=== PATIENT | male | born 1960 | race Caucasian/White ===

== ENCOUNTER → 2016-04-16 | Outpatient (CLI) | payer MEDICARE ==
[~2016-04-16] MED LIST: ALBU8.5H2 IH; ASPI-586 PO; AZIT500T2 PO; CEFD300C3 PO; CLAR500T2 PO; GABA300C PO; HYDR-3714 PO; LISI10TA2 PO; METO-270 PO; METO-272 PO; Metoprolol Succinate PO; PNT40TEC PO; PRD20T PO; PRED10TA22 PO
--- OUTSIDE RECORDS SUMMARY | 2016-04-16 10:15 | XMS REPORT | Continuity of Care Document ---
Author Author [facility] Organization [facility] Address Unknown Phone Unavailable Support Name Relationship Address Phone EMILY HOLGUIN MD Caregiver [address] [place] [address] CATHI LOVE Next Of Kin [address] [place] [address] Insurance Providers Payer Name Policy Number Subscriber Name Relationship [facility] [id number] Lizy Miranda 18 Self / Same As Patient Advance Directives Directive Response Recorded Date/Time Advance Directives No 01/22/14 12:39pm Health Care Power of Records Technician No 01/22/14 12:39pm Organ Donor No 01/22/14 12:39pm Resuscitation Status Full Code 01/22/14 12:39pm Problems No known problems or medical conditions. Medications Medication Dose Route Sig Days/Qty Instructions Order Date Discontinued Date Status [Metoprolol Succinate] 25 Mg PO DAILY 30 Qty 01/23/14 Active Pantoprazole Sod 40 Mg PO DAILY 30 Qty 01/23/14 Active Social History Social History Problem Response Recorded Date/Time Alcohol Use Past History 01/22/2014 12:52pm Recreational Drug Use No 01/22/2014 12:52pm Recent Foreign Travel No 01/22/2014 12:52pm Recent Infectious Disease Exposure No 01/22/2014 12:52pm Sexually Transmitted Disease No 01/22/2014 12:52pm HIV/AIDS No 01/22/2014 12:52pm Smoking Status Current Everyday Smoker 01/22/2014 12:40pm Query Response Start Date Stop Date Smoking Status Current Everyday Smoker Hospital Discharge Instructions Patient Instructions Physician Instructions Follow Up/Plan appointment with Dr Holguin in 2-4 weeks CARDIAC CATH DISCHARGE INSTRUCTIONS *Hold Metformin for 48 hours post heart cath. ACTIVITY * Go Home directly and rest. * Limit activity of the leg (or wrist if it was used) for 7 days including aerobics, swimming, jogging, bicycling, etc. * Restrict stair-climbing for 7 days if possible, if not, climb up with your non-cath leg, then bring together on the same step. * Avoid lifting, pushing, pulling or excessive movement of the affected extremity for 7 days. * Customary sexual activity may be resumed after 2 days-use caution not to use a position that strains or causes pain to the affected extremity. * No driving for 24 hours. * NO SMOKING. * Avoid straining for bowel movements for 7 days. * Gentle walking on level ground is allowed. * Returning to work will depend on the type of procedure and the results. Your doctor will discuss this with you. CALL YOUR DOCTOR FOR ANY OF THE FOLLOWING: *If bleeding from the puncture site occurs- Apply gentle pressure to site with clean cloth and call your doctor or EMS. * If a knot or lump forms under the skin, increases in size, or causes pain. * If bruising appears to be worsening or moving further down your leg instead of disappearing. * Temperature above 101 F. CARE OF YOUR GROIN INCISION; * Bruising or purple discoloration of the skin near the puncture site is common. * You may shower only, no bathtub bathing for 5 days. Be careful to avoid slipping as your leg may feel stiff. * If a closure device was used on your femoral artery, please see the attached guide regarding care of the device and your leg. * REMOVE the dressing from your groin the next day after your procedure in the shower. CARE OF YOUR WRIST INCISION; * Bruising or purple discoloration of the skin near the puncture site is common. * You may shower. * DO NOT submerge wrist. * Remove dressing in 24 hours. Plan of Care Discharge Date 01/23/14 4:10pm Disposition 01 HOME, SELF-CARE Instructions/Education Provided 2 Gram Sodium Diet (DC) Forms Provided PDI Cardiac Cath Prescriptions See Medications Section Referrals (Unspecified) Care Plan and Goals please schedule appointment with Dr. Virgen for evaluation for EGD Functional Status Query Response Date Recorded Patient Orientation Person Place Time Situation January 23, 2014 5:39pm Comprehension Ability Understands Concepts January 23, 2014 4:00am Allergies, Adverse Reactions, Alerts Allergen Type Severity Reaction Status Last Updated Penicillins ([id number]) Allergy Intermediate Active 01/22/14 Immunizations Name Given Type pneumococcal polysaccharide PPV23 01/23/14 Administered influenza, split (incl. purified surface antigen) 01/23/14 Administered Vital Signs Acute Vital Signs Vital Response Date/Time Temperature (Fahrenheit) 97.7 degrees F (97.6 - 99.5) Temperature (Calculated Celsius) 36.06107 degrees C (36.4 - 37.5) Temperature Source Temporal Pulse Rate (adult) 68 bpm (60 - 90) Respiratory Rate 10 bpm (12 - 24) O2 Sat by Pulse Oximetry 96 % (88 - 100) Blood Pressure 126/79 mm Hg Pain Pain Intensity 0 Height (Feet) 6 feet Height (Inches) 2.00 inches Height (Calculated Centimeters) 187.348628 cm Weight (Pounds) 189 pounds Weight (Ounces) 6.4 oz Weight (Calculated Grams) 66916.396 gm Weight (Calculated Kilograms) 85.166601 kilograms Calculated BMI 24.78 Results No known relevant diagnostic tests, laboratory data and/or discharge summary. Procedures Procedure Status Date Provider(s) Color Doppler echocardiography completed 01/22/14 EMILY HOLGUIN MD Tracing only of electrocardiogram completed 01/22/14 EMILY HOLGUIN MD Tracing only of electrocardiogram completed 01/22/14 EMILY HOLGUIN MD Encounters Encounter Location Date/Time Discharged Inpatient Via [facility] 01/22/14 12:18pm
[2016-04-16 10:41] LABS: CHOLESTEROL 164 MG/DL (< 200); DIRECT LDL 102 MG/DL (1-129); TRIGLYCERIDES 160 MG/DL (<150); VLDL CHOLESTEROL 32 MG/DL (5-40)
== END ==
LOC: LAB 10:11
PROVIDERS: ATTEND Family Medicine
DX: I25.10 Atherosclerotic heart disease of native coronary artery without angina pectoris (principal); J44.9 Chronic obstructive pulmonary disease, unspecified; R06.00 Dyspnea, unspecified; I10 Essential (primary) hypertension; I34.0 Nonrheumatic mitral (valve) insufficiency; R00.2 Palpitations; Z72.0 Tobacco use
CPT/HCPCS: 36415; 80061

== ENCOUNTER 2016-08-23 21:43 | Emergency (ER) | payer MEDICARE ==
[~2016-08-23] VITALS: Ht 188 cm; Wt 102.1 kg
--- NOTE | 2016-08-23 22:13 | ED Upper Extremity ---
General Chief Complaint: Upper Extremity Stated Complaint: RT SHOULDER PAIN Nursing Triage Note: RIGHT SHOULDER PAIN SINCE AM, NO KNOWN INJURY. Nursing Sepsis Screen: No Definite Risk Source: patient Exam Limitations: no limitations History of Present Illness Time seen by provider: 22:13 Allergies and Home Medications Allergies Coded Allergies: Penicillins (Unverified Allergy, Intermediate, 01/22/14) causes dysrhythmias Home Medications Aspirin 81 Mg Tablet.dr, 81 MG PO DAILY, (Reported) Lisinopril 10 Mg Tablet, 10 MG PO DAILY, (Reported) Metoprolol Succinate 50 Mg Tab.er.24h, 50 MG PO HS, (Reported) Past Zysxxag-Sltrfe-Mcdvwk Hx Patient Social History Alcohol Use: Denies Use Recreational Drug Use: No Type Used: Cigarettes Recent Foreign Travel: No Contact w/Someone Who Travel: No Recent Infectious Disease Expo: No Recent Hopitalizations: No Immunizations Up To Date Tetanus Booster (TDap): Unknown Seasonal Allergies Seasonal Allergies: No Surgeries HX Surgeries: Yes (R knee cartilage rpr, bl inguinal hernia rpr, Cardiac cath x2, lumbar fusio) Surgeries: Abdominal, Cardiac, Orthopedic Respiratory Hx Respiratory Disorders: Yes (HEMOPTYSIS WITH BRONCHITIS) Respiratory Disorders: Pneumonia, Chronic Bronchitis, COPD Cardiovascular Hx Cardiac Disorders: Yes (MILD BILATERAL CAROTID DISEASE) Cardiac Disorders: Coronary Artery Disease, Heart Attack, High Cholesterol, Hypertension Neurological Hx Neurological Disorders: No Reproductive System Hx Reproductive Disorders: No Sexually Transmitted Disease: No HIV/AIDS: No Genitourinary Hx Genitourinary Disorders: No Gastrointestinal Hx Gastrointestinal Disorders: Yes Gastrointestinal Disorders: Gastroesophageal Reflux, Gastrointestinal Bleed, Polyps, Ulcer Musculoskeletal Hx Musculoskeletal Disorders: Yes (RIGHT KNEE TORN CARTILAGE; BACK SURGERY 1988 ) Musculoskeletal Disorders: Arthritis, Chronic Back Pain Endocrine Hx Endocrine Disorders: No HEENT HX ENT Disorders: Yes (WEARS GLASSES; POOR DENTITION) HEENT Disorders: Tinnitis, Eye Injury Loss of Vision: Denies Hearing Impairment: Hard of Hearing Cancer Hx Cancer: No Psychosocial Hx Psychiatric Problems: Yes (MENTAL BLOCK ([place], [place] PSYCHIATRIC INSTUTITE FOR 3 YEARS) ) Behavioral Health Disorders: Violent Behavior Integumentary HX Skin/Integumentary Disorder: No (dry skin ) Blood Transfusions Hx Blood Disorders: No Adverse Reaction to a Blood Tr: No Family Medical History Family Medial History: Cardiomegaly 19 MOTHER Dysphasia G8 BROTHER G8 SISTER FH: cancer Hypertension G8 BROTHER G8 SISTER G8 SISTER Kidney disease 19 MOTHER Myocardial infarction Physical Exam Vital Signs Vital Sign - Last 12Hours 08/23/16 21:56 Temp 98.8 Pulse 97 Resp 16 B/P (MAP) 113/87 Pulse Ox 93 O2 Delivery Room Air Capillary Refill : Less Than 3 Seconds Progress/Results/Core Measures Results/Orders My Orders Orders - NIHARIKA BOLAÑOS Shoulder, Right, 3 Views (08/23/16 22:00) Prednisone Tablet (Deltasone Tablet) (08/23/16 23:00) Rx-Cyclobenzaprine Tablet (Rx-Flexeril T (08/23/16 22:52) Hydrocodone/Apap 10/325 Tablet (Lortab 1 (08/23/16 23:00) Vital Signs/I&O Vital Sign - Last 12Hours 08/23/16 21:56 Temp 98.8 Pulse 97 Resp 16 B/P (MAP) 113/87 Pulse Ox 93 O2 Delivery Room Air Blood Pressure Mean: 96 Departure Impression Impression: Primary Impression: Acromioclavicular joint pain Disposition: 01 HOME, SELF-CARE Condition: Improved Departure-Patient Inst. Decision time for Depature: 22:55 Referrals: AMANUEL ANDERSON MD (PCP) Primary Care Physician LONG MAC (Family) Primary Care Physician Patient Instructions: Active Range of Motion Exercises, Neck and Shoulders Add. Discharge Instructions: All discharge instructions reviewed with patient and/or family. Voiced understanding. Medications as instructed. Ibuprofen 800 mg by mouth every 8 hours as needed for pain. Ice pack or heating pad as needed for pain. Consider seeing a chiropractor. Avoid pushing, pulling, and lifting for 7-10 days. Return to the emergency department for worsened symptoms or any other concerns. Follow-up with your family practitioner for recheck in 7-10 days if no improvement in symptoms. Scripts Hydrocodone/Acetaminophen (Hydrocodon -Acetaminophen 5-325) 1 Each Tablet 1 EACH PO Q4H Y for PAIN, #14 TAB 0 Refills Prov: NIHARIKA BOLAÑOS 08/23/16 Cyclobenzaprine HCl (Cyclobenzaprine HCl) 10 Mg Tablet 10 MG PO Q8H Y for SPASMS, #14 TAB 0 Refills Prov: NIHARIKA BOLAÑOS 08/23/16 Prednisone (Prednisone) 20 Mg Tab 40 MG PO DAILY, #8 TAB 0 Refills Prov: NIHARIKA BOLAÑOS 08/23/16 NIHARIKA BOLAÑOS Aug 23, 2016 22:13
[2016-08-23] MEDS ORDERED: RX-CYCLOBENZAPRINE 10 MG (FLEXERIL) TAB PPK#3 PO STA (22:52)
[2016-08-23] MEDS ORDERED: HYDR-3812 PO (22:56)
[2016-08-23] MEDS ORDERED: PRD20T PO (22:56)
[2016-08-23] MEDS ORDERED: CYCL10TA9 PO (22:56)
[2016-08-23] MEDS ORDERED: predniSONE 20 MG TAB PO ONE (23:00)
[2016-08-23] MEDS ORDERED: HYDROcodone/APAP 10 MG/325 MG (LORTAB) TAB PO ONE (23:00)
[2016-08-23 23:02] VITALS: BP 124/84
--- NOTE | 2016-08-24 08:11 | Diagnostic Imaging Report ---
EXAMINATION: 3 views of the right shoulder. INDICATION: Right-sided pain. Findings: There is acromioclavicular arthritis with prominent inferior osteophytes. The glenohumeral joint demonstrate slight superior subluxation which may relate to rotator cuff thinning. There is no fracture or dislocation. No radiopaque foreign body. IMPRESSION: Degenerative changes. No acute process. Dictated by: Dictated on workstation # [id number]
== END 2016-08-23 23:01 | disposition home or self-care (01) ==
LOC: EDUNIT# 21:43 → ER 21:45
DX: M25.511 Pain in right shoulder (principal); I25.10 Atherosclerotic heart disease of native coronary artery without angina pectoris; I25.2 Old myocardial infarction; I10 Essential (primary) hypertension; M19.90 Unspecified osteoarthritis, unspecified site
CPT/HCPCS: 73030; 99283

== ENCOUNTER 2016-12-29 18:14 | Emergency (ER) | payer MEDICARE ==
[~2016-12-29] VITALS: Ht 188 cm; Wt 95.3 kg
[~2016-12-29 18:14] MED LIST changes: +CYCL10TA9 PO; +HYDR-3812 PO
[2016-12-29] MEDS ORDERED: ASPIRIN 81 MG CHEW (CHILDREN'S ASA) PO ONE (18:30)
[2016-12-29 18:33] LABS: BASOPHILS # (AUTO) 0.1 10^3/uL (0.0-0.1); BASOPHILS % (AUTO) 1 % (0-10); EOSINOPHILS # (AUTO) 0.3 10^3/uL (0.0-0.3); EOSINOPHILS % (AUTO) 3 % (0-10); LYMPHOCYTES # (AUTO) 3.6 X 10^3 (1.0-4.0); LYMPHOCYTES % (AUTO) 33 % (12-44); MEAN CORPUSCULAR HEMOGLOBIN 31 PG (25-34); MEAN CORPUSCULAR HGB CONC 33 G/DL (32-36); MEAN CORPUSCULAR VOLUME 93 FL (80-99); MEAN PLATELET VOLUME 12.5 FL (7.4-10.4); MONOCYTES % (AUTO) 9 % (0-12); NEUTROPHILS # (AUTO) 6.2 X 10^3 (1.8-7.8); NEUTROPHILS % (AUTO) 55 % (42-75); PLATELET COUNT 228 10^3/uL (130-400); RED BLOOD COUNT 4.98 10^6/uL (4.35-5.85); RED CELL DISTRIBUTION WIDTH 12.6 % (10.0-14.5); WHITE BLOOD COUNT 11.1 10^3/uL (4.3-11.0)
[2016-12-29 18:45] LABS: ALANINE AMINOTRANSFERASE 12 U/L (0-55); ALBUMIN 4.4 GM/DL (3.2-4.5); ANION GAP 10 MMOL/L (5-14); ASPARTATE AMINO TRANSFERASE 16 U/L (5-34); BILIRUBIN,TOTAL 0.2 MG/DL (0.1-1.0); BLOOD UREA NITROGEN 7 MG/DL (7-18); BUN/CREATININE RATIO 8; CALCIUM 9.6 MG/DL (8.5-10.1); CARBON DIOXIDE 28 MMOL/L (21-32); CHLORIDE 100 MMOL/L (98-107); CREATININE SERUM 0.83 MG/DL (0.60-1.30); GFR ESTIMATED > 60; GLUCOSE 103 MG/DL (70-105); MAGNESIUM 2.3 MG/DL (1.8-2.4); POTASSIUM 3.7 MMOL/L (3.6-5.0); SODIUM 138 MMOL/L (135-145); TOTAL PROTEIN 8.1 GM/DL (6.4-8.2)
[2016-12-29 18:52] LABS: MYOGLOBIN SERUM 29.4 NG/ML (10.0-92.0)
[2016-12-29 18:56] LABS: INR 0.9 (0.8-1.4); PROTHROMBIN TIME PATIENT 12.4 SEC (12.2-14.7)
--- NOTE | 2016-12-29 19:09 | Diagnostic Imaging Report ---
INDICATION: Chest pain, coughing up thick phlegm starting today. COMPARISON STUDY: Chest dated 03/04/2016. FINDINGS: Emphysematous changes are present mainly in the upper lungs. It is a little greater on the right than the left. Some fibrotic changes are again seen in the right lung base. Heart size and vascularity are normal. There are no pleural effusions. IMPRESSION: Emphysematous changes and fibrosis in the right lung base are again identified. Dictated by: Dictated on workstation # [id number]
--- NOTE | 2016-12-29 20:02 | ED Chest Pain ---
General Chief Complaint: Respiratory Problems Stated Complaint: SOA Nursing Triage Note: ARRIVED VIA AMBULANCE TO ROOM 08. COMPLAINS OF INCREASED SOA STARTING TODAY ALONG WITH SOME CHEST TIGHTNESS. STATES HE HAS HAD PNEUMONIA BEFORE AND THIS IS WHAT IT FELT LIKE. Nursing Sepsis Screen: No Definite Risk Source: patient Exam Limitations: no limitations Allergies and Home Medications Allergies Coded Allergies: Penicillins (Unverified Allergy, Intermediate, 01/22/14) causes dysrhythmias Home Medications Aspirin 81 Mg Tablet.dr, 81 MG PO DAILY, (Reported) Lisinopril 10 Mg Tablet, 10 MG PO DAILY, (Reported) Metoprolol Succinate 50 Mg Tab.er.24h, 50 MG PO HS, (Reported) Past Ztkajwd-Vuqjrc-Bzuqwg Hx Patient Social History Alcohol Use: Past History Recreational Drug Use: No (OLD HX OF POT) Smoking Status: Current Everyday Smoker Type Used: Cigarettes Recent Foreign Travel: No Contact w/Someone Who Travel: No Recent Infectious Disease Expo: No Recent Hopitalizations: No Immunizations Up To Date Tetanus Booster (TDap): Unknown Seasonal Allergies Seasonal Allergies: No Surgeries History of Surgeries: Yes (R knee cartilage rpr, bl inguinal hernia rpr, Cardiac cath x2, lumbar fusio) Surgeries: Abdominal, Cardiac, Orthopedic Respiratory History of Respiratory Disorde: Yes (HEMOPTYSIS WITH BRONCHITIS) Respiratory Disorders: Pneumonia, Chronic Bronchitis, COPD Currently Using CPAP: No Currently Using BIPAP: No Cardiovascular History of Cardiac Disorders: Yes (MILD BILATERAL CAROTID DISEASE) Cardiac Disorders: Coronary Artery Disease, Heart Attack, High Cholesterol, Hypertension Neurological History of Neurological Disord: No Reproductive System Hx Reproductive Disorders: No Sexually Transmitted Disease: No HIV/AIDS: No Genitourinary History of Genitourinary Disor: No Gastrointestinal History of Gastrointestinal Di: Yes Gastrointestinal Disorders: Gastroesophageal Reflux, Gastrointestinal Bleed, Polyps, Ulcer Musculoskeletal History of Musculoskeletal Dis: Yes (RIGHT KNEE TORN CARTILAGE; BACK SURGERY 1988) Musculoskeletal Disorders: Arthritis, Chronic Back Pain Endocrine History of Endocrine Disorders: No HEENT History of HEENT Disorders: Yes HEENT Disorders: Tinnitis, Eye Injury Loss of Vision: Denies Hearing Impairment: Hard of Hearing Cancer History of Cancer: No Psychosocial History of Psychiatric Problem: Yes (MENTAL BLOCK ([place], [place] PSYCHIATRIC INSTUTITE FOR 3 YEARS) ) Behavioral Health Disorders: Violent Behavior Integumentary History of Skin or Integumenta: No Blood Transfusions History of Blood Disorders: No Adverse Reaction to a Blood Tr: No Family Medical History Significant Family History: No Pertinent Family Hx Family Medial History: Cardiomegaly 19 MOTHER Dysphasia G8 BROTHER G8 SISTER FH: cancer Hypertension G8 BROTHER G8 SISTER G8 SISTER Kidney disease 19 MOTHER Myocardial infarction Physical Exam Vital Signs Vital Sign - Last 12Hours 12/29/16 18:14 Temp 97.9 Pulse 101 Resp 18 B/P (MAP) 120/85 Pulse Ox 92 Capillary Refill : Less Than 3 Seconds Progress/Results/Core Measures Results/Orders Lab Results Laboratory Tests Test 12/29/16 18:18 12/29/16 18:40 Range/Units White Blood Count 11.1 H 4.3-11.0 10^3/uL Red Blood Count 4.98 4.35-5.85 10^6/uL Hemoglobin 15.2 13.3-17.7 G/DL Hematocrit 46 40-54 % Mean Corpuscular Volume 93 80-99 FL Mean Corpuscular Hemoglobin 31 25-34 PG Mean Corpuscular Hemoglobin Concent 33 32-36 G/DL Red Cell Distribution Width 12.6 10.0-14.5 % Platelet Count 228 130-400 10^3/uL Mean Platelet Volume 12.5 H 7.4-10.4 FL Neutrophils (%) (Auto) 55 42-75 % Lymphocytes (%) (Auto) 33 12-44 % Monocytes (%) (Auto) 9 0-12 % Eosinophils (%) (Auto) 3 0-10 % Basophils (%) (Auto) 1 0-10 % Neutrophils # (Auto) 6.2 1.8-7.8 X 10^3 Lymphocytes # (Auto) 3.6 1.0-4.0 X 10^3 Monocytes # (Auto) 1.0 0.0-1.0 X 10^3 Eosinophils # (Auto) 0.3 0.0-0.3 10^3/uL Basophils # (Auto) 0.1 0.0-0.1 10^3/uL Sodium Level 138 135-145 MMOL/L Potassium Level 3.7 3.6-5.0 MMOL/L Chloride Level 100 98-107 MMOL/L Carbon Dioxide Level 28 21-32 MMOL/L Anion Gap 10 5-14 MMOL/L Blood Urea Nitrogen 7 7-18 MG/DL Creatinine 0.83 0.60-1.30 MG/DL Estimat Glomerular Filtration Rate > 60 BUN/Creatinine Ratio 8 Glucose Level 103 70-105 MG/DL Calcium Level 9.6 8.5-10.1 MG/DL Magnesium Level 2.3 1.8-2.4 MG/DL Total Bilirubin 0.2 0.1-1.0 MG/DL Aspartate Amino Transf (AST/SGOT) 16 5-34 U/L Alanine Aminotransferase (ALT/SGPT) 12 0-55 U/L Alkaline Phosphatase 72 40-136 U/L Myoglobin 29.4 10.0-92.0 NG/ML Troponin I < 0.30 <0.30 NG/ML C-Reactive Protein High Sensitivity 0.29 0.00-0.50 MG/DL Total Protein 8.1 6.4-8.2 GM/DL Albumin 4.4 3.2-4.5 GM/DL Prothrombin Time 12.4 12.2-14.7 SEC INR Comment 0.9 0.8-1.4 Activated Partial Thromboplast Time 29 24-35 SEC My Orders Orders - DAVEY MCCANN MD Cbc With Automated Diff (12/29/16 18:) Magnesium (12/29/16 18:23) Ekg Tracing (12/29/16 18:) Cardiac Profile 1 (12/29/16) Comprehensive Metabolic Panel (12/29/16 18:) Myoglobin Serum (12/29/16:) Protime With Inr (12/29/16:) Partial Thromboplastin Time (12/29/16:) O2 (12/29/16:) Monitor-Rhythm Ecg Trace Only (12/29/16) Lipid Panel (12/30/16 06:00) Aspirin Chewable Tablet (Baby Aspirin Ch (12/29/16 18:30) Saline Lock/Iv-Start (12/29/16:) Chest Pa/Lat (2 View) (12/29/16 18:) Hs C Reactive Protein (12/29/16:) Medications Given in ED Current Medications Medications Dose Ordered Sig/Mikayla Route Start Time Stop Time Status Last Admin Dose Admin Aspirin 243 mg ONCE ONCE PO 12/29/16 18:30 10/11/17 18:31 DC 12/29/16 18:38 243 MG Vital Signs/I&O Vital Sign - Last 12Hours 12/29/16 18:14 Temp 97.9 Pulse 101 Resp 18 B/P (MAP) 120/85 Pulse Ox 92 Blood Pressure Mean: 97 Progress Note : Time: 20:08 Progress Note Patient's workup was unremarkable. Chest x-ray showed persistent fibrosis or scarring in the right lower lung which correlates with his stated area of pain. Patient had no significant shortness of breath and denied any pain after the DuoNeb treatment. Patient was advised to discontinue smoking and resume his inhaled medications. He was advised follow-up with his primary care provider soon as possible. A pro-air inhaler was dispensed at the time of discharge. ECG Initial ECG Impression Date: Dec 29, 2016 Initial ECG Impression Time: 18:31 Initial ECG Rate: 91 Initial ECG Rhythm: Normal Sinus Comment Normal sinus rhythm with no ST elevation or depression. No abnormal intervals. Left axis deviation by automated read. Diagnostic Imaging Diagonstic Imaging: Xray Plain Films/CT/US/NM/MRI: chest Comments Chest x-ray viewed by me and report reviewed. See report below: NAME: LIZY MIRANDA [facility] REC#: [id number] PT STATUS: REG ER : 1960 PHYSICIAN: DAVEY MCCANN MD ADMIT DATE: 12/29/16/ER Signed Date of Exam: 12/29/16 CHEST PA/LAT (2 VIEW) INDICATION: Chest pain, coughing up thick phlegm starting today. COMPARISON STUDY: Chest dated 03/04/2016. FINDINGS: Emphysematous changes are present mainly in the upper lungs. It is a little greater on the right than the left. Some fibrotic changes are again seen in the right lung base. Heart size and vascularity are normal. There are no pleural effusions. IMPRESSION: Emphysematous changes and fibrosis in the right lung base are again identified. Dictated by: Dictated on workstation # [id number] Dict: 12/29/161855 Trans: 12/29/161909 Interpreted by: JYOTI RENNER MD Electronically signed by: JYOTI RENNER MD 12/29/161909 Departure Impression Impression: Primary Impression: COPD exacerbation Additional Impression: Chest tightness Disposition: 01 HOME, SELF-CARE Condition: Improved Departure-Patient Inst. Decision time for Depature: 20:07 Referrals: AMANUEL ANDERSON MD (PCP) Primary Care Physician LONG MAC (Family) Primary Care Physician Patient Instructions: Chronic Obstructive Pulmonary Disease (COPD), Including Emphysema Add. Discharge Instructions: Reduce your smoking and work toward quitting. Seek assistance from your primary care provider if necessary. Please follow-up with your primary care provider as soon as possible to reestablish your medication regimen. Return to the emergency room if symptoms worsen. Use your pro-air (albuterol) inhaler up to 4 puffs in a four-hour period of time as needed for shortness of air, wheezing or uncontrolled cough. All discharge instructions reviewed with patient and/or family. Voiced understanding. DAVEY MCCANN MD Dec 29, 2016 20:02
[2016-12-29] MEDS ORDERED: RX-ALBUTEROL INHALER (PROAIR) 8 GM IH STA (20:06)
[2016-12-29 20:15] VITALS: BP 109/73
== END 2016-12-29 20:15 | disposition home or self-care (01) ==
LOC: EDUNIT# 18:14 → ER 18:16
DX: J44.1 Chronic obstructive pulmonary disease with (acute) exacerbation (principal); R07.89 Other chest pain; I25.10 Atherosclerotic heart disease of native coronary artery without angina pectoris; I10 Essential (primary) hypertension; I25.2 Old myocardial infarction; E78.00 Pure hypercholesterolemia, unspecified; K21.9 Gastro-esophageal reflux disease without esophagitis; F17.210 Nicotine dependence, cigarettes, uncomplicated; Z87.19 Personal history of other diseases of the digestive system; Z98.1 Arthrodesis status; Z87.01 Personal history of pneumonia (recurrent); Z82.49 Family history of ischemic heart disease and other diseases of the circulatory system; Z79.82 Long term (current) use of aspirin
CPT/HCPCS: 36415; 71020; 80053; 83735; 83874; 84484; 85025; 85610; 85730; 86141; 93005; 93041

== ENCOUNTER 2017-01-01 12:41 | Observation (INO) | payer MEDICARE ==
[~2017-01-01] VITALS: Ht 167.6 cm; Wt 95.3 kg
[2017-01-01] MEDS ORDERED: RT-ALBUINH IH (12:54)
[2017-01-01] MEDS ORDERED: NITROGLYCERIN 0.4 MG SL TABS BTL 25'S SL ONE (12:55)
[2017-01-01] MEDS ORDERED: ASPIRIN 81 MG CHEW (CHILDREN'S ASA) ONE (12:55)
[2017-01-01] MEDS ORDERED: NS IV 1000 ML 1,000 ML IV ONE (13:02)
[2017-01-01] MEDS: NITROGLYCERIN 0.4 MG SL TABS BTL 25'S SL PRN ×2 (13:06→13:14)
--- NOTE | 2017-01-01 13:11 | ED Chest Pain ---
General Chief Complaint: Chest Pain Stated Complaint: CP Nursing Triage Note: PT C O OF CHEST PAIN STARTED APPROX 1 HOUR AGO Nursing Sepsis Screen: No Definite Risk Source: patient, family (daughter) Exam Limitations: no limitations History of Present Illness Time seen by provider: 12:52 Initial Comments Patient presents to ER by private conveyance with a chief complaint that he is having chest pain in the substernal region that feels like someone is stabbing him with a knife that began at 11 AM this morning. The pain radiates directly to his back and is different from the right shoulder pain he felt before his heart attacks. He was accompanied with some shortness of breath and increased coughing for the past couple days. He was here in the ER 2 days ago and prescribed an inhaler for COPD exacerbation. He smokes one half packs a day has blood pressure problems but does not take a statin nor have a history of hyperthyroidism. He has strong family history for coronary disease as well as has had a history of 2 heart attacks many years ago. He is known to Dr. Holguin and has had a heart catheter approximately one year ago. According to the June 2015 cardiac catheter:multiple moderate disease in the right coronary artery nonobstructive disease, prominent ascending aorta and aortic arch with no dissection or aneurysm. Allergies and Home Medications Allergies Coded Allergies: Penicillins (Unverified Allergy, Intermediate, 01/22/14) causes dysrhythmias Home Medications Albuterol Sulfate 1 Puff Puff, 2 PUFF IH Q4H, (Reported) 1 PUFF = 90 MCG Aspirin 81 Mg Tablet.dr, 81 MG PO DAILY, (Reported) Lisinopril 10 Mg Tablet, 10 MG PO DAILY, (Reported) Metoprolol Succinate 50 Mg Tab.er.24h, 50 MG PO HS, (Reported) Review of Systems Constitutional: No chills, No diaphoresis EENTM: No Eye Pain, No Ear Pain Respiratory: See HPI, Cough, Shortness of Air, SOA With Exertion Cardiovascular: See HPI, Chest Pain, Denies Edema, Denies Irregular Heart Rate , Denies Lightheadedness, Denies Palpitations, Denies Syncope Gastrointestinal: Denies Abdomen Distended, Denies Abdominal Pain, Denies Blood Streaked Stools, Denies Constipated, Denies Diarrhea, Denies Nausea, Denies Vomiting Genitourinary: Denies Burning, Denies Discharge Musculoskeletal: No back pain, No joint pain Skin: No pruritus, No rash Psychiatric/Neurological: Denies Headache, Denies Numbness, Denies Paresthesia Past Gjojuoc-Hmdyub-Hasgbb Hx Patient Social History Alcohol Use: Denies Use Recreational Drug Use: No Smoking Status: Current Everyday Smoker Type Used: Cigarettes Recent Foreign Travel: No Contact w/Someone Who Travel: No Recent Infectious Disease Expo: No Recent Hopitalizations: No Physical Abuse: No Sexual Abuse: No Immunizations Up To Date Tetanus Booster (TDap): Unknown Seasonal Allergies Seasonal Allergies: No Surgeries History of Surgeries: Yes (R knee cartilage rpr, bl inguinal hernia rpr, Cardiac cath x2, lumbar fusio) Surgeries: Abdominal, Cardiac, Orthopedic Respiratory History of Respiratory Disorde: Yes (HEMOPTYSIS WITH BRONCHITIS) Respiratory Disorders: Pneumonia, Chronic Bronchitis, COPD Currently Using CPAP: No Currently Using BIPAP: No Cardiovascular History of Cardiac Disorders: Yes (MILD BILATERAL CAROTID DISEASE) Cardiac Disorders: Coronary Artery Disease, Heart Attack, High Cholesterol, Hypertension Neurological History of Neurological Disord: No Reproductive System Hx Reproductive Disorders: No Sexually Transmitted Disease: No HIV/AIDS: No Genitourinary History of Genitourinary Disor: No Gastrointestinal History of Gastrointestinal Di: Yes Gastrointestinal Disorders: Gastroesophageal Reflux, Gastrointestinal Bleed, Polyps, Ulcer Musculoskeletal History of Musculoskeletal Dis: Yes (RIGHT KNEE TORN CARTILAGE; BACK SURGERY 1988) Musculoskeletal Disorders: Arthritis, Chronic Back Pain Endocrine History of Endocrine Disorders: No HEENT History of HEENT Disorders: Yes HEENT Disorders: Tinnitis, Eye Injury Loss of Vision: Denies Hearing Impairment: Hard of Hearing Cancer History of Cancer: No Psychosocial History of Psychiatric Problem: Yes (MENTAL BLOCK ([place], [place] [facility] FOR 3 YEARS) ) Behavioral Health Disorders: Violent Behavior Suicide Risk Score: 0 Integumentary History of Skin or Integumenta: No Blood Transfusions History of Blood Disorders: No Adverse Reaction to a Blood Tr: No Family Medical History Significant Family History: No Pertinent Family Hx Family Medial History: Cardiomegaly 19 MOTHER Dysphasia G8 BROTHER G8 SISTER FH: cancer Hypertension G8 BROTHER G8 SISTER G8 SISTER Kidney disease 19 MOTHER Myocardial infarction Physical Exam Vital Signs Vital Sign - Last 12Hours 01/01/17 12:41 Temp 97.7 Pulse 82 Resp 18 B/P (MAP) 131/95 Pulse Ox 92 O2 Delivery Room Air Capillary Refill : Less Than 3 Seconds General Appearance: WD/WN, Mild Distress HEENT: PERRL/EOMI, Pharynx Normal Neck: Full Range of Motion, Normal Inspection, Non Tender, Supple Respiratory: Chest Non Tender, No Accessory Muscle Use, No Respiratory Distress , No Crackles, Decreased Breath Sounds, Wheezing (you explored wheezes especially left lower base) Cardiovascular: Regular Rate, Rhythm, No Edema, Normal Peripheral Pulses Gastrointestinal: Normal Bowel Sounds, Non Tender, Soft Extremity: Normal Capillary Refill, No Pedal Edema Neurologic/Psychiatric: Alert, Oriented x3, Normal Mood/Affect Skin: Normal Color, Warm/Dry Progress/Results/Core Measures Results/Orders Lab Results Laboratory Tests Test 01/01/17 12:40 01/01/17 13:09 Range/Units White Blood Count 8.6 4.3-11.0 10^3/uL Red Blood Count 4.77 4.35-5.85 10^6/uL Hemoglobin 14.6 13.3-17.7 G/DL Hematocrit 44 40-54 % Mean Corpuscular Volume 91 80-99 FL Mean Corpuscular Hemoglobin 31 25-34 PG Mean Corpuscular Hemoglobin Concent 34 32-36 G/DL Red Cell Distribution Width 12.6 10.0-14.5 % Platelet Count 219 130-400 10^3/uL Mean Platelet Volume 11.8 H 7.4-10.4 FL Neutrophils (%) (Auto) 61 42-75 % Lymphocytes (%) (Auto) 29 12-44 % Monocytes (%) (Auto) 8 0-12 % Eosinophils (%) (Auto) 2 0-10 % Basophils (%) (Auto) 1 0-10 % Neutrophils # (Auto) 5.2 1.8-7.8 X 10^3 Lymphocytes # (Auto) 2.5 1.0-4.0 X 10^3 Monocytes # (Auto) 0.7 0.0-1.0 X 10^3 Eosinophils # (Auto) 0.2 0.0-0.3 10^3/uL Basophils # (Auto) 0.1 0.0-0.1 10^3/uL Prothrombin Time 12.7 12.2-14.7 SEC INR Comment 0.9 0.8-1.4 Activated Partial Thromboplast Time 33 24-35 SEC Sodium Level 138 135-145 MMOL/L Potassium Level 4.1 3.6-5.0 MMOL/L Chloride Level 102 98-107 MMOL/L Carbon Dioxide Level 26 21-32 MMOL/L Anion Gap 10 5-14 MMOL/L Blood Urea Nitrogen 9 7-18 MG/DL Creatinine 0.83 0.60-1.30 MG/DL Estimat Glomerular Filtration Rate > 60 BUN/Creatinine Ratio 11 Glucose Level 98 70-105 MG/DL Calcium Level 9.7 8.5-10.1 MG/DL Magnesium Level 2.1 1.8-2.4 MG/DL Total Bilirubin 0.5 0.1-1.0 MG/DL Aspartate Amino Transf (AST/SGOT) 12 5-34 U/L Alanine Aminotransferase (ALT/SGPT) 10 0-55 U/L Alkaline Phosphatase 60 40-136 U/L Myoglobin 33.8 10.0-92.0 NG/ML Troponin I < 0.30 <0.30 NG/ML C-Reactive Protein High Sensitivity 0.29 0.00-0.50 MG/DL Total Protein 7.3 6.4-8.2 GM/DL Albumin 4.1 3.2-4.5 GM/DL Urine Color YELLOW Urine Clarity SLIGHTLY CLOUDY Urine pH 7 5-9 Urine Specific [place] 1.010 L 1.016-1.022 Urine Protein NEGATIVE NEGATIVE Urine Glucose (UA) NEGATIVE NEGATIVE Urine Ketones NEGATIVE NEGATIVE Urine Nitrite NEGATIVE NEGATIVE Urine Bilirubin NEGATIVE NEGATIVE Urine Urobilinogen NORMAL NORMAL MG/DL Urine Leukocyte Esterase NEGATIVE NEGATIVE Urine RBC (Auto) NEGATIVE NEGATIVE Urine RBC NONE /HPF Urine WBC NONE /HPF Urine Squamous Epithelial Cells 0-2 /HPF Urine Crystals NONE /LPF Urine Bacteria TRACE /HPF Urine Casts NONE /LPF Urine Mucus NEGATIVE /LPF Urine Culture Indicated NO My Orders Orders - BRIDGETT WELLINGTON Nitroglycerin 0.4 Mg Btl 25's (Nitrostat (01/01/17 12:55) Aspirin Chewable Tablet (Baby Aspirin Ch (01/01/17 12:55) Cbc With Automated Diff (01/01/17 13:02) Magnesium (01/01/17 13:02) Ekg Tracing (01/01/17 13:02) Cardiac Profile 1 (01/01/17 13:02) Comprehensive Metabolic Panel (01/01/17 13:02) Myoglobin Serum (01/01/17 13:02) Protime With Inr (01/01/17 13:02) Partial Thromboplastin Time (01/01/17 13:02) O2 (01/01/17 13:02) Monitor-Rhythm Ecg Trace Only (01/01/17 13:02) Lipid Panel (01/02/17 06:00) Aspirin Chewable Tablet (Baby Aspirin Ch (01/01/17 13:15) Nitroglycerin 0.4 Mg Btl 25's (Nitrostat (01/01/17 13:15) Saline Lock/Iv-Start (01/01/17 13:02) Hs C Reactive Protein (01/01/17 13:02) Ua Culture If Indicated (01/01/17 13:02) Saline Lock/Iv-Start (01/01/17 13:02) Ns Iv 1000 Ml (Sodium Chloride 0.9%) (01/01/17 13:02) Chest Pa/Lat (2 View) (01/01/17 13:02) Albuterol/Ipra Inhalation Soln (Duoneb I (01/01/17 13:15) Svn Sm Volume Nebulizer Rt-Rfs (01/01/17 13:02) Methylprednisolone Sod Succ (Solu-Medrol (01/01/17 13:45) Medications Given in ED Current Medications Medications Dose Ordered Sig/Mikayla Route Start Time Stop Time Status Last Admin Dose Admin Albuterol/ Ipratropium 3 ml ONCE ONCE INH 01/01/17 13:15 01/01/17 13:16 DC 01/01/17 13:19 3 ML Aspirin 324 mg ONCE ONCE PO 01/01/17 13:15 01/01/17 13:16 DC 01/01/17 13:08 243 MG Methylprednisolone Sodium Succinate 62.5 mg ONCE ONCE IVP 01/01/17 13:45 01/01/17 13:46 DC 01/01/17 13:53 62.5 MG Nitroglycerin 0.4 mg UD PRN SL 01/01/17 13:15 01/01/17 13:14 0.4 MG Sodium Chloride 1,000 ml @ 0 mls/hr Q0M ONCE IV 01/01/17 13:02 01/01/17 13:06 DC 01/01/17 13:13 1,000 MLS/HR Vital Signs/I&O Vital Sign - Last 12Hours 01/01/17 01/01/17 01/01/17 12:41 12:41 13:21 Temp 97.7 Pulse 82 Resp 18 B/P (MAP) 131/95 Pulse Ox 92 91 O2 Delivery Room Air Room Air Intake and Output 01/02/17 00:00 Intake Total 1000 ml Balance 1000 ml Blood Pressure Mean: 107 ECG Initial ECG Impression Date: Jan 01, 2017 Initial ECG Impression Time: 12:41 Initial ECG Rate: 85 Initial ECG Rhythm: Normal Sinus Initial ECG Intervals: Normal Initial ECG Impression: Normal Initial ECG Comparisson: No Previous ECG Available Comment No T-wave elevation or depression. Diagnostic Imaging Diagonstic Imaging: Xray Plain Films/CT/US/NM/MRI: chest Comments NAME: LIZY MIRANDA MED REC#: [id number] PHYSICIAN: BRIDGETT WELLINGTON MD CC: PIO MEDINA MD; BRIDGETT WELLINGTON Page 1 of 1 RADIOLOGY REPORT [facility] [place], [place] CC: PIO MEDINA MD; BRIDGETT WELLINGTON Page 1 of 1 RADIOLOGY REPORT NAME: LIZY MIRANDA MED REC#: [id number] PT STATUS: REG ER : 1960 PHYSICIAN: BRIDGETT WELLINGTON MD ADMIT DATE: 01/01/17/ER Signed Date of Exam: 01/01/17 CHEST PA/LAT (2 VIEW) INDICATION: Chest pain. Comparison made to prior study from December 29, 2016. FINDINGS: Advanced features of COPD are demonstrated with pulmonary hyperinflation and prominent interstitial markings. There is no focal infiltrate or evidence of an effusion. There is no evidence of failure. There is no acute osseous abnormality. IMPRESSION: Advanced features of COPD without radiographic evidence of an acute superimposed cardiopulmonary process. Dictated by: Dictated on workstation # [id number] Dict: 01/01/171400 Trans: 01/01/171416 Interpreted by: PIO MEDINA MD Electronically signed by: PIO MEDINA MD 01/01/171416 Reviewed: Reviewed by Ca Departure Communication (Admissions) Time/Spoke to Admitting Phy: 14:39 Communication Vela: Discussed the case, imaging, labs and she recommends consultation cardiology and doing steroids and albuterol treatments as well as trending troponin and EKG. Time/Spoke to Consulting Phy: 14:43 Communication/Consulting Dr. Kimbrough: Bolus dose of 300 mg Plavix, aspirin and observed overnight. Impression Impression: Primary Impression: Chest pain Qualified Codes: R07.9 - Chest pain, unspecified Additional Impression: COPD with exacerbation Disposition: ADMITTED INPATIENT Condition: Stable Admissions Decision to Admit Reason: Admit from ER (General) Decision to Admit/Date: Jan 01, 2017 Time/Decision to Admit Time: 14:39 Departure-Patient Inst. Referrals: AMANUEL ANDERSON MD (PCP) Primary Care Physician LONG MAC (Family) Primary Care Physician Copy Copies To 1: AMANUEL ANDERSON MD Copies To 2: EMILY HOLGUIN MD, TITUS J Jan 01, 2017 13:11
[2017-01-01 13:13] LABS: BASOPHILS # (AUTO) 0.1 10^3/uL (0.0-0.1); BASOPHILS % (AUTO) 1 % (0-10); EOSINOPHILS # (AUTO) 0.2 10^3/uL (0.0-0.3); EOSINOPHILS % (AUTO) 2 % (0-10); LYMPHOCYTES # (AUTO) 2.5 X 10^3 (1.0-4.0); LYMPHOCYTES % (AUTO) 29 % (12-44); MEAN CORPUSCULAR HEMOGLOBIN 31 PG (25-34); MEAN CORPUSCULAR HGB CONC 34 G/DL (32-36); MEAN CORPUSCULAR VOLUME 91 FL (80-99); MEAN PLATELET VOLUME 11.8 FL (7.4-10.4); MONOCYTES # (AUTO) 0.7 X 10^3 (0.0-1.0); MONOCYTES % (AUTO) 8 % (0-12); NEUTROPHILS # (AUTO) 5.2 X 10^3 (1.8-7.8); NEUTROPHILS % (AUTO) 61 % (42-75); PLATELET COUNT 219 10^3/uL (130-400); RED BLOOD COUNT 4.77 10^6/uL (4.35-5.85); RED CELL DISTRIBUTION WIDTH 12.6 % (10.0-14.5); WHITE BLOOD COUNT 8.6 10^3/uL (4.3-11.0)
[2017-01-01] MEDS ORDERED: ASPIRIN 81 MG CHEW (CHILDREN'S ASA) PO ONE (13:15)
[2017-01-01] MEDS ORDERED: RT-ALBUTEROL/IPRATROPIUM 3 ML (DUONEB) VIAL INH ONE (13:15)
[2017-01-01 13:17] LABS: INR 0.9 (0.8-1.4); PROTHROMBIN TIME PATIENT 12.7 SEC (12.2-14.7)
[2017-01-01 13:21] LABS: BILIRUBIN,URINE NEGATIVE (NEGATIVE); KETONES,URINE NEGATIVE (NEGATIVE); LEUKOCYTE ESTERASE ,URINE NEGATIVE (NEGATIVE); NITRITE,URINE NEGATIVE (NEGATIVE); PH,URINE 7 (5-9); PROTEIN,URINE NEGATIVE (NEGATIVE); UROBILINOGEN,URINE NORMAL (NORMAL)
[2017-01-01 13:26] LABS: ALANINE AMINOTRANSFERASE 10 U/L (0-55); ALBUMIN 4.1 GM/DL (3.2-4.5); ANION GAP 10 MMOL/L (5-14); ASPARTATE AMINO TRANSFERASE 12 U/L (5-34); BILIRUBIN,TOTAL 0.5 MG/DL (0.1-1.0); BLOOD UREA NITROGEN 9 MG/DL (7-18); BUN/CREATININE RATIO 11; CALCIUM 9.7 MG/DL (8.5-10.1); CARBON DIOXIDE 26 MMOL/L (21-32); CHLORIDE 102 MMOL/L (98-107); CREATININE SERUM 0.83 MG/DL (0.60-1.30); GFR ESTIMATED > 60; GLUCOSE 98 MG/DL (70-105); MAGNESIUM 2.1 MG/DL (1.8-2.4); POTASSIUM 4.1 MMOL/L (3.6-5.0); SODIUM 138 MMOL/L (135-145); TOTAL PROTEIN 7.3 GM/DL (6.4-8.2)
[2017-01-01 13:32] LABS: SQUAMOUS EPITHELIAL CELL,UR 0-2 /HPF
[2017-01-01 13:33] LABS: MYOGLOBIN SERUM 33.8 NG/ML (10.0-92.0)
[2017-01-01] MEDS ORDERED: methylPREDNISolone 125 MG (Solu-MEDROL) VIAL IVP ONE (13:45)
--- NOTE | 2017-01-01 14:05 | Diagnostic Imaging Report ---
INDICATION: Chest pain. Comparison made to prior study from December 29, 2016. FINDINGS: Advanced features of COPD are demonstrated with pulmonary hyperinflation and prominent interstitial markings. There is no focal infiltrate or evidence of an effusion. There is no evidence of failure. There is no acute osseous abnormality. IMPRESSION: Advanced features of COPD without radiographic evidence of an acute superimposed cardiopulmonary process. Dictated by: Dictated on workstation # [id number]
[2017-01-01] MEDS ORDERED: CLOPIDOGREL 300 MG (PLAVIX) TABLET PO ONE (15:00)
[2017-01-01 15:40] VITALS: BP 129/83
[2017-01-01] MEDS ORDERED: ONDANSETRON 4 MG/2 ML (SDV) Z0FRAN IV PRN (16:15)
[2017-01-01] MEDS ORDERED: RT-ALBUTEROL SULF 2.5 MG/3 ML PRE-MIX VIAL IH PRN (16:15)
[2017-01-01] MEDS ORDERED: NITROGLYCERIN 0.4 MG SL TABS BTL 25'S SL PRN (16:15)
[2017-01-01] MEDS ORDERED: morphine INJ 4 MG/ML 1 ML (VIAL/SYRINGE) IV PRN (16:15)
[2017-01-01] MEDS ORDERED: INFLUENZA TRIvalent 2017-2018 0.5 ML/45 MCG SYR IM ONE (17:30)
[2017-01-01] MEDS: lisINopril 5 MG (PRINIVIL) TABLET PO SCH (17:38)
[2017-01-01] MEDS: meTOproloL SUCCINATE 50 MG (TOPROL XL) TAB PO SCH (17:39)
[2017-01-01 19:03] VITALS: BP 128/86
[2017-01-01] MEDS ORDERED: ATORVASTATIN 40 MG (LIPITOR) TABLET PO SCH (21:00)
[2017-01-01] MEDS: RT-ALBUTEROL/IPRATROPIUM 3 ML (DUONEB) VIAL IH SCH (21:04)
[2017-01-01] MEDS: methylPREDNISolone 125 MG (Solu-MEDROL) VIAL IV SCH (21:39)
[2017-01-01] MEDS ORDERED: NICOTINE 21 MG (NICODERM) PATCH ONE (22:21)
[2017-01-01] MEDS: NICOTINE 21 MG (NICODERM) PATCH TD SCH (22:34)
[2017-01-02] VITALS: BP 102/61
[2017-01-02] MEDS: RT-ALBUTEROL/IPRATROPIUM 3 ML (DUONEB) VIAL IH SCH ×2 (03:00→09:08)
[2017-01-02 04:00] VITALS: BP 145/81
[2017-01-02] MEDS: methylPREDNISolone 125 MG (Solu-MEDROL) VIAL IV SCH (05:14)
[2017-01-02 06:46] LABS: BASOPHILS % (AUTO) 0 % (0-10); EOSINOPHILS % (AUTO) 0 % (0-10); LYMPHOCYTES # (AUTO) 1.3 X 10^3 (1.0-4.0); LYMPHOCYTES % (AUTO) 7 % (12-44); MEAN CORPUSCULAR HEMOGLOBIN 30 PG (25-34); MEAN CORPUSCULAR HGB CONC 33 G/DL (32-36); MEAN CORPUSCULAR VOLUME 92 FL (80-99); MEAN PLATELET VOLUME 12.1 FL (7.4-10.4); MONOCYTES # (AUTO) 0.4 X 10^3 (0.0-1.0); MONOCYTES % (AUTO) 2 % (0-12); NEUTROPHILS # (AUTO) 16.1 X 10^3 (1.8-7.8); NEUTROPHILS % (AUTO) 91 % (42-75); PLATELET COUNT 233 10^3/uL (130-400); RED BLOOD COUNT 4.86 10^6/uL (4.35-5.85); RED CELL DISTRIBUTION WIDTH 12.7 % (10.0-14.5); WHITE BLOOD COUNT 17.7 10^3/uL (4.3-11.0)
[2017-01-02 07:14] LABS: CHOLESTEROL 174 MG/DL (< 200); DIRECT LDL 115 MG/DL (1-129); TRIGLYCERIDES 65 MG/DL (<150); VLDL CHOLESTEROL 13 MG/DL (5-40)
[2017-01-02 07:21] LABS: BAND NEUTROPHILS 3 %; LYMPHOCYTES % (MANUAL) 2 %; NEUTROPHILS % (MANUAL) 89 %
[2017-01-02 07:26] LABS: ALANINE AMINOTRANSFERASE 10 U/L (0-55); ALBUMIN 4.2 GM/DL (3.2-4.5); ANION GAP 12 MMOL/L (5-14); ASPARTATE AMINO TRANSFERASE 10 U/L (5-34); BILIRUBIN,TOTAL 0.4 MG/DL (0.1-1.0); BLOOD UREA NITROGEN 11 MG/DL (7-18); BUN/CREATININE RATIO 13; CALCIUM 9.9 MG/DL (8.5-10.1); CARBON DIOXIDE 23 MMOL/L (21-32); CHLORIDE 104 MMOL/L (98-107); CREATININE SERUM 0.82 MG/DL (0.60-1.30); GFR ESTIMATED > 60; GLUCOSE 137 MG/DL (70-105); POTASSIUM 4.7 MMOL/L (3.6-5.0); SODIUM 139 MMOL/L (135-145); TOTAL PROTEIN 6.7 GM/DL (6.4-8.2)
--- NOTE | 2017-01-02 08:23 | Consultation-Cardiology ---
HPI-Cardiology Cardiology Consultation: Date of Consultation 01/02/17 Date of Admission Attending Physician Marilele Vela DO Admitting Physician Yuko Varma MD Consulting Physician Minna CRESPO MD HPI: Time Seen by Provider: 08:30 Chief Complaint: chest pain this is a 56-year-old gentleman who has history of COPD. He presented with chest pain as well. Chest pain was substernal with some abdominal involvement. Quality was burning. No significant radiation. No exacerbating or relieving factors. Intensity was 7/10. Cardiac catheterization 1 year ago which showed mild to moderate RCA disease. Review of Systems-Cardiology Review of Systems Constitutional: No As described under HPI, No no symptoms reported, No chills, No fever, No lightheadedness, No malaise, No tiredness, No weight loss, No weight gain, No other Eyes: No As described under HPI, No no symptoms reported, No blindness, No blurred vision, No contact lenses, No drainage, No decreased acuity, No foreign body sensation, No glasses, No inflammation, No pain, No photophobia, No previous injury, No shadows, No tunnel vision, No other, No vision change Ears/Nose/Throat: No As described under HPI, No no symptoms reported, No chronic hearing loss, No epistaxis, No ear discharge, No ear pain, No loose teeth, No mouth pain, No mouth swelling, No nasal drainage, No nose pain, No recent hearing loss, No throat pain, No throat swelling, No ulcerations, No other Cardiovascular: chest pain Gastrointestinal: No no symptoms reported, No As described under HPI, No abdomen distended, No abdominal pain, No blood streaked bowels, No constipation , No diarrhea, No difficulty swallowing, No nausea, No poor appetite, No poor fluid intake, No rectal bleeding, No vomiting, No other, No nausea/vomiting/ diarrhea, No stool coloration changes Genitourinary: No no symptoms reported, No As described under HPI, No burning, No dysuria, No discharge, No frequency, No flank pain, No hematuria, No incontinence, No pain, No urgency, No other, No urine frequency changes, No urine coloration changes Musculoskeletal: No no symptoms reported, No As describe under HPI, No back pain, No gout, No joint pain, No joint swelling, No muscle pain, No muscle stiffness, No neck pain, No other Skin: No no symptoms reported, No As described under HPI, No change in color, No change in hair/nails, No dryness, No lesions, No lumps, No rash, No other, No skin related problems, No ulcerations, No rash on exposed areas, No ulcerations on exposed areas Psychiatric/Neurological: No no symptoms reported, No As described under HPI, No anxiety, No depression, No emotional problems, No headache, No numbness, No pre-existing deficit, No seizure, No tingling, No tremors, No weakness, No other , No focal weakness, No syncope [id number] Hx Patient Social History Alcohol Use: Denies Use Recreational Drug Use: No Smoking Status: Current Everyday Smoker Type Used: Cigarettes Recent Foreign Travel: No Recent Infectious Disease Expo: No Hospitalization with Isolation: Denies Physical Abuse Screen: No Sexual Abuse: No Immunizations Up To Date Tetanus Booster (TDap): Unknown Past Medical History PMH As described under Assessment. Family Medical History Family History: Cardiomegaly 19 MOTHER Dysphasia G8 BROTHER G8 SISTER FH: cancer Hypertension G8 BROTHER G8 SISTER G8 SISTER Kidney disease 19 MOTHER Myocardial infarction Allergies and Home Medications Allergies Coded Allergies: Penicillins (Unverified Allergy, Intermediate, 01/22/14) causes dysrhythmias Home Medications Albuterol Sulfate 1 Puff Puff, 2 PUFF IH Q4H, (Reported) 1 PUFF = 90 MCG Aspirin 81 Mg Tablet.dr, 81 MG PO DAILY, (Reported) Lisinopril 10 Mg Tablet, 10 MG PO DAILY, (Reported) Metoprolol Succinate 50 Mg Tab.er.24h, 50 MG PO HS, (Reported) Physical Exam-Cardiology Physical Exam Vital Signs/I&O Vital Sign - Last 12Hours 01/02/17 01/02/17 01/02/17 01/02/17 00:00 01:00 04:00 07:17 Temp 97.7 98.6 Pulse 100 112 85 74 Resp 18 18 B/P (MAP) 102/61 145/81 Pulse Ox 92 91 O2 Delivery Room Air Room Air 01/02/17 01/02/17 01/02/17 08:00 08:55 09:09 Temp 98.0 Pulse 92 Resp 20 B/P (MAP) 135/83 Pulse Ox 92 90 O2 Delivery Room Air Room Air Room Air Capillary Refill : Less Than 3 Seconds Constitutional: No appears stated age, No AAO x 3, No apparent distress, No PERRL, No well-developed, No well-nourished, No other HEENT: No PERRL, No normal ENT inspection, No TMs normal, No pharynx normal, No scleral icterus (R), No scleral icterus (L), No pale conjunctivae (R), No pale conjunctivae (L), No photophobia, No TM abnormal (R), No TM abnormal (L), No pharyngeal erythema, No tonsillar exudate, No other, No discharge, No EOMI, No hearing is well preserved, No hard of hearing, No oral hygience is good, No ulceration, No xanthelasmas are seen Neck: No non-tender, No full range of motion, No supple, No normal inspection, No carotid bruit, No limited range of motion, No lymphadenopathy (R), No lymphadenopathy (L), No tender lateral, No tender midline, No thyromegaly, No other, No carotid pulses are 2 + bilaterally, No with good upstrokes Respiratory: No accessory muscle use, No respiratory distress, No chest tender , No chest expansion is symmetric, No chest is bilaterally symmetric, No lungs clear to percussion, No lungs clear to auscultation, No crackles, No rhonchi, No rales, No stridor, No wheezing, No pleural rub, No other Cardiovascular: regular rate-rhythm, S1 and S2 Gastrointestinal: No tender, No soft, No round, No distended, No pulsatile mass , No organomegaly, No guarding, No rebound, No tenderness, No hernia, No mass, No audible bowel sounds, No abnormal bowel sounds, No abdominal bruits, No spleenomegaly, No other Rectal: deferred Extremities: No normal range of motion, No non-tender, No normal inspection, No pedal edema, No calf tenderness, No normal capillary refill, No pelvis stable , No calf tenderness, No inflammation, No pedal edema, No slow capillary refill , No swelling, No other, No abrasion, No clubbing, No cyanosis, No ecchymosis, No laceration, No no lower extremity edema bilateral, No significant edema, No tenderness, No wound Skin: No normal color, No warm/dry, No cyanosis, No cool, No diaphoresis, No damp, No ecchymosis, No jaundice, No mottled, No pallor, No rash, No tattoos/ piercings, No ulcerations, No rash on exposed areas, No ulcerations on exposed areas, No other Lymphatic: No no adenopathy, No axilla node tender (R), No axilla node tender ( L), No inguinal node tender (R), No inguinal node tender (L), No other Data Review Labs Laboratory Tests 01/01/17 12:40: White Blood Count 8.6, Red Blood Count 4.77, Hemoglobin 14.6, Hematocrit 44, Mean Corpuscular Volume 91, Mean Corpuscular Hemoglobin 31, Mean Corpuscular Hemoglobin Concent 34, Red Cell Distribution Width 12.6, Platelet Count 219, Mean Platelet Volume 11.8H, Neutrophils (%) (Auto) 61, Lymphocytes (%) (Auto) 29 , Monocytes (%) (Auto) 8, Eosinophils (%) (Auto) 2, Basophils (%) (Auto) 1, Neutrophils # (Auto) 5.2, Lymphocytes # (Auto) 2.5, Monocytes # (Auto) 0.7, Eosinophils # (Auto) 0.2, Basophils # (Auto) 0.1, Prothrombin Time 12.7, INR Comment 0.9, Activated Partial Thromboplast Time 33, Sodium Level 138, Potassium Level 4.1, Chloride Level 102, Carbon Dioxide Level 26, Anion Gap 10, Blood Urea Nitrogen 9, Creatinine 0.83, Estimat Glomerular Filtration Rate > 60 , BUN/Creatinine Ratio 11, Glucose Level 98, Calcium Level 9.7, Magnesium Level 2.1, Total Bilirubin 0.5, Aspartate Amino Transf (AST/SGOT) 12, Alanine Aminotransferase (ALT/SGPT) 10, Alkaline Phosphatase 60, Myoglobin 33.8, Troponin I < 0.30, C-Reactive Protein High Sensitivity 0.29, Total Protein 7.3, Albumin 4.1 01/01/17 13:09: Urine Color YELLOW, Urine Clarity SLIGHTLY CLOUDY, Urine pH 7, Urine Specific [place] 1.010L, Urine Protein NEGATIVE, Urine Glucose (UA) NEGATIVE, Urine Ketones NEGATIVE, Urine Nitrite NEGATIVE, Urine Bilirubin NEGATIVE, Urine Urobilinogen NORMAL, Urine Leukocyte Esterase NEGATIVE, Urine RBC (Auto) NEGATIVE, Urine RBC NONE, Urine WBC NONE, Urine Squamous Epithelial Cells 0-2, Urine Crystals NONE, Urine Bacteria TRACE, Urine Casts NONE, Urine Mucus NEGATIVE, Urine Culture Indicated NO 01/01/17 18:57: Troponin I < 0.30 01/02/17 01:10: Troponin I < 0.30 01/02/17 06:09: White Blood Count 17.7H, Red Blood Count 4.86, Hemoglobin 14.7, Hematocrit 45, Mean Corpuscular Volume 92, Mean Corpuscular Hemoglobin 30, Mean Corpuscular Hemoglobin Concent 33, Red Cell Distribution Width 12.7, Platelet Count 233, Mean Platelet Volume 12.1H, Neutrophils (%) (Auto) 91H, Lymphocytes (%) (Auto) 7L, Monocytes (%) (Auto) 2, Eosinophils (%) (Auto) 0, Basophils (%) (Auto) 0, Neutrophils # (Auto) 16.1H, Lymphocytes # (Auto) 1.3, Monocytes # (Auto) 0.4, Eosinophils # (Auto) 0.0, Basophils # (Auto) 0.0, Neutrophils % (Manual) 89, Lymphocytes % (Manual) 2, Monocytes % (Manual) 6, Band Neutrophils 3, Hypersegmented Neutrophils SLIGHT, Sodium Level 139, Potassium Level 4.7, Chloride Level 104, Carbon Dioxide Level 23, Anion Gap 12, Blood Urea Nitrogen 11, Creatinine 0.82, Estimat Glomerular Filtration Rate > 60, BUN/Creatinine Ratio 13, Glucose Level 137H, Calcium Level 9.9, Total Bilirubin 0.4, Aspartate Amino Transf (AST/SGOT) 10, Alanine Aminotransferase (ALT/SGPT) 10, Alkaline Phosphatase 57, Total Protein 6.7, Albumin 4.2, Triglycerides Level 65, Cholesterol Level 174, LDL Cholesterol Direct 115, VLDL Cholesterol 13, HDL Cholesterol 48 ECG Impression ECG Initial ECG Rhythm: Normal Sinus A/P-Cardiology Assessment/Admission Diagnosis chest pain, mild to moderate CAD, COPD. Plan COPD treatment: Defer to primary service. Chest pain: Acute coronary syndrome ruled out with serial troponin. Negative EKG. continue aspirin, beta neri, statin. on discharge patient can follow with primary digital traffic coordinator. I also recommended that he seeks medical attention if he has recurrent chest pain. Thank you for your consultation. Please call me if you have any questions. M. Randy Khalid, MD, FACP, FACC, FSCAI, FHRS, CCDS Interventional Cardiology Cardiac Electrophysiology Vascular Medicine and Endovascular Interventions Clinical Quality Measures AMI/AHF: ASA po Prior to arrival: Yes (81MG) DVT/VTE Risk/Contraindication: Risk Factor Score Per Nursin RFS Level Per Nursing on Admit: 4+=Very High Minna CRESPO MD Jan 02, 2017 8:23 am
[2017-01-02 08:55] VITALS: BP 135/83
[2017-01-02] MEDS ORDERED: ASPIRIN E.C. 325 MG (ECOTRIN) TABLET PO SCH (09:00)
[2017-01-02] MEDS ORDERED: CLOPIDOGREL 75 MG (PLAVIX) TABLET PO SCH (09:00)
[2017-01-02] MEDS: NICOTINE 21 MG (NICODERM) PATCH TD SCH (09:09)
[2017-01-02] MEDS: meTOproloL SUCCINATE 50 MG (TOPROL XL) TAB PO SCH (09:09)
[2017-01-02] MEDS: lisINopril 5 MG (PRINIVIL) TABLET PO SCH (09:10)
[2017-01-02 12:00] VITALS: BP 116/70
[2017-01-02] MEDS ORDERED: CLOP75TA28 PO (12:33)
[2017-01-02] MEDS ORDERED: PRED10TA22 PO (12:33)
[2017-01-02] MEDS ORDERED: ATOR40TA PO (12:33)
[2017-01-02] MEDS ORDERED: RT-ALBUTEROL HFA (VENTOLIN) PER PUFF IH SCH (12:45)
--- NOTE | 2017-01-02 12:53 | Short Stay Summary-Hospitalist ---
HPI History of Present Illness: HPI/Chief Complaint CC: SOB with chest pain HPI: This 56 yoWM pt of Yary Funes at [facility] with prior hx of MS years ago. Seen in the ER 2 days prior, 12/29/16, diagnosed with exacerbation of COPD, and paced on inhaler and smoking cessation counseled. No fever, vitals stable, WBC up from 8.6 to 17 due to steroid, CMP normal, lipid profile normal, UA negative, troponin negative, CXR COPD. 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 Kimbrough will not do the procedure because it appears that the issue is not heart related. Patient Interview: Pt's daughter was visiting upon interview; she states she is a [employer] Pt states his PCP is Yary Funes in [place] Pt confirms he had a heart attack a while ago, but did not have stents placed Pt states his Inhaler at home helps some. Pt states he ate something that gave him bad heart burn that would not go away, so he came in Pt states his sister recently Physical exam stable. Pt confirms smoking and daughter states she snuck him out to smoke Pt would like to DC today, and states he would like to see granddaughter Pt confirms pharmacy as [facility]. Pt confirms Dr. Holguin as respiratory clinician Scribed by Niru Campos under the direct supervision of Dr. Zurita. Source: patient, RN/MD Exam Limitations: no limitations Date Seen 01/02/17 Time Seen by Provider: 11:40 Attending Physician Trav Zurita DO PCP Yuko Varma MD Referring Physician Date of Admission Jan 01, 2017 at 14:50 Home Medications & Allergies Home Medications Reviewed patient Home Medication Reconciliation Form Allergies Allergies Coded Allergies Penicillins (Unverified Allergy, Intermediate, 01/22/14) causes dysrhythmias Past Xuttoro-Xwzmdr-Oxhgai Hx Patient Social History Marrital Status: single Employed/Student: retired Alcohol Use: Denies Use Recreational Drug Use: No Smoking Status: Current Everyday Smoker Type Used: Cigarettes Physical Abuse Screen: No Sexual Abuse: No Recent Foreign Travel: No Contact w/other who traveled: No Recent Hopitalizations: No Recent Infectious Disease Expo: No Immunizations Up To Date Tetanus Booster (TDap): Unknown Seasonal Allergies Seasonal Allergies: No Surgeries Yes (R knee cartilage rpr, bl inguinal hernia rpr, Cardiac cath x2, lumbar fusio ) Abdominal, Cardiac, Orthopedic Respiratory Yes (HEMOPTYSIS WITH BRONCHITIS) COPD, Emphysema, Pneumonia Currently Using CPAP: No Currently Using BIPAP: No Cardiovascular Yes (MILD BILATERAL CAROTID DISEASE) Coronary Artery Disease, Heart Attack, High Cholesterol, Hypertension Neurological No Reproductive System Hx Reproductive Disorders: No Sexually Transmitted Disease: No HIV/AIDS: No Genitourinary No Gastrointestinal Yes Gastroesophageal Reflux, Gastrointestinal Bleed, Polyps, Ulcer Musculoskeletal Yes (RIGHT KNEE TORN CARTILAGE; BACK SURGERY 1988) Arthritis, Chronic Back Pain Endocrine History of Endocrine Disorders: No HEENT History of HEENT Disorders: Yes HEENT Disorders: Tinnitis, Eye Injury Loss of Vision: Denies Hearing Impairment: Hard of Hearing Cancer No Psychosocial History of Psychiatric Problem: Yes (MENTAL BLOCK ([place] PSYCHIATRIC INSTUTITE FOR 3 YEARS) ) Behavioral Health Disorders: Violent Behavior Integumentary History of Skin or Integumenta: No Blood Transfusions History of Blood Disorders: No Adverse Reaction to a Blood Tr: No Family Medical History Significant Family History: No Pertinent Family Hx Family Hx: Cardiomegaly 19 MOTHER Dysphasia G8 BROTHER G8 SISTER FH: cancer Hypertension G8 BROTHER G8 SISTER G8 SISTER Kidney disease 19 MOTHER Myocardial infarction Review of Systems Constitutional: see HPI EENTM: no symptoms reported Respiratory: dyspnea on exertion Cardiovascular: chest pain Gastrointestinal: no symptoms reported Genitourinary: no symptoms reported Musculoskeletal: no symptoms reported Skin: no symptoms reported Psychiatric/Neurological: No Symptoms Reported All Other Systems Reviewed Negative Unless Noted: Yes Physical Exam Physical Exam Vital Signs Vital Sign - Last 12Hours 01/01/17 12:41 Temp 97.7 Pulse 82 Resp 18 B/P (MAP) 131/95 Pulse Ox 92 O2 Delivery Room Air Capillary Refill : Less Than 3 Seconds General Appearance: No Apparent Distress, WD/WN, Chronically ill, Thin Eyes: Bilateral Eye Normal Inspection, Bilateral Eye PERRL HEENT: PERRL/EOMI, Normal ENT Inspection, Pharynx Normal Neck: Full Range of Motion, Normal Inspection, Non Tender, Supple, Carotid Bruit Respiratory: Chest Non Tender, Lungs Clear, No Accessory Muscle Use, No Respiratory Distress, Decreased Breath Sounds Cardiovascular: Regular Rate, Rhythm, No Edema, No Gallop, No JVD, No Murmur, Normal Peripheral Pulses Gastrointestinal: Normal Bowel Sounds, No Organomegaly, No Pulsatile Mass, Non Tender, Soft Back: Normal Inspection, No CVA Tenderness, No Vertebral Tenderness Extremity: Normal Capillary Refill, Normal Inspection, Normal Range of Motion, Non Tender, No Calf Tenderness, No Pedal Edema Neurologic/Psychiatric: Alert, Oriented x3, No Motor/Sensory Deficits, Normal Mood/Affect Skin: Normal Color, Warm/Dry Lymphatic: No Adenopathy Results Results/Procedures Lab Laboratory Tests 01/01/17 12:40 01/02/17 06:09 Short Stay Diagnosis Discharge Diagnosis-Short Stay Admission Diagnosis Chest pain due to wheezing from AECOPD CAD previous MS in the past HTN Smoker Final Discharge Diagnosis Chest pain due to wheezing from AECOPD CAD previous MS in the past HTN Smoker Conclusion Plan Plan: Prednisone to [facility] Follow up with Dr. Chelsie SORIANO today Stop smoking Clinical Quality Measures AMI/AHF: ASA po Prior to arrival: Yes (81MG) DVT/VTE Risk/Contraindication: Risk Factor Score Per Nursin RFS Level Per Nursing on Admit: 4+=Very High TRAV ZURITA DO Jan 02, 2017 12:53
[2017-01-02 13:15] VITALS: BP 116/70
[2017-01-02] MEDS ORDERED: meTOproloL SUCCINATE 50 MG (TOPROL XL) TAB PO SCH (21:00)
[2017-01-03] MEDS ORDERED: lisINopril 10 MG (PRINIVIL) TAB PO SCH (09:00)
[2017-01-03] MEDS ORDERED: ASPIRIN E.C. 81 MG (ECOTRIN) TAB PO SCH (09:00)
== END 2017-01-02 12:33 | disposition home or self-care (01) ==
LOC: EDUNIT# 12:41 → ER 12:43 → UNDOADMOB 14:50 → 4TH 14:50 → UNDODISOB 01-02 13:15
PROVIDERS: ADMIT Internal Medicine; ATTEND Internal Medicine
DX: R07.89 Other chest pain (principal); J44.1 Chronic obstructive pulmonary disease with (acute) exacerbation; I25.10 Atherosclerotic heart disease of native coronary artery without angina pectoris; I10 Essential (primary) hypertension; E78.00 Pure hypercholesterolemia, unspecified; I25.2 Old myocardial infarction; F17.210 Nicotine dependence, cigarettes, uncomplicated; Z79.82 Long term (current) use of aspirin; Z79.899 Other long term (current) drug therapy
CPT/HCPCS: 36415; 71020; 80053; 80061; 81000; 83735; 83874; 84484; 85007; 85025; 85027; 85610; 85730; 86141; 93005; 93041; 94640; 94760; G0378

== ENCOUNTER → 2017-02-09 | Outpatient (CLI) | payer MEDICARE ==
[~2017-02-09] VITALS: Ht 188 cm; Wt 91.6 kg
[~2017-02-09] MED LIST changes: +ATOR40TA PO; +CATHETER FLUSH 10 ML SYR IV PRN; +CLOP75TA28 PO; -METO-270 PO; -METO-272 PO; +METO-370 PO; +METO-387 PO; +REGADENOSON 0.4 MG/5 ML SYR (LEXISCAN) IV ONE; +RT-ALBUINH IH
[2017-02-09 10:30] VITALS: BP 140/104
--- NOTE | 2017-02-09 22:08 | STRESS TEST ---
DATE OF SERVICE: 02/09/2017 EXERCISE MYOVIEW STRESS TEST REPORT REFERRING PHYSICIAN: . Baseline heart rate is 81. Baseline blood pressure 149/98. Baseline EKG is sinus rhythm with no ischemic changes. In summary, the patient was injected with 10.08 mCi of technetium-99 Myoview and the resting images were obtained. Then, the patient started exercising with baseline heart rate, blood pressure and EKG mentioned above. The patient was able to exercise for a total of 4 minutes 30 seconds on standard Kevin protocol, achieving maximum heart rate of 123, which is 75% of maximum expected heart rate. The patient was converted to Lexiscan, received 0.4 mg of Lexiscan and then 30.8 mCi of technetium-99 Myoview. Throughout the test, there were no EKG changes. The resting and stressed images were reviewed and compared in the short axis, horizontal long axis, and vertical long axis views. Review of the images showed diaphragmatic attenuation with decreased uptake involving the mid to apical inferior wall and inferoseptum which is fixed. No significant ischemia was noted. SSS is 6. SDS is 0. TID value 1.0. On the gated images, the left ventricle appeared to be normal size with normal contractility. Calculated ejection fraction 66%. CONCLUSION: 1. Fair exercise tolerance, a total of 4 minutes 30 seconds on standard Kevin protocol, submaximal stress test, converted to Lexiscan Myoview stress test. 2. The patient tolerated Lexiscan well. 3. Diaphragmatic attenuation with fixed defect at the mid to apical inferior wall and inferoseptum with no significant ischemia. 4. Normal left ventricular size with normal contractility. Calculated ejection fraction 66%. Job ID: [id number] DocumentID: [id number] Dictated Date: 02/09/2017 14:29:17 Feather Cutting Machine Feeder Date: 02/09/2017 18:01:44 Dictated By: EMILY ALICEA MD
== END ==
LOC: CARD 08:05
PROVIDERS: ATTEND Physician Assistant
DX: R00.2 Palpitations (principal); I10 Essential (primary) hypertension; I25.10 Atherosclerotic heart disease of native coronary artery without angina pectoris; R07.89 Other chest pain
CPT/HCPCS: 78452; 93017

== ENCOUNTER 2017-02-21 17:34 | Inpatient (IN) | payer MEDICARE ==
[~2017-02-21] VITALS: Ht 188 cm; Wt 91.6 kg
[~2017-02-21 17:34] MED LIST changes: -CATHETER FLUSH 10 ML SYR IV PRN; -REGADENOSON 0.4 MG/5 ML SYR (LEXISCAN) IV ONE
[2017-02-21] MEDS ORDERED: LACTATED RINGERS 1,000 ML IV ONE (17:56)
[2017-02-21] MEDS ORDERED: RT-ALBUTEROL SULF 2.5 MG/3 ML PRE-MIX VIAL INH STA (17:56)
[2017-02-21] MEDS ORDERED: ASPIRIN 81 MG CHEW (CHILDREN'S ASA) PO ONE (18:00)
[2017-02-21] MEDS ORDERED: NITROGLYCERIN 0.4 MG SL TABS BTL 25'S SL PRN (18:00)
[2017-02-21] MEDS ORDERED: RT-ALBUTEROL/IPRATROPIUM 3 ML (DUONEB) VIAL INH ONE (18:00)
--- NOTE | 2017-02-21 18:01 | ED Chest Pain ---
General Chief Complaint: Chest Pain Stated Complaint: R SIDE CHEST PAIN Source: patient, family Exam Limitations: no limitations History of Present Illness Time seen by provider: 17:45 Initial Comments Patient presents to ER by private conveyance with a chief complaint of chest pain lasting last 2 hours. He has a history of COPD he has shortness of breath increasing for the last day or so as well as increased coughing productive of phlegm. His pain is on the right side of his chest sharp like this knife stabbing him in the chest. He has had a heart catheter about a year ago. A few weeks ago he was given a nuclear perfusion scan but he has not got the results yet. He does not use O2 at home and he does have inhalers but he says he is been out of them for a little bit. He smokes anywhere from half to one pack per day. Does not have a history of thyroid or diabetes. He does have a history of blood pressure problems for which she is consistently on metoprolol and lisinopril. He sees Dr. Holguin, cardiology. Allergies and Home Medications Allergies Coded Allergies: Penicillins (Unverified Allergy, Intermediate, 01/22/14) causes dysrhythmias Home Medications Albuterol Sulfate 1 Puff Puff, 2 PUFF IH Q4H, (Reported) 1 PUFF = 90 MCG Aspirin 81 Mg Tablet.dr, 81 MG PO DAILY, (Reported) Atorvastatin Calcium 40 Mg Tablet, 40 MG PO HS, #30 Prescribed by: TRAV ZURITA on 01/02/17 1233 Clopidogrel Bisulfate 75 Mg Tablet, 75 MG PO DAILY, #30 Prescribed by: TRAV ZURITA on 01/02/17 1233 Lisinopril 10 Mg Tablet, 10 MG PO DAILY, (Reported) Metoprolol Succinate 50 Mg Tab.er.24h, 50 MG PO HS, (Reported) Prednisone 10 Mg Tab.ds.pk, 10 MG PO DAILY, #21 Take 6 tabs(60mg)daily,decrease by 1 tab(10MG)daily. Prescribed by: TRAV ZURITA on 01/02/17 1233 Review of Systems Constitutional: No chills, No diaphoresis EENTM: No Blurred Vision, No Double Vision, No Eye Pain Respiratory: Cough, Denies Orthopnea, Shortness of Air, SOA With Exertion, Wheezing Cardiovascular: See HPI, Chest Pain (reproducible to direct palpation as well as deep inspiration.), Denies Lightheadedness, Denies Palpitations, Denies Syncope Gastrointestinal: Denies Abdomen Distended, Denies Abdominal Pain, Denies Diarrhea, Denies Nausea Genitourinary: Denies Burning, Denies Discharge Musculoskeletal: No back pain, No joint pain Skin: No pruritus, No rash Psychiatric/Neurological: Denies Headache, Denies Numbness Past Lhujmci-Djiwqe-Zzwagn Hx Patient Social History Type Used: Cigarettes Recent Hopitalizations: No Immunizations Up To Date Tetanus Booster (TDap): Unknown Seasonal Allergies Seasonal Allergies: No Surgeries History of Surgeries: Yes (R knee cartilage rpr, bl inguinal hernia rpr, Cardiac cath x2, lumbar fusio) Surgeries: Abdominal, Cardiac, Orthopedic Respiratory History of Respiratory Disorde: Yes (HEMOPTYSIS WITH BRONCHITIS) Respiratory Disorders: Pneumonia, Chronic Bronchitis, COPD Currently Using CPAP: No Currently Using BIPAP: No Cardiovascular History of Cardiac Disorders: Yes (MILD BILATERAL CAROTID DISEASE) Cardiac Disorders: Coronary Artery Disease, Heart Attack, High Cholesterol, Hypertension Neurological History of Neurological Disord: No Reproductive System Hx Reproductive Disorders: No Sexually Transmitted Disease: No HIV/AIDS: No Genitourinary History of Genitourinary Disor: No Gastrointestinal History of Gastrointestinal Di: Yes Gastrointestinal Disorders: Gastroesophageal Reflux, Gastrointestinal Bleed, Polyps, Ulcer Musculoskeletal History of Musculoskeletal Dis: Yes (RIGHT KNEE TORN CARTILAGE; BACK SURGERY 1988) Musculoskeletal Disorders: Arthritis, Chronic Back Pain Endocrine History of Endocrine Disorders: No HEENT History of HEENT Disorders: Yes HEENT Disorders: Tinnitis, Eye Injury Loss of Vision: Denies Hearing Impairment: Hard of Hearing Cancer History of Cancer: No Psychosocial History of Psychiatric Problem: Yes (MENTAL BLOCK ([place] PSYCHIATRIC INSTUTITE FOR 3 YEARS) ) Behavioral Health Disorders: Violent Behavior Integumentary History of Skin or Integumenta: No Blood Transfusions History of Blood Disorders: No Adverse Reaction to a Blood Tr: No Family Medical History Significant Family History: No Pertinent Family Hx Family Medial History: Cardiomegaly 19 MOTHER Dysphasia G8 BROTHER G8 SISTER FH: cancer Hypertension G8 BROTHER G8 SISTER G8 SISTER Kidney disease 19 MOTHER Myocardial infarction Physical Exam Vital Signs Vital Sign - Last 12Hours 02/21/17 18:26 Pulse Ox 93 O2 Delivery Room Air Capillary Refill : General Appearance: WD/WN, Anxious, Mild Distress HEENT: PERRL/EOMI, Pharynx Normal Neck: Full Range of Motion, Non Tender, Supple Respiratory: No Chest Non Tender, No Accessory Muscle Use, No Respiratory Distress, Wheezing Cardiovascular: Regular Rate, Rhythm, No Edema, No Murmur, Normal Peripheral Pulses Gastrointestinal: Normal Bowel Sounds, Non Tender, Soft Neurologic/Psychiatric: Alert, Oriented x3 Skin: Normal Color, Warm/Dry Focused Exam Evaluation Lactate Level Time of Focused Exam: 19:40 Respiratory: Lungs Clear, No Accessory Muscle Use, No Respiratory Distress, Decreased Breath Sounds, Rhonci (faint) Cardiovascular: Regular Rate, Rhythm, No Edema, Normal Peripheral Pulses Capillary Refill: Less Than 3 Seconds Peripheral Pulses: 2+ Radial Pulses (R), 2+ Radial Pulses (L) Skin: normal color, warm/dry Lactic Acid Level 2.57 patient is Vargas received 20 mL/kg bolus and received fluids overnight. He has received initial antibiotics, blood cultures urine and sputum cultures. Progress/Results/Core Measures Results/Orders Lab Results Laboratory Tests Test 02/21/17 17:43 Range/Units White Blood Count 9.9 4.3-11.0 10^3/uL Red Blood Count 4.49 4.35-5.85 10^6/uL Hemoglobin 13.8 13.3-17.7 G/DL Hematocrit 41 40-54 % Mean Corpuscular Volume 91 80-99 FL Mean Corpuscular Hemoglobin 31 25-34 PG Mean Corpuscular Hemoglobin Concent 34 32-36 G/DL Red Cell Distribution Width 12.9 10.0-14.5 % Platelet Count 211 130-400 10^3/uL Mean Platelet Volume 11.9 H 7.4-10.4 FL Neutrophils (%) (Auto) 54 42-75 % Lymphocytes (%) (Auto) 33 12-44 % Monocytes (%) (Auto) 10 0-12 % Eosinophils (%) (Auto) 2 0-10 % Basophils (%) (Auto) 1 0-10 % Neutrophils # (Auto) 5.3 1.8-7.8 X 10^3 Lymphocytes # (Auto) 3.3 1.0-4.0 X 10^3 Monocytes # (Auto) 1.0 0.0-1.0 X 10^3 Eosinophils # (Auto) 0.2 0.0-0.3 10^3/uL Basophils # (Auto) 0.1 0.0-0.1 10^3/uL Prothrombin Time 12.7 12.2-14.7 SEC INR Comment 0.9 0.8-1.4 Activated Partial Thromboplast Time 33 24-35 SEC Sodium Level 137 135-145 MMOL/L Potassium Level 3.8 3.6-5.0 MMOL/L Chloride Level 100 98-107 MMOL/L Carbon Dioxide Level 28 21-32 MMOL/L Anion Gap 9 5-14 MMOL/L Blood Urea Nitrogen 8 7-18 MG/DL Creatinine 0.83 0.60-1.30 MG/DL Estimat Glomerular Filtration Rate > 60 BUN/Creatinine Ratio 10 Glucose Level 109 H 70-105 MG/DL Calcium Level 9.5 8.5-10.1 MG/DL Magnesium Level 1.9 1.8-2.4 MG/DL Total Bilirubin 0.5 0.1-1.0 MG/DL Aspartate Amino Transf (AST/SGOT) 14 5-34 U/L Alanine Aminotransferase (ALT/SGPT) 12 0-55 U/L Alkaline Phosphatase 60 40-136 U/L Myoglobin 39.9 10.0-92.0 NG/ML Troponin I < 0.30 <0.30 NG/ML C-Reactive Protein High Sensitivity 0.47 0.00-0.50 MG/DL B-Type Natriuretic Peptide 75.6 <100.0 PG/ML Total Protein 7.4 6.4-8.2 GM/DL Albumin 4.2 3.2-4.5 GM/DL My Orders Orders - BRIDGETT WELLINGTON Albuterol Pre-Mix Nebs (Rt) (Proventil (02/21/17 17:56) Albuterol/Ipra Inhalation Soln (Duoneb I (02/21/17 18:00) Saline Lock/Iv-Start (02/21/17 17:56) Lactated Ringers (Lr 1000 Ml Iv Solution (02/21/17 17:56) Cbc With Automated Diff (02/21/17 17:56) Magnesium (02/21/17 17:56) Ekg Tracing (02/21/17 17:56) Cardiac Profile 1 (02/21/17 17:56) Comprehensive Metabolic Panel (02/21/17 17:56) Myoglobin Serum (02/21/17 17:56) Protime With Inr (02/21/17 17:56) Partial Thromboplastin Time (02/21/17 17:56) O2 (02/21/17 17:56) Monitor-Rhythm Ecg Trace Only (02/21/17 17:56) Lipid Panel (02/22/17 06:00) Aspirin Chewable Tablet (Baby Aspirin Ch (02/21/17 18:00) Nitroglycerin 0.4 Mg Btl 25's (Nitrostat (02/21/17 18:00) Saline Lock/Iv-Start (02/21/17 17:56) BNP (02/21/17 17:56) Chest Pa/Lat (2 View) (02/21/17 17:56) Svn Sm Volume Nebulizer Rt-Rfs (02/21/17 17:56) Hs C Reactive Protein (02/21/17 18:30) Methylprednisolone Sod Succ (Solu-Medrol (02/21/17 18:45) Medications Given in ED Current Medications Medications Dose Ordered Sig/Mikayla Route Start Time Stop Time Status Last Admin Dose Admin Albuterol/ Ipratropium 3 ml ONCE ONCE INH 02/21/17 18:00 02/21/17 18:01 DC 02/21/17 18:22 3 ML Aspirin 324 mg ONCE ONCE PO 02/21/17 18:00 02/21/17 18:01 DC 02/21/17 18:22 324 MG Lactated Ringer's 1,000 ml @ 0 mls/hr Q0M ONCE IV 02/21/17 17:56 02/21/17 17:59 DC 02/21/17 18:22 1,000 MLS/HR Methylprednisolone Sodium Succinate 125 mg ONCE ONCE IVP 02/21/17 18:45 02/21/17 18:46 DC 02/21/17 18:45 125 MG Nitroglycerin 0.4 mg UD PRN SL 02/21/17 18:00 02/21/17 18:22 0.4 MG Vital Signs/I&O Vital Sign - Last 12Hours 02/21/17 18:26 Pulse Ox 93 O2 Delivery Room Air Progress Note : Time: 18:18 Progress Note Pain is pleuritic in nature. We'll give him some nitroglycerin see if that helps his blood pressure and chest pain. If not will try a GI cocktail. We'll also give her albuterol and DuoNeb. Patient satting okay on 2 L/m. GI would be my second differential; third differential would be cardiac. ECG Initial ECG Impression Date: Feb 21, 2017 Initial ECG Impression Time: 17:37 Initial ECG Rate: 79 Initial ECG Rhythm: Normal Sinus Initial ECG Intervals: Normal Initial ECG Impression: Normal Initial ECG Comparisson: No Previous ECG Available Comment No T-wave elevation or depression. Diagnostic Imaging Diagonstic Imaging: Xray Plain Films/CT/US/NM/MRI: chest Comments Right lower lobe infiltrate seen in two-view. [facility] [place], [place] NAME: LIZY MIRANDA [facility] REC#: [id number] PT STATUS: REG ER : 1960 PHYSICIAN: BRIDGETT WELLINGTON MD ADMIT DATE: 02/21/17/ER Draft Date of Exam:02/21/17 CHEST PA/LAT (2 VIEW) INDICATION: Right-sided chest pain. Comparison with 01/01/2017. FINDINGS: Obstructive interstitial lung disease with flattening of the diaphragms is again demonstrated. Apical bullous changes are noted more severe on the right. No acute infiltrates have developed since previous exam. The heart is not enlarged. No evidence of pulmonary edema. No pleural effusion. IMPRESSION: Rather severe obstructive interstitial lung disease with no significant changes demonstrated when compared with previous exam. Dictated on workstation # [id number] Dict: 02/21/171856 Trans: 02/21/17 1859 [id number] Interpreted by: DOYLE ULLOA MD Electronically signed by: Reviewed: Reviewed by Me Departure Communication (Admissions) Time/Spoke to Admitting Phy: 19:[address] Soria: Spoke with him about the case imaging lab findings. Discuss infiltrate. He is okay with antibiotics and steroids. He would like to repeat 2 view chest x-ray in the morning. Impression Impression: Primary Impression: Pneumonia Qualified Codes: J18.1 - Lobar pneumonia, unspecified organism Additional Impressions: Sepsis Qualified Codes: A41.9 - Sepsis, unspecified organism COPD exacerbation Acute respiratory distress Chest pain Qualified Codes: R07.1 - Chest pain on breathing Disposition: ADMITTED INPATIENT Condition: Improved Admissions Decision to Admit Reason: Admit from ER (General) Decision to Admit/Date: Feb 21, 2017 Time/Decision to Admit Time: 19:11 Departure-Patient Inst. Referrals: [facility] (PCP/Family) Primary Care Physician Copy Copies To 1: YANI MADRID MD, TITUS J Feb 21, 2017 18:01
[2017-02-21 18:03] LABS: BASOPHILS # (AUTO) 0.1 10^3/uL (0.0-0.1); BASOPHILS % (AUTO) 1 % (0-10); EOSINOPHILS # (AUTO) 0.2 10^3/uL (0.0-0.3); EOSINOPHILS % (AUTO) 2 % (0-10); LYMPHOCYTES # (AUTO) 3.3 X 10^3 (1.0-4.0); LYMPHOCYTES % (AUTO) 33 % (12-44); MEAN CORPUSCULAR HEMOGLOBIN 31 PG (25-34); MEAN CORPUSCULAR HGB CONC 34 G/DL (32-36); MEAN CORPUSCULAR VOLUME 91 FL (80-99); MEAN PLATELET VOLUME 11.9 FL (7.4-10.4); MONOCYTES % (AUTO) 10 % (0-12); NEUTROPHILS # (AUTO) 5.3 X 10^3 (1.8-7.8); NEUTROPHILS % (AUTO) 54 % (42-75); PLATELET COUNT 211 10^3/uL (130-400); RED BLOOD COUNT 4.49 10^6/uL (4.35-5.85); RED CELL DISTRIBUTION WIDTH 12.9 % (10.0-14.5); WHITE BLOOD COUNT 9.9 10^3/uL (4.3-11.0)
[2017-02-21 18:07] LABS: INR 0.9 (0.8-1.4); PROTHROMBIN TIME PATIENT 12.7 SEC (12.2-14.7)
[2017-02-21 18:14] LABS: ALANINE AMINOTRANSFERASE 12 U/L (0-55); ALBUMIN 4.2 GM/DL (3.2-4.5); ANION GAP 9 MMOL/L (5-14); ASPARTATE AMINO TRANSFERASE 14 U/L (5-34); BILIRUBIN,TOTAL 0.5 MG/DL (0.1-1.0); BLOOD UREA NITROGEN 8 MG/DL (7-18); BUN/CREATININE RATIO 10; CALCIUM 9.5 MG/DL (8.5-10.1); CARBON DIOXIDE 28 MMOL/L (21-32); CHLORIDE 100 MMOL/L (98-107); CREATININE SERUM 0.83 MG/DL (0.60-1.30); GFR ESTIMATED > 60; GLUCOSE 109 MG/DL (70-105); MAGNESIUM 1.9 MG/DL (1.8-2.4); POTASSIUM 3.8 MMOL/L (3.6-5.0); SODIUM 137 MMOL/L (135-145); TOTAL PROTEIN 7.4 GM/DL (6.4-8.2)
[2017-02-21 18:20] LABS: MYOGLOBIN SERUM 39.9 NG/ML (10.0-92.0)
[2017-02-21] MEDS ORDERED: methylPREDNISolone 125 MG (Solu-MEDROL) VIAL IVP ONE (18:45)
[2017-02-21] MEDS ORDERED: cefTRIAXone INJECTION 1,000 MG in NS (IVPB) 50 ML IV ONE (19:00)
--- NOTE | 2017-02-21 19:00 | Diagnostic Imaging Report ---
INDICATION: Right-sided chest pain. Comparison with 01/01/2017. FINDINGS: Obstructive interstitial lung disease with flattening of the diaphragms is again demonstrated. Apical bullous changes are noted more severe on the right. No acute infiltrates have developed since previous exam. The heart is not enlarged. No evidence of pulmonary edema. No pleural effusion. IMPRESSION: Rather severe obstructive interstitial lung disease with no significant changes demonstrated when compared with previous exam. Dictated by: Dictated on workstation # [id number]
[2017-02-21] MEDS ORDERED: NS IV 1000 ML 1,000 ML IV ONE (19:04)
[2017-02-21 19:55] VITALS: BP 132/74
[2017-02-21] MEDS ORDERED: ACETAMINOPHEN 500 MG TAB (TYLENOL) PO PRN (20:15)
[2017-02-21] MEDS ORDERED: ONDANSETRON 4 MG/2 ML (SDV) Z0FRAN IV PRN (20:15)
[2017-02-21] MEDS ORDERED: AZITHROMYCIN 500 MG/NS 250 ML IVPB IV NR ×2 (20:15)
[2017-02-21] MEDS ORDERED: diphenhydrAMINE 25 MG TAB (BENADRYL) PO PRN (20:15)
[2017-02-21] MEDS ORDERED: CATHETER FLUSH 10 ML SYR IV PRN (20:30)
[2017-02-21] MEDS ORDERED: NICOTINE PATCH REMOVAL TP PRN (20:30)
[2017-02-21] MEDS ORDERED: NICOTINE 14 MG (NICODERM) PATCH TD PRN (20:30)
[2017-02-21] MEDS ORDERED: ENOXAPARIN 40 MG/0.4 ML (LOVENOX) SYR SC SCH (20:30)
[2017-02-21 21:00] VITALS: BP 128/79
[2017-02-21] MEDS: NS IV 1000 ML 1,000 ML IV SCH (21:18)
[2017-02-21 21:20] VITALS: BP 128/79
[2017-02-21 22:00] VITALS: BP 120/68
[2017-02-21] MEDS ORDERED: RT-ALBUTEROL/IPRATROPIUM 3 ML (DUONEB) VIAL INH PRN (22:30)
[2017-02-21 22:53] VITALS: BP 102/69
[2017-02-22] VITALS: BP 111/55
[2017-02-22] MEDS: RT-ALBUTEROL/IPRATROPIUM 3 ML (DUONEB) VIAL INH SCH ×3 (03:17→11:34)
[2017-02-22 04:25] VITALS: BP 122/73
[2017-02-22] MEDS: NS IV 1000 ML 1,000 ML IV SCH ×2 (04:57→12:35)
[2017-02-22 06:46] LABS: BASOPHILS % (AUTO) 0 % (0-10); EOSINOPHILS % (AUTO) 0 % (0-10); LYMPHOCYTES # (AUTO) 0.9 X 10^3 (1.0-4.0); LYMPHOCYTES % (AUTO) 13 % (12-44); MEAN CORPUSCULAR HEMOGLOBIN 31 PG (25-34); MEAN CORPUSCULAR HGB CONC 34 G/DL (32-36); MEAN CORPUSCULAR VOLUME 91 FL (80-99); MONOCYTES # (AUTO) 0.1 X 10^3 (0.0-1.0); MONOCYTES % (AUTO) 2 % (0-12); NEUTROPHILS # (AUTO) 6.2 X 10^3 (1.8-7.8); NEUTROPHILS % (AUTO) 86 % (42-75); PLATELET COUNT 219 10^3/uL (130-400); RED CELL DISTRIBUTION WIDTH 12.9 % (10.0-14.5); WHITE BLOOD COUNT 7.3 10^3/uL (4.3-11.0)
[2017-02-22 07:06] LABS: ANION GAP 13 MMOL/L (5-14); BLOOD UREA NITROGEN 6 MG/DL (7-18); BUN/CREATININE RATIO 8; CALCIUM 9.5 MG/DL (8.5-10.1); CARBON DIOXIDE 23 MMOL/L (21-32); CHLORIDE 105 MMOL/L (98-107); CHOLESTEROL 131 MG/DL (< 200); CREATININE SERUM 0.75 MG/DL (0.60-1.30); DIRECT LDL 67 MG/DL (1-129); GFR ESTIMATED > 60; GLUCOSE 142 MG/DL (70-105); POTASSIUM 4.1 MMOL/L (3.6-5.0); SODIUM 141 MMOL/L (135-145); TRIGLYCERIDES 62 MG/DL (<150); VLDL CHOLESTEROL 12 MG/DL (5-40)
[2017-02-22 07:11] LABS: TROPONIN I < 0.30 NG/ML (<0.30)
[2017-02-22] MEDS ORDERED: INFLUENZA TRIvalent 2017-2018 0.5 ML/45 MCG SYR IM ONE (07:15)
[2017-02-22] MEDS ORDERED: ATOR40TA70 PO (07:26)
[2017-02-22] MEDS ORDERED: CLOP75TA69 PO (07:26)
[2017-02-22] MEDS ORDERED: PANT40TA3 PO (07:26)
--- NOTE | 2017-02-22 07:56 | Diagnostic Imaging Report ---
INDICATION: Acute respiratory failure. COMPARISON: 02/21/2017. FINDINGS: Decreased pulmonary vascular markings in the lung apices are compatible with known emphysema. Heterogeneous consolidations in the right lower lobe are unchanged. No pleural effusion or pneumothorax. Stable cardiomediastinal silhouette. IMPRESSION: No change in right lower lobe heterogeneous consolidations which may relate to pneumonia superimposed on emphysema. Dictated by: Dictated on workstation # [id number]
[2017-02-22] MEDS ORDERED: ACET-2267 PO (07:57)
[2017-02-22 08:00] VITALS: BP 122/70
[2017-02-22] MEDS ORDERED: cefTRIAXone 1 GM/NS 50 ML IVPB IV SCH ×2 (09:00)
[2017-02-22] MEDS ORDERED: AZITHROMYCIN 250 MG TAB (ZITHROMAX) PO SCH (09:00)
[2017-02-22] MEDS ORDERED: LEVO750T9 PO (11:54)
[2017-02-22 13:56] VITALS: BP 122/70
--- NOTE | 2017-02-22 14:20 | Short Stay Summary-Hospitalist ---
HPI History of Present Illness: HPI/Chief Complaint Pt is a 56yoM with a PMH COPD, HTN, and CAD with HI who presented to the ER with CC of right sided chest pain but did not feel like his previous chest pain with his HI. It started at 4pm yesterday. It started at rest. Denies any BRAVO. He has a history of PNA about 2 other times this year. He is an active smoker who smokes 1.5ppd (down from 4ppd). This morning he feels much better after receiving breathing treatments and antibiotics. Source: patient Date Seen 02/22/17 Time Seen by Provider: 11:15 Attending Physician Santiago Ley MD PCP No,Local Physician Referring Physician Date of Admission Feb 21, 2017 at 19:00 Home Medications & Allergies Home Medications Reviewed patient Home Medication Reconciliation Form Allergies Allergies Coded Allergies Penicillins (Unverified Allergy, Intermediate, 01/22/14) causes dysrhythmias Past Haygfvx-Zoywss-Yltlww Hx Patient Social History Alcohol Use: Denies Use Recreational Drug Use: No Smoking Status: Current Everyday Smoker Type Used: Cigarettes Physical Abuse Screen: No Sexual Abuse: No Recent Foreign Travel: No Contact w/other who traveled: No Recent Hopitalizations: No Recent Infectious Disease Expo: No Immunizations Up To Date Tetanus Booster (TDap): Unknown Seasonal Allergies Seasonal Allergies: No Surgeries Yes (R knee cartilage rpr, bl inguinal hernia rpr, Cardiac cath x2, lumbar fusio ) Abdominal, Appendectomy, Cardiac, Orthopedic Respiratory Yes (HEMOPTYSIS WITH BRONCHITIS) COPD, Emphysema, Pneumonia Currently Using CPAP: No Currently Using BIPAP: No Cardiovascular Yes (MILD BILATERAL CAROTID DISEASE) Coronary Artery Disease, Heart Attack, High Cholesterol, Hypertension Neurological No Reproductive System Hx Reproductive Disorders: No Sexually Transmitted Disease: No HIV/AIDS: No Genitourinary No Gastrointestinal Yes Gastroesophageal Reflux, Gastrointestinal Bleed, Polyps, Ulcer Musculoskeletal Yes (RIGHT KNEE TORN CARTILAGE; BACK SURGERY 1988) Arthritis, Chronic Back Pain Endocrine History of Endocrine Disorders: No HEENT History of HEENT Disorders: Yes HEENT Disorders: Tinnitis, Eye Injury Loss of Vision: Denies Hearing Impairment: Hard of Hearing Cancer No Psychosocial History of Psychiatric Problem: Yes (MENTAL BLOCK ([place] PSYCHIATRIC INSTUTITE FOR 3 YEARS) ) Behavioral Health Disorders: Violent Behavior Integumentary History of Skin or Integumenta: No Blood Transfusions History of Blood Disorders: No Adverse Reaction to a Blood Tr: No Family Medical History Significant Family History: No Pertinent Family Hx Family Hx: Cardiomegaly 19 MOTHER Dysphasia G8 BROTHER G8 SISTER FH: cancer Hypertension G8 BROTHER G8 SISTER G8 SISTER Kidney disease 19 MOTHER Myocardial infarction Review of Systems Constitutional: No chills, No fever EENTM: No blurred vision, No double vision, No nose congestion, No throat pain Respiratory: cough, No dyspnea on exertion, No short of breath Cardiovascular: chest pain, No edema, No palpitations Gastrointestinal: No abdominal pain, No constipation, No diarrhea, No nausea, No vomiting Genitourinary: No dysuria, No frequency Musculoskeletal: No joint pain, No muscle pain Skin: No lesions, No rash Psychiatric/Neurological: Denies Headache, Denies Numbness, Denies Tingling Physical Exam Physical Exam Vital Signs Vital Sign - Last 12Hours 02/21/17 17:37 Temp 98.2 Pulse 85 Resp 16 B/P (MAP) 153/101 (118) Pulse Ox 97 O2 Delivery Nasal Cannula O2 Flow Rate 2.0 Capillary Refill : Less Than 3 Seconds General Appearance: No Apparent Distress, WD/WN HEENT: PERRL/EOMI, Moist Mucous Membranes Neck: Non Tender, Supple Respiratory: Lungs Clear, No Respiratory Distress Cardiovascular: Regular Rate, Rhythm, No Murmur Gastrointestinal: Normal Bowel Sounds, Non Tender, Soft Extremity: Normal Capillary Refill, No Calf Tenderness Neurologic/Psychiatric: Alert, Oriented x3, Normal Mood/Affect Skin: Normal Color, Warm/Dry Results Results/Procedures Lab Laboratory Tests 02/21/17 17:43 02/22/17 06:36 Short Stay Diagnosis Discharge Diagnosis-Short Stay Admission Diagnosis CAP Final Discharge Diagnosis CAP Conclusion Plan See problems Diagnosis/Problems Diagnosis/Problems (1) CAP (community acquired pneumonia) Status: Acute Assessment & Plan: Has had this previously twice this year Will transition to Levaquin at home Recommended smoking cessation as well Refused Flu Vaccine Qualifiers: Qualified Codes: J18.1 - Lobar pneumonia, unspecified organism (2) Tobacco abuse Assessment & Plan: Recommended cessation Working on cutting back (3) CAD (coronary artery disease) Status: Chronic Assessment & Plan: Negative Troponins Chest pain more pleuritic likely due to pneumonia Continue ASA (4) Essential (primary) hypertension Assessment & Plan: Continue home medications as well controlled here Clinical Quality Measures AMI/AHF: ASA po Prior to arrival: No DVT/VTE Risk/Contraindication: Risk Factor Score Per Nursin RFS Level Per Nursing on Admit: 4+=Very High DAVID BERG MD Feb 22, 2017 14:20
--- NOTE | 2017-02-28 07:52 | Physician Query Clarification ---
PQ-Intro New Diagnosis Admission/Discharge Admission Date: Feb 21, 2017 at 19:00 Discharge Date: Feb 22, 2017 at 14:04 The medical record reflects the following clinical scenario: History/Risk Factors: Pneumonia Emphysema Clinical Findings: 02/21 Lactic Acid level 2.57 rising to 3.32 Treatment: 20ml/kg bolus and received fluids overnight. Question: What condition best reflects the above clinical scenario? Please document below. 1. Lactic acidosis. 2. Elevated lactic acid- lab finding only. 3. Other, with explanation of the clinical findings. 4. Clinically undetermined, no explanation for the clinical findings. PHYSICIAN RESPONSE What condition reflects above: 2 In responding to this query, please exercise your independent professional judgment. The purpose of this communication is to more accurately reflect the complexity of your patients condition. The fact that a question is asked does not imply that any particular answer is desired or expected. Thank you for your timely response to this clarification. Requestors name: Samantha Kee [facility] Phone # ext [phone] or [phone] THIS PHYSICIAN QUERY FORM IS A PERMANENT PART OF THE MEDICAL RECORD SAMANTHA KEE Feb 28, 2017 07:52 DAVID BERG MD Feb 28, 2017 09:19
== END 2017-02-22 14:04 | disposition home or self-care (01) | DRG 195 ==
LOC: EDUNIT# 17:34 → ER 17:35 → 4TH 19:00
PROVIDERS: ADMIT Internal Medicine; ATTEND Internal Medicine
DX: J18.9 Pneumonia, unspecified organism (principal); J43.9 Emphysema, unspecified; I25.10 Atherosclerotic heart disease of native coronary artery without angina pectoris; I25.2 Old myocardial infarction; I10 Essential (primary) hypertension; F17.210 Nicotine dependence, cigarettes, uncomplicated; E78.00 Pure hypercholesterolemia, unspecified; K21.9 Gastro-esophageal reflux disease without esophagitis; M19.91 Primary osteoarthritis, unspecified site; M54.9 Dorsalgia, unspecified; H93.19 Tinnitus, unspecified ear; Z87.01 Personal history of pneumonia (recurrent); Z87.11 Personal history of peptic ulcer disease; Z86.010 Personal history of colon polyps; Z98.1 Arthrodesis status; Z86.59 Personal history of other mental and behavioral disorders; Z86.79 Personal history of other diseases of the circulatory system
CPT/HCPCS: 36415; 71020; 80048; 80053; 80061; 83605; 83735; 83874; 83880; 84484; 85025; 85610; 85730; 86141; 87040; 87070; 87077; 87205; 93005; 93041; 94640; 94760; 96361; 96374; 96375

== ENCOUNTER → 2017-02-23 | Outpatient (CLI) | payer MEDICARE ==
[~2017-02-23] MED LIST changes: +ACET-2267 PO; +ATOR40TA70 PO; +CLOP75TA69 PO; +LEVO750T9 PO; +PANT40TA3 PO
== END ==
LOC: CARD 13:35
PROVIDERS: ATTEND Physician Assistant
DX: I25.10 Atherosclerotic heart disease of native coronary artery without angina pectoris (principal); I10 Essential (primary) hypertension; R00.2 Palpitations; R07.89 Other chest pain
CPT/HCPCS: 93306

== ENCOUNTER 2017-06-10 13:34 | Emergency (ER) | payer MEDICARE ==
[~2017-06-10] VITALS: Ht 188 cm; Wt 99.8 kg
[~2017-06-10 13:34] MED LIST changes: +ACHD5005 PO; -HYDR-3812 PO
[2017-06-10] MEDS ORDERED: ALBU18HF2 (16:35)
[2017-06-10 16:58] LABS: BASOPHILS % (AUTO) 0 % (0-10); EOSINOPHILS # (AUTO) 0.2 10^3/uL (0.0-0.3); EOSINOPHILS % (AUTO) 2 % (0-10); HEMATOCRIT 40 % (40-54); HEMOGLOBIN 13.6 G/DL (13.3-17.7); LYMPHOCYTES # (AUTO) 2.6 X 10^3 (1.0-4.0); LYMPHOCYTES % (AUTO) 25 % (12-44); MEAN CORPUSCULAR HEMOGLOBIN 32 PG (25-34); MEAN CORPUSCULAR HGB CONC 34 G/DL (32-36); MEAN CORPUSCULAR VOLUME 92 FL (80-99); MEAN PLATELET VOLUME 11.4 FL (7.4-10.4); MONOCYTES # (AUTO) 0.9 X 10^3 (0.0-1.0); MONOCYTES % (AUTO) 8 % (0-12); NEUTROPHILS # (AUTO) 6.9 X 10^3 (1.8-7.8); NEUTROPHILS % (AUTO) 65 % (42-75); PLATELET COUNT 227 10^3/uL (130-400); RED BLOOD COUNT 4.31 10^6/uL (4.35-5.85); RED CELL DISTRIBUTION WIDTH 13.4 % (10.0-14.5); WHITE BLOOD COUNT 10.6 10^3/uL (4.3-11.0)
[2017-06-10 17:07] LABS: PROTHROMBIN TIME PATIENT 12.8 SEC (12.2-14.7)
[2017-06-10 17:17] LABS: ALANINE AMINOTRANSFERASE 21 U/L (0-55); ALBUMIN 4.1 GM/DL (3.2-4.5); ALKALINE PHOSPHATASE 58 U/L (40-136); BILIRUBIN,TOTAL 0.5 MG/DL (0.1-1.0); BUN/CREATININE RATIO 17; CARBON DIOXIDE 23 MMOL/L (21-32); CHLORIDE 108 MMOL/L (98-107); CREATININE SERUM 0.82 MG/DL (0.60-1.30); GFR ESTIMATED > 60; GLUCOSE 94 MG/DL (70-105); MAGNESIUM 2.2 MG/DL (1.8-2.4); POTASSIUM 3.9 MMOL/L (3.6-5.0); SODIUM 138 MMOL/L (135-145); TOTAL PROTEIN 6.9 GM/DL (6.4-8.2)
--- NOTE | 2017-06-10 17:21 | Diagnostic Imaging Report ---
INDICATION: Dizziness and weakness. TECHNIQUE: Multiple contiguous axial images were obtained through the brain without the use of intravenous contrast. COMPARISON: Comparison made with prior examination from 02/23/2014. FINDINGS: The ventricles and sulci are within normal limits. There is no hydrocephalus or cerebral edema. There is no midline shift or mass effect. There is no intracranial mass, hemorrhage, or extra-axial fluid collection. The visualized paranasal sinuses and mastoid air cells are clear. There are no regional areas of decreased attenuation appreciated to suggest an acute CVA. IMPRESSION: No acute intracranial abnormality. Dictated by: Dictated on workstation # [id number]
--- NOTE | 2017-06-10 17:27 | Diagnostic Imaging Report ---
INDICATION: Dizziness and weakness. COMPARISON: Comparison made with prior examination from 02/19/2017. FINDINGS: The heart size is normal. There is bibasilar atelectasis and/or pneumonitis, right greater than left. There is air trapping compatible with COPD. There is no pleural effusion or pneumothorax. Mediastinum is unremarkable. IMPRESSION: COPD with bibasilar atelectasis and/or pneumonitis, right greater than left. Dictated by: Dictated on workstation # [id number]
[2017-06-10 17:37] LABS: TSH (THYROID ANALYZER) 1.52 UIU/ML (0.35-4.94)
[2017-06-10] MEDS ORDERED: IOHEXOL 350 MG/ML 150 ML (OMNIPAQUE 350) VIAL IV ONE (18:00)
[2017-06-10] MEDS ORDERED: NS 250 ML (IVPB) BAG IV ONE (18:00)
[2017-06-10 18:48] LABS: BILIRUBIN,URINE NEGATIVE (NEGATIVE); CLARITY,URINE CLEAR; COLOR,URINE YELLOW; GLUCOSE, URINE (UA) NEGATIVE (NEGATIVE); KETONES,URINE NEGATIVE (NEGATIVE); LEUKOCYTE ESTERASE ,URINE NEGATIVE (NEGATIVE); NITRITE,URINE NEGATIVE (NEGATIVE); PH,URINE 5 (5-9); PROTEIN,URINE NEGATIVE (NEGATIVE); UROBILINOGEN,URINE NORMAL (NORMAL)
--- NOTE | 2017-06-10 18:49 | Diagnostic Imaging Report ---
PROCEDURE: CT angiography of the chest with contrast. TECHNIQUE: Multiple contiguous axial images were obtained through the chest after uneventful bolus administration of intravenous contrast. Reconstructed CTA MIP acquisitions were also performed. INDICATION: Dizziness, lightheadedness. FINDINGS: The pulmonary arteries demonstrate no filling defect to reflect pulmonary embolism. Heart size is normal. The thoracic aorta is tortuous in its descending course. No andrea aneurysmal dilatation or evidence for dissection. No pathologically enlarged mediastinal and/or hilar lymph nodes. Prominent fat at the gastroesophageal junction. EG junction appears unremarkable. Lung turcios with severe emphysematous changes with rather marked severity bullous changes at the lung apices. No infiltrate. There is a slightly nodular, somewhat swirled appearance about the lingula left lung base. This area of parenchymal density measures 3.9 x 1.1 cm. Areas of atelectasis and/or scarring about the lower lobes. Visualized portion of the upper abdomen is unremarkable. IMPRESSION: 1. No CT evidence for pulmonary embolism. 2. Marked severity bullous emphysematous disease. 3. Parenchymal density in the lingula left lung base. This could be a somewhat swirled area of rounded atelectasis and/or scarring or perhaps infiltrate. Neoplasm would be difficult to exclude at this time. Followup imaging in approximately 3-4 months recommended for reassessment. Dictated by: Dictated on workstation # [id number]
[2017-06-10 18:54] LABS: SQUAMOUS EPITHELIAL CELL,UR RARE /HPF
[2017-06-10 19:04] LABS: AMPHETAMINE SCREEN, URINE NEGATIVE (NEGATIVE); BARBITURATE SCREEN URINE NEGATIVE (NEGATIVE); BENZODIAZEPINES SCREEN URINE NEGATIVE (NEGATIVE); CANNABINOID SCREEN, URINE NEGATIVE (NEGATIVE); COCAINE SCREEN URINE NEGATIVE (NEGATIVE); METHADONE STAT NEGATIVE (NEGATIVE); METHAMPHETAMINE SCREEN URINE S NEGATIVE (NEGATIVE); OPIATE SCREEN URINE NEGATIVE (NEGATIVE); OXYCODONE STAT NEGATIVE (NEGATIVE); PROPOXYPHENE STAT NEGATIVE (NEGATIVE); TRICYCLIC ANTIDEPRESSANTS SCRE NEGATIVE (NEGATIVE)
[2017-06-10] MEDS ORDERED: SCOPOLAMINE 1.5 MG (TRANSDERM-SCOP) PATCH TD ONE (19:15)
[2017-06-10] MEDS ORDERED: MECLIZINE 25 MG (ANTIVERT) TAB PO ONE (19:15)
--- NOTE | 2017-06-10 19:15 | ED General ---
General Chief Complaint: Dizziness/Syncope Stated Complaint: DIZZY,LIGHT-HEADED Nursing Triage Note: Pt reports feeling dizzy since waking at 0500 this am. Pt reports he feels off balance when walking. Nursing Sepsis Screen: No Definite Risk Allergies and Home Medications Allergies Coded Allergies: Penicillins (Unverified Allergy, Intermediate, 01/22/14) causes dysrhythmias Home Medications Acetaminophen 500 Mg Tablet, 500-1,000 MG PO Q6H PRN for PAIN-MILD, (Reported) Aspirin 81 Mg Tablet.dr, 81 MG PO DAILY, (Reported) Lisinopril 10 Mg Tablet, 10 MG PO DAILY, (Reported) Metoprolol Succinate 50 Mg Tab.er.24h, 50 MG PO HS, (Reported) Pantoprazole Sodium 40 Mg Tablet.dr, 40 MG PO DAILY, (Reported) Past Mggxkzo-Gfbyvv-Baxxvo Hx Patient Social History Alcohol Use: Denies Use Recreational Drug Use: No Smoking Status: Current Everyday Smoker Type Used: Cigarettes Recent Foreign Travel: No Contact w/Someone Who Travel: No Recent Infectious Disease Expo: No Recent Hopitalizations: No Physical Abuse: No Sexual Abuse: No Immunizations Up To Date Tetanus Booster (TDap): Unknown Seasonal Allergies Seasonal Allergies: No Surgeries History of Surgeries: Yes (R knee cartilage rpr, bl inguinal hernia rpr, Cardiac cath x2, lumbar fusio) Surgeries: Abdominal, Appendectomy, Cardiac, Orthopedic Respiratory History of Respiratory Disorde: Yes (HEMOPTYSIS WITH BRONCHITIS) Respiratory Disorders: Pneumonia, Chronic Bronchitis, COPD Currently Using CPAP: No Currently Using BIPAP: No Cardiovascular History of Cardiac Disorders: Yes (MILD BILATERAL CAROTID DISEASE) Cardiac Disorders: Coronary Artery Disease, Heart Attack, High Cholesterol, Hypertension Neurological History of Neurological Disord: No Reproductive System Hx Reproductive Disorders: No Sexually Transmitted Disease: No HIV/AIDS: No Genitourinary History of Genitourinary Disor: No Gastrointestinal History of Gastrointestinal Di: Yes Gastrointestinal Disorders: Gastroesophageal Reflux, Gastrointestinal Bleed, Polyps, Ulcer Musculoskeletal History of Musculoskeletal Dis: Yes (RIGHT KNEE TORN CARTILAGE; BACK SURGERY 1988) Musculoskeletal Disorders: Arthritis, Chronic Back Pain Endocrine History of Endocrine Disorders: No HEENT History of HEENT Disorders: Yes HEENT Disorders: Tinnitis, Eye Injury Loss of Vision: Denies Hearing Impairment: Hard of Hearing Cancer History of Cancer: No Psychosocial History of Psychiatric Problem: Yes (MENTAL BLOCK ([place], [place] PSYCHIATRIC INSTUTITE FOR 3 YEARS) ) Behavioral Health Disorders: Violent Behavior Suicide Risk Score: 0 Integumentary History of Skin or Integumenta: No Blood Transfusions History of Blood Disorders: No Adverse Reaction to a Blood Tr: No Family Medical History Significant Family History: No Pertinent Family Hx Family Medial History: Cardiomegaly 19 MOTHER Dysphasia G8 BROTHER G8 SISTER FH: cancer Hypertension G8 BROTHER G8 SISTER G8 SISTER Kidney disease 19 MOTHER Myocardial infarction Physical Exam Vital Signs Vital Signs - First Documented 06/10/17 14:54 Temp 97.9 Pulse 77 Resp 18 B/P (MAP) 142/90 (107) Pulse Ox 95 O2 Delivery Room Air Capillary Refill : Less Than 3 Seconds Progress/Results/Core Measures Suspected Sepsis Recent Fever Within 48 Hours: No Infection Criteria Present: None New/Unexplained Altered Menta: No Sepsis Screen: No Definite Risk Sepsis Diagnosis: SIRS Temperature:97.9 Pulse: 77 Respiratory Rate: 18 Laboratory Tests 06/10/17 16:50: White Blood Count 10.6 Blood Pressure 142 /90 Mean: 107 Laboratory Tests 06/10/17 16:50: Creatinine 0.82, INR Comment 1.0, Platelet Count 227, Total Bilirubin 0.5 Results/Orders Lab Results Laboratory Tests Test 06/10/17 16:50 06/10/17 18:41 Range/Units White Blood Count 10.6 4.3-11.0 10^3/uL Red Blood Count 4.31 L 4.35-5.85 10^6/uL Hemoglobin 13.6 13.3-17.7 G/DL Hematocrit 40 40-54 % Mean Corpuscular Volume 92 80-99 FL Mean Corpuscular Hemoglobin 32 25-34 PG Mean Corpuscular Hemoglobin Concent 34 32-36 G/DL Red Cell Distribution Width 13.4 10.0-14.5 % Platelet Count 227 130-400 10^3/uL Mean Platelet Volume 11.4 H 7.4-10.4 FL Neutrophils (%) (Auto) 65 42-75 % Lymphocytes (%) (Auto) 25 12-44 % Monocytes (%) (Auto) 8 0-12 % Eosinophils (%) (Auto) 2 0-10 % Basophils (%) (Auto) 0 0-10 % Neutrophils # (Auto) 6.9 1.8-7.8 X 10^3 Lymphocytes # (Auto) 2.6 1.0-4.0 X 10^3 Monocytes # (Auto) 0.9 0.0-1.0 X 10^3 Eosinophils # (Auto) 0.2 0.0-0.3 10^3/uL Basophils # (Auto) 0.0 0.0-0.1 10^3/uL Prothrombin Time 12.8 12.2-14.7 SEC INR Comment 1.0 0.8-1.4 Activated Partial Thromboplast Time 30 24-35 SEC Sodium Level 138 135-145 MMOL/L Potassium Level 3.9 3.6-5.0 MMOL/L Chloride Level 108 H 98-107 MMOL/L Carbon Dioxide Level 23 21-32 MMOL/L Anion Gap 7 5-14 MMOL/L Blood Urea Nitrogen 14 7-18 MG/DL Creatinine 0.82 0.60-1.30 MG/DL Estimat Glomerular Filtration Rate > 60 BUN/Creatinine Ratio 17 Glucose Level 94 70-105 MG/DL Calcium Level 9.0 8.5-10.1 MG/DL Magnesium Level 2.2 1.8-2.4 MG/DL Total Bilirubin 0.5 0.1-1.0 MG/DL Aspartate Amino Transf (AST/SGOT) 26 5-34 U/L Alanine Aminotransferase (ALT/SGPT) 21 0-55 U/L Alkaline Phosphatase 58 40-136 U/L Troponin I < 0.30 <0.30 NG/ML Total Protein 6.9 6.4-8.2 GM/DL Albumin 4.1 3.2-4.5 GM/DL TSH [place] Testing 1.52 0.35-4.94 UIU/ML Serum Alcohol 10 <10 MG/DL Urine Color YELLOW Urine Clarity CLEAR Urine pH 5 5-9 Urine Specific Smith 1.010 L 1.016-1.022 Urine Protein NEGATIVE NEGATIVE Urine Glucose (UA) NEGATIVE NEGATIVE Urine Ketones NEGATIVE NEGATIVE Urine Nitrite NEGATIVE NEGATIVE Urine Bilirubin NEGATIVE NEGATIVE Urine Urobilinogen NORMAL NORMAL MG/DL Urine Leukocyte Esterase NEGATIVE NEGATIVE Urine RBC (Auto) NEGATIVE NEGATIVE Urine RBC NONE /HPF Urine WBC NONE /HPF Urine Squamous Epithelial Cells RARE /HPF Urine Crystals NONE /LPF Urine Bacteria NONE /HPF Urine Casts NONE /LPF Urine Mucus NEGATIVE /LPF Urine Culture Indicated NO Urine Opiates Screen NEGATIVE NEGATIVE Urine Oxycodone Screen NEGATIVE NEGATIVE Urine Methadone Screen NEGATIVE NEGATIVE Urine Propoxyphene Screen NEGATIVE NEGATIVE Urine Barbiturates Screen NEGATIVE NEGATIVE Ur Tricyclic Antidepressants Screen NEGATIVE NEGATIVE Urine Phencyclidine Screen NEGATIVE NEGATIVE Urine Amphetamines Screen NEGATIVE NEGATIVE Urine Methamphetamines Screen NEGATIVE NEGATIVE Urine Benzodiazepines Screen NEGATIVE NEGATIVE Urine Cocaine Screen NEGATIVE NEGATIVE Urine Cannabinoids Screen NEGATIVE NEGATIVE My Orders Orders - ANTONIO JONES DO Saline Lock/Iv-Start (06/10/17 16:36) Ekg Tracing (06/10/17 16:36) Monitor-Rhythm Ecg Trace Only (06/10/17 16:36) Alcohol (06/10/17 16:36) Cbc With Automated Diff (06/10/17 16:36) Comprehensive Metabolic Panel (06/10/17 16:36) Drug Screen Stat (Urine) (06/10/17 16:36) Magnesium (06/10/17 16:36) Protime With Inr (06/10/17 16:36) Partial Thromboplastin Time (06/10/17 16:36) Thyroid Analyzer (06/10/17 16:36) Troponin I (06/10/17 16:36) Ua Culture If Indicated (06/10/17 16:36) Ct Head Wo-R/O Stroke (06/10/17 16:36) Chest 1 View, Ap/Pa Only (06/10/17 16:36) Ct Angio Chest W (06/10/17 17:36) Iohexol Injection (Omnipaque 350 Mg/Ml 1 (06/10/17 18:00) Ns (Ivpb) (Sodium Chloride 0.9%) (06/10/17 18:00) Pharmacy Communication (Pharmacy Communi (06/10/17 17:51) Scopolamine Patch (Transderm-Scop Patch) (06/10/17 19:15) Meclizine Tablet (Antivert Tablet) (06/10/17 19:15) Medications Given in ED Current Medications Medications Dose Ordered Sig/Mikayla Route Start Time Stop Time Status Last Admin Dose Admin Iohexol 125 ml ONCE ONCE IV 06/10/17 18:00 06/10/17 18:01 DC 06/10/17 18:03 125 ML Sodium Chloride 250 ml ONCE ONCE IV 06/10/17 18:00 06/10/17 18:01 DC 06/10/17 18:03 80 ML Vital Signs/I&O Vital Sign - Last 12Hours 06/10/17 14:54 Temp 97.9 Pulse 77 Resp 18 B/P (MAP) 142/90 (107) Pulse Ox 95 O2 Delivery Room Air Capillary Refill : Less Than 3 Seconds Blood Pressure Mean: [address] CHEST ANGIOGRAM--NO P.E., COPD CHANGES, ATELECTASIS/INFILTRATE/SCARRING IN RIGHT BASE--CANNOT R/O NEOPLASM--PER RADIOLOGIST REPORT @ 1910 Reviewed: Reviewed by Me Departure Impression Impression: Primary Impression: Dizziness Additional Impression: Abnormal finding on CT scan Disposition: HOME, SELF-CARE Condition: Improved Departure-Patient Inst. Referrals: NO,LOCAL PHYSICIAN (PCP) Primary Care Physician [facility] (Family) Primary Care Physician Patient Instructions: Vertigo (a Type of Dizziness) (DC) Add. Discharge Instructions: HOME, REST SLOW POSITION CHANGES LOTS OF FLUIDS NO DRIVING IF YOU ARE DIZZY FOLLOW UP WITH YOUR DR NEXT WEEK FOR FURTHER CARE RETURN TO ER IF SYMPTOMS WORSEN All discharge instructions reviewed with patient and/or family. Voiced understanding. Scripts Scopolamine (Transderm-Scop) 1 Each Patch.td72 1 EACH TD Q72 HOURS for Dizziness, #3 PATCH Prov: ANTNOIO JONES DO 06/10/17 Meclizine HCl (Meclizine HCl) 25 Mg Tablet 25-50 MG PO Q6H for Dizziness, #30 TAB Prov: ANTONIO JONES DO 06/10/17 ANTONIO JONES DO Jun 10, 2017 19:15
[2017-06-10] MEDS ORDERED: MECLIZINE 25 MG (ANTIVERT) TAB ONE (19:19)
[2017-06-10] MEDS ORDERED: SCOP1PAT11 TD (19:21)
[2017-06-10] MEDS ORDERED: MECL-106 PO (19:21)
[2017-06-10 19:28] VITALS: BP 137/91
== END 2017-06-10 19:28 | disposition home or self-care (01) ==
LOC: EDUNIT# 13:34 → ER 13:36
DX: R42 Dizziness and giddiness (principal); R93.5 Abnormal findings on diagnostic imaging of other abdominal regions, including retroperitoneum; J44.9 Chronic obstructive pulmonary disease, unspecified; I25.10 Atherosclerotic heart disease of native coronary artery without angina pectoris; I25.2 Old myocardial infarction; I10 Essential (primary) hypertension; E78.00 Pure hypercholesterolemia, unspecified; K21.9 Gastro-esophageal reflux disease without esophagitis; F17.210 Nicotine dependence, cigarettes, uncomplicated; Z90.49 Acquired absence of other specified parts of digestive tract; Z82.49 Family history of ischemic heart disease and other diseases of the circulatory system; Z86.010 Personal history of colon polyps; Z87.01 Personal history of pneumonia (recurrent); Z87.19 Personal history of other diseases of the digestive system; Z98.1 Arthrodesis status; Z88.0 Allergy status to penicillin; Z79.82 Long term (current) use of aspirin
CPT/HCPCS: 36415; 70450; 71045; 71275; 80053; 80306; 80320; 81000; 83735; 84443; 84484; 85025; 85610; 85730; 93005; 93041

== ENCOUNTER 2017-07-21 20:58 | Emergency (ER) | payer MEDICARE ==
[~2017-07-21] VITALS: Ht 188 cm; Wt 102.1 kg
[~2017-07-21 20:58] MED LIST changes: +ALBU18HF2; +MECL-106 PO; +PRD10T PO; +SCOP1PAT11 TD
--- OUTSIDE RECORDS SUMMARY | 2017-07-21 21:07 | XMS REPORT | Continuity of Care Document ---
Author Author [facility] Organization [facility] Address Unknown Phone Unavailable Allergies Active Description Code Type Severity Reaction Onset Reported/Identified Relationship to Patient Clinical Status Yes Penicillins [id number] Drug Allergy Moderate N/A 01/22/2014 Medications There is no data. Problems Date Dx Coded Attending Type Code Diagnosis Diagnosed By 01/23/2014 EMILY ALICEA MD Ot 272.4 HYPERLIPIDEMIA NEC/NOS 01/23/2014 EMILY ALICEA MD Ot 305.1 TOBACCO USE DISORDER 01/23/2014 EMILY ALICEA MD Ot 397.0 TRICUSPID VALVE DISEASE 01/23/2014 EMILY ALICEA MD Ot 401.9 HYPERTENSION NOS 01/23/2014 EMILY ALICEA MD Ot 411.1 INTERMED CORONARY SYND 01/23/2014 EMILY ALICEA MD Ot 412 OLD MYOCARDIAL INFARCT 01/23/2014 EMILY ALICEA MD Ot 414.01 CORONARY ATHEROSCLEROSIS OF [place] CORON 01/23/2014 EMILY ALICEA MD Ot 424.0 MITRAL VALVE DISORDER 01/23/2014 EMILY ALICEA MD Ot 496 CHR AIRWAY OBSTRUCT NEC 01/23/2014 EMILY ALICEA MD Ot 786.59 CHEST PAIN NEC 01/23/2014 EMILY ALICEA MD Ot 790.29 OTHER ABNORMAL GLUCOSE 01/23/2014 EMILY ALICEA MD Ot V12.79 PERSONAL HISTORY OTH SPEC DIGESTIVE SYST 01/23/2014 EMILY ALICEA MD Ot V15.81 HX OF PAST NONCOMPLIANCE 01/23/2014 EMILY ALICEA MD Ot V17.49 FAMILY HISTORY OF OTHER CARDIOVASCULAR D 02/23/2014 NICOLASA PÉREZ MD Ot 272.0 PURE HYPERCHOLESTEROLEM 02/23/2014 NICOLASA PÉREZ MD Ot 305.1 TOBACCO USE DISORDER 02/23/2014 NICOLASA PÉREZ MD Ot 412 OLD MYOCARDIAL INFARCT 02/23/2014 NICOLASA PÉREZ MD Ot 782.0 SKIN SENSATION DISTURB 02/23/2014 BALDO PÉREZ MDNT A Ot V58.69 OTH MED,LT,CURRENT USE 03/07/2014 SATHYA RUDD MD Ot 305.1 TOBACCO USE DISORDER 03/07/2014 SATHYA RUDD MD Ot 414.01 CORONARY ATHEROSCLEROSIS OF [place] CORON 03/07/2014 SATHYA RUDD MD Ot 496 CHR AIRWAY OBSTRUCT NEC 03/07/2014 SATHYA RUDD MD Ot 553.3 DIAPHRAGMATIC HERNIA 03/07/2014 SATHYA RUDD MD Ot 786.30 HEMOPTYSIS, UNSPECIFIED 02/28/2015 RY ROSS, ITZEL Buitrago Ot 530.81 02/28/2015 BIRGIT MENDEZ APRN Ot F17.210 NICOTINE DEPENDENCE, CIGARETTES, UNCOMPL 02/28/2015 BIRGIT MENDEZ APPARATUS ENGINEERING TECHNOLOGIST Ot J40 BRONCHITIS, NOT SPECIFIED ACUTE OR CH 02/28/2015 BIRGIT MENDEZ APRN Ot R00.2 PALPITATIONS 02/28/2015 RY ROSS, ITZEL Buitrago Ot 530.81 04/11/2015 ITZEL RAZA MD Ot 530.81 05/16/2015 EMILY ALICEA MD Ot I10 05/16/2015 EMILY ALICEA MD Ot I34.0 05/16/2015 EMILY ALICEA MD Ot R06.00 05/16/2015 EMILY ALICEA MD Ot R07.9 06/09/2015 EMILY ALICEA MD Ot I10 06/09/2015 EMILY ALICEA MD Ot I34.0 06/09/2015 EMILY ALICEA MD Ot R06.00 06/09/2015 EMILY ALICEA MD Ot R07.9 07/07/2015 EMILY ALICEA MD Ot E78.5 HYPERLIPIDEMIA, UNSPECIFIED 07/07/2015 EMILY ALICEA MD Ot F17.210 NICOTINE DEPENDENCE, CIGARETTES, UNCOMPL 07/07/2015 EMILY ALICEA MD Ot I10 ESSENTIAL (PRIMARY) HYPERTENSION 07/07/2015 EMILY ALICEA MD Ot I25.10 ATHSCL HEART DISEASE OF [place] CORONARY 07/07/2015 EMILY ALICEA MD Ot J06.9 ACUTE UPPER RESPIRATORY INFECTION, UNSPE 07/07/2015 EMILY ALICEA MD Ot R07.9 CHEST PAIN, UNSPECIFIED 07/07/2015 EMILY ALICEA MD Ot R94.39 ABNORMAL RESULT OF OTHER CARDIOVASCULAR 07/07/2015 EMILY ALICEA MD Ot Z79.899 OTHER EMULSION COATER (CURRENT) DRUG THERAPY 07/07/2015 EMILY ALICEA MD, Ot Z82.49 FAMILY HX OF ISCHEM HEART DIS AND OTH DI 07/07/2015 EMILY ALICEA MD, Ot Z91.19 PATIENT'S NONCOMPLIANCE W OT MEDICAL TR 07/17/2015 EMILY ALICEA MD, Ot I10 ESSENTIAL (PRIMARY) HYPERTENSION 07/17/2015 EMILY ALICEA MD Ot I34.0 NONRHEUMATIC MITRAL (VALVE) INSUFFICIENC 07/17/2015 EMILY ALICEA MD Ot R06.00 DYSPNEA, UNSPECIFIED 07/17/2015 EMILY ALICEA MD Ot R07.9 CHEST PAIN, UNSPECIFIED 07/17/2015 EMILY ALICEA MD Ot I10 ESSENTIAL (PRIMARY) HYPERTENSION 07/17/2015 EMILY ALICEA MD Ot I34.0 NONRHEUMATIC MITRAL (VALVE) INSUFFICIENC 07/17/2015 EMILY ALICEA MD Ot R06.00 DYSPNEA, UNSPECIFIED 07/17/2015 EMILY ALICEA MD Ot R07.9 CHEST PAIN, UNSPECIFIED 07/17/2015 EMILY ALICEA MD Ot I10 ESSENTIAL (PRIMARY) HYPERTENSION 07/17/2015 EMILY ALICEA MD Ot I34.0 NONRHEUMATIC MITRAL (VALVE) INSUFFICIENC 07/17/2015 EMILY ALICEA MD Ot R06.00 DYSPNEA, UNSPECIFIED 07/17/2015 EMILY ALICEA MD Ot R07.9 CHEST PAIN, UNSPECIFIED 07/21/2015 EMILY ALICEA MD Ot E78.5 HYPERLIPIDEMIA, UNSPECIFIED 07/21/2015 EMILY ALICEA MD Ot F17.210 NICOTINE DEPENDENCE, CIGARETTES, UNCOMPL 07/21/2015 EMILY ALICEA MD Ot I10 ESSENTIAL (PRIMARY) HYPERTENSION 07/21/2015 EMILY ALICEA MD Ot I25.10 ATHSCL HEART DISEASE OF [place] CORONARY 07/21/2015 EMILY ALICEA MD Ot J06.9 ACUTE UPPER RESPIRATORY INFECTION, UNSPE 07/21/2015 EMILY ALICEA MD Ot R07.9 CHEST PAIN, UNSPECIFIED 07/21/2015 EMILY ALICEA MD Ot R94.39 ABNORMAL RESULT OF OTHER CARDIOVASCULAR 07/21/2015 EMILY ALICEA MD Ot Z79.899 OTHER EMULSION COATER (CURRENT) DRUG THERAPY 07/21/2015 EMILY ALICEA MD Ot Z82.49 FAMILY HX OF ISCHEM HEART DIS AND OTH DI 07/21/2015 EMILY ALICEA MD Ot Z91.19 PATIENT'S NONCOMPLIANCE W [facility] MEDICAL TR 08/20/2015 EMILY ALICEA MD Ot I10 ESSENTIAL (PRIMARY) HYPERTENSION 08/20/2015 EMILY ALICEA MD Ot I34.0 NONRHEUMATIC MITRAL (VALVE) INSUFFICIENC 08/20/2015 EMILY ALICEA MD Ot R06.00 DYSPNEA, UNSPECIFIED 08/20/2015 EMILY ALICEA MD Ot R07.9 CHEST PAIN, UNSPECIFIED 09/09/2015 EMILY ALICEA MD Ot I10 ESSENTIAL (PRIMARY) HYPERTENSION 09/09/2015 EMILY ALICEA MD Ot I34.0 NONRHEUMATIC MITRAL (VALVE) INSUFFICIENC 09/09/2015 EMILY ALICEA MD Ot R06.00 DYSPNEA, UNSPECIFIED 09/09/2015 EMILY ALICEA MD Ot R07.9 CHEST PAIN, UNSPECIFIED 03/04/2016 YANI MADRID MD Ot F17.210 NICOTINE DEPENDENCE, CIGARETTES, UNCOMPL 03/04/2016 YANI MADRID MD Ot F41.9 ANXIETY DISORDER, UNSPECIFIED 03/04/2016 YANI MADRID MD Ot I10 ESSENTIAL (PRIMARY) HYPERTENSION 03/04/2016 YANI MADRID MD Ot I65.23 OCCLUSION AND STENOSIS OF BILATERAL [place] 03/04/2016 YANI MADRID MD Ot J44.1 CHRONIC OBSTRUCTIVE PULMONARY DISEASE W 03/04/2016 YANI MADRID MD Ot R07.89 OTHER CHEST PAIN 03/04/2016 YANI MADRID MD Ot Z82.49 FAMILY HX OF ISCHEM HEART DIS AND OTH DI 03/04/2016 YANI MADRID MD Ot Z91.19 PATIENT'S NONCOMPLIANCE W [facility] MEDICAL TR 05/11/2016 SHANTELMARSHALL CEDEÑO MD Ot I10 ESSENTIAL (PRIMARY) HYPERTENSION 05/11/2016 MARSHALL FUNES MD Ot I25.10 ATHSCL HEART DISEASE OF [place] CORONARY 05/11/2016 MARSHALL FUNES MD Ot I34.0 NONRHEUMATIC MITRAL (VALVE) INSUFFICIENC 05/11/2016 MARSHALL FUNES MD Ot J44.9 CHRONIC OBSTRUCTIVE PULMONARY DISEASE, U 05/11/2016 MARSHALL FUNES MD Ot R00.2 PALPITATIONS 05/11/2016 MARSHALL FUNES MD Ot R06.00 DYSPNEA, UNSPECIFIED 05/11/2016 MARSHALL FUNES MD Ot Z72.0 TOBACCO USE 08/23/2016 RY ROSS, ITZEL Buitrago Ot 530.81 ESOPHAGEAL REFLUX 08/23/2016 EMILY ALICEA MD Ot I10 ESSENTIAL (PRIMARY) HYPERTENSION 08/23/2016 EMILY ALICEA MD Ot I34.0 NONRHEUMATIC MITRAL (VALVE) INSUFFICIENC 08/23/2016 EMILY ALICEA MD Ot R06.00 DYSPNEA, UNSPECIFIED 08/23/2016 EMILY ALICEA MD Ot R07.9 CHEST PAIN, UNSPECIFIED 08/23/2016 MARSHALL FUNES MD Ot I10 ESSENTIAL (PRIMARY) HYPERTENSION 08/23/2016 MARSHALL FUNES MD Ot I25.10 ATHSCL HEART DISEASE OF [place] CORONARY 08/23/2016 MARSHALL FUNES MD Ot I34.0 NONRHEUMATIC MITRAL (VALVE) INSUFFICIENC 08/23/2016 MARSHALL FUNES MD Ot J44.9 CHRONIC OBSTRUCTIVE PULMONARY DISEASE, U 08/23/2016 MARSHALL FUNES MD Ot R00.2 PALPITATIONS 08/23/2016 MARSHALL FUNES MD Ot R06.00 DYSPNEA, UNSPECIFIED 08/23/2016 MARSHALL FUNES MD Ot Z72.0 TOBACCO USE 08/23/2016 NIHARIKA FRANCE Ot I10 ESSENTIAL (PRIMARY) HYPERTENSION 08/23/2016 NIHARIKA FRANCE Ot I25.10 ATHSCL HEART DISEASE OF [place] CORONARY 08/23/2016 NIHARIKA FRANCE Ot I25.2 OLD MYOCARDIAL INFARCTION 08/23/2016 NIHARIKA FRANCE Ot M19.90 UNSPECIFIED OSTEOARTHRITIS, UNSPECIFIED 08/23/2016 NIHARIKA FRANCE Ot M25.511 PAIN IN RIGHT SHOULDER 08/27/2016 NIHARIKA FRANCE Ot I10 ESSENTIAL (PRIMARY) HYPERTENSION 08/27/2016 NIHARIKA FRANCE Ot I25.10 ATHSCL HEART DISEASE OF [place] CORONARY 08/27/2016 NIHARIKA FRANCE Ot I25.2 OLD MYOCARDIAL INFARCTION 08/27/2016 NIHARIKA FRANCE Ot M19.90 UNSPECIFIED OSTEOARTHRITIS, UNSPECIFIED 08/27/2016 NIHARIKA FRANCE Ot M25.511 PAIN IN RIGHT SHOULDER 12/29/2016 DAVEY MCCANN MD Ot E78.00 PURE HYPERCHOLESTEROLEMIA, UNSPECIFIED 12/29/2016 DAVEY MCCANN MD Ot F17.210 NICOTINE DEPENDENCE, CIGARETTES, UNCOMPL 12/29/2016 DAVEY MCCANN MD Ot I10 ESSENTIAL (PRIMARY) HYPERTENSION 12/29/2016 DAVEY MCCANN MD Ot I25.10 ATHSCL HEART DISEASE OF [place] CORONARY 12/29/2016 DAVEY MCCANN MD Ot I25.2 OLD MYOCARDIAL INFARCTION 12/29/2016 DAVEY MCCANN MD, Ot J44.1 CHRONIC OBSTRUCTIVE PULMONARY DISEASE W 12/29/2016 DAVEY MCCANN MD Ot K21.9 GASTRO-ESOPHAGEAL REFLUX DISEASE WITHOUT 12/29/2016 DAVEY MCCANN MD Ot R06.02 SHORTNESS OF BREATH 12/29/2016 DAVEY MCCANN MD Ot R07.89 OTHER CHEST PAIN 12/29/2016 DAVEY MCCANN MD Ot Z79.82 EMULSION COATER (CURRENT) USE OF ASPIRIN 12/29/2016 DAVEY MCCANN MD Ot Z82.49 FAMILY HX OF ISCHEM HEART DIS AND OTH DI 12/29/2016 DAVEY MCCANN MD, Ot Z87.01 PERSONAL HISTORY OF PNEUMONIA (RECURRENT 12/29/2016 DAVEY MCCANN MD, Ot Z87.19 PERSONAL HISTORY OF OTHER DISEASES OF TH 12/29/2016 DAVEY MCCANN MD Ot Z98.1 ARTHRODESIS STATUS 01/01/2017 RY ROSS, ITZEL Buitrago Ot 530.81 ESOPHAGEAL REFLUX 01/01/2017 DEANNE ROSS, EMILY Huitron Ot I10 ESSENTIAL (PRIMARY) HYPERTENSION 01/01/2017 DEANNE ROSS, EMILY Huitron Ot I34.0 NONRHEUMATIC MITRAL (VALVE) INSUFFICIENC 01/01/2017 DEANNE ROSS, EMILY Huitron Ot R06.00 DYSPNEA, UNSPECIFIED 01/01/2017 DEANNE ROSS, EMILY Huitron Ot R07.9 CHEST PAIN, UNSPECIFIED 01/01/2017 SHANTEL ROSS, MARSHALL Medina Ot I10 ESSENTIAL (PRIMARY) HYPERTENSION 01/01/2017 SHANTEL ROSS, MARSHALL Medina Ot I25.10 ATHSCL HEART DISEASE OF [place] CORONARY 01/01/2017 SHANTEL ROSS, MARSHALL Medina Ot I34.0 NONRHEUMATIC MITRAL (VALVE) INSUFFICIENC 01/01/2017 SHANTEL ROSS, MARSHALL Medina Ot J44.9 CHRONIC OBSTRUCTIVE PULMONARY DISEASE, U 01/01/2017 SHANTEL ROSS, MARSHALL Medina Ot R00.2 PALPITATIONS 01/01/2017 SHANTEL ROSS, MARSHALL Medina Ot R06.00 DYSPNEA, UNSPECIFIED 01/01/2017 SHANTEL ROSS, MARSHALL Medina Ot Z72.0 TOBACCO USE 01/02/2017 PARMINDER CHOUDHURY TRAV Ot E78.00 PURE HYPERCHOLESTEROLEMIA, UNSPECIFIED 01/02/2017 PARMINDER DO TRAV Ot F17.210 NICOTINE DEPENDENCE, CIGARETTES, UNCOMPL 01/02/2017 PARMINDER CHOUDHURY TRAV Ot I10 ESSENTIAL (PRIMARY) HYPERTENSION 01/02/2017 PARMINDER CHOUDHURY TRAV Ot I25.10 ATHSCL HEART DISEASE OF [place] CORONARY 01/02/2017 PARMINDER CHOUDHURY TRAV Ot I25.2 OLD MYOCARDIAL INFARCTION 01/02/2017 TRAV ZURITA DO Ot J44.1 CHRONIC OBSTRUCTIVE PULMONARY DISEASE W 01/02/2017 TRUDY ZURITA DOI Ot R07.89 OTHER CHEST PAIN 01/02/2017 TRAV ZURITA DO Ot Z79.82 MCC (CURRENT) USE OF ASPIRIN 01/02/2017 TRAV ZURITA DO Ot Z79.899 OTHER EMULSION COATER (CURRENT) DRUG THERAPY 01/02/2017 TRUDY ZURITA DOI Ot E78.00 PURE HYPERCHOLESTEROLEMIA, UNSPECIFIED 01/02/2017 PARMINDER DO TRAV Ot F17.210 NICOTINE DEPENDENCE, CIGARETTES, UNCOMPL 01/02/2017 PARMINDER CHOUDHURY TRAV Ot I10 ESSENTIAL (PRIMARY) HYPERTENSION 01/02/2017 TRUDY ZURITA DOI Ot I25.10 ATHSCL HEART DISEASE OF [place] CORONARY 01/02/2017 TRAV ZURITA DO Ot I25.2 OLD MYOCARDIAL INFARCTION 01/02/2017 TRAV ZURITA DO Ot J44.1 CHRONIC OBSTRUCTIVE PULMONARY DISEASE W 01/02/2017 TRAV ZURITA DO Ot R07.89 OTHER CHEST PAIN 01/02/2017 TRAV ZURITA DO Ot Z79.82 EMULSION COATER (CURRENT) USE OF ASPIRIN 01/02/2017 TRAV ZURITA DO Ot Z79.899 OTHER MCC (CURRENT) DRUG THERAPY 02/09/2017 JABARI LYONS Ot I10 ESSENTIAL (PRIMARY) HYPERTENSION 02/09/2017 JABARI LYONS Ot I25.10 ATHSCL HEART DISEASE OF [place] CORONARY 02/09/2017 JABARI LYONS Ot R00.2 PALPITATIONS 02/09/2017 JABARI LYONS Ot R07.89 OTHER CHEST PAIN 02/22/2017 YANI MADRID MD Ot E78.00 PURE HYPERCHOLESTEROLEMIA, UNSPECIFIED 02/22/2017 YANI MADRID MD Ot F17.210 NICOTINE DEPENDENCE, CIGARETTES, UNCOMPL 02/22/2017 YANI MADRID MD Ot H93.19 TINNITUS, UNSPECIFIED EAR 02/22/2017 YANI MADRID MD Ot I10 ESSENTIAL (PRIMARY) HYPERTENSION 02/22/2017 YANI MADRID MD Ot I25.10 ATHSCL HEART DISEASE OF [place] CORONARY 02/22/2017 YANI MADRID MD Ot I25.2 OLD MYOCARDIAL INFARCTION 02/22/2017 YANI MADRID MD Ot J18.9 PNEUMONIA, UNSPECIFIED ORGANISM 02/22/2017 YANI MADRID MD Ot J43.9 EMPHYSEMA, UNSPECIFIED 02/22/2017 YANI MADRID MD Ot K21.9 GASTRO-ESOPHAGEAL REFLUX DISEASE WITHOUT 02/22/2017 YANI MADRID MD Ot M19.91 PRIMARY OSTEOARTHRITIS, UNSPECIFIED SITE 02/22/2017 YANI MADRID MD Ot M54.9 DORSALGIA, UNSPECIFIED 02/22/2017 YANI MADRID MD Ot Z86.010 PERSONAL HISTORY OF COLONIC POLYPS 02/22/2017 YANI MADRID MD Ot Z86.59 PERSONAL HISTORY OF OTHER MENTAL AND BEH 02/22/2017 JULIUS ROSS, YANI Gates Ot Z86.79 PERSONAL HISTORY OF OTHER DISEASES OF TH 02/22/2017 YANI MADRID MD Ot Z87.01 PERSONAL HISTORY OF PNEUMONIA (RECURRENT 02/22/2017 AYNI MADRID MD Ot Z87.11 PERSONAL HISTORY OF PEPTIC ULCER DISEASE 02/22/2017 YANI MADRID MD Ot Z98.1 ARTHRODESIS STATUS 02/24/2017 CALI PULLIAM JABARI K Ot I10 ESSENTIAL (PRIMARY) HYPERTENSION 02/24/2017 CALI PULLIAM JABARI K Ot I25.10 ATHSCL HEART DISEASE OF [place] CORONARY 02/24/2017 CALI PULLIAM JABARI K Ot R00.2 PALPITATIONS 02/24/2017 CALI PULLIAM JABARI K Ot R07.89 OTHER CHEST PAIN 03/03/2017 CALI PULLIAM JABARI K Ot I10 ESSENTIAL (PRIMARY) HYPERTENSION 03/03/2017 CALI PULLIAM JABARI K Ot I25.10 ATHSCL HEART DISEASE OF [place] CORONARY 03/03/2017 CALI PULLIAM JABARI K Ot R00.2 PALPITATIONS 03/03/2017 CALI PULLIAM JABARI K Ot R07.89 OTHER CHEST PAIN 03/16/2017 CALI PULLIAM JABARI K Ot I10 ESSENTIAL (PRIMARY) HYPERTENSION 03/16/2017 CALI PULLIAM JABARI K Ot I25.10 ATHSCL HEART DISEASE OF [place] CORONARY 03/16/2017 CALI PULLIAM JABARI K Ot R00.2 PALPITATIONS 03/16/2017 CALI PULLIAM JABARI K Ot R07.89 OTHER CHEST PAIN 06/10/2017 RY ROSS, ITZEL Buitrago Ot 530.81 ESOPHAGEAL REFLUX 06/10/2017 DEANNE ROSS, EMILY Huitron Ot I10 ESSENTIAL (PRIMARY) HYPERTENSION 06/10/2017 DEANNE ROSS, EMILY Huitron Ot I34.0 NONRHEUMATIC MITRAL (VALVE) INSUFFICIENC 06/10/2017 DEANNE ROSS, EMILY Huitron Ot R06.00 DYSPNEA, UNSPECIFIED 06/10/2017 DEANNE ROSS, EMILY Huitron Ot R07.9 CHEST PAIN, UNSPECIFIED 06/10/2017 SHANTEL ROSS, MARSHALL Medina Ot I10 ESSENTIAL (PRIMARY) HYPERTENSION 06/10/2017 SHANTEL ROSS, MARSHALL Medina Ot I25.10 ATHSCL HEART DISEASE OF [place] CORONARY 06/10/2017 SHANTEL ROSS, MARSHALL Medina Ot I34.0 NONRHEUMATIC MITRAL (VALVE) INSUFFICIENC 06/10/2017 SHANTEL ROSS, MARSHALL Medina Ot J44.9 CHRONIC OBSTRUCTIVE PULMONARY DISEASE, U 06/10/2017 SHANTEL ROSS, MARSHALL Medina Ot R00.2 PALPITATIONS 06/10/2017 SHANTEL ROSS, MARSHALL Medina Ot R06.00 DYSPNEA, UNSPECIFIED 06/10/2017 SHANTEL ROSS, MARSHALL Medina Ot Z72.0 TOBACCO USE 06/10/2017 JABARI LYONS Ot I10 ESSENTIAL (PRIMARY) HYPERTENSION 06/10/2017 JABARI LYONS Ot I25.10 ATHSCL HEART DISEASE OF [place] CORONARY 06/10/2017 JABARI LYONS Ot R00.2 PALPITATIONS 06/10/2017 JABARI LYONS K Ot R07.89 OTHER CHEST PAIN 06/10/2017 JABARI LYONS K Ot I10 ESSENTIAL (PRIMARY) HYPERTENSION 06/10/2017 JABARI LYONS K Ot I25.10 ATHSCL HEART DISEASE OF [place] CORONARY 06/10/2017 JABARI LYONS Ot R00.2 PALPITATIONS 06/10/2017 JABARI LYONS Ot R07.89 OTHER CHEST PAIN 06/10/2017 KAREN DO, ANTONIO K Ot E78.00 PURE HYPERCHOLESTEROLEMIA, UNSPECIFIED 06/10/2017 KAREN DO, ANTONIO K Ot F17.210 NICOTINE DEPENDENCE, CIGARETTES, UNCOMPL 06/10/2017 KAREN DO, ANTONIO K Ot I10 ESSENTIAL (PRIMARY) HYPERTENSION 06/10/2017 KAREN DO, ANTONIO K Ot I25.10 ATHSCL HEART DISEASE OF [place] CORONARY 06/10/2017 KAREN DO, ANTONIO K Ot I25.2 OLD MYOCARDIAL INFARCTION 06/10/2017 KAREN DO, ANTONIO K Ot J44.9 CHRONIC OBSTRUCTIVE PULMONARY DISEASE, U 06/10/2017 KAREN DO, ANTONIO K Ot K21.9 GASTRO-ESOPHAGEAL REFLUX DISEASE WITHOUT 06/10/2017 KAREN DO, ANTONIO K Ot R42 DIZZINESS AND GIDDINESS 06/10/2017 ANTONIO JONES DO Ot R93.5 ABN FINDINGS ON DX IMAGING OF ABD REGION 06/10/2017 ANTONIO JONES DO Ot Z79.82 EMULSION COATER (CURRENT) USE OF ASPIRIN 06/10/2017 ANTONIO JONES DO Ot Z82.49 FAMILY HX OF ISCHEM HEART DIS AND OTH DI 06/10/2017 ANTONIO JONES DO Ot Z86.010 PERSONAL HISTORY OF COLONIC POLYPS 06/10/2017 ANTONIO JONES DO Ot Z87.01 PERSONAL HISTORY OF PNEUMONIA (RECURRENT 06/10/2017 ANTONIO JONES DO Ot Z87.19 PERSONAL HISTORY OF OTHER DISEASES OF TH 06/10/2017 ANTONIO JONES DO Ot Z88.0 ALLERGY STATUS TO PENICILLIN 06/10/2017 ANTONIO JONES DO Ot Z90.49 ACQUIRED ABSENCE OF OTHER SPECIFIED PART 06/10/2017 ANTONIO JONES DO Ot Z98.1 ARTHRODESIS STATUS 06/13/2017 ANTONIO JONES DO Ot E78.00 PURE HYPERCHOLESTEROLEMIA, UNSPECIFIED 06/13/2017 ANTONIO JONES DO Ot F17.210 NICOTINE DEPENDENCE, CIGARETTES, UNCOMPL 06/13/2017 ANTONIO JONES DO Ot I10 ESSENTIAL (PRIMARY) HYPERTENSION 06/13/2017 ANTONIO JONES DO Ot I25.10 ATHSCL HEART DISEASE OF [place] CORONARY 06/13/2017 ANTONIO JONES DO Ot I25.2 OLD MYOCARDIAL INFARCTION 06/13/2017 ANTONIO JONES DO Ot J44.9 CHRONIC OBSTRUCTIVE PULMONARY DISEASE, U 06/13/2017 ANTONIO JONES DO Ot K21.9 GASTRO-ESOPHAGEAL REFLUX DISEASE WITHOUT 06/13/2017 ANTONIO JONES DO Ot R42 DIZZINESS AND GIDDINESS 06/13/2017 ANTONIO JONES DO Ot R93.5 ABN FINDINGS ON DX IMAGING OF ABD REGION 06/13/2017 ANTONIO JONES DO Ot Z79.82 MCC (CURRENT) USE OF ASPIRIN 06/13/2017 ANTONIO JONES DO Ot Z82.49 FAMILY HX OF ISCHEM HEART DIS AND OTH DI 06/13/2017 ANTONIO JONES DO Ot Z86.010 PERSONAL HISTORY OF COLONIC POLYPS 06/13/2017 KAREN DOCARLOSA Yajaira Ot Z87.01 PERSONAL HISTORY OF PNEUMONIA (RECURRENT 06/13/2017 KAREN CHOUDHURY ANTONIO Gates Ot Z87.19 PERSONAL HISTORY OF OTHER DISEASES OF TH 06/13/2017 KAREN CHOUDHURY ANTONIO Yajaira Ot Z88.0 ALLERGY STATUS TO PENICILLIN 06/13/2017 KAREN CHOUDHURY ANTONIO Yajaira Ot Z90.49 ACQUIRED ABSENCE OF OTHER SPECIFIED PART 06/13/2017 KAREN CHOUDHURY ANTONIO Yajaira Ot Z98.1 ARTHRODESIS STATUS 06/20/2017 ISAURO PEGUERO MD Ot E78.00 PURE HYPERCHOLESTEROLEMIA, UNSPECIFIED 06/20/2017 ISAURO PEGUERO MD, Ot F17.210 NICOTINE DEPENDENCE, CIGARETTES, UNCOMPL 06/20/2017 ISAURO PEGUERO MD, Ot I10 ESSENTIAL (PRIMARY) HYPERTENSION 06/20/2017 ISAURO PEGUERO MD, Ot I25.10 ATHSCL HEART DISEASE OF [place] CORONARY 06/20/2017 ISAURO PEGUERO MD, Ot I25.2 OLD MYOCARDIAL INFARCTION 06/20/2017 ISAURO PEGUERO MD Ot I65.23 OCCLUSION AND STENOSIS OF BILATERAL [place] 06/20/2017 ISAURO PEGUERO MD, Ot J44.1 CHRONIC OBSTRUCTIVE PULMONARY DISEASE W 06/20/2017 ISAURO PEGUERO MD, Ot K21.9 GASTRO-ESOPHAGEAL REFLUX DISEASE WITHOUT 06/20/2017 ISAURO PEGUERO MD Ot R06.02 SHORTNESS OF BREATH 06/20/2017 ISAURO PEGUERO MD Ot R07.9 CHEST PAIN, UNSPECIFIED 06/20/2017 ISAURO PEGUERO MD, Ot Z82.49 FAMILY HX OF ISCHEM HEART DIS AND OTH DI 06/20/2017 ISAURO PEGUERO MD, Ot Z91.14 PATIENT'S OTHER NONCOMPLIANCE WITH MEDIC Procedures Code Description Performed By Performed On 37.22 LEFT HEART CARDIAC CATH 01/23/2014 88.42 CONTRAST AORTOGRAM 01/23/2014 88.53 LT HEART ANGIOCARDIOGRAM 01/23/2014 88.56 CORONAR ARTERIOGR-2 CATH 01/23/2014 45.13 OTHER ENDOSCOPY OF SM INTEST 03/03/2014 33.23 OTHER BRONCHOSCOPY 03/04/2014 Results Test Result Range Complete blood count (CBC) with automated white blood cell (WBC) differential - 03/02/16 22:42 Blood leukocytes automated count (number/volume) 9.9 10*3/uL 4.3-11.0 Blood erythrocytes automated count (number/volume) 4.22 10*6/uL 4.35-5.85 Venous blood hemoglobin measurement (mass/volume) 13.2 g/dL 13.3-17.7 Blood hematocrit (volume fraction) 40 % 40-54 Automated erythrocyte mean corpuscular volume 94 [foz_us] 80-99 Automated erythrocyte mean corpuscular hemoglobin (mass per erythrocyte) 31 pg 25-34 Automated erythrocyte mean corpuscular hemoglobin concentration measurement ( mass/volume) 33 g/dL 32-36 Automated erythrocyte distribution width ratio 13.2 % 10.0-14.5 Automated blood platelet count (count/volume) 185 10*3/uL 130-400 Automated blood platelet mean volume measurement 12.1 [foz_us] 7.4-10.4 Automated blood neutrophils/100 leukocytes 54 % 42-75 Automated blood lymphocytes/100 leukocytes 33 % 12-44 Blood monocytes/100 leukocytes 8 % 0-12 Automated blood eosinophils/100 leukocytes 4 % 0-10 Automated blood basophils/100 leukocytes 0 % 0-10 Blood neutrophils automated count (number/volume) 5.3 10*3 1.8-7.8 Blood lymphocytes automated count (number/volume) 3.3 10*3 1.0-4.0 Blood monocytes automated count (number/volume) 0.8 10*3 0.0-1.0 Automated eosinophil count 0.4 10*3/uL 0.0-0.3 Automated blood basophil count (count/volume) 0.0 10*3/uL 0.0-0.1 PT panel in platelet poor plasma by coagulation assay - 03/02/16 22:42 Prothrombin time (PT) in platelet poor plasma by coagulation assay 13.4 s 12.2-14.7 INR in platelet poor plasma or blood by coagulation assay 1.1 0.8-1.4 Activated partial thromboplastin time (aPTT) in platelet poor plasma bycoagulation assay - 03/02/16 22:42 Activated partial thromboplastin time (aPTT) in platelet poor plasma bycoagulation assay 31 s 24-35 Comprehensive metabolic panel - 03/02/16 22:42 Serum or plasma sodium measurement (moles/volume) 141 mmol/L 135-145 Serum or plasma potassium measurement (moles/volume) 3.3 mmol/L 3.6-5.0 Serum or plasma chloride measurement (moles/volume) 105 mmol/L 98-107 Carbon dioxide 25 mmol/L 21-32 Serum or plasma anion gap determination (moles/volume) 11 mmol/L 5-14 Serum or plasma urea nitrogen measurement (mass/volume) 21 mg/dL 7-18 Serum or plasma creatinine measurement (mass/volume) 0.84 mg/dL 0.60-1.30 Serum or plasma urea nitrogen/creatinine mass ratio 25 NRG Serum or plasma creatinine measurement with calculation of estimated glomerular filtration rate > NRG Serum or plasma glucose measurement (mass/volume) 107 mg/dL 70-105 Serum or plasma calcium measurement (mass/volume) 9.0 mg/dL 8.5-10.1 Serum or plasma total bilirubin measurement (mass/volume) 0.2 mg/dL 0.1-1.0 Serum or plasma alkaline phosphatase measurement (enzymatic activity/volume) 61 U/L 40-136 Serum or plasma aspartate aminotransferase measurement (enzymatic activity/ volume) 14 U/L 5-34 Serum or plasma alanine aminotransferase measurement (enzymatic activity/volume ) 12 U/L 0-55 Serum or plasma protein measurement (mass/volume) 6.7 g/dL 6.4-8.2 Serum or plasma albumin measurement (mass/volume) 4.1 g/dL 3.2-4.5 Magnesium - 03/02/16 22:42 Magnesium 2.0 mg/dL 1.8-2.4 Serum or plasma creatine kinase measurement (enzymatic activity/volume) - 03/02 22:42 Serum or plasma creatine kinase measurement (enzymatic activity/volume) 81 U/L 30-200 Serum or plasma creatine kinase MB measurement (enzymatic activity/volume) - 22:42 Serum or plasma creatine kinase MB measurement (enzymatic activity/volume) 1.1 ng/mL <6.6 Serum or plasma troponin i.cardiac measurement (mass/volume) - 03/02/16 22:42 Serum or plasma troponin i.cardiac measurement (mass/volume) < ng/ mL <0.30 Serum or plasma lithium measurement (moles/volume) - 03/02/16 22:42 BNP level 78.3 pg/mL <100.0 Serum or plasma amylase measurement (enzymatic activity/volume) - 03/02/16 22: 42 Serum or plasma amylase measurement (enzymatic activity/volume) 132 U/L 25-125 Lipase - 03/02/16 22:42 Lipase 28 U/L 8-78 Complete blood count (CBC) with automated white blood cell (WBC) differential - 03/03/16 04:18 Blood leukocytes automated count (number/volume) 7.9 10*3/uL 4.3-11.0 Blood erythrocytes automated count (number/volume) 4.17 10*6/uL 4.35-5.85 Venous blood hemoglobin measurement (mass/volume) 12.8 g/dL 13.3-17.7 Blood hematocrit (volume fraction) 39 % 40-54 Automated erythrocyte mean corpuscular volume 94 [foz_us] 80-99 Automated erythrocyte mean corpuscular hemoglobin (mass per erythrocyte) 31 pg 25-34 Automated erythrocyte mean corpuscular hemoglobin concentration measurement ( mass/volume) 33 g/dL 32-36 Automated erythrocyte distribution width ratio 13.1 % 10.0-14.5 Automated blood platelet count (count/volume) 167 10*3/uL 130-400 Automated blood platelet mean volume measurement 12.5 [foz_us] 7.4-10.4 Automated blood neutrophils/100 leukocytes 53 % 42-75 Automated blood lymphocytes/100 leukocytes 34 % 12-44 Blood monocytes/100 leukocytes 8 % 0-12 Automated blood eosinophils/100 leukocytes 5 % 0-10 Automated blood basophils/100 leukocytes 1 % 0-10 Blood neutrophils automated count (number/volume) 4.2 10*3 1.8-7.8 Blood lymphocytes automated count (number/volume) 2.7 10*3 1.0-4.0 Blood monocytes automated count (number/volume) 0.6 10*3 0.0-1.0 Automated eosinophil count 0.4 10*3/uL 0.0-0.3 Automated blood basophil count (count/volume) 0.0 10*3/uL 0.0-0.1 Serum or plasma troponin i.cardiac measurement (mass/volume) - 03/03/16 04:18 Serum or plasma troponin i.cardiac measurement (mass/volume) < ng/ mL <0.30 Myoglobin, serum - 03/03/16 04:18 Myoglobin, serum 33.4 ng/mL 10.0-92.0 Comprehensive metabolic panel - 03/03/16 04:18 Serum or plasma sodium measurement (moles/volume) 142 mmol/L 135-145 Serum or plasma potassium measurement (moles/volume) 3.8 mmol/L 3.6-5.0 Serum or plasma chloride measurement (moles/volume) 107 mmol/L 98-107 Carbon dioxide 23 mmol/L 21-32 Serum or plasma anion gap determination (moles/volume) 12 mmol/L 5-14 Serum or plasma urea nitrogen measurement (mass/volume) 19 mg/dL 7-18 Serum or plasma creatinine measurement (mass/volume) 0.75 mg/dL 0.60-1.30 Serum or plasma urea nitrogen/creatinine mass ratio 25 NRG Serum or plasma creatinine measurement with calculation of estimated glomerular filtration rate > NRG Serum or plasma glucose measurement (mass/volume) 99 mg/dL 70-105 Serum or plasma calcium measurement (mass/volume) 8.7 mg/dL 8.5-10.1 Serum or plasma total bilirubin measurement (mass/volume) 0.3 mg/dL 0.1-1.0 Serum or plasma alkaline phosphatase measurement (enzymatic activity/volume) 50 U/L 40-136 Serum or plasma aspartate aminotransferase measurement (enzymatic activity/ volume) 14 U/L 5-34 Serum or plasma alanine aminotransferase measurement (enzymatic activity/volume ) 11 U/L 0-55 Serum or plasma protein measurement (mass/volume) 6.3 g/dL 6.4-8.2 Serum or plasma albumin measurement (mass/volume) 3.9 g/dL 3.2-4.5 Lipid 1996 panel - 03/04/16 03:34 Serum or plasma triglyceride measurement (mass/volume) 52 mg/dL <150 Serum or plasma cholesterol measurement (mass/volume) 152 mg/dL < 200 Serum or plasma cholesterol in HDL measurement (mass/volume) 54 mg/ dL 40-60 Cholesterol in LDL [mass/volume] in serum or plasma by direct assay 91 mg/dL 1-129 Serum or plasma cholesterol in VLDL measurement (mass/volume) 10 mg/ dL 5-40 Complete blood count (CBC) with automated white blood cell (WBC) differential - 03/04/16 03:34 Blood leukocytes automated count (number/volume) 15.4 10*3/uL 4.3-11.0 Blood erythrocytes automated count (number/volume) 4.11 10*6/uL 4.35-5.85 Venous blood hemoglobin measurement (mass/volume) 12.7 g/dL 13.3-17.7 Blood hematocrit (volume fraction) 39 % 40-54 Automated erythrocyte mean corpuscular volume 94 [foz_us] 80-99 Automated erythrocyte mean corpuscular hemoglobin (mass per erythrocyte) 31 pg 25-34 Automated erythrocyte mean corpuscular hemoglobin concentration measurement ( mass/volume) 33 g/dL 32-36 Automated erythrocyte distribution width ratio 13.2 % 10.0-14.5 Automated blood platelet count (count/volume) 176 10*3/uL 130-400 Automated blood platelet mean volume measurement 13.0 [foz_us] 7.4-10.4 Automated blood neutrophils/100 leukocytes 91 % 42-75 Automated blood lymphocytes/100 leukocytes 7 % 12-44 Blood monocytes/100 leukocytes 2 % 0-12 Automated blood eosinophils/100 leukocytes 0 % 0-10 Automated blood basophils/100 leukocytes 0 % 0-10 Blood neutrophils automated count (number/volume) 14.1 10*3 1.8-7.8 Blood lymphocytes automated count (number/volume) 1.0 10*3 1.0-4.0 Blood monocytes automated count (number/volume) 0.3 10*3 0.0-1.0 Automated eosinophil count 0.0 10*3/uL 0.0-0.3 Automated blood basophil count (count/volume) 0.0 10*3/uL 0.0-0.1 Blood manual differential performed detection - 03/04/16 03:34 Blood monocytes/100 leukocytes 4 % NR Manual blood segmented neutrophils/100 leukocytes 90 % NRG Blood band neutrophils/100 leukocytes 0 % NRG Manual blood lymphocytes/100 leukocytes 5 % NRG Manual eosinophils/100 leukocytes in nose 0 % NRG Manual blood basophils/100 leukocytes 0 % NRG Blood lymphocytes variant/100 leukocytes 1 % NRG Blood erythrocyte morphology finding identification NORMAL [facility] Whole blood basic metabolic panel - 03/04/16 03:34 Serum or plasma sodium measurement (moles/volume) 140 mmol/L 135-145 Serum or plasma potassium measurement (moles/volume) 3.6 mmol/L 3.6-5.0 Serum or plasma chloride measurement (moles/volume) 108 mmol/L 98-107 Carbon dioxide 22 mmol/L 21-32 Serum or plasma anion gap determination (moles/volume) 10 mmol/L 5-14 Serum or plasma urea nitrogen measurement (mass/volume) 13 mg/dL 7-18 Serum or plasma creatinine measurement (mass/volume) 0.77 mg/dL 0.60-1.30 Serum or plasma urea nitrogen/creatinine mass ratio 17 NRG Serum or plasma creatinine measurement with calculation of estimated glomerular filtration rate > NRG Serum or plasma glucose measurement (mass/volume) 145 mg/dL 70-105 Serum or plasma calcium measurement (mass/volume) 9.5 mg/dL 8.5-10.1 Serum or plasma phosphate measurement (mass/volume) - 03/04/16 03:34 Serum or plasma phosphate measurement (mass/volume) 3.0 mg/dL 2.3-4.7 Magnesium - 03/04/16 03:34 Magnesium 2.0 mg/dL 1.8-2.4 Complete blood count (CBC) with automated white blood cell (WBC) differential - 12/29/16 18:18 Blood leukocytes automated count (number/volume) 11.1 10*3/uL 4.3-11.0 Blood erythrocytes automated count (number/volume) 4.98 10*6/uL 4.35-5.85 Venous blood hemoglobin measurement (mass/volume) 15.2 g/dL 13.3-17.7 Blood hematocrit (volume fraction) 46 % 40-54 Automated erythrocyte mean corpuscular volume 93 [foz_us] 80-99 Automated erythrocyte mean corpuscular hemoglobin (mass per erythrocyte) 31 pg 25-34 Automated erythrocyte mean corpuscular hemoglobin concentration measurement ( mass/volume) 33 g/dL 32-36 Automated erythrocyte distribution width ratio 12.6 % 10.0-14.5 Automated blood platelet count (count/volume) 228 10*3/uL 130-400 Automated blood platelet mean volume measurement 12.5 [foz_us] 7.4-10.4 Automated blood neutrophils/100 leukocytes 55 % 42-75 Automated blood lymphocytes/100 leukocytes 33 % 12-44 Blood monocytes/100 leukocytes 9 % 0-12 Automated blood eosinophils/100 leukocytes 3 % 0-10 Automated blood basophils/100 leukocytes 1 % 0-10 Blood neutrophils automated count (number/volume) 6.2 10*3 1.8-7.8 Blood lymphocytes automated count (number/volume) 3.6 10*3 1.0-4.0 Blood monocytes automated count (number/volume) 1.0 10*3 0.0-1.0 Automated eosinophil count 0.3 10*3/uL 0.0-0.3 Automated blood basophil count (count/volume) 0.1 10*3/uL 0.0-0.1 Serum or plasma C reactive protein measurement (mass/volume) - 12/29/16 18:18 Serum or plasma C reactive protein measurement (mass/volume) 0.29 mg /dL 0.00-0.50 Comprehensive metabolic panel - 12/29/16 18:18 Serum or plasma sodium measurement (moles/volume) 138 mmol/L 135-145 Serum or plasma potassium measurement (moles/volume) 3.7 mmol/L 3.6-5.0 Serum or plasma chloride measurement (moles/volume) 100 mmol/L 98-107 Carbon dioxide 28 mmol/L 21-32 Serum or plasma anion gap determination (moles/volume) 10 mmol/L 5-14 Serum or plasma urea nitrogen measurement (mass/volume) 7 mg/dL 7-18 Serum or plasma creatinine measurement (mass/volume) 0.83 mg/dL 0.60-1.30 Serum or plasma urea nitrogen/creatinine mass ratio 8 NRG Serum or plasma creatinine measurement with calculation of estimated glomerular filtration rate > NRG Serum or plasma glucose measurement (mass/volume) 103 mg/dL 70-105 Serum or plasma calcium measurement (mass/volume) 9.6 mg/dL 8.5-10.1 Serum or plasma total bilirubin measurement (mass/volume) 0.2 mg/dL 0.1-1.0 Serum or plasma alkaline phosphatase measurement (enzymatic activity/volume) 72 U/L 40-136 Serum or plasma aspartate aminotransferase measurement (enzymatic activity/ volume) 16 U/L 5-34 Serum or plasma alanine aminotransferase measurement (enzymatic activity/volume ) 12 U/L 0-55 Serum or plasma protein measurement (mass/volume) 8.1 g/dL 6.4-8.2 Serum or plasma albumin measurement (mass/volume) 4.4 g/dL 3.2-4.5 Magnesium - 12/29/16 18:18 Magnesium 2.3 mg/dL 1.8-2.4 Serum or plasma troponin i.cardiac measurement (mass/volume) - 12/29/16 18:18 Serum or plasma troponin i.cardiac measurement (mass/volume) < ng/ mL <0.30 Myoglobin, serum - 12/29/16 18:18 Myoglobin, serum 29.4 ng/mL 10.0-92.0 PT panel in platelet poor plasma by coagulation assay - 12/29/16 18:40 Prothrombin time (PT) in platelet poor plasma by coagulation assay 12.4 s 12.2-14.7 INR in platelet poor plasma or blood by coagulation assay 0.9 0.8-1.4 Activated partial thromboplastin time (aPTT) in platelet poor plasma bycoagulation assay - 12/29/16 18:40 Activated partial thromboplastin time (aPTT) in platelet poor plasma bycoagulation assay 29 s 24-35 Complete blood count (CBC) with automated white blood cell (WBC) differential - 01/01/17 12:40 Blood leukocytes automated count (number/volume) 8.6 10*3/uL 4.3-11.0 Blood erythrocytes automated count (number/volume) 4.77 10*6/uL 4.35-5.85 Venous blood hemoglobin measurement (mass/volume) 14.6 g/dL 13.3-17.7 Blood hematocrit (volume fraction) 44 % 40-54 Automated erythrocyte mean corpuscular volume 91 [foz_us] 80-99 Automated erythrocyte mean corpuscular hemoglobin (mass per erythrocyte) 31 pg 25-34 Automated erythrocyte mean corpuscular hemoglobin concentration measurement ( mass/volume) 34 g/dL 32-36 Automated erythrocyte distribution width ratio 12.6 % 10.0-14.5 Automated blood platelet count (count/volume) 219 10*3/uL 130-400 Automated blood platelet mean volume measurement 11.8 [foz_us] 7.4-10.4 Automated blood neutrophils/100 leukocytes 61 % 42-75 Automated blood lymphocytes/100 leukocytes 29 % 12-44 Blood monocytes/100 leukocytes 8 % 0-12 Automated blood eosinophils/100 leukocytes 2 % 0-10 Automated blood basophils/100 leukocytes 1 % 0-10 Blood neutrophils automated count (number/volume) 5.2 10*3 1.8-7.8 Blood lymphocytes automated count (number/volume) 2.5 10*3 1.0-4.0 Blood monocytes automated count (number/volume) 0.7 10*3 0.0-1.0 Automated eosinophil count 0.2 10*3/uL 0.0-0.3 Automated blood basophil count (count/volume) 0.1 10*3/uL 0.0-0.1 PT panel in platelet poor plasma by coagulation assay - 01/01/17 12:40 Prothrombin time (PT) in platelet poor plasma by coagulation assay 12.7 s 12.2-14.7 INR in platelet poor plasma or blood by coagulation assay 0.9 0.8-1.4 Activated partial thromboplastin time (aPTT) in platelet poor plasma bycoagulation assay - 01/01/17 12:40 Activated partial thromboplastin time (aPTT) in platelet poor plasma bycoagulation assay 33 s 24-35 Serum or plasma C reactive protein measurement (mass/volume) - 01/01/17 12:40 Serum or plasma C reactive protein measurement (mass/volume) 0.29 mg /dL 0.00-0.50 Comprehensive metabolic panel - 01/01/17 12:40 Serum or plasma sodium measurement (moles/volume) 138 mmol/L 135-145 Serum or plasma potassium measurement (moles/volume) 4.1 mmol/L 3.6-5.0 Serum or plasma chloride measurement (moles/volume) 102 mmol/L 98-107 Carbon dioxide 26 mmol/L 21-32 Serum or plasma anion gap determination (moles/volume) 10 mmol/L 5-14 Serum or plasma urea nitrogen measurement (mass/volume) 9 mg/dL 7-18 Serum or plasma creatinine measurement (mass/volume) 0.83 mg/dL 0.60-1.30 Serum or plasma urea nitrogen/creatinine mass ratio 11 NRG Serum or plasma creatinine measurement with calculation of estimated glomerular filtration rate > NRG Serum or plasma glucose measurement (mass/volume) 98 mg/dL 70-105 Serum or plasma calcium measurement (mass/volume) 9.7 mg/dL 8.5-10.1 Serum or plasma total bilirubin measurement (mass/volume) 0.5 mg/dL 0.1-1.0 Serum or plasma alkaline phosphatase measurement (enzymatic activity/volume) 60 U/L 40-136 Serum or plasma aspartate aminotransferase measurement (enzymatic activity/ volume) 12 U/L 5-34 Serum or plasma alanine aminotransferase measurement (enzymatic activity/volume ) 10 U/L 0-55 Serum or plasma protein measurement (mass/volume) 7.3 g/dL 6.4-8.2 Serum or plasma albumin measurement (mass/volume) 4.1 g/dL 3.2-4.5 Magnesium - 01/01/17 12:40 Magnesium 2.1 mg/dL 1.8-2.4 Serum or plasma troponin i.cardiac measurement (mass/volume) - 01/01/17 12:40 Serum or plasma troponin i.cardiac measurement (mass/volume) < ng/ mL <0.30 Myoglobin, serum - 01/01/17 12:40 Myoglobin, serum 33.8 ng/mL 10.0-92.0 Complete urinalysis with reflex to culture - 01/01/17 13:09 Urine color determination YELLOW NRG Urine clarity determination SLIGHTLY CLOUDY NRG Urine pH measurement by test strip 7 5-9 Specific gravity of urine by test strip 1.010 1.016- 1.022 Urine protein assay by test strip, semi-quantitative NEGATIVE NEGATIVE Urine glucose detection by automated test strip NEGATIVE NEGATIVE Erythrocytes detection in urine sediment by light microscopy NEGATIVE NEGATIVE Urine ketones detection by automated test strip NEGATIVE NEGATIVE Urine nitrite detection by test strip NEGATIVE NEGATIVE Urine total bilirubin detection by test strip NEGATIVE NEGATIVE Urine urobilinogen measurement by automated test strip (mass/volume) NORMAL NORMAL Urine leukocyte esterase detection by dipstick NEGATIVE NEGATIVE Automated urine sediment erythrocyte count by microscopy (number/high power field) NONE NRG Automated urine sediment leukocyte count by microscopy (number/high power field ) NONE NRG Bacteria detection in urine sediment by light microscopy TRACE NRG Squamous epithelial cells detection in urine sediment by light microscopy 0-2 NRG Crystals detection in urine sediment by light microscopy NONE NRG Casts detection in urine sediment by light microscopy NONE NRG Mucus detection in urine sediment by light microscopy NEGATIVE NRG Complete urinalysis with reflex to culture NO NRG Serum or plasma troponin i.cardiac measurement (mass/volume) - 01/01/17 18:57 Serum or plasma troponin i.cardiac measurement (mass/volume) < ng/ mL <0.30 Serum or plasma troponin i.cardiac measurement (mass/volume) - 01/02/17 01:10 Serum or plasma troponin i.cardiac measurement (mass/volume) < ng/ mL <0.30 Complete blood count (CBC) with automated white blood cell (WBC) differential - 01/02/17 06:09 Blood leukocytes automated count (number/volume) 17.7 10*3/uL 4.3-11.0 Blood erythrocytes automated count (number/volume) 4.86 10*6/uL 4.35-5.85 Venous blood hemoglobin measurement (mass/volume) 14.7 g/dL 13.3-17.7 Blood hematocrit (volume fraction) 45 % 40-54 Automated erythrocyte mean corpuscular volume 92 [foz_us] 80-99 Automated erythrocyte mean corpuscular hemoglobin (mass per erythrocyte) 30 pg 25-34 Automated erythrocyte mean corpuscular hemoglobin concentration measurement ( mass/volume) 33 g/dL 32-36 Automated erythrocyte distribution width ratio 12.7 % 10.0-14.5 Automated blood platelet count (count/volume) 233 10*3/uL 130-400 Automated blood platelet mean volume measurement 12.1 [foz_us] 7.4-10.4 Automated blood neutrophils/100 leukocytes 91 % 42-75 Automated blood lymphocytes/100 leukocytes 7 % 12-44 Blood monocytes/100 leukocytes 2 % 0-12 Automated blood eosinophils/100 leukocytes 0 % 0-10 Automated blood basophils/100 leukocytes 0 % 0-10 Blood neutrophils automated count (number/volume) 16.1 10*3 1.8-7.8 Blood lymphocytes automated count (number/volume) 1.3 10*3 1.0-4.0 Blood monocytes automated count (number/volume) 0.4 10*3 0.0-1.0 Automated eosinophil count 0.0 10*3/uL 0.0-0.3 Automated blood basophil count (count/volume) 0.0 10*3/uL 0.0-0.1 Lipid 1996 panel - 01/02/17 06:09 Serum or plasma triglyceride measurement (mass/volume) 65 mg/dL <150 Serum or plasma cholesterol measurement (mass/volume) 174 mg/dL < 200 Serum or plasma cholesterol in HDL measurement (mass/volume) 48 mg/ dL 40-60 Cholesterol in LDL [mass/volume] in serum or plasma by direct assay 115 mg/dL 1-129 Serum or plasma cholesterol in VLDL measurement (mass/volume) 13 mg/ dL 5-40 Blood manual differential performed detection - 01/02/17 06:09 Blood monocytes/100 leukocytes 6 % NRG Manual blood segmented neutrophils/100 leukocytes 89 % NRG Blood band neutrophils/100 leukocytes 3 % [facility] Manual blood lymphocytes/100 leukocytes 2 % [facility] Blood hypersegmented neutrophils detection by light microscopy SLIGHT [facility] Comprehensive metabolic panel - 01/02/17 06:09 Serum or plasma sodium measurement (moles/volume) 139 mmol/L 135-145 Serum or plasma potassium measurement (moles/volume) 4.7 mmol/L 3.6-5.0 Serum or plasma chloride measurement (moles/volume) 104 mmol/L 98-107 Carbon dioxide 23 mmol/L 21-32 Serum or plasma anion gap determination (moles/volume) 12 mmol/L 5-14 Serum or plasma urea nitrogen measurement (mass/volume) 11 mg/dL 7-18 Serum or plasma creatinine measurement (mass/volume) 0.82 mg/dL 0.60-1.30 Serum or plasma urea nitrogen/creatinine mass ratio 13 NR Serum or plasma creatinine measurement with calculation of estimated glomerular filtration rate > [facility] Serum or plasma glucose measurement (mass/volume) 137 mg/dL 70-105 Serum or plasma calcium measurement (mass/volume) 9.9 mg/dL 8.5-10.1 Serum or plasma total bilirubin measurement (mass/volume) 0.4 mg/dL 0.1-1.0 Serum or plasma alkaline phosphatase measurement (enzymatic activity/volume) 57 U/L 40-136 Serum or plasma aspartate aminotransferase measurement (enzymatic activity/ volume) 10 U/L 5-34 Serum or plasma alanine aminotransferase measurement (enzymatic activity/volume ) 10 U/L 0-55 Serum or plasma protein measurement (mass/volume) 6.7 g/dL 6.4-8.2 Serum or plasma albumin measurement (mass/volume) 4.2 g/dL 3.2-4.5 Complete blood count (CBC) with automated white blood cell (WBC) differential - 02/21/17 17:43 Blood leukocytes automated count (number/volume) 9.9 10*3/uL 4.3-11.0 Blood erythrocytes automated count (number/volume) 4.49 10*6/uL 4.35-5.85 Venous blood hemoglobin measurement (mass/volume) 13.8 g/dL 13.3-17.7 Blood hematocrit (volume fraction) 41 % 40-54 Automated erythrocyte mean corpuscular volume 91 [foz_us] 80-99 Automated erythrocyte mean corpuscular hemoglobin (mass per erythrocyte) 31 pg 25-34 Automated erythrocyte mean corpuscular hemoglobin concentration measurement ( mass/volume) 34 g/dL 32-36 Automated erythrocyte distribution width ratio 12.9 % 10.0-14.5 Automated blood platelet count (count/volume) 211 10*3/uL 130-400 Automated blood platelet mean volume measurement 11.9 [foz_us] 7.4-10.4 Automated blood neutrophils/100 leukocytes 54 % 42-75 Automated blood lymphocytes/100 leukocytes 33 % 12-44 Blood monocytes/100 leukocytes 10 % 0-12 Automated blood eosinophils/100 leukocytes 2 % 0-10 Automated blood basophils/100 leukocytes 1 % 0-10 Blood neutrophils automated count (number/volume) 5.3 10*3 1.8-7.8 Blood lymphocytes automated count (number/volume) 3.3 10*3 1.0-4.0 Blood monocytes automated count (number/volume) 1.0 10*3 0.0-1.0 Automated eosinophil count 0.2 10*3/uL 0.0-0.3 Automated blood basophil count (count/volume) 0.1 10*3/uL 0.0-0.1 PT panel in platelet poor plasma by coagulation assay - 02/21/17 17:43 Prothrombin time (PT) in platelet poor plasma by coagulation assay 12.7 s 12.2-14.7 INR in platelet poor plasma or blood by coagulation assay 0.9 0.8-1.4 Activated partial thromboplastin time (aPTT) in platelet poor plasma bycoagulation assay - 02/21/17 17:43 Activated partial thromboplastin time (aPTT) in platelet poor plasma bycoagulation assay 33 s 24-35 Comprehensive metabolic panel - 02/21/17 17:43 Serum or plasma sodium measurement (moles/volume) 137 mmol/L 135-145 Serum or plasma potassium measurement (moles/volume) 3.8 mmol/L 3.6-5.0 Serum or plasma chloride measurement (moles/volume) 100 mmol/L 98-107 Carbon dioxide 28 mmol/L 21-32 Serum or plasma anion gap determination (moles/volume) 9 mmol/L 5-14 Serum or plasma urea nitrogen measurement (mass/volume) 8 mg/dL 7-18 Serum or plasma creatinine measurement (mass/volume) 0.83 mg/dL 0.60-1.30 Serum or plasma urea nitrogen/creatinine mass ratio 10 NRG Serum or plasma creatinine measurement with calculation of estimated glomerular filtration rate > NRG Serum or plasma glucose measurement (mass/volume) 109 mg/dL 70-105 Serum or plasma calcium measurement (mass/volume) 9.5 mg/dL 8.5-10.1 Serum or plasma total bilirubin measurement (mass/volume) 0.5 mg/dL 0.1-1.0 Serum or plasma alkaline phosphatase measurement (enzymatic activity/volume) 60 U/L 40-136 Serum or plasma aspartate aminotransferase measurement (enzymatic activity/ volume) 14 U/L 5-34 Serum or plasma alanine aminotransferase measurement (enzymatic activity/volume ) 12 U/L 0-55 Serum or plasma protein measurement (mass/volume) 7.4 g/dL 6.4-8.2 Serum or plasma albumin measurement (mass/volume) 4.2 g/dL 3.2-4.5 Magnesium - 02/21/17 17:43 Magnesium 1.9 mg/dL 1.8-2.4 Serum or plasma troponin i.cardiac measurement (mass/volume) - 02/21/17 17:43 Serum or plasma troponin i.cardiac measurement (mass/volume) < ng/ mL <0.30 Myoglobin, serum - 02/21/17 17:43 Myoglobin, serum 39.9 ng/mL 10.0-92.0 Serum or plasma lithium measurement (moles/volume) - 02/21/17 17:43 BNP level 75.6 pg/mL <100.0 Serum or plasma C reactive protein measurement (mass/volume) - 02/21/17 17:43 Serum or plasma C reactive protein measurement (mass/volume) 0.47 mg /dL 0.00-0.50 Blood lactic acid measurement (moles/volume) - 02/21/17 19:11 Blood lactic acid measurement (moles/volume) 2.57 mmol/L 0.50-2.00 Bacterial blood culture - 02/21/17 19:11 QUANTITY OF GROWTH Isolated [facility] Bacterial blood culture [id number] [facility] Bacterial blood culture - 02/21/17 19:25 Bacterial blood culture NG NRG Serum or plasma lactate measurement (moles/volume) - 02/21/17 21:25 Serum or plasma lactate measurement (moles/volume) 3.32 mmol/L 0.50-2.00 Serum or plasma troponin i.cardiac measurement (mass/volume) - 02/22/17 00:40 Serum or plasma troponin i.cardiac measurement (mass/volume) < ng/ mL <0.30 Complete blood count (CBC) with automated white blood cell (WBC) differential - 02/22/17 06:36 Blood leukocytes automated count (number/volume) 7.3 10*3/uL 4.3-11.0 Blood erythrocytes automated count (number/volume) 4.50 10*6/uL 4.35-5.85 Venous blood hemoglobin measurement (mass/volume) 13.8 g/dL 13.3-17.7 Blood hematocrit (volume fraction) 41 % 40-54 Automated erythrocyte mean corpuscular volume 91 [foz_us] 80-99 Automated erythrocyte mean corpuscular hemoglobin (mass per erythrocyte) 31 pg 25-34 Automated erythrocyte mean corpuscular hemoglobin concentration measurement ( mass/volume) 34 g/dL 32-36 Automated erythrocyte distribution width ratio 12.9 % 10.0-14.5 Automated blood platelet count (count/volume) 219 10*3/uL 130-400 Automated blood platelet mean volume measurement 12.0 [foz_us] 7.4-10.4 Automated blood neutrophils/100 leukocytes 86 % 42-75 Automated blood lymphocytes/100 leukocytes 13 % 12-44 Blood monocytes/100 leukocytes 2 % 0-12 Automated blood eosinophils/100 leukocytes 0 % 0-10 Automated blood basophils/100 leukocytes 0 % 0-10 Blood neutrophils automated count (number/volume) 6.2 10*3 1.8-7.8 Blood lymphocytes automated count (number/volume) 0.9 10*3 1.0-4.0 Blood monocytes automated count (number/volume) 0.1 10*3 0.0-1.0 Automated eosinophil count 0.0 10*3/uL 0.0-0.3 Automated blood basophil count (count/volume) 0.0 10*3/uL 0.0-0.1 Whole blood basic metabolic panel - 02/22/17 06:36 Serum or plasma sodium measurement (moles/volume) 141 mmol/L 135-145 Serum or plasma potassium measurement (moles/volume) 4.1 mmol/L 3.6-5.0 Serum or plasma chloride measurement (moles/volume) 105 mmol/L 98-107 Carbon dioxide 23 mmol/L 21-32 Serum or plasma anion gap determination (moles/volume) 13 mmol/L 5-14 Serum or plasma urea nitrogen measurement (mass/volume) 6 mg/dL 7-18 Serum or plasma creatinine measurement (mass/volume) 0.75 mg/dL 0.60-1.30 Serum or plasma urea nitrogen/creatinine mass ratio 8 NRG Serum or plasma creatinine measurement with calculation of estimated glomerular filtration rate > NRG Serum or plasma glucose measurement (mass/volume) 142 mg/dL 70-105 Serum or plasma calcium measurement (mass/volume) 9.5 mg/dL 8.5-10.1 Serum or plasma troponin i.cardiac measurement (mass/volume) - 02/22/17 06:36 Serum or plasma troponin i.cardiac measurement (mass/volume) < ng/ mL <0.30 Lipid 1996 panel - 02/22/17 06:36 Serum or plasma triglyceride measurement (mass/volume) 62 mg/dL <150 Serum or plasma cholesterol measurement (mass/volume) 131 mg/dL < 200 Serum or plasma cholesterol in HDL measurement (mass/volume) 46 mg/ dL 40-60 Cholesterol in LDL [mass/volume] in serum or plasma by direct assay 67 mg/dL 1-129 Serum or plasma cholesterol in VLDL measurement (mass/volume) 12 mg/ dL 5-40 Sputum Gram stain - 02/22/17 06:40 GRAM STAIN SPUTUM AND MIXED BACTERIAL RU [facility] Bacterial sputum culture - 02/22/17 06:40 Bacterial sputum culture NORMAL [facility] Complete blood count (CBC) with automated white blood cell (WBC) differential - 06/10/17 16:50 Blood leukocytes automated count (number/volume) 10.6 10*3/uL 4.3-11.0 Blood erythrocytes automated count (number/volume) 4.31 10*6/uL 4.35-5.85 Venous blood hemoglobin measurement (mass/volume) 13.6 g/dL 13.3-17.7 Blood hematocrit (volume fraction) 40 % 40-54 Automated erythrocyte mean corpuscular volume 92 [foz_us] 80-99 Automated erythrocyte mean corpuscular hemoglobin (mass per erythrocyte) 32 pg 25-34 Automated erythrocyte mean corpuscular hemoglobin concentration measurement ( mass/volume) 34 g/dL 32-36 Automated erythrocyte distribution width ratio 13.4 % 10.0-14.5 Automated blood platelet count (count/volume) 227 10*3/uL 130-400 Automated blood platelet mean volume measurement 11.4 [foz_us] 7.4-10.4 Automated blood neutrophils/100 leukocytes 65 % 42-75 Automated blood lymphocytes/100 leukocytes 25 % 12-44 Blood monocytes/100 leukocytes 8 % 0-12 Automated blood eosinophils/100 leukocytes 2 % 0-10 Automated blood basophils/100 leukocytes 0 % 0-10 Blood neutrophils automated count (number/volume) 6.9 10*3 1.8-7.8 Blood lymphocytes automated count (number/volume) 2.6 10*3 1.0-4.0 Blood monocytes automated count (number/volume) 0.9 10*3 0.0-1.0 Automated eosinophil count 0.2 10*3/uL 0.0-0.3 Automated blood basophil count (count/volume) 0.0 10*3/uL 0.0-0.1 PT panel in platelet poor plasma by coagulation assay - 06/10/17 16:50 Prothrombin time (PT) in platelet poor plasma by coagulation assay 12.8 s 12.2-14.7 INR in platelet poor plasma or blood by coagulation assay 1.0 0.8-1.4 Activated partial thromboplastin time (aPTT) in platelet poor plasma bycoagulation assay - 06/10/17 16:50 Activated partial thromboplastin time (aPTT) in platelet poor plasma bycoagulation assay 30 s 24-35 Comprehensive metabolic panel - 06/10/17 16:50 Serum or plasma sodium measurement (moles/volume) 138 mmol/L 135-145 Serum or plasma potassium measurement (moles/volume) 3.9 mmol/L 3.6-5.0 Serum or plasma chloride measurement (moles/volume) 108 mmol/L 98-107 Carbon dioxide 23 mmol/L 21-32 Serum or plasma anion gap determination (moles/volume) 7 mmol/L 5-14 Serum or plasma urea nitrogen measurement (mass/volume) 14 mg/dL 7-18 Serum or plasma creatinine measurement (mass/volume) 0.82 mg/dL 0.60-1.30 Serum or plasma urea nitrogen/creatinine mass ratio 17 NRG Serum or plasma creatinine measurement with calculation of estimated glomerular filtration rate > NRG Serum or plasma glucose measurement (mass/volume) 94 mg/dL 70-105 Serum or plasma calcium measurement (mass/volume) 9.0 mg/dL 8.5-10.1 Serum or plasma total bilirubin measurement (mass/volume) 0.5 mg/dL 0.1-1.0 Serum or plasma alkaline phosphatase measurement (enzymatic activity/volume) 58 U/L 40-136 Serum or plasma aspartate aminotransferase measurement (enzymatic activity/ volume) 26 U/L 5-34 Serum or plasma alanine aminotransferase measurement (enzymatic activity/volume ) 21 U/L 0-55 Serum or plasma protein measurement (mass/volume) 6.9 g/dL 6.4-8.2 Serum or plasma albumin measurement (mass/volume) 4.1 g/dL 3.2-4.5 Magnesium - 06/10/17 16:50 Magnesium 2.2 mg/dL 1.8-2.4 Serum or plasma troponin i.cardiac measurement (mass/volume) - 06/10/17 16:50 Serum or plasma troponin i.cardiac measurement (mass/volume) < ng/ mL <0.30 Serum or plasma thyrotropin measurement by detection limit <=0.05 miu/l (units/ volume) - 06/10/17 16:50 Serum or plasma thyrotropin measurement by detection limit <=0.05 miu/l (units/ volume) 1.52 u[iU]/mL 0.35-4.94 Serum or plasma ethanol measurement (mass/volume) - 06/10/17 16:50 Serum or plasma ethanol measurement (mass/volume) 10 mg/dL <10 Complete urinalysis with reflex to culture - 06/10/17 18:41 Urine color determination YELLOW NRG Urine clarity determination CLEAR NRG Urine pH measurement by test strip 5 5-9 Specific gravity of urine by test strip 1.010 1.016- 1.022 Urine protein assay by test strip, semi-quantitative NEGATIVE NEGATIVE Urine glucose detection by automated test strip NEGATIVE NEGATIVE Erythrocytes detection in urine sediment by light microscopy NEGATIVE NEGATIVE Urine ketones detection by automated test strip NEGATIVE NEGATIVE Urine nitrite detection by test strip NEGATIVE NEGATIVE Urine total bilirubin detection by test strip NEGATIVE NEGATIVE Urine urobilinogen measurement by automated test strip (mass/volume) NORMAL NORMAL Urine leukocyte esterase detection by dipstick NEGATIVE NEGATIVE Automated urine sediment erythrocyte count by microscopy (number/high power field) NONE NRG Automated urine sediment leukocyte count by microscopy (number/high power field ) NONE NRG Bacteria detection in urine sediment by light microscopy NONE NRG Squamous epithelial cells detection in urine sediment by light microscopy RARE NRG Crystals detection in urine sediment by light microscopy NONE NRG Casts detection in urine sediment by light microscopy NONE NRG Mucus detection in urine sediment by light microscopy NEGATIVE NRG Complete urinalysis with reflex to culture NO NRG Urine drug screening test - 06/10/17 18:41 Urine phencyclidine detection by screening method NEGATIVE NEGATIVE Urine benzodiazepines detection by screening method NEGATIVE NEGATIVE Urine cocaine detection NEGATIVE NEGATIVE Urine amphetamines detection by screening method NEGATIVE NEGATIVE Urine methamphetamine detection by screening method NEGATIVE NEGATIVE Urine cannabinoids detection by screening method NEGATIVE NEGATIVE Urine opiates detection by screening method NEGATIVE NEGATIVE Urine barbiturates detection NEGATIVE NEGATIVE Screening urine tricyclic antidepressants detection NEGATIVE NEGATIVE Urine methadone detection by screening method NEGATIVE NEGATIVE Urine oxycodone detection NEGATIVE NEGATIVE Urine propoxyphene detection NEGATIVE NEGATIVE Complete blood count (CBC) with automated white blood cell (WBC) differential - 06/19/17 23:35 Blood leukocytes automated count (number/volume) 9.4 10*3/uL 4.3-11.0 Blood erythrocytes automated count (number/volume) 4.32 10*6/uL 4.35-5.85 Venous blood hemoglobin measurement (mass/volume) 13.5 g/dL 13.3-17.7 Blood hematocrit (volume fraction) 41 % 40-54 Automated erythrocyte mean corpuscular volume 94 [foz_us] 80-99 Automated erythrocyte mean corpuscular hemoglobin (mass per erythrocyte) 31 pg 25-34 Automated erythrocyte mean corpuscular hemoglobin concentration measurement ( mass/volume) 33 g/dL 32-36 Automated erythrocyte distribution width ratio 13.1 % 10.0-14.5 Automated blood platelet count (count/volume) 221 10*3/uL 130-400 Automated blood platelet mean volume measurement 11.0 [foz_us] 7.4-10.4 Automated blood neutrophils/100 leukocytes 60 % 42-75 Automated blood lymphocytes/100 leukocytes 26 % 12-44 Blood monocytes/100 leukocytes 10 % 0-12 Automated blood eosinophils/100 leukocytes 3 % 0-10 Automated blood basophils/100 leukocytes 1 % 0-10 Blood neutrophils automated count (number/volume) 5.7 10*3 1.8-7.8 Blood lymphocytes automated count (number/volume) 2.5 10*3 1.0-4.0 Blood monocytes automated count (number/volume) 0.9 10*3 0.0-1.0 Automated eosinophil count 0.3 10*3/uL 0.0-0.3 Automated blood basophil count (count/volume) 0.1 10*3/uL 0.0-0.1 PT panel in platelet poor plasma by coagulation assay - 06/19/17 23:35 Prothrombin time (PT) in platelet poor plasma by coagulation assay 12.6 s 12.2-14.7 INR in platelet poor plasma or blood by coagulation assay 0.9 0.8-1.4 Activated partial thromboplastin time (aPTT) in platelet poor plasma bycoagulation assay - 06/19/17 23:35 Activated partial thromboplastin time (aPTT) in platelet poor plasma bycoagulation assay 32 s 24-35 Comprehensive metabolic panel - 06/19/17 23:35 Serum or plasma sodium measurement (moles/volume) 138 mmol/L 135-145 Serum or plasma potassium measurement (moles/volume) 4.0 mmol/L 3.6-5.0 Serum or plasma chloride measurement (moles/volume) 105 mmol/L 98-107 Carbon dioxide 27 mmol/L 21-32 Serum or plasma anion gap determination (moles/volume) 6 mmol/L 5-14 Serum or plasma urea nitrogen measurement (mass/volume) 11 mg/dL 7-18 Serum or plasma creatinine measurement (mass/volume) 0.89 mg/dL 0.60-1.30 Serum or plasma urea nitrogen/creatinine mass ratio 12 NRG Serum or plasma creatinine measurement with calculation of estimated glomerular filtration rate > NRG Serum or plasma glucose measurement (mass/volume) 111 mg/dL 70-105 Serum or plasma calcium measurement (mass/volume) 8.8 mg/dL 8.5-10.1 Serum or plasma total bilirubin measurement (mass/volume) 0.2 mg/dL 0.1-1.0 Serum or plasma alkaline phosphatase measurement (enzymatic activity/volume) 59 U/L 40-136 Serum or plasma aspartate aminotransferase measurement (enzymatic activity/ volume) 15 U/L 5-34 Serum or plasma alanine aminotransferase measurement (enzymatic activity/volume ) 17 U/L 0-55 Serum or plasma protein measurement (mass/volume) 6.7 g/dL 6.4-8.2 Serum or plasma albumin measurement (mass/volume) 4.1 g/dL 3.2-4.5 Magnesium - 06/19/17 23:35 Magnesium 2.4 mg/dL 1.8-2.4 Serum or plasma lithium measurement (moles/volume) - 06/19/17 23:35 BNP level 121.7 pg/mL <100.0 Serum or plasma troponin i.cardiac measurement (mass/volume) - 06/19/17 23:35 Serum or plasma troponin i.cardiac measurement (mass/volume) < ng/ mL <0.30 Myoglobin, serum - 06/19/17 23:35 Myoglobin, serum 36.3 ng/mL 10.0-92.0 Complete blood count (CBC) with automated white blood cell (WBC) differential - 06/20/17 09:47 Blood leukocytes automated count (number/volume) 6.9 10*3/uL 4.3-11.0 Blood erythrocytes automated count (number/volume) 4.69 10*6/uL 4.35-5.85 Venous blood hemoglobin measurement (mass/volume) 14.8 g/dL 13.3-17.7 Blood hematocrit (volume fraction) 44 % 40-54 Automated erythrocyte mean corpuscular volume 94 [foz_us] 80-99 Automated erythrocyte mean corpuscular hemoglobin (mass per erythrocyte) 32 pg 25-34 Automated erythrocyte mean corpuscular hemoglobin concentration measurement ( mass/volume) 34 g/dL 32-36 Automated erythrocyte distribution width ratio 13.2 % 10.0-14.5 Automated blood platelet count (count/volume) 228 10*3/uL 130-400 Automated blood platelet mean volume measurement 11.2 [foz_us] 7.4-10.4 Automated blood neutrophils/100 leukocytes 89 % 42-75 Automated blood lymphocytes/100 leukocytes 10 % 12-44 Blood monocytes/100 leukocytes 1 % 0-12 Automated blood eosinophils/100 leukocytes 0 % 0-10 Automated blood basophils/100 leukocytes 0 % 0-10 Blood neutrophils automated count (number/volume) 6.1 10*3 1.8-7.8 Blood lymphocytes automated count (number/volume) 0.7 10*3 1.0-4.0 Blood monocytes automated count (number/volume) 0.1 10*3 0.0-1.0 Automated eosinophil count 0.0 10*3/uL 0.0-0.3 Automated blood basophil count (count/volume) 0.0 10*3/uL 0.0-0.1 Whole blood basic metabolic panel - 06/20/17 09:47 Serum or plasma sodium measurement (moles/volume) 139 mmol/L 135-145 Serum or plasma potassium measurement (moles/volume) 4.1 mmol/L 3.6-5.0 Serum or plasma chloride measurement (moles/volume) 104 mmol/L 98-107 Carbon dioxide 27 mmol/L 21-32 Serum or plasma anion gap determination (moles/volume) 8 mmol/L 5-14 Serum or plasma urea nitrogen measurement (mass/volume) 9 mg/dL 7-18 Serum or plasma creatinine measurement (mass/volume) 0.79 mg/dL 0.60-1.30 Serum or plasma urea nitrogen/creatinine mass ratio 11 NRG Serum or plasma creatinine measurement with calculation of estimated glomerular filtration rate > NRG Serum or plasma glucose measurement (mass/volume) 141 mg/dL 70-105 Serum or plasma calcium measurement (mass/volume) 9.5 mg/dL 8.5-10.1 Lipid 1996 panel - 06/20/17 09:47 Serum or plasma triglyceride measurement (mass/volume) 52 mg/dL <150 Serum or plasma cholesterol measurement (mass/volume) 158 mg/dL < 200 Serum or plasma cholesterol in HDL measurement (mass/volume) 55 mg/ dL 40-60 Cholesterol in LDL [mass/volume] in serum or plasma by direct assay 90 mg/dL 1-129 Serum or plasma cholesterol in VLDL measurement (mass/volume) 10 mg/ dL 5-40 Blood manual differential performed detection - 06/20/17 09:47 Blood monocytes/100 leukocytes 2 % NRG Manual blood segmented neutrophils/100 leukocytes 85 % NRG Blood band neutrophils/100 leukocytes 0 % NRG Manual blood lymphocytes/100 leukocytes 13 % NRG Manual eosinophils/100 leukocytes in nose 0 % NRG Manual blood basophils/100 leukocytes 0 % NRG Blood erythrocyte morphology finding identification NORMAL NRG Encounters ACCT No. Visit Date/Time Discharge Status Pt. Type Provider Facility Loc./Unit Complaint [id number] 06/19/2017 23:29:00 06/20/2017 19:31:00 DIS Inpatient MARIELENA ROSS, ISAURO Buitrago [facility] 4TH COPD EXACERBATION, CHEST PAIN [id number] 06/10/2017 13:36:00 06/10/2017 19:28:00 DIS Emergency ANTONIO JONES DO [facility] ER DIZZY,LIGHT-HEADED [id number] 02/23/2017 13:35:00 02/23/2017 23:59:59 CLS Outpatient JABARI LYONS [facility] CARD I25.10 CAD [id number] 02/21/2017 19:00:00 02/22/2017 14:04:00 DIS Inpatient YANI MADRID MD [facility] 4TH COPD EXACERBATION,ACUTE RESP DISTRESS,CHEST PAIN [id number] 02/09/2017 08:05:00 02/09/2017 23:59:59 CLS Outpatient JABARI LYONS [facility] CARD I25.10 CAD [id number] 01/01/2017 14:50:00 01/02/2017 13:15:00 DIS Inpatient TRAV ZURITA DO [facility] 4TH CHEST PAIN R/O ACS, COPD EXACERBATION [id number] 12/29/2016 18:16:00 12/29/2016 20:15:00 DIS Emergency RAMY ROSS, DAVEY Dent [facility] ER SOA [id number] 08/23/2016 21:45:00 08/23/2016 23:01:00 DIS Emergency NIHARIKA FRANCE [facility] ER RT SHOULDER PAIN [id number] 04/16/2016 10:11:00 04/16/2016 23:59:59 CLS Outpatient SHANTEL ROSS, MARSHALL Medina [facility] LAB CAD,COPD,DYSPNEAS,HTN [id number] 03/02/2016 22:39:00 03/04/2016 09:11:00 DIS Inpatient YANI MADRID MD [facility] ICU CHEST PAIN [id number] 07/06/2015 21:30:00 07/07/2015 12:06:00 DIS Outpatient EMILY ALICEA MD [facility] CATH CHEST PAIN [id number] 05/15/2015 14:49:00 05/15/2015 23:59:59 CLS Outpatient EMILY ALICEA MD [facility] LAB [id number] 02/28/2015 16:03:00 02/28/2015 18:04:00 DIS Emergency BIRGIT MENDEZ APRN [facility] ER HEART PALPITATIONS [id number] 03/05/2014 11:05:00 03/07/2014 08:37:00 DIS Inpatient BLAIRE ROSS, SATHYA Sweeney [facility] SURGICAL HEMOPTYSIS; GI BLEED [id number] 02/23/2014 21:41:00 02/23/2014 23:04:00 DIS Emergency BETO ROSS, NICOLASA Medina [facility] ER L ARM NUMBNESS [id number] 01/24/2014 07:59:00 01/24/2014 23:59:59 CLS Outpatient RY ROSS, ITZEL Buitrago [facility] PREOP GERD [id number] 01/22/2014 12:18:00 01/23/2014 16:10:00 DIS Inpatient EMILY ALICEA MD [facility] ICU CP
[2017-07-21] MEDS ORDERED: RT-ALBUTEROL SULF 2.5 MG/3 ML PRE-MIX VIAL INH STA (22:31)
[2017-07-21] MEDS: NITROGLYCERIN 0.4 MG SL TABS BTL 25'S SL PRN ×2 (22:36→22:43)
--- NOTE | 2017-07-21 22:37 | ED Chest Pain ---
General Chief Complaint: Chest Pain Stated Complaint: CHEST PAIN Source: patient, family Exam Limitations: no limitations History of Present Illness Date Seen by Provider: July 21, 2017 Time Seen by Provider: 22:22 Initial Comments Patient presents to the ER by private conveyance with significant other and a chief complaint for 2 days now he's had right-sided chest pain that does not radiate. He had no chills sweats fevers but he has been coughing and feeling short of breath. His been using his albuterol inhaler morning ran out sometime yesterday. He's been having productive green sputum. He does have a history of coronary disease and is on a daily aspirin which he did take today. He denies any swelling or gaining weight. He does still smoke between a half and one pack of cigarettes per day. Allergies and Home Medications Allergies Coded Allergies: Penicillins (Unverified Allergy, Intermediate, 01/22/14) causes dysrhythmias Home Medications Acetaminophen 500 Mg Tablet, 500-1,000 MG PO Q6H PRN for PAIN-MILD, (Reported) Albuterol Sulfate 1 Puff Puff, 2 PUFF IH Q4H PRN for SHORTNESS OF BREATH, ( Reported) 1 PUFF = 90 MCG Aspirin 81 Mg Tablet.dr, 81 MG PO DAILY, (Reported) Lisinopril 10 Mg Tablet, 10 MG PO DAILY, (Reported) Meclizine HCl 25 Mg Tablet, 25-50 MG PO Q6H Prescribed by: ANTONIO JONES on 06/10/171920 Metoprolol Succinate 50 Mg Tab.er.24h, 50 MG PO HS, (Reported) Pantoprazole Sodium 40 Mg Tablet.dr, 40 MG PO DAILY, (Reported) Prednisone 10 Mg Tab, 40 MG PO DAILY Prescribed by: DAVID BERG on 06/20/171950 Patient Home Medication List Home Medication List Reviewed: Yes Review of Systems Constitutional: No chills, No diaphoresis; malaise EENTM: No Blurred Vision, No Double Vision Respiratory: Cough (sometimes productive), Shortness of Air, Wheezing Cardiovascular: See HPI, Chest Pain; Denies Edema, Denies Palpitations, Denies Syncope Gastrointestinal: Denies Constipated, Denies Diarrhea, Denies Nausea Genitourinary: Denies Burning, Denies Discharge, Denies Drainage Musculoskeletal: No back pain, No joint pain Past [place]-Nfocko-Besscj Hx Patient Social History Recreational Drug Use: No Drug of Choice: distant marijuana use Smoking Status: Current Everyday Smoker Type Used: Cigarettes 2nd Hand Smoke Exposure: Yes Recent Foreign Travel: No Contact w/Someone Who Travel: No Recent Hopitalizations: Yes (pneumonia) Immunizations Up To Date Tetanus Booster (TDap): Unknown Seasonal Allergies Seasonal Allergies: No Past Medical History Surgeries: Yes (R knee cartilage rpr, bl inguinal hernia rpr, Cardiac cath x2, lumbar fusio) Abdominal, Appendectomy, Cardiac, Orthopedic Respiratory: Yes (HEMOPTYSIS WITH BRONCHITIS) Pneumonia, Chronic Bronchitis, COPD Currently Using CPAP: No Currently Using BIPAP: No Cardiac: Yes (MILD BILATERAL CAROTID DISEASE) Coronary Artery Disease, Heart Attack, High Cholesterol, Hypertension Neurological: No Reproductive Disorders: No Sexually Transmitted Disease: No HIV/AIDS: No Genitourinary: No Gastrointestinal: Yes Gastroesophageal Reflux, Gastrointestinal Bleed, Polyps, Ulcer Musculoskeletal: Yes (RIGHT KNEE TORN CARTILAGE; BACK SURGERY 1988) Arthritis, Chronic Back Pain Endocrine: No HEENT: Yes Tinnitis, Eye Injury Loss of Vision: Denies Hearing Impairment: Hard of Hearing Cancer: No Psychosocial: Yes (MENTAL BLOCK ([place] [place] [facility] 3 YEARS) ) Violent Behavior Integumentary: No Blood Disorders: No Adverse Reaction/Blood Tranf: No Family Medical History Cardiomegaly 19 MOTHER Dysphasia G8 BROTHER G8 SISTER FH: cancer Hypertension G8 BROTHER G8 SISTER G8 SISTER Kidney disease 19 MOTHER Myocardial infarction Hypertension, Renal Disease Physical Exam Vital Signs Vital Signs - First Documented 07/21/17 22:49 Pulse Ox 93 O2 Delivery Room Air Capillary Refill : General Appearance: No Apparent Distress, WD/WN HEENT: PERRL/EOMI, Normal ENT Inspection, Pharynx Normal Neck: Full Range of Motion, Normal Inspection, Non Tender, Supple Respiratory: Chest Non Tender, No Accessory Muscle Use, No Respiratory Distress , Decreased Breath Sounds, Wheezing Cardiovascular: Regular Rate, Rhythm, No Edema, Normal Peripheral Pulses Gastrointestinal: Normal Bowel Sounds, Non Tender, Soft Extremity: Normal Capillary Refill, Normal Inspection, Non Tender, No Pedal Edema Neurologic/Psychiatric: Alert, Oriented x3 Skin: Normal Color, Warm/Dry Progress/Results/Core Measures Results/Orders Lab Results Laboratory Tests Test 07/21/17 22:30 Range/Units White Blood Count 8.8 4.3-11.0 10^3/uL Red Blood Count 4.32 L 4.35-5.85 10^6/uL Hemoglobin 13.5 13.3-17.7 G/DL Hematocrit 40 40-54 % Mean Corpuscular Volume 92 80-99 FL Mean Corpuscular Hemoglobin 31 25-34 PG Mean Corpuscular Hemoglobin Concent 34 32-36 G/DL Red Cell Distribution Width 12.8 10.0-14.5 % Platelet Count 234 130-400 10^3/uL Mean Platelet Volume 11.7 H 7.4-10.4 FL Neutrophils (%) (Auto) 54 42-75 % Lymphocytes (%) (Auto) 30 12-44 % Monocytes (%) (Auto) 12 0-12 % Eosinophils (%) (Auto) 3 0-10 % Basophils (%) (Auto) 1 0-10 % Neutrophils # (Auto) 4.8 1.8-7.8 X 10^3 Lymphocytes # (Auto) 2.7 1.0-4.0 X 10^3 Monocytes # (Auto) 1.0 0.0-1.0 X 10^3 Eosinophils # (Auto) 0.3 0.0-0.3 10^3/uL Basophils # (Auto) 0.1 0.0-0.1 10^3/uL Prothrombin Time 12.6 12.2-14.7 SEC INR Comment 0.9 0.8-1.4 Activated Partial Thromboplast Time 32 24-35 SEC Sodium Level 140 135-145 MMOL/L Potassium Level 3.8 3.6-5.0 MMOL/L Chloride Level 103 98-107 MMOL/L Carbon Dioxide Level 26 21-32 MMOL/L Anion Gap 11 5-14 MMOL/L Blood Urea Nitrogen 8 7-18 MG/DL Creatinine 0.87 0.60-1.30 MG/DL Estimat Glomerular Filtration Rate > 60 BUN/Creatinine Ratio 9 Glucose Level 102 70-105 MG/DL Calcium Level 9.3 8.5-10.1 MG/DL Magnesium Level 2.1 1.8-2.4 MG/DL Total Bilirubin 0.3 0.1-1.0 MG/DL Aspartate Amino Transf (AST/SGOT) 14 5-34 U/L Alanine Aminotransferase (ALT/SGPT) 12 0-55 U/L Alkaline Phosphatase 61 40-136 U/L Myoglobin 29.5 10.0-92.0 NG/ML Troponin I < 0.30 <0.30 NG/ML Total Protein 6.7 6.4-8.2 GM/DL Albumin 4.2 3.2-4.5 GM/DL My Orders Orders - BRIDGETT WELLINGTON Cbc With Automated Diff (07/21/17 22:31) Magnesium (07/21/17 22:31) Chest 1 View, Ap/Pa Only (07/21/17:31) Ekg Tracing (07/21/17) Cardiac Profile 1 (07/21/17:) Comprehensive Metabolic Panel (07/21/17) Myoglobin Serum (07/21/17:) Protime With Inr (07/21/17:) Partial Thromboplastin Time (07/21/17:) O2 (07/21/17:) Monitor-Rhythm Ecg Trace Only (07/21/17:) Lipid Panel (07/22/17 06:00) Aspirin Chewable Tablet (Baby Aspirin Ch (07/21/17 22:45) Nitroglycerin 0.4 Mg Btl 25's (Nitrostat (07/21/17 22:45) Saline Lock/Iv-Start (07/21/17:31) Albuterol Pre-Mix Nebs (Rt) (Proventil (07/21/17 22:31) Albuterol/Ipra Inhalation Soln (Duoneb I (07/21/17 22:45) Svn Small Volume Nebulizer (07/21/17:31) Medications Given in ED Current Medications Medications Dose Ordered Sig/Mikayla Route Start Time Stop Time Status Last Admin Dose Admin Albuterol/ Ipratropium 3 ml ONCE ONCE INH 07/21/17 22:45 07/21/17 22:46 DC 07/21/17 22:48 3 ML Aspirin 324 mg ONCE ONCE PO 07/21/17 22:45 07/21/17 22:46 DC 07/21/17 22:35 324 MG Nitroglycerin 0.4 mg UD PRN SL 07/21/17 22:45 07/21/17 22:43 0.4 MG Vital Signs/I&O 07/21/17 07/21/17 07/21/17 22:49 23:10 23:10 Temp 97.5 Pulse 100 Resp 20 B/P (MAP) 143/95 (111) Pulse Ox 93 92 O2 Delivery Room Air Room Air Progress Progress Note #1: Time: 22:34 Progress Note Chest pain that is not reproducible by palpation with a history of coronary disease and COPD. He does seem like his COPD is been acting up more recently and he has ran out of his inhalers at home. We'll give him DuoNeb and albuterol treatment and reexamine him. We'll also obtain EKG is initially was unremarkable and some troponins and look for possibility is pneumonia or bronchitis or emphysema. Transthoracic Echocardiogram by Dr. Holguin February 2017: Left ventricle cavity is normal with normal wall thickness and estimated ejection fraction of 50-55%. Mild regurgitation and mitral valve. Estimated pulmonary artery pressure 25-30 mmHg. Negative stress test in January 2017. Progress Note #2: Time: 23:44 Progress Note Patient subjectively breathing much better and his chest pain is gone after the breathing treatment. 2 doses of nitroglycerin did nothing for his chest pain. He does seem to have some bibasilar infiltrates not seen 2 months ago. One month ago he was seen and started on steroids and treated for COPD exacerbation. Possible he has an infectious infiltrate hiding behind some of the atelectasis and scarring seen along the bases. He has no fever however and no white count. It would be reasonable to treat him for COPD with steroids and azithromycin and have him follow-up early next week with his primary care provider. It is unlikely that he is having a cardiogenic process with his right chest pain for more than 2 days that still has not produced a troponin. He is feeling much better and would like to try and go home and try outpatient therapy. We'll put him on a 9 day steroid taper and give him some refills of the albuterol and DuoNeb for his nebulizer at home. We'll also give him a refill prescription for the Ventolin. Initial ECG Impression Date: July 21, 2017 Initial ECG Impression Time: 22:25 Initial ECG Rate: 75 Initial ECG Rhythm: Normal Sinus Initial ECG Intervals: Normal Initial ECG Impression: Normal, Nonspecific Changes Initial ECG Comparisson: Unchanged Comment Low voltage P waves are present. Sinus rhythm without T-wave elevation or depression. Diagnostic Imaging Diagonstic Imaging: Xray Plain Films/CT/US/NM/MRI: chest (1v) Comments Appears unchanged from one month before. Compared to 2 months ago there is more prominent bibasilar atelectasis or infiltrates seen. COPD. Reviewed: Reviewed by Me Departure Impression Primary Impression: COPD with exacerbation Additional Impression: Current tobacco use Disposition: HOME, SELF-CARE Condition: Improved Departure-Patient Inst. Decision time for Depature: 23:57 Referrals: NO,LOCAL PHYSICIAN (PCP) Primary Care Physician LONG MAC (Family) Primary Care Physician Patient Instructions: Chronic Obstructive Pulmonary Disease (COPD), Including Emphysema Add. Discharge Instructions: electric power superintendent the DuoNeb from the pharmacy and use one vial in your nebulizer every 6 hours for the next 2 weeks. In between that time if you have coughing fits, shortness of breath or wheezing you can use one of the albuterol vials every 4 hours through your nebulizer or you can take 2 puffs off the Ventolin inhaler using the spacer provided. electric power superintendent the prednisone and for the first 5 days take 2 tablets daily and in the last 4 days take one tablet daily. electric power superintendent the azithromycin and take one tablet daily until complete. Tomorrow call your primary care provider and request a follow-up appointment in 1-2 weeks to make sure you're going the right direction. If you have worsening symptoms or you cannot get your breathing under control or worsening chest pain you should return to the ER. All discharge instructions reviewed with patient and/or family. Voiced understanding. Scripts Azithromycin (Azithromycin) 250 Mg Tablet 250 MG PO DAILY, #4 TAB 0 Refills Prov: BRIDGETT WELLINGTON 07/21/17 Inhaler, Assist Devices (E-Z Spacer) 1 Each Spacer EACH MC Q4H PRN for WHEEZING, #1 0 Refills Prov: BRIDGETT WELLINGTON 07/21/17 Albuterol Sulfate (VENTOLIN HFA) 1 Puff Puff 2 PUFF IH Q4H PRN for WHEEZING, #1 EACH 0 Refills 1 PUFF = 90 MCG Prov: BRIDGETT WELLINGTON 07/21/17 Ipratropium/Albuterol Sulfate (Iprat-Albut 0.5-3(2.5) mg/3 ml) 3 Ml Ampul.neb 3 ML IH Q6H for 14 Days, #60 EACH 0 Refills Prov: BRIDGETT WELLINGTON 07/21/17 Prednisone (Prednisone) 20 Mg Tab 40 MG PO DAILY for 9 Days, #14 TAB 0 Refills Take 2 tablets a day for the first 5 days. Take one tablet a day for the next 4 days. Prov: BRIDGETT WELLINGTON 07/21/17 BRIDGETT WELLINGTON July 21, 2017 22:37
[2017-07-21 22:42] LABS: BASOPHILS # (AUTO) 0.1 10^3/uL (0.0-0.1); BASOPHILS % (AUTO) 1 % (0-10); EOSINOPHILS # (AUTO) 0.3 10^3/uL (0.0-0.3); EOSINOPHILS % (AUTO) 3 % (0-10); HEMATOCRIT 40 % (40-54); HEMOGLOBIN 13.5 G/DL (13.3-17.7); LYMPHOCYTES # (AUTO) 2.7 X 10^3 (1.0-4.0); LYMPHOCYTES % (AUTO) 30 % (12-44); MEAN CORPUSCULAR HEMOGLOBIN 31 PG (25-34); MEAN CORPUSCULAR HGB CONC 34 G/DL (32-36); MEAN CORPUSCULAR VOLUME 92 FL (80-99); MEAN PLATELET VOLUME 11.7 FL (7.4-10.4); MONOCYTES % (AUTO) 12 % (0-12); NEUTROPHILS # (AUTO) 4.8 X 10^3 (1.8-7.8); NEUTROPHILS % (AUTO) 54 % (42-75); PLATELET COUNT 234 10^3/uL (130-400); RED BLOOD COUNT 4.32 10^6/uL (4.35-5.85); RED CELL DISTRIBUTION WIDTH 12.8 % (10.0-14.5); WHITE BLOOD COUNT 8.8 10^3/uL (4.3-11.0)
[2017-07-21] MEDS ORDERED: RT-ALBUTEROL/IPRATROPIUM 3 ML (DUONEB) VIAL INH ONE (22:45)
[2017-07-21] MEDS ORDERED: ASPIRIN 81 MG CHEW (CHILDREN'S ASA) PO ONE (22:45)
[2017-07-21 22:52] LABS: INR 0.9 (0.8-1.4); PROTHROMBIN TIME PATIENT 12.6 SEC (12.2-14.7)
[2017-07-21 23:03] LABS: ALANINE AMINOTRANSFERASE 12 U/L (0-55); ALBUMIN 4.2 GM/DL (3.2-4.5); ALKALINE PHOSPHATASE 61 U/L (40-136); BILIRUBIN,TOTAL 0.3 MG/DL (0.1-1.0); BUN/CREATININE RATIO 9; CALCIUM 9.3 MG/DL (8.5-10.1); CARBON DIOXIDE 26 MMOL/L (21-32); CHLORIDE 103 MMOL/L (98-107); CREATININE SERUM 0.87 MG/DL (0.60-1.30); GFR ESTIMATED > 60; GLUCOSE 102 MG/DL (70-105); MAGNESIUM 2.1 MG/DL (1.8-2.4); MYOGLOBIN SERUM 29.5 NG/ML (10.0-92.0); POTASSIUM 3.8 MMOL/L (3.6-5.0); SODIUM 140 MMOL/L (135-145); TOTAL PROTEIN 6.7 GM/DL (6.4-8.2)
[2017-07-21] MEDS ORDERED: AZIT250T12 PO (23:57)
[2017-07-21] MEDS ORDERED: IPRA3AMP IH (23:57)
[2017-07-21] MEDS ORDERED: RT-ALBUINH IH (23:57)
[2017-07-21] MEDS ORDERED: INHA1INH59 MC (23:57)
[2017-07-21] MEDS ORDERED: PRD20T PO (23:57)
[2017-07-21] MEDS ORDERED: RX-ALBUTEROL NEB 2.5 MG/3 ML PACK #5 IH STA (23:59)
[2017-07-22] MEDS ORDERED: AZITHROMYCIN 250 MG TAB (ZITHROMAX) PO ONE
[2017-07-22] MEDS ORDERED: predniSONE 20 MG TAB PO ONE
[2017-07-22 00:09] VITALS: BP 99/70
--- NOTE | 2017-07-22 07:12 | Diagnostic Imaging Report ---
INDICATION: Chest pain, dyspnea Upright portable AP view of the chest is obtained. Comparison is made to study of 06/20/2017. There is continued extensive air trapping in the upper lobes. Prominent interstitial markings are seen in the lung bases. There is no evidence of pneumothorax or new infiltrate. IMPRESSION: Prominent interstitial markings in the lung bases similar to previous examination with extensive background emphysema noted. Dictated by: Dictated on workstation # [id number]
== END 2017-07-22 00:09 | disposition home or self-care (01) ==
LOC: EDUNIT# 20:58 → ER 21:00
DX: J44.1 Chronic obstructive pulmonary disease with (acute) exacerbation (principal); I25.10 Atherosclerotic heart disease of native coronary artery without angina pectoris; I25.2 Old myocardial infarction; E78.00 Pure hypercholesterolemia, unspecified; I10 Essential (primary) hypertension; K21.9 Gastro-esophageal reflux disease without esophagitis; F17.210 Nicotine dependence, cigarettes, uncomplicated; F12.10 Cannabis abuse, uncomplicated; Z98.1 Arthrodesis status; Z82.49 Family history of ischemic heart disease and other diseases of the circulatory system; Z87.01 Personal history of pneumonia (recurrent); Z87.19 Personal history of other diseases of the digestive system; Z90.49 Acquired absence of other specified parts of digestive tract; Z79.51 Long term (current) use of inhaled steroids; Z79.52 Long term (current) use of systemic steroids; Z79.82 Long term (current) use of aspirin; Z88.0 Allergy status to penicillin; Z95.1 Presence of aortocoronary bypass graft
CPT/HCPCS: 36415; 71045; 80053; 83735; 83874; 84484; 85025; 85610; 85730; 93005; 93041; 94640

== ENCOUNTER 2017-09-22 22:18 | Observation (INO) | payer MEDICARE ==
[~2017-09-22] VITALS: Ht 188 cm; Wt 97.7 kg
[~2017-09-22 22:18] MED LIST changes: +AZIT250T12 PO; +INHA1INH59 MC; +IPRA3AMP31 IH
[2017-09-22] MEDS ORDERED: ASPIRIN 81 MG CHEW (CHILDREN'S ASA) PO ONE (22:30)
[2017-09-22] MEDS ORDERED: NITROGLYCERIN 0.4 MG SL TABS BTL 25'S SL PRN (22:30)
[2017-09-22 22:47] LABS: BASOPHILS # (AUTO) 0.1 10^3/uL (0.0-0.1); BASOPHILS % (AUTO) 1 % (0-10); EOSINOPHILS # (AUTO) 0.4 10^3/uL (0.0-0.3); EOSINOPHILS % (AUTO) 4 % (0-10); HEMATOCRIT 38 % (40-54); HEMOGLOBIN 12.7 G/DL (13.3-17.7); LYMPHOCYTES # (AUTO) 2.8 X 10^3 (1.0-4.0); LYMPHOCYTES % (AUTO) 29 % (12-44); MEAN CORPUSCULAR HEMOGLOBIN 31 PG (25-34); MEAN CORPUSCULAR HGB CONC 34 G/DL (32-36); MEAN CORPUSCULAR VOLUME 93 FL (80-99); MEAN PLATELET VOLUME 11.2 FL (7.4-10.4); MONOCYTES # (AUTO) 0.8 X 10^3 (0.0-1.0); MONOCYTES % (AUTO) 9 % (0-12); NEUTROPHILS # (AUTO) 5.6 X 10^3 (1.8-7.8); NEUTROPHILS % (AUTO) 58 % (42-75); PLATELET COUNT 199 10^3/uL (130-400); RED BLOOD COUNT 4.05 10^6/uL (4.35-5.85); RED CELL DISTRIBUTION WIDTH 13.2 % (10.0-14.5); WHITE BLOOD COUNT 9.7 10^3/uL (4.3-11.0)
[2017-09-22 22:59] LABS: INR 1.1 (0.8-1.4)
[2017-09-22] MEDS ORDERED: morphine INJ 10 MG/ML 1ML (SYR OR VIAL) IVP STA (23:07)
[2017-09-22 23:11] LABS: ALANINE AMINOTRANSFERASE 12 U/L (0-55); ALBUMIN 4.1 GM/DL (3.2-4.5); ALKALINE PHOSPHATASE 55 U/L (40-136); AMYLASE 98 U/L (25-125); BILIRUBIN,TOTAL 0.4 MG/DL (0.1-1.0); BUN/CREATININE RATIO 11; CALCIUM 9.5 MG/DL (8.5-10.1); CARBON DIOXIDE 27 MMOL/L (21-32); CHLORIDE 101 MMOL/L (98-107); CREATININE SERUM 0.85 MG/DL (0.60-1.30); GFR ESTIMATED > 60; GLUCOSE 100 MG/DL (70-105); LIPASE 26 U/L (8-78); MAGNESIUM 2.1 MG/DL (1.8-2.4); POTASSIUM 3.9 MMOL/L (3.6-5.0); SODIUM 137 MMOL/L (135-145); TOTAL PROTEIN 6.2 GM/DL (6.4-8.2)
[2017-09-22 23:37] LABS: MYOGLOBIN SERUM 31.4 NG/ML (10.0-92.0)
[2017-09-23] VITALS (10 sets, daily range): BP systolic 99–122; BP diastolic 61–80
[2017-09-23] MEDS ORDERED: methylPREDNISolone 125 MG (Solu-MEDROL) VIAL IVP ONE
--- NOTE | 2017-09-23 00:14 | ED Chest Pain ---
General Chief Complaint: Chest Pain Stated Complaint: CP, SOB Nursing Triage Note: pt c/o chest pain all day. symptoms became worse tonight so pt came to ed. pt denies radiating pain. pt c/o chest tightness. pt states his home does not have ac and he feels that may have made symptoms worse. Nursing Sepsis Screen: No Definite Risk Source: patient, old records Exam Limitations: no limitations History of Present Illness Date Seen by Provider: Sep 22, 2017 Time Seen by Provider: 22:25 Initial Comments PT ARRIVES VIA POV PT STATES "THE USUAL--CHEST PAINS" STATES HE HAS HAD CHEST PAIN ALL DAY--HAS BEEN ON THE SIDES OF HIS CHEST, THEN TONIGHT--A COUPLE OF HOURS AGO--IT STARTED TO HURT IN THE CENTER OF HIS CHEST AND IT FELT VERY TIGHT RATES PAIN 7/10 NOTHING WORSENS OR IMPROVES PAIN, BUT HAS NOT TAKEN ANYTHING FOR PAIN PT HAS COPD--STATES HE HAS BEEN OUT OF HIS INHALERS "FOR A COUPLE OF WEEKS" NOTICED SWELLING IN HIS LEGS TODAY NO CHANGE IN HIS CHRONIC COUGH PT STATES HE HAS BEEN SHORT OF BREATH ALL DAY WELL NO FEVER PT STATES HE DOES NOT HAVE AIR CONDITIONING IN HIS TRAILER AND HAS BEEN INSIDE AND OUTSIDE ALL DAY TRYING TO GET COOLER PT CONTINUES TO SMOKE UP TO 4 PPD, BUT CLAIMS "ONLY 1/2 PACK TODAY" PT HAS HAD MULTIPLE VISITS/ ADMITS--MOST FOR CHEST PAIN AND/OR COPD COMPLAINTS PCP: INESSA MAC AT [facility]--ROUTINE VISIT 2 WEEKS AGO, RX FOR IBUPROFEN FOR CHRONIC BACK PAIN MEDICAID COLLECTION SPECIALIST: DR. ALICEA Allergies and Home Medications Allergies Coded Allergies: Penicillins (Unverified Allergy, Intermediate, 01/22/14) causes dysrhythmias Home Medications Acetaminophen 500 Mg Tablet, 500-1,000 MG PO Q6H PRN for PAIN-MILD, (Reported) Albuterol Sulfate 1 Puff Puff, 2 PUFF IH Q4H PRN for SHORTNESS OF BREATH, ( Reported) 1 PUFF = 90 MCG Albuterol Sulfate 1 Puff Puff, 2 PUFF IH Q4H PRN for WHEEZING 1 PUFF = 90 MCG Prescribed by: BRIDGETT WELLINGTON on 07/21/172356 Aspirin 81 Mg Tablet.dr 81 MG PO DAILY, (Reported) Azithromycin 250 Mg Tablet, 250 MG PO DAILY Prescribed by: BRIDGETT WELLINGTON on 07/21/172356 Ipratropium/Albuterol Sulfate 3 Ml Ampul.neb, 3 ML IH Q6H Prescribed by: BRIDGETT WELLINGTON on 07/21/172356 Lisinopril 10 Mg Tablet, 10 MG PO DAILY, (Reported) Meclizine HCl 25 Mg Tablet, 25-50 MG PO Q6H Prescribed by: ANTONIO JONES on 06/10/171920 Metoprolol Succinate 50 Mg Tab.er.24h, 50 MG PO HS, (Reported) Pantoprazole Sodium 40 Mg Tablet.dr, 40 MG PO DAILY, (Reported) Prednisone 10 Mg Tab, 40 MG PO DAILY Prescribed by: DAVID BERG on 06/20/171950 Prednisone 20 Mg Tab, 40 MG PO DAILY Take 2 tablets a day for the first 5 days. Take one tablet a day for the next 4 days. Prescribed by: BRIDGETT WELLINGTON on 07/21/172356 Patient Home Medication List Home Medication List Reviewed: Yes Review of Systems Constitutional: diaphoresis (BUT HAS BEEN IN HEAT ALL DAY WITH NO AIRCONDITIONING) EENTM: No Symptoms Reported Respiratory: See HPI, Cough, Shortness of Air Cardiovascular: See HPI, Chest Pain, Edema; Denies Irregular Heart Rate, Denies Lightheadedness, Denies Palpitations, Denies Syncope Gastrointestinal: No Symptoms Reported; Denies Abdominal Pain, Denies Nausea, Denies Vomiting Genitourinary: No Symptoms Reported Musculoskeletal: no symptoms reported Skin: no symptoms reported Psychiatric/Neurological: No Symptoms Reported Endocrine: No Symptoms Reported Hematologic/Lymphatic: No Symptoms Reported Past Wqzvtsh-Ihvcem-Xyjfrs Hx Patient Social History Alcohol Use: Past History (5-6 FIFTHS OF HARD LIQUOR, PLUS 2-3 CASES OF BEER A DAY, CLAIMS NONE FOR 30 YEARS, PER PT ON 09/22/17) Recreational Drug Use: Yes (THC) Drug of Choice: THC Smoking Status: Current Everyday Smoker (UP TO 4 PPD) Type Used: Cigarettes (4 PPD) 2nd Hand Smoke Exposure: Yes Recent Foreign Travel: No Contact w/Someone Who Travel: No Recent Infectious Disease Expo: No Recent Hopitalizations: No Immunizations Up To Date Tetanus Booster (TDap): Unknown Seasonal Allergies Seasonal Allergies: No Past Medical History Surgeries: Yes (RIGHT KNEE SCOPE/CARTILAGE REPAIR; BILATERAL INGUINAL HERNIA REPAIR; CARDIAC CATHS--NO INTERVENTION. LAST ONE 07/06/15; LUMBAR FUSION) Abdominal, Appendectomy, Cardiac, Orthopedic Respiratory: Yes (HEMOPTYSIS WITH BRONCHITIS) Pneumonia, Chronic Bronchitis, COPD Currently Using CPAP: No Currently Using BIPAP: No Cardiac: Yes (MILD BILATERAL CAROTID DISEASE; LAST CARDIAC CATH 07/07/15; LAST STRESS TEST 02/09/17 EF 66%) Coronary Artery Disease, Heart Attack, High Cholesterol, Hypertension Neurological: No Reproductive Disorders: No Sexually Transmitted Disease: No HIV/AIDS: No Genitourinary: No Gastrointestinal: Yes Gastroesophageal Reflux, Gastrointestinal Bleed, Polyps, Ulcer Musculoskeletal: Yes (RIGHT KNEE TORN CARTILAGE; BACK SURGERY 1988) Degenerate Disk Disease, Arthritis, Chronic Back Pain Endocrine: No HEENT: Yes Tinnitis, Eye Injury Loss of Vision: Denies Hearing Impairment: Hard of Hearing Cancer: No Psychosocial: Yes (MENTAL BLOCK ([place] [place] [facility] 3 [facility] ) ) Violent Behavior Integumentary: No Blood Disorders: No Adverse Reaction/Blood Tranf: No Family Medical History Cardiomegaly 19 MOTHER Dysphasia G8 BROTHER G8 SISTER FH: cancer Hypertension G8 BROTHER G8 SISTER G8 SISTER Kidney disease 19 MOTHER Myocardial infarction Hypertension, Renal Disease Physical Exam Vital Signs Vital Signs - First Documented 09/22/17 22:38 Pulse Ox 92 Capillary Refill : Less Than 3 Seconds General Appearance: No Apparent Distress, WD/WN, Other (FILTHY, MALODOROUS, VERY UNKEMPT, REEKS OF CIGARETTES; LAYING OUTSTRETCHED, DOES NOT APPEAR TO BE IN ANY DISCOMFORT. ) HEENT: Other (THICK GLASSES WITH TAPE OVER MOST OF LEFT LENS AND GLASSES ARE FILTHY. POOR DENTITION--MOST TEETH MISSING AND REMAINING TEETH WITH EXTENSIVE DECAY) Neck: Full Range of Motion, Normal Inspection, Non Tender, Supple; No JVD Respiratory: Normal Breath Sounds, No Accessory Muscle Use, No Respiratory Distress Cardiovascular: Regular Rate, Rhythm, No JVD, No Murmur, Normal Peripheral Pulses Gastrointestinal: Non Tender, Soft Extremity: Normal Capillary Refill, Normal Range of Motion, Non Tender, No Calf Tenderness, Pedal Edema (1+ BILATERALLY) Neurologic/Psychiatric: Alert, Oriented x3, No Motor/Sensory Deficits, Normal Mood/Affect, office support clerk II-XII Norm as Tested Skin: Normal Color, Warm/Dry, Rash (BILATERAL AXILLA WITH APPEARANCE OF FOLLICULITIS. NO ABSCESS. ) Progress/Results/Core Measures Results/Orders Lab Results Laboratory Tests Test 09/22/17 22:38 Range/Units White Blood Count 9.7 4.3-11.0 10^3/uL Red Blood Count 4.05 L 4.35-5.85 10^6/uL Hemoglobin 12.7 L 13.3-17.7 G/DL Hematocrit 38 L 40-54 % Mean Corpuscular Volume 93 80-99 FL Mean Corpuscular Hemoglobin 31 25-34 PG Mean Corpuscular Hemoglobin Concent 34 32-36 G/DL Red Cell Distribution Width 13.2 10.0-14.5 % Platelet Count 199 130-400 10^3/uL Mean Platelet Volume 11.2 H 7.4-10.4 FL Neutrophils (%) (Auto) 58 42-75 % Lymphocytes (%) (Auto) 29 12-44 % Monocytes (%) (Auto) 9 0-12 % Eosinophils (%) (Auto) 4 0-10 % Basophils (%) (Auto) 1 0-10 % Neutrophils # (Auto) 5.6 1.8-7.8 X 10^3 Lymphocytes # (Auto) 2.8 1.0-4.0 X 10^3 Monocytes # (Auto) 0.8 0.0-1.0 X 10^3 Eosinophils # (Auto) 0.4 H 0.0-0.3 10^3/uL Basophils # (Auto) 0.1 0.0-0.1 10^3/uL Prothrombin Time 14.0 12.2-14.7 SEC INR Comment 1.1 0.8-1.4 Activated Partial Thromboplast Time 31 24-35 SEC Sodium Level 137 135-145 MMOL/L Potassium Level 3.9 3.6-5.0 MMOL/L Chloride Level 101 98-107 MMOL/L Carbon Dioxide Level 27 21-32 MMOL/L Anion Gap 9 5-14 MMOL/L Blood Urea Nitrogen 9 7-18 MG/DL Creatinine 0.85 0.60-1.30 MG/DL Estimat Glomerular Filtration Rate > 60 BUN/Creatinine Ratio 11 Glucose Level 100 70-105 MG/DL Calcium Level 9.5 8.5-10.1 MG/DL Magnesium Level 2.1 1.8-2.4 MG/DL Total Bilirubin 0.4 0.1-1.0 MG/DL Aspartate Amino Transf (AST/SGOT) 12 5-34 U/L Alanine Aminotransferase (ALT/SGPT) 12 0-55 U/L Alkaline Phosphatase 55 40-136 U/L Myoglobin 31.4 10.0-92.0 NG/ML Troponin I < 0.30 <0.30 NG/ML B-Type Natriuretic Peptide 32.8 <100.0 PG/ML Total Protein 6.2 L 6.4-8.2 GM/DL Albumin 4.1 3.2-4.5 GM/DL Amylase Level 98 25-125 U/L Lipase 26 8-78 U/L My Orders Orders - ANTONIO JONES DO Cbc With Automated Diff (09/22/17 22:29) Magnesium (09/22/17 22:29) Chest 1 View, Ap/Pa Only (09/22/17 22:29) Ekg Tracing (09/22/17 22:29) Cardiac Profile 1 (09/22/17 22:29) Comprehensive Metabolic Panel (09/22/17 22:29) Myoglobin Serum (09/22/17 22:29) Protime With Inr (09/22/17 22:29) Partial Thromboplastin Time (09/22/17 22:29) O2 (09/22/17 22:29) Monitor-Rhythm Ecg Trace Only (09/22/17:29) Lipid Panel (09/23/17 06:00) Aspirin Chewable Tablet (Baby Aspirin Ch (09/22/17 22:30) Nitroglycerin 0.4 Mg Btl 25's (Nitrostat (09/22/17 22:30) Saline Lock/Iv-Start (09/22/17 22:29) Lipase (09/22/17 22:29) Amylase (09/22/17 22:29) BNP (09/22/17 22:29) Morphine Injection (Morphine Injection (09/22/17 23:07) Methylprednisolone Sod Succ (Solu-Medrol (09/23/17 00:00) Medications Given in ED Current Medications Medications Dose Ordered Sig/Mikayla Route Start Time Stop Time Status Last Admin Dose Admin Aspirin 324 mg ONCE ONCE PO 09/22/17 22:30 09/22/17 22:31 DC 09/22/17 22:47 324 MG Methylprednisolone Sodium Succinate 125 mg ONCE ONCE IVP 09/23/17 00:00 09/23/17 00:02 DC 09/23/17 00:22 125 MG Nitroglycerin 0.4 mg UD PRN SL 09/22/17 22:30 09/22/17 22:47 0.4 MG Vital Signs/I&O 09/22/17 09/22/17 09/22/17 22:21 22:21 22:38 Temp 97.6 Pulse 95 Resp 16 B/P (MAP) 118/84 (95) Pulse Ox 92 O2 Delivery Room Air Room Air Room Air Blood Pressure Mean: 95 Progress Progress Note : Progress Note SOME RELIEF WITH PAIN WITH NTG X 1, BUT BP ONLY 101 SYSTOLIC, SO HELD FURTHER NTG, AND GAVE MORPHINE 4 MG AND PT HAD COMPLETE RESOLUTION OF PAIN NO DETERIORATION IN PT'S CONDITION DURING ER STAY Initial ECG Impression Date: Sep 22, 2017 Initial ECG Impression Time: 22:35 Initial ECG Rate: 85 Initial ECG Rhythm: Normal Sinus Initial ECG Comparisson: Unchanged Diagnostic Imaging Comments CXR--CHRONIC BIBASILAR CHANGES, PENDING RADIOLOGIST REVIEW Reviewed: Reviewed by Mn Departure Communication (Admissions) [id number]--SPOKE WITH DR. ZURITA, HOSPITALIST, ACCEPTS PT FOR ADMIT Impression Primary Impression: Chest pain Additional Impression: COPD (chronic obstructive pulmonary disease) Disposition: ADMITTED INPATIENT Condition: Improved Admissions Decision to Admit Reason: Admit from ER (General) Decision to Admit/Date: Sep 23, 2017 Time/Decision to Admit Time: 00:01 Departure-Patient Inst. Referrals: NO,LOCAL PHYSICIAN (PCP) Primary Care Physician LONG MAC (Family) Primary Care Physician ANTONIO JONES DO Sep 23, 2017 00:14
[2017-09-23] MEDS ORDERED: ACETAMINOPHEN 500 MG TAB (TYLENOL) PO PRN ×2 (01:00→11:15)
[2017-09-23] MEDS ORDERED: ONDANSETRON 4 MG/2 ML (SDV) Z0FRAN IV PRN (01:00)
[2017-09-23] MEDS ORDERED: RT-ALBUTEROL/IPRATROPIUM 3 ML (DUONEB) VIAL INH PRN (03:15)
[2017-09-23 04:28] LABS: BILIRUBIN,URINE NEGATIVE (NEGATIVE); CLARITY,URINE CLEAR; COLOR,URINE YELLOW; GLUCOSE, URINE (UA) NEGATIVE (NEGATIVE); KETONES,URINE NEGATIVE (NEGATIVE); LEUKOCYTE ESTERASE ,URINE NEGATIVE (NEGATIVE); NITRITE,URINE NEGATIVE (NEGATIVE); PH,URINE 6.5 (5-9); PROTEIN,URINE NEGATIVE (NEGATIVE); UROBILINOGEN,URINE NORMAL (NORMAL)
[2017-09-23] MEDS ORDERED: morphine INJ 4 MG/ML 1 ML (VIAL/SYRINGE) IV PRN (04:30)
[2017-09-23] MEDS ORDERED: NITROGLYCERIN 0.4 MG SL TABS BTL 25'S SL PRN (04:30)
[2017-09-23 04:38] LABS: BACTERIA,URINE NEGATIVE /HPF; SQUAMOUS EPITHELIAL CELL,UR RARE /HPF
[2017-09-23] MEDS ORDERED: methylPREDNISolone 125 MG (Solu-MEDROL) VIAL IV ONE (06:00)
[2017-09-23 06:28] LABS: BASOPHILS % (AUTO) 0 % (0-10); EOSINOPHILS # (AUTO) 0.1 10^3/uL (0.0-0.3); EOSINOPHILS % (AUTO) 1 % (0-10); HEMATOCRIT 41 % (40-54); HEMOGLOBIN 13.7 G/DL (13.3-17.7); LYMPHOCYTES # (AUTO) 1.2 X 10^3 (1.0-4.0); LYMPHOCYTES % (AUTO) 15 % (12-44); MEAN CORPUSCULAR HEMOGLOBIN 32 PG (25-34); MEAN CORPUSCULAR HGB CONC 33 G/DL (32-36); MEAN CORPUSCULAR VOLUME 95 FL (80-99); MEAN PLATELET VOLUME 12.5 FL (7.4-10.4); MONOCYTES # (AUTO) 0.1 X 10^3 (0.0-1.0); MONOCYTES % (AUTO) 1 % (0-12); NEUTROPHILS # (AUTO) 6.5 X 10^3 (1.8-7.8); NEUTROPHILS % (AUTO) 83 % (42-75); PLATELET COUNT 128 10^3/uL (130-400); RED BLOOD COUNT 4.33 10^6/uL (4.35-5.85); RED CELL DISTRIBUTION WIDTH 13.1 % (10.0-14.5); WHITE BLOOD COUNT 7.8 10^3/uL (4.3-11.0)
[2017-09-23 06:37] LABS: INR 1.1 (0.8-1.4); PROTHROMBIN TIME PATIENT 13.9 SEC (12.2-14.7)
[2017-09-23 06:49] LABS: ALANINE AMINOTRANSFERASE 14 U/L (0-55); ALBUMIN 3.9 GM/DL (3.2-4.5); ALKALINE PHOSPHATASE 51 U/L (40-136); BILIRUBIN,TOTAL 0.4 MG/DL (0.1-1.0); BUN/CREATININE RATIO 12; CALCIUM 9.5 MG/DL (8.5-10.1); CARBON DIOXIDE 23 MMOL/L (21-32); CHLORIDE 104 MMOL/L (98-107); CHOLESTEROL 148 MG/DL (< 200); CREATININE SERUM 0.82 MG/DL (0.60-1.30); GFR ESTIMATED > 60; GLUCOSE 131 MG/DL (70-105); HDL CHOLESTEROL 45 MG/DL (40-60); POTASSIUM 4.8 MMOL/L (3.6-5.0); SODIUM 137 MMOL/L (135-145); TOTAL PROTEIN 6.9 GM/DL (6.4-8.2); TRIGLYCERIDES 51 MG/DL (<150); VLDL CHOLESTEROL 10 MG/DL (5-40)
[2017-09-23 06:55] LABS: MYOGLOBIN SERUM 48.2 NG/ML (10.0-92.0)
--- NOTE | 2017-09-23 07:48 | Diagnostic Imaging Report ---
Indication: Chest pain. Comparison made with prior examination of 07/21/2017. Findings: Heart size is normal. Some bullous disease in the lung apices. There is patchy bibasal atelectasis and/or pneumonitis. No pleural effusion or pneumothorax. Impression: Bullous disease with some bibasilar atelectasis and/or pneumonitis. Dictated by: Dictated on workstation # [id number]
--- NOTE | 2017-09-23 08:00 | Diagnostic Imaging Report ---
Indication: COPD. Comparison made with prior examination of 09/22/2017. Findings: There is bullous emphysematous disease. There are some patchy bibasilar interstitial scarring. No pleural effusion or pneumothorax. Mediastinum is unremarkable. Heart size is stable. Impression: Bullous emphysematous disease with some interstitial scarring in both lung bases. Dictated by: Dictated on workstation # [id number]
[2017-09-23] MEDS ORDERED: NICOTINE 21 MG (NICODERM) PATCH TD SCH (09:00)
[2017-09-23] MEDS ORDERED: RT-ALBUTEROL/IPRATROPIUM 3 ML (DUONEB) VIAL INH SCH (09:00)
[2017-09-23] MEDS ORDERED: ASPIRIN E.C. 81 MG (ECOTRIN) TAB PO SCH (09:00)
--- NOTE | 2017-09-23 09:15 | Consultation-Cardiology ---
HPI-Cardiology Cardiology Consultation: Date of Consultation 09/23/17 Date of Admission Attending Physician Marielle Vela DO Admitting Physician Isabell,Local Physician Consulting Physician Minna KIMBROUGH MD HPI: Time Seen by Provider: 09:15 Chief Complaint: Chest pain This is a 57-year-old gentleman who presents with recurrent prolonged episode of chest pain. Substernal feels like tightness. 09/27. No exacerbating or relieving factors. Has history of COPD. Associated with shortness of breath. Has chronic cough due to COPD. Continues to smoke. Sees Dr. Holguin as an outpatient. Coronary angiography 2 years ago showed mild CAD. Stress test done in January 2017 did not show any evidence of ischemia. Review of Systems-Cardiology Review of Systems Constitutional: As described under HPI; No As described under HPI, No no symptoms reported, No chills, No fever, No lightheadedness Eyes: No As described under HPI, No no symptoms reported, No blindness, No blurred vision, No contact lenses, No drainage, No decreased acuity, No foreign body sensation, No pain, No vision change Ears/Nose/Throat: No As described under HPI, No no symptoms reported, No chronic hearing loss, No ear discharge, No ear pain, No nasal drainage, No ulcerations Respiratory: No no symptoms reported; As described under HPI; No As described under HPI, No cough, No orthopnea; shortness of breath; No SOB with excertion Cardiovascular: No no symptoms reported; As described under HPI; No As described under HPI; chest pain; No edema, No irregular heart rate, No lightheadedness, No palpitations Gastrointestinal: No no symptoms reported, No As described under HPI, No abdomen distended, No abdominal pain, No blood streaked bowels, No constipation , No diarrhea, No nausea, No vomiting, No stool coloration changes Genitourinary: No As described under HPI, No burning, No dysuria, No discharge , No frequency, No flank pain, No hematuria, No urgency Skin: No no symptoms reported, No As described under HPI, No change in color, No change in hair/nails, No dryness, No lesions, No lumps, No rash, No other, No skin related problems, No ulcerations, No rash on exposed areas, No ulcerations on exposed areas Psychiatric/Neurological: No anxiety, No depression, No seizure, No focal weakness, No syncope Hematologic: No bleeding abnormalities [id number] Hx Patient Social History Alcohol Use: Past History Recreational Drug Use: Yes (THC) Drug of Choice: THC Smoking Status: Current Everyday Smoker Type Used: Cigarettes 2nd Hand Smoke Exposure: Yes Recent Foreign Travel: No Recent Infectious Disease Expo: No Hospitalization with Isolation: Denies Physical Abuse Screen: No Sexual Abuse: No Immunizations Up To Date Tetanus Booster (TDap): Unknown Past Medical History PMH As described under Assessment. Family Medical History Family History: Cardiomegaly 19 MOTHER Dysphasia G8 BROTHER G8 SISTER FH: cancer Hypertension G8 BROTHER G8 SISTER G8 SISTER Kidney disease 19 MOTHER Myocardial infarction Allergies and Home Medications Allergies Coded Allergies: Penicillins (Verified Allergy, Intermediate, 09/23/17) causes dysrhythmias Home Medications Acetaminophen 500 Mg Tablet, 500-1,000 MG PO Q6H PRN for PAIN-MILD, (Reported) Albuterol Sulfate 1 Puff Puff, 2 PUFF IH Q4H PRN for SHORTNESS OF BREATH, ( Reported) 1 PUFF = 90 MCG Aspirin 81 Mg Tablet.dr, 81 MG PO DAILY, (Reported) Atorvastatin Calcium 10 Mg Tablet, 10 MG PO HS, (Reported) Ipratropium/Albuterol Sulfate 3 Ml Ampul.neb, 3 ML IH Q6H Prescribed by: BRIDGETT WELLINGTON on 07/21/17 0401 Lisinopril 10 Mg Tablet, 10 MG PO DAILY, (Reported) Metoprolol Succinate 50 Mg Tab.er.24h, 50 MG PO HS, (Reported) Pantoprazole Sodium 40 Mg Tablet.dr, 40 MG PO DAILY, (Reported) Patient Home Medication List Home Medication List Reviewed: Yes Physical Exam-Cardiology Physical Exam Vital Signs/I&O 09/23/17 09/23/17 09/23/17 09/23/17 00:18 00:40 00:40 01:05 Temp 97.8 97.6 97.5 Pulse 80 75 65 Resp 13 18 20 B/P (MAP) 102/75 (95) 106/68 (81) 119/79 (92) Pulse Ox 94 90 97 O2 Delivery Room Air Nasal Cannula Room Air Nasal Cannula O2 Flow Rate 2.00 2.00 09/23/17 09/23/17 09/23/17 09/23/17 01:25 01:40 01:42 02:40 Temp 97.2 97.5 98.0 Pulse 68 67 71 75 Resp 20 18 18 B/P (MAP) 117/80 (92) 114/77 (89) 99/61 (74) Pulse Ox 95 95 94 O2 Delivery Nasal Cannula Nasal Cannula Nasal Cannula O2 Flow Rate 2.00 2.00 2.00 09/23/17 09/23/17 09/23/17 09/23/17 03:02 03:35 03:40 04:40 Temp 97.6 97.2 Pulse 71 74 71 Resp 20 20 B/P (MAP) 107/64 (78) 113/61 (78) Pulse Ox 95 95 96 O2 Delivery Nasal Cannula Nasal Cannula Nasal Cannula O2 Flow Rate 2.00 2.00 2.00 FiO2 28 09/23/17 09/23/17 09/23/17 07:00 08:00 08:57 Temp 97.6 Pulse 69 63 Resp 16 B/P (MAP) 122/78 (93) Pulse Ox 94 92 O2 Delivery Nasal Cannula Nasal Cannula O2 Flow Rate 2.00 2.00 Capillary Refill : Less Than 3 Seconds Constitutional: appears stated age, AAO x 3; No apparent distress; well- developed, well-nourished HEENT: PERRL; No discharge; hearing is well preserved, oral hygience is good; No ulceration, No xanthelasmas are seen Neck: No carotid bruit; carotid pulses are 2 + bilaterally Respiratory: chest is bilaterally symmetric, lungs clear to auscultation Cardiovascular: regular rate-rhythm; No irregularly irregular, No extra beats, No parasternal heave is noted, No JVD, No edema, No bradycardia, No tachycardia , No point of maximal impulse, No cardiac thrills are palpable; S1 and S2; No gallop/S3, No gallop/S4, No diastolic murmur, No systolic murmur, No friction rub, No click, No other Gastrointestinal: No tender, No soft, No round, No distended, No pulsatile mass , No organomegaly, No guarding, No rebound, No tenderness, No hernia, No mass, No audible bowel sounds, No abnormal bowel sounds, No abdominal bruits, No spleenomegaly, No other Rectal: deferred Extremities: No normal range of motion, No non-tender, No normal inspection, No pedal edema, No calf tenderness, No normal capillary refill, No pelvis stable , No calf tenderness, No inflammation, No pedal edema, No slow capillary refill , No swelling, No other, No abrasion, No clubbing, No cyanosis, No ecchymosis, No laceration, No no lower extremity edema bilateral, No significant edema, No tenderness, No wound Neurologic/Psychiatric: no motor/sensory deficits, alert, normal mood/affect, oriented x 3, power is 5/5 both on sides Skin: No normal color, No warm/dry, No cyanosis, No cool, No diaphoresis, No damp, No ecchymosis, No jaundice, No mottled, No pallor, No rash, No tattoos/ piercings, No ulcerations, No rash on exposed areas, No ulcerations on exposed areas, No other Data Review Labs Laboratory Tests 09/22/17 22:38: White Blood Count 9.7, Red Blood Count 4.05L, Hemoglobin 12.7L, Hematocrit 38L, Mean Corpuscular Volume 93, Mean Corpuscular Hemoglobin 31, Mean Corpuscular Hemoglobin Concent 34, Red Cell Distribution Width 13.2, Platelet Count 199, Mean Platelet Volume 11.2H, Neutrophils (%) (Auto) 58, Lymphocytes (%) (Auto) 29 , Monocytes (%) (Auto) 9, Eosinophils (%) (Auto) 4, Basophils (%) (Auto) 1, Neutrophils # (Auto) 5.6, Lymphocytes # (Auto) 2.8, Monocytes # (Auto) 0.8, Eosinophils # (Auto) 0.4H, Basophils # (Auto) 0.1, Prothrombin Time 14.0, INR Comment 1.1, Activated Partial Thromboplast Time 31, Sodium Level 137, Potassium Level 3.9, Chloride Level 101, Carbon Dioxide Level 27, Anion Gap 9, Blood Urea Nitrogen 9, Creatinine 0.85, Estimat Glomerular Filtration Rate > 60 , BUN/Creatinine Ratio 11, Glucose Level 100, Calcium Level 9.5, Magnesium Level 2.1, Total Bilirubin 0.4, Aspartate Amino Transf (AST/SGOT) 12, Alanine Aminotransferase (ALT/SGPT) 12, Alkaline Phosphatase 55, Myoglobin 31.4, Troponin I < 0.30, B-Type Natriuretic Peptide 32.8, Total Protein 6.2L, Albumin 4.1, Amylase Level 98, Lipase 26 7/6/18 04:15: Urine Color YELLOW, Urine Clarity CLEAR, Urine pH 6.5, Urine Specific [place] 1.010L, Urine Protein NEGATIVE, Urine Glucose (UA) NEGATIVE, Urine Ketones NEGATIVE, Urine Nitrite NEGATIVE, Urine Bilirubin NEGATIVE, Urine Urobilinogen NORMAL, Urine Leukocyte Esterase NEGATIVE, Urine RBC (Auto) NEGATIVE, Urine RBC NONE, Urine WBC NONE, Urine Squamous Epithelial Cells RARE, Urine Crystals NONE , Urine Bacteria NEGATIVE, Urine Casts NONE, Urine Mucus NEGATIVE, Urine Culture Indicated NO 09/23/17 05:41: White Blood Count 7.8, Red Blood Count 4.33L, Hemoglobin 13.7, Hematocrit 41, Mean Corpuscular Volume 95, Mean Corpuscular Hemoglobin 32, Mean Corpuscular Hemoglobin Concent 33, Red Cell Distribution Width 13.1, Platelet Count 128L, Mean Platelet Volume 12.5H, Neutrophils (%) (Auto) 83H, Lymphocytes (%) (Auto) 15, Monocytes (%) (Auto) 1, Eosinophils (%) (Auto) 1, Basophils (%) (Auto) 0, Neutrophils # (Auto) 6.5, Lymphocytes # (Auto) 1.2, Monocytes # (Auto) 0.1, Eosinophils # (Auto) 0.1, Basophils # (Auto) 0.0, Prothrombin Time 13.9, INR Comment 1.1, Activated Partial Thromboplast Time 33, Sodium Level 137, Potassium Level 4.8, Chloride Level 104, Carbon Dioxide Level 23, Anion Gap 10, Blood Urea Nitrogen 10, Creatinine 0.82, Estimat Glomerular Filtration Rate > 60 , BUN/Creatinine Ratio 12, Glucose Level 131H, Calcium Level 9.5, Total Bilirubin 0.4, Aspartate Amino Transf (AST/SGOT) 19, Alanine Aminotransferase ( ALT/SGPT) 14, Alkaline Phosphatase 51, Myoglobin 48.2, Troponin I < 0.30, Total Protein 6.9, Albumin 3.9, Triglycerides Level 51, Cholesterol Level 148, LDL Cholesterol Direct 91, VLDL Cholesterol 10, HDL Cholesterol 45 ECG Impression ECG Initial ECG Rhythm: Normal Sinus Initial ECG Impression: Normal A/P-Cardiology Assessment/Admission Diagnosis Chest pain, COPD, Active smoking, Hypertension, Plan Acute coronary syndrome ruled out with serial negative troponin. EKG negative. Patient had coronary angiography in 2015 which showed mild CAD. Stress test done in January 2017 did not show any evidence of ischemia. Patient can be discharged and have a stress test as an outpatient next . Please set it up or request my office to help out. He follows with Dr. Holguin who is away on vacation. Continue current medications for hypertension. Smoking cessation was strongly recommended. COPD: Defer to primary team. Thank you for your consultation. Please call me if you have any questions. Kirsten Kimbrough MD, FACP, FACC, FSCAI, FHRS, CCDS Interventional Cardiology Cardiac Electrophysiology Vascular Medicine and Endovascular Interventions Clinical Quality Measures DVT/VTE Risk/Contraindication: Risk Factor Score Per Nursin RFS Level Per Nursing on Admit: 4+=Very High Minna KIMBROUGH MD Sep 23, 2017 9:15 am
[2017-09-23] MEDS ORDERED: ATOR10TA66 PO (09:52)
--- NOTE | 2017-09-23 10:44 | Short Stay Summary-Hospitalist ---
History of Present Illness HPI/Chief Complaint CC: Chest pain HPI: This is a 57-year-old white male of Yary Funes with past medical history of CAD and COPD who continues to smoke 4 packs a day who presented to the ER with chest pain. Myocardial ischemia has been ruled out with normal labs no EKG changes and cardiology consultation evaluated him to be ready for discharge and smoking cessation was counseled. He will have close follow-up with Yary Funes. Source: patient Date Seen 09/23/17 Time Seen by Provider: 09:40 Attending Physician Marielle Vela DO PCP No,Local Physician Referring Physician Date of Admission Sep 23, 2017 at 00:01 Home Medications & Allergies Home Medications Reviewed patient Home Medication Reconciliation performed by pharmacy medication reconciliations machines technician and/or nursing. Patients Allergies have been reviewed. Allergies Allergies Coded Allergies Penicillins (Verified Allergy, Intermediate, 09/23/17) causes dysrhythmias Past Jfagasz-Avhydr-Wtkrul Hx Past Med/Social Hx: Reviewed Nursing Past Med/Soc Hx, Reviewed and Corrections made Patient Social History Marrital Status: single Employed/Student: unemployed Alcohol Use: Past History Recreational Drug Use: Yes (THC) Drug of Choice: THC Smoking Status: Current Everyday Smoker Type Used: Cigarettes 2nd Hand Smoke Exposure: Yes Physical Abuse Screen: No Sexual Abuse: No Recent Foreign Travel: No Contact w/other who traveled: No Recent Hopitalizations: No Recent Infectious Disease Expo: No Immunizations Up To Date Tetanus Booster (TDap): Unknown Seasonal Allergies Seasonal Allergies: No Past Medical History Surgeries: Abdominal, Appendectomy, Cardiac, Orthopedic Respiratory: COPD, Emphysema, Pneumonia Currently Using CPAP: No Currently Using BIPAP: No Cardiac: Coronary Artery Disease, Heart Attack, High Cholesterol, Hypertension Reproductive: No Sexually Transmitted Disease: No HIV/AIDS: No Gastrointestinal: Gastroesophageal Reflux, Gastrointestinal Bleed, Polyps, Ulcer Musculoskeletal: Degenerate Disk Disease, Arthritis, Chronic Back Pain HEENT: Tinnitis, Eye Injury Loss of Vision: Denies Hearing Impairment: Hard of Hearing Psychosocial: Violent Behavior History of Blood Disorders: No Adverse Reaction to Blood Walker: No Family History Cardiomegaly 19 MOTHER Dysphasia G8 BROTHER G8 SISTER FH: cancer Hypertension G8 BROTHER G8 SISTER G8 SISTER Kidney disease 19 MOTHER Myocardial infarction Hypertension, Renal Disease Review of Systems Constitutional: see HPI EENTM: no symptoms reported Respiratory: dyspnea on exertion Cardiovascular: no symptoms reported Gastrointestinal: no symptoms reported Genitourinary: no symptoms reported Musculoskeletal: no symptoms reported Skin: no symptoms reported Psychiatric/Neurological: No Symptoms Reported All Other Systems Reviewed Negative Unless Noted: Yes Physical Exam Physical Exam Vital Signs Vital Signs - First Documented 09/22/17 09/23/17 22:38 03:02 Pulse Ox 92 FiO2 28 Capillary Refill : Less Than 3 Seconds Height, Weight, BMI Height: 6', 2.00" Weight: 215lbs 7.0oz, [id number] Method:Stated ,27.7BMI General Appearance: No Apparent Distress, WD/WN, Chronically ill, Obese Eyes: Bilateral Eye Normal Inspection, Bilateral Eye PERRL HEENT: PERRL/EOMI, TMs Normal, Normal ENT Inspection, Pharynx Normal Neck: Full Range of Motion, Normal Inspection, Non Tender, Supple, Carotid Bruit Respiratory: Chest Non Tender, Lungs Clear, No Accessory Muscle Use, No Respiratory Distress, Decreased Breath Sounds Cardiovascular: Regular Rate, Rhythm, No Edema, No Gallop, No JVD, No Murmur, Normal Peripheral Pulses Gastrointestinal: Normal Bowel Sounds, No Organomegaly, No Pulsatile Mass, Non Tender, Soft Back: Normal Inspection, No CVA Tenderness, No Vertebral Tenderness Extremity: Normal Capillary Refill, Normal Inspection, Normal Range of Motion, Non Tender, No Calf Tenderness, No Pedal Edema Neurologic/Psychiatric: Alert, Oriented x3, No Motor/Sensory Deficits, Normal Mood/Affect Skin: Normal Color, Warm/Dry Lymphatic: No Adenopathy Results Results/Procedures Labs Laboratory Tests 09/22/17 22:38 09/23/17 05:41 Patient resulted labs reviewed. Short Stay Diagnosis Discharge Diagnosis-Short Stay Admission Diagnosis Chest pain Severe COPD Continued smoker of 4 packs a day CAD Final Discharge Diagnosis Chest pain Severe COPD Continued smoker of 4 packs a day CAD Conclusion Plan Plan: Discharge home Close follow-up with primary care provider Smoking cessation Clinical Quality Measures DVT/VTE Risk/Contraindication: Risk Factor Score Per Nursin RFS Level Per Nursing on Admit: 4+=Very High MARIELLE VELA DO Sep 23, 2017 10:44
[2017-09-23] MEDS ORDERED: RT-ALBUTEROL SULF 2.5 MG/3 ML PRE-MIX VIAL IH PRN (10:45)
[2017-09-23] MEDS ORDERED: RT-ALBUTEROL/IPRATROPIUM 3 ML (DUONEB) VIAL IH SCH (15:00)
[2017-09-23] MEDS ORDERED: meTOproloL SUCCINATE 50 MG (TOPROL XL) TAB PO SCH (21:00)
[2017-09-23] MEDS ORDERED: ATORVASTATIN 10 MG (LIPITOR) TABLET PO SCH (21:00)
[2017-09-24] MEDS ORDERED: PANTOPRAZOLE 40 MG (PROTONIX) TAB PO SCH (07:00)
[2017-09-24] MEDS ORDERED: ASPIRIN 81 MG CHEW (CHILDREN'S ASA) PO SCH (09:00)
[2017-09-24] MEDS ORDERED: lisINopril 10 MG (PRINIVIL) TABLET PO SCH (09:00)
== END 2017-09-23 10:45 | disposition home or self-care (01) ==
LOC: EDUNIT# 22:18 → ER 22:20 → 4TH 22:21 → UNDOADMOB 09-23 00:01 → 4TH 09-23 00:01 → UNDODISOB 09-23 11:30
PROVIDERS: ADMIT Internal Medicine; ATTEND Internal Medicine
DX: R07.9 Chest pain, unspecified (principal); J43.9 Emphysema, unspecified; F17.210 Nicotine dependence, cigarettes, uncomplicated; I25.10 Atherosclerotic heart disease of native coronary artery without angina pectoris; I10 Essential (primary) hypertension; E78.5 Hyperlipidemia, unspecified; K21.9 Gastro-esophageal reflux disease without esophagitis; I25.2 Old myocardial infarction; Z79.82 Long term (current) use of aspirin; Z79.52 Long term (current) use of systemic steroids; Z79.899 Other long term (current) drug therapy
CPT/HCPCS: 36415; 71045; 80053; 80061; 81000; 82150; 83690; 83735; 83874; 83880; 84484; 85025; 85610; 85730; 93005; 93041; 93306; 94640; 94760; 96374; 96375; G0378

== ENCOUNTER 2018-01-22 14:22 | Observation (INO) | payer MEDICARE ==
[~2018-01-22] VITALS: Ht 188 cm; Wt 97.5 kg
[2018-01-22] VITALS (8 sets, daily range): BP systolic 122–189; BP diastolic 69–103
[~2018-01-22 14:22] MED LIST changes: +ATOR10TA66 PO
[2018-01-22 14:40] LABS: BASOPHILS # (AUTO) 0.1 10^3/uL (0.0-0.1); BASOPHILS % (AUTO) 1 % (0-10); EOSINOPHILS # (AUTO) 0.7 10^3/uL (0.0-0.3); EOSINOPHILS % (AUTO) 6 % (0-10); HEMATOCRIT 42 % (40-54); HEMOGLOBIN 13.6 G/DL (13.3-17.7); LYMPHOCYTES # (AUTO) 2.5 X 10^3 (1.0-4.0); LYMPHOCYTES % (AUTO) 23 % (12-44); MEAN CORPUSCULAR HEMOGLOBIN 31 PG (25-34); MEAN CORPUSCULAR HGB CONC 33 G/DL (32-36); MEAN CORPUSCULAR VOLUME 94 FL (80-99); MONOCYTES % (AUTO) 9 % (0-12); NEUTROPHILS # (AUTO) 6.9 X 10^3 (1.8-7.8); NEUTROPHILS % (AUTO) 62 % (42-75); PLATELET COUNT 176 10^3/uL (130-400); RED BLOOD COUNT 4.44 10^6/uL (4.35-5.85); WHITE BLOOD COUNT 11.2 10^3/uL (4.3-11.0)
[2018-01-22] MEDS: NITROGLYCERIN 0.4 MG SL TABS BTL 25'S SL PRN ×3 (14:42→14:56)
[2018-01-22] MEDS ORDERED: ASPIRIN 81 MG CHEW (CHILDREN'S ASA) PO ONE (14:45)
[2018-01-22 14:58] LABS: PROTHROMBIN TIME PATIENT 13.2 SEC (12.2-14.7)
[2018-01-22 15:00] LABS: ALANINE AMINOTRANSFERASE 11 U/L (0-55); ALBUMIN 4.6 GM/DL (3.2-4.5); ALKALINE PHOSPHATASE 56 U/L (40-136); BILIRUBIN,TOTAL 0.3 MG/DL (0.1-1.0); BUN/CREATININE RATIO 13; CALCIUM 9.8 MG/DL (8.5-10.1); CARBON DIOXIDE 26 MMOL/L (21-32); CHLORIDE 102 MMOL/L (98-107); CREATININE SERUM 0.87 MG/DL (0.60-1.30); GFR ESTIMATED > 60; GLUCOSE 96 MG/DL (70-105); SODIUM 140 MMOL/L (135-145); TOTAL PROTEIN 7.5 GM/DL (6.4-8.2)
--- NOTE | 2018-01-22 15:01 | Diagnostic Imaging Report ---
INDICATION: Chest pain. COMPARISON: Prior examination from 09/23/2017. EXAMINATION: Two views of the chest were obtained. FINDINGS: There is chronic appearing interstitial scarring in the lung bases. There appears to be some bullous emphysematous disease in the lung apices. Heart size is normal. There is no pleural effusion or pneumothorax. The mediastinum is unremarkable. There is a questionable more masslike density in the left lung base. IMPRESSION: 1. 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 2. Questionable mass in the left lung base. Further evaluation with CT chest is recommended. Dictated by: Dictated on workstation # [id number]
[2018-01-22 15:07] LABS: MYOGLOBIN SERUM 30.4 NG/ML (10.0-92.0)
[2018-01-22] MEDS ORDERED: ANTACID SUSP 30 ML UDC (MYLANTA) PO ONE (15:15)
[2018-01-22] MEDS ORDERED: LIDOCAINE 2% VISCOUS 15 ML UDC PO ONE (15:15)
--- NOTE | 2018-01-22 15:57 | ED Chest Pain ---
General Chief Complaint: Chest Pain Stated Complaint: CP Nursing Triage Note: AMBULATED TO ROOM 07 WITH COMPLAINTS OF CHEST PAIN THAT RADIATES INTO BACK X2 HOURS. Nursing Sepsis Screen: No Definite Risk Source: patient, family, old records Exam Limitations: no limitations History of Present Illness Date Seen by Provider: Jan 22, 2018 Time Seen by Provider: 14:25 Initial Comments This 57-year-old man presents to the emergency room with complaints of left upper chest pain radiating to the area between his shoulder blades. He had a similar pain yesterday. He took his remaining dose of nitroglycerin when he had the pain yesterday which did improve the pain. Pain eventually dissipated until it returned a couple hours prior to arrival. Patient reports having multiple cardiac catheterizations in the past. His last cardiac catheterization performed at this facility was in June 2015. It demonstrated mild to moderate coronary artery disease with 30-40 percent stenosis in the mid RCA and mild disease in the LAD and circumflex arteries. He had a prominent ascending aorta. He also had a stress test performed in January 2017 that was submaximal but showed no significant ischemic changes. See reports for details. Patient denies any exacerbating or alleviating factors. He is slightly tender to touch inferior to the area of his pain on the left anterior chest wall. Patient has a chronic cough and states he has had multiple episodes of pneumonia in the past. He has been taking DayQuil and NyQuil for his pain. Dr. Calixto is his primary automation architect. Allergies and Home Medications Allergies Coded Allergies: Penicillins (Verified Allergy, Intermediate, 09/23/17) causes dysrhythmias Home Medications Acetaminophen 500 Mg Tablet, 500-1,000 MG PO Q6H PRN for PAIN-MILD, (Reported) Albuterol Sulfate 1 Puff Puff, 2 PUFF IH Q4H PRN for SHORTNESS OF BREATH, ( Reported) 1 PUFF = 90 MCG Aspirin 81 Mg Tablet.dr, 81 MG PO DAILY, (Reported) Atorvastatin Calcium 10 Mg Tablet, 10 MG PO HS, (Reported) Ipratropium/Albuterol Sulfate 3 Ml Ampul.neb, 3 ML IH Q6H Prescribed by: BRIDGETT WELLINGTON on 07/21/17 7745 Lisinopril 10 Mg Tablet, 10 MG PO DAILY, (Reported) Metoprolol Succinate 50 Mg Tab.er.24h, 50 MG PO HS, (Reported) Pantoprazole Sodium 40 Mg Tablet.dr, 40 MG PO DAILY, (Reported) Patient Home Medication List Home Medication List Reviewed: Yes Review of Systems Review of Systems Constitutional: no symptoms reported EENTM: No Symptoms Reported Respiratory: See HPI Cardiovascular: See HPI Gastrointestinal: No Symptoms Reported Genitourinary: No Symptoms Reported Musculoskeletal: see HPI Skin: no symptoms reported Psychiatric/Neurological: No Symptoms Reported Endocrine: No Symptoms Reported Hematologic/Lymphatic: No Symptoms Reported Past Uevheng-Jjoxxk-Jqeiqj Hx Patient Social History Alcohol Use: Denies Use Recreational Drug Use: No Drug of Choice: THC Smoking Status: Current Everyday Smoker Type Used: Cigarettes 2nd Hand Smoke Exposure: Yes Recent Foreign Travel: No Contact w/Someone Who Travel: No Recent Infectious Disease Expo: No Recent Hopitalizations: No Immunizations Up To Date Tetanus Booster (TDap): Unknown Seasonal Allergies Seasonal Allergies: No Past Medical History Surgeries: Yes Abdominal, Appendectomy, Cardiac (cardiac angiography without intervention), Orthopedic Respiratory: Yes (HEMOPTYSIS WITH BRONCHITIS) Pneumonia, Chronic Bronchitis, COPD Currently Using CPAP: No Currently Using BIPAP: No Cardiac: Yes Coronary Artery Disease, Heart Attack, High Cholesterol, Hypertension Neurological: No Reproductive Disorders: No Sexually Transmitted Disease: No HIV/AIDS: No Genitourinary: No Gastrointestinal: Yes Gastroesophageal Reflux, Gastrointestinal Bleed, Polyps, Ulcer Musculoskeletal: Yes (RIGHT KNEE TORN CARTILAGE; BACK SURGERY 1988) Degenerate Disk Disease, Arthritis, Chronic Back Pain Endocrine: No HEENT: Yes Tinnitis, Eye Injury Loss of Vision: Denies Hearing Impairment: Hard of Hearing Cancer: No Psychosocial: Yes (MENTAL BLOCK ([place] ) ) Violent Behavior Integumentary: No Blood Disorders: No Adverse Reaction/Blood Tranf: No Family Medical History Reviewed Nursing Family Hx Cardiomegaly 19 MOTHER Dysphasia G8 BROTHER G8 SISTER FH: cancer Hypertension G8 BROTHER G8 SISTER G8 SISTER Kidney disease 19 MOTHER Myocardial infarction Hypertension, Renal Disease Physical Exam Vital Signs Vital Signs - First Documented 01/22/18 14:22 Temp 98.0 Pulse 67 Resp 16 B/P (MAP) 165/113 (130) Pulse Ox 95 O2 Delivery Room Air Capillary Refill : Less Than 3 Seconds Height, Weight, BMI Height: 6'2.00" Weight: 215lbs. 7.0oz. 97.307767xz; 27.7 BMI Method:Stated General Appearance: No Apparent Distress, WD/WN HEENT: PERRL/EOMI, Normal ENT Inspection Neck: Normal Inspection Respiratory: Lungs Clear, Normal Breath Sounds, No Accessory Muscle Use, No Respiratory Distress, Other (left mid anterior chest tenderness to palpation) Cardiovascular: Regular Rate, Rhythm, No Edema, No Murmur, Normal Peripheral Pulses Gastrointestinal: Normal Bowel Sounds, Non Tender, Soft Extremity: Normal Inspection, No Calf Tenderness, No Pedal Edema, Other ( negative Joo) Neurologic/Psychiatric: Alert, Oriented x3, No Motor/Sensory Deficits, Normal Mood/Affect, precision honer II-XII Norm as Tested Skin: Normal Color, Warm/Dry Progress/Results/Core Measures Results/Orders Lab Results Laboratory Tests Test 01/22/18 14:31 Range/Units White Blood Count 11.2 H 4.3-11.0 10^3/uL Red Blood Count 4.44 4.35-5.85 10^6/uL Hemoglobin 13.6 13.3-17.7 G/DL Hematocrit 42 40-54 % Mean Corpuscular Volume 94 80-99 FL Mean Corpuscular Hemoglobin 31 25-34 PG Mean Corpuscular Hemoglobin Concent 33 32-36 G/DL Red Cell Distribution Width 13.0 10.0-14.5 % Platelet Count 176 130-400 10^3/uL Mean Platelet Volume 12.0 H 7.4-10.4 FL Neutrophils (%) (Auto) 62 42-75 % Lymphocytes (%) (Auto) 23 12-44 % Monocytes (%) (Auto) 9 0-12 % Eosinophils (%) (Auto) 6 0-10 % Basophils (%) (Auto) 1 0-10 % Neutrophils # (Auto) 6.9 1.8-7.8 X 10^3 Lymphocytes # (Auto) 2.5 1.0-4.0 X 10^3 Monocytes # (Auto) 1.0 0.0-1.0 X 10^3 Eosinophils # (Auto) 0.7 H 0.0-0.3 10^3/uL Basophils # (Auto) 0.1 0.0-0.1 10^3/uL Prothrombin Time 13.2 12.2-14.7 SEC INR Comment 1.0 0.8-1.4 Activated Partial Thromboplast Time 34 24-35 SEC Sodium Level 140 135-145 MMOL/L Potassium Level 4.0 3.6-5.0 MMOL/L Chloride Level 102 98-107 MMOL/L Carbon Dioxide Level 26 21-32 MMOL/L Anion Gap 12 5-14 MMOL/L Blood Urea Nitrogen 11 7-18 MG/DL Creatinine 0.87 0.60-1.30 MG/DL Estimat Glomerular Filtration Rate > 60 BUN/Creatinine Ratio 13 Glucose Level 96 70-105 MG/DL Calcium Level 9.8 8.5-10.1 MG/DL Corrected Calcium 8.5-10.1 MG/DL Magnesium Level 2.0 1.8-2.4 MG/DL Total Bilirubin 0.3 0.1-1.0 MG/DL Aspartate Amino Transf (AST/SGOT) 14 5-34 U/L Alanine Aminotransferase (ALT/SGPT) 11 0-55 U/L Alkaline Phosphatase 56 40-136 U/L Myoglobin 30.4 10.0-92.0 NG/ML Troponin I < 0.30 <0.30 NG/ML Total Protein 7.5 6.4-8.2 GM/DL Albumin 4.6 H 3.2-4.5 GM/DL My Orders Orders - DAVEY MCCANN MD Ekg Tracing (01/22/18 14:23) Chest Pa/Lat (2 View) (01/22/18 14:32) Cbc With Automated Diff (01/22/18 14:32) Magnesium (01/22/18 14:32) Cardiac Profile 1 (01/22/18 14:32) Comprehensive Metabolic Panel (01/22/18 14:32) Myoglobin Serum (01/22/18 14:32) Protime With Inr (01/22/18 14:32) Partial Thromboplastin Time (01/22/18 14:32) O2 (01/22/18 14:32) Monitor-Rhythm Ecg Trace Only (01/22/18 14:32) Lipid Panel (01/23/18 06:00) Aspirin Chewable Tablet (Baby Aspirin Ch (01/22/18 14:45) Saline Lock/Iv-Start (01/22/18 14:32) Nitroglycerin 0.4 Mg Btl 25's (Nitrostat (01/22/18 14:45) Lidocaine 2% Viscous 15 Ml (Xylocaine Vi (01/22/18 15:15) Antacid Suspension (Mylanta Suspension (01/22/18 15:15) Ct Angio Chest W (01/22/18 15:48) Iohexol Injection (Omnipaque 350 Mg/Ml 1 (01/22/18 16:00) Contrast Received (Contrast Received) (01/22/18 16:00) Ns (Ivpb) (Sodium Chloride 0.9%) (01/22/18 16:00) Medications Given in ED Current Medications Medications Dose Ordered Sig/Mikayla Route Start Time Stop Time Status Last Admin Dose Admin Al Hydrox/Mg Hydrox/Simethicone 30 ml ONCE ONCE PO 01/22/18 15:15 01/22/18 15:16 DC 01/22/18 15:21 30 ML Aspirin 243 mg ONCE ONCE PO 01/22/18 14:45 01/22/18 14:46 DC 01/22/18 14:41 243 MG Iohexol 150 ml ONCE ONCE IV 01/22/18 16:00 01/22/18 16:01 DC 01/22/18 16:03 140 ML Lidocaine HCl 15 ml ONCE ONCE PO 01/22/18 15:15 01/22/18 15:16 DC 01/22/18 15:21 15 ML Nitroglycerin 0.4 mg UD PRN SL 01/22/18 14:45 01/22/18 14:56 DC 01/22/18 14:56 0.4 MG Sodium Chloride 250 ml ONCE ONCE IV 01/22/18 16:00 01/22/18 16:01 DC 01/22/18 16:03 80 ML Vital Signs/I&O 01/22/18 14:22 Temp 98.0 Pulse 67 Resp 16 B/P (MAP) 165/113 (130) Pulse Ox 95 O2 Delivery Room Air Blood Pressure Mean: 130 Progress Progress Note #1: Time: 15:50 Progress Note After initial assessment patient was given aspirin 243 mg and nitroglycerin 3. Nitroglycerin improved his pain from 5.5/10 down to 3/10. He had excessive belching. He was then given a GI cocktail which brought his pain down to 1/10. He feels significantly improved. Further review of his chart noted that a repeat stress test was suggested during his last admission in July. It was suggested by Dr. Khalid that this be done as an outpatient. Patient has not had another stress test since then. Additionally there was a possible mass noted on his chest x-ray. This was compared to CT performed earlier in the year. A possible mass was noted there as well and follow-up CT imaging was suggested. The follow-up CT has not yet been performed. We will perform a CT angiogram chest here before consult in with cardiology. Progress Note #2: Progress Note CT angiogram revealed no evidence of pulmonary embolism or pulmonary mass. COPD changes were noted. Case was discussed with Dr. Kwok who felt admission for observation would be most appropriate. Dr. Holguin may see the patient in the morning and determine best course of further evaluation. He is to be kept NPO after a clear liquid breakfast. Patient is agreeable to this plan. Initial ECG Impression Date: Jan 22, 2018 Initial ECG Impression Time: 14:24 Initial ECG Rate: 73 Initial ECG Rhythm: Normal Sinus Initial ECG Intervals: Normal Initial ECG Impression: Normal Comment Normal sinus rhythm with no ST elevation or depression. No abnormal intervals or axis deviation. Diagnostic Imaging Diagonstic Imaging: Xray Plain Films/CT/US/NM/MRI: chest Comments Chest x-ray viewed by me and report reviewed. See report below: NAME: LIZY MIRANDA [facility] REC#: [id number] PT STATUS: REG ER : 1960 PHYSICIAN: DAVEY MCCANN MD ADMIT DATE: 01/22/18/ER Signed Date of Exam: 01/22/18 CHEST PA/LAT (2 VIEW) INDICATION: Chest pain. COMPARISON: Prior examination from 09/23/2017. EXAMINATION: Two views of the chest were obtained. FINDINGS: There is chronic appearing interstitial scarring in the lung bases. There appears to be some bullous emphysematous disease in the lung apices. Heart size is normal. There is no pleural effusion or pneumothorax. The mediastinum is unremarkable. There is a questionable more masslike density in the left lung base. IMPRESSION: 1. 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 2. Questionable mass in the left lung base. Further evaluation with CT chest is recommended. Dictated by: Dictated on workstation # [id number] Dict: 01/22/18 1455 Trans: 01/22/18 1511 Interpreted by: MARCIA ALCANTAR MD Electronically signed by: MARCIA ALCANTAR MD 01/22/18 1511 Diagonstic Imaging: CT Plain Films/CT/US/NM/MRI: chest Comments CT chest viewed by me and report reviewed. See report below: NAME: LIZY MIRANDA [facility] REC#: [id number] PT STATUS: REG ER : 1960 PHYSICIAN: DAVEY MCCANN MD ADMIT DATE: 01/22/18/ER Signed Date of Exam:01/22/18 CT ANGIO CHEST W PROCEDURE: CT angiography of the chest with contrast. TECHNIQUE: Multiple contiguous axial images were obtained through the chest after uneventful bolus administration of intravenous contrast. 2D reconstructed CTA MIP acquisitions were also performed. INDICATION: Chest pain. COMPARISON: Chest x-ray of same date, chest CT of 06/10/2017. DISCUSSION: No pulmonary embolus is identified. Pulmonary arteries are not dilated. The thoracic aorta is normal in caliber and configuration. Normal heart size. No pleural or pericardial fluid. The upper abdomen is unremarkable. No pathologically enlarged lymph nodes identified. Emphysema is again noted. No pulmonary mass identified. Finding on x-ray likely represents parenchymal scarring along the left hemidiaphragm which is stable. No osseous abnormality. IMPRESSION: 1. Stable changes of emphysema. No pulmonary embolus identified. Dictated by: Dictated on workstation # [id number] Dict: 01/22/18 1621 Trans: 01/22/18 1632 [id number] Interpreted by: ALMA DELIA ROJAS MD Electronically signed by: ALMA DELIA ROJAS MD 01/22/18 1632 Departure Communication (Admissions) Time/Spoke to Admitting Phy: 17:41 Dr. Barahona Time/Spoke to Consulting Phy: 16:55 Dr. Kwok Impression Primary Impression: Chest pain Qualified Codes: R07.9 - Chest pain, unspecified Additional Impression: CAD (coronary artery disease) Qualified Codes: I25.10 - Atherosclerotic heart disease of [place] coronary artery without angina pectoris Disposition: ADMITTED INPATIENT Condition: Improved Admissions Decision to Admit Reason: Admit from ER (General) Decision to Admit/Date: Jan 22, 2018 Time/Decision to Admit Time: 16:55 Departure-Patient Inst. Referrals: NO,LOCAL PHYSICIAN (PCP) Primary Care Physician LONG [facility] (Family) Primary Care Physician DAVEY MCCANN MD Jan 22, 2018 15:57
[2018-01-22] MEDS ORDERED: IOHEXOL 350 MG/ML 150 ML (OMNIPAQUE 350) VIAL IV ONE (16:00)
[2018-01-22] MEDS ORDERED: RECEIVED CONTRAST (Hold Metformin) IV SCH (16:00)
[2018-01-22] MEDS ORDERED: NS 250 ML (IVPB) BAG IV ONE (16:00)
--- NOTE | 2018-01-22 16:28 | Diagnostic Imaging Report ---
PROCEDURE: CT angiography of the chest with contrast. TECHNIQUE: Multiple contiguous axial images were obtained through the chest after uneventful bolus administration of intravenous contrast. 2D reconstructed CTA MIP acquisitions were also performed. INDICATION: Chest pain. COMPARISON: Chest x-ray of same date, chest CT of 06/10/2017. DISCUSSION: No pulmonary embolus is identified. Pulmonary arteries are not dilated. The thoracic aorta is normal in caliber and configuration. Normal heart size. No pleural or pericardial fluid. The upper abdomen is unremarkable. No pathologically enlarged lymph nodes identified. Emphysema is again noted. No pulmonary mass identified. Finding on x-ray likely represents parenchymal scarring along the left hemidiaphragm which is stable. No osseous abnormality. IMPRESSION: 1. Stable changes of emphysema. No pulmonary embolus identified. Dictated by: Dictated on workstation # [id number]
[2018-01-22] MEDS ORDERED: morphine INJ 4 MG/ML 1 ML (VIAL/SYRINGE) IV PRN (18:30)
[2018-01-22] MEDS ORDERED: NITROGLYCERIN 0.4 MG SL TABS BTL 25'S SL PRN (18:30)
[2018-01-22] MEDS ORDERED: RT-ALBUTEROL SULF 2.5 MG/3 ML PRE-MIX VIAL INH PRN (18:30)
[2018-01-23 00:30] VITALS: BP 157/92
[2018-01-23 04:00] VITALS: BP 158/88
[2018-01-23] MEDS ORDERED: PANTOPRAZOLE 40 MG (PROTONIX) TAB PO SCH (07:00)
[2018-01-23 07:12] LABS: CHOLESTEROL 103 MG/DL (< 200); CREATINE KINASE 50 U/L (30-200); HDL CHOLESTEROL 40 MG/DL (40-60); TRIGLYCERIDES 59 MG/DL (<150); VLDL CHOLESTEROL 12 MG/DL (5-40)
[2018-01-23] MEDS ORDERED: FLU QUADRIvalent (5+ YOA) 2018-2019 (AFLURIA) 0.5 ML IM ONE (07:30)
[2018-01-23 08:00] VITALS: BP 163/94
--- NOTE | 2018-01-23 08:43 | Short Stay Summary ---
History of Present Illness History of Present Illness Reason for visit/HPI 57 years old gentleman with known history of xjxw-uk-arxaaqrl coronary artery disease per cardiac catheterization in 2015, had a stress test in January 2017. Was in his usual state of health until yesterday when he started having recurrent episodes of chest pain, become more persistent, came into the emergency room with chest pain, reported that he felt significantly better after receiving GI cocktail and belching. Denied any palpitation. No syncope or near syncopal episode, still an active smoker and working on smoking cessation Date of Admission Jan 22, 2018 at 17:41 Date of Discharge January 23, 2018 Time Seen by Provider: 08:39 Attending Physician Mary Barahona MD Admitting Physician Alma Funes Consult Allergies and Home Medications Allergies Coded Allergies: Penicillins (Verified Allergy, Intermediate, 09/23/17) causes dysrhythmias Home Medications Acetaminophen 500 Mg Tablet, 500-1,000 MG PO Q6H PRN for PAIN-MILD, (Reported) Albuterol Sulfate 1 Puff Puff, 2 PUFF IH Q4H PRN for SHORTNESS OF BREATH, ( Reported) 1 PUFF = 90 MCG Aspirin 81 Mg Tablet.dr, 81 MG PO DAILY, (Reported) Atorvastatin Calcium 10 Mg Tablet, 10 MG PO HS, (Reported) Ipratropium/Albuterol Sulfate 3 Ml Ampul.neb, 3 ML IH Q6H Prescribed by: BRIDGETT WELLINGTON on 07/21/17 8645 Lisinopril 10 Mg Tablet, 10 MG PO DAILY, (Reported) Metoprolol Succinate 50 Mg Tab.er.24h, 50 MG PO HS, (Reported) Pantoprazole Sodium 40 Mg Tablet.dr, 40 MG PO DAILY, (Reported) Patient Home Medication List Home Medication List Reviewed: Yes Past Dscpqhe-Csmqor-Hmqurp Hx Patient Social History Marrital Status: single Alcohol Use: Denies Use Recreational Drug Use: No Drug of Choice: THC Smoking Status: Current Everyday Smoker Type Used: Cigars 2nd Hand Smoke Exposure: Yes Physical Abuse Screen: No Sexual Abuse: No Recent Foreign Travel: No Contact w/other who traveled: No Recent Hopitalizations: No Recent Infectious Disease Expo: No Immunizations Up To Date Tetanus Booster (TDap): Unknown Seasonal Allergies Seasonal Allergies: No Surgeries Yes Abdominal, Appendectomy, Cardiac (cardiac angiography without intervention), Orthopedic Respiratory Yes (HEMOPTYSIS WITH BRONCHITIS) COPD, Emphysema, Pneumonia Currently Using CPAP: No Currently Using BIPAP: No Cardiovascular Yes Coronary Artery Disease, Heart Attack, High Cholesterol, Hypertension Neurological No Reproductive System Hx Reproductive Disorders: No Sexually Transmitted Disease: No HIV/AIDS: No Genitourinary No Gastrointestinal Yes Gastroesophageal Reflux, Gastrointestinal Bleed, Polyps, Ulcer Musculoskeletal Yes (RIGHT KNEE TORN CARTILAGE; BACK SURGERY 1988) Degenerate Disk Disease, Arthritis, Chronic Back Pain Endocrine History of Endocrine Disorders: No HEENT History of HEENT Disorders: Yes HEENT Disorders: Tinnitis, Eye Injury Loss of Vision: Denies Hearing Impairment: Hard of Hearing Cancer No Psychosocial History of Psychiatric Problem: Yes (MENTAL BLOCK ([facility] 3 YE[facility]) ) Behavioral Health Disorders: Violent Behavior Integumentary History of Skin or Integumenta: No Blood Transfusions History of Blood Disorders: No Adverse Reaction to a Blood Tr: No Family Medical History Significant Family History: Hypertension, Renal Disease Family Hx: Cardiomegaly 19 MOTHER Dysphasia G8 BROTHER G8 SISTER FH: cancer Hypertension G8 BROTHER G8 SISTER G8 SISTER Kidney disease 19 MOTHER Myocardial infarction Review of Systems Constitutional: no symptoms reported, see HPI EENTM: see HPI, no symptoms reported Respiratory: see HPI, cough; No dyspnea on exertion, No hemoptysis, No orthopnea, No phlegm, No short of breath, No stridor, No wheezing, No other Cardiovascular: see HPI, chest pain; No edema, No Hx of Intervention, No palpitations, No syncope, No vascular heart diseas, No other Gastrointestinal: see HPI, other (belching) Genitourinary: no symptoms reported, see HPI Musculoskeletal: no symptoms reported, see HPI Skin: no symptoms reported, see HPI Psychiatric/Neurological: No Symptoms Reported, See HPI Physical Exam Vital Signs Vital Signs - First Documented 01/22/18 14:22 Temp 98.0 Pulse 67 Resp 16 B/P (MAP) 165/113 (130) Pulse Ox 95 O2 Delivery Room Air Capillary Refill : Less Than 3 Seconds Height, Weight, BMI Height: 6'2.00" Weight: 215lbs. 0.0oz. 97.175112my; 27.6 BMI Method:Stated General Appearance: No Apparent Distress, WD/WN Eyes: Bilateral Eye Normal Inspection, Bilateral Eye PERRL, Bilateral Eye EOMI HEENT: PERRL/EOMI, TMs Normal, Normal ENT Inspection, Pharynx Normal Neck: Full Range of Motion, Normal Inspection, Non Tender, Supple, Carotid Bruit Respiratory: Chest Non Tender, Lungs Clear, Normal Breath Sounds, No Accessory Muscle Use, No Respiratory Distress Cardiovascular: Regular Rate, Rhythm, No Edema, No Gallop, No JVD, No Murmur, Normal Peripheral Pulses Gastrointestinal: Normal Bowel Sounds, No Organomegaly, No Pulsatile Mass, Non Tender, Soft Back: Normal Inspection, No CVA Tenderness, No Vertebral Tenderness Extremity: Normal Capillary Refill, Normal Inspection, Normal Range of Motion, Non Tender, No Calf Tenderness, No Pedal Edema Neurologic/Psychiatric: Alert, Oriented x3, No Motor/Sensory Deficits, Normal Mood/Affect Skin: Normal Color, Warm/Dry Lymphatic: No Adenopathy Clinical Quality Measures Admission Status Admission Dx chest pain Coronary artery disease Hypertension Hyperlipidemia Tobaccoism Admission Status: Observation DVT/VTE Risk/Contraindication: Risk Factor Score Per Nursin RFS Level Per Nursing on Admit: 4+=Very High Short Stay Diagnosis Discharge Diagnosis-Short Stay Admission Diagnosis: chest pain Coronary artery disease Hypertension Hyperlipidemia Tobaccoism Final Discharge Diagnosis: chest pain Coronary artery disease Hypertension Hyperlipidemia Tobaccoism Conclusion Labs Laboratory Tests 01/22/18 14:31: White Blood Count 11.2H, Red Blood Count 4.44, Hemoglobin 13.6, Hematocrit 42, Mean Corpuscular Volume 94, Mean Corpuscular Hemoglobin 31, Mean Corpuscular Hemoglobin Concent 33, Red Cell Distribution Width 13.0, Platelet Count 176, Mean Platelet Volume 12.0H, Neutrophils (%) (Auto) 62, Lymphocytes (%) (Auto) 23 , Monocytes (%) (Auto) 9, Eosinophils (%) (Auto) 6, Basophils (%) (Auto) 1, Neutrophils # (Auto) 6.9, Lymphocytes # (Auto) 2.5, Monocytes # (Auto) 1.0, Eosinophils # (Auto) 0.7H, Basophils # (Auto) 0.1, Prothrombin Time 13.2, INR Comment 1.0, Activated Partial Thromboplast Time 34, Sodium Level 140, Potassium Level 4.0, Chloride Level 102, Carbon Dioxide Level 26, Anion Gap 12, Blood Urea Nitrogen 11, Creatinine 0.87, Estimat Glomerular Filtration Rate > 60 , BUN/Creatinine Ratio 13, Glucose Level 96, Calcium Level 9.8, Corrected Calcium , Magnesium Level 2.0, Total Bilirubin 0.3, Aspartate Amino Transf (AST/ SGOT) 14, Alanine Aminotransferase (ALT/SGPT) 11, Alkaline Phosphatase 56, Myoglobin 30.4, Troponin I < 0.30, Total Protein 7.5, Albumin 4.6H 01/22/18 22:32: Troponin I < 0.30 01/23/18 06:01: Total Creatine Kinase 50, Triglycerides Level 59, Cholesterol Level 103, LDL Cholesterol Direct 50, VLDL Cholesterol 12, HDL Cholesterol 40 Conclusion/Plan Chest pain nonspecific etiology, stress test was done in January 2017 showing no significant ischemia or infarction, planning to do stress test as an outpatient, EKG and cardiac enzymes were negative Coronary artery disease, cardiac catheterization was done July 07, 2015 revealing mild to moderate coronary artery disease with 30-40 percent stenosis in the mid right coronary artery, tortuous artery, mild disease in LAD and circumflex artery. Slightly prominent ascending aorta and aortic root, no dissection was noted. planning to repeat stress test as an outpatient Hypertension, continue on home medication, no changes are recommended Mild bilateral carotid artery stenosis per most recent carotid duplex done April 2015. Continue to monitor. History of GI bleed with hematemesis, had history of multiple ulcers in the stomach, did not require blood transfusion, restart PPI History of hyperglycemia, referred to [facility] for management. Tobaccoism-educated on smoking cessation. Noncompliance with medication, educated about compliance. Strong family history of heart disease EMILY ALICEA MD Jan 23, 2018 08:43
[2018-01-23] MEDS ORDERED: lisINopril 10 MG (PRINIVIL) TABLET PO SCH (09:00)
[2018-01-23] MEDS ORDERED: ASPIRIN E.C. 81 MG (ECOTRIN) TAB PO SCH (09:00)
[2018-01-23] MEDS ORDERED: meTOproloL SUCCINATE 50 MG (TOPROL XL) TAB PO SCH (09:00)
[2018-01-23 10:00] VITALS: BP 158/88
== END 2018-01-23 08:52 | disposition home or self-care (01) ==
LOC: EDUNIT# 14:22 → ER 14:23 → UNDOADMOB 17:41 → 4TH 17:41 → UNDODISOB 01-23 10:00
PROVIDERS: ADMIT Internal Medicine; ATTEND Internal Medicine
DX: R07.9 Chest pain, unspecified (principal); I25.10 Atherosclerotic heart disease of native coronary artery without angina pectoris; F17.210 Nicotine dependence, cigarettes, uncomplicated; J43.9 Emphysema, unspecified; I10 Essential (primary) hypertension; E78.5 Hyperlipidemia, unspecified; K21.9 Gastro-esophageal reflux disease without esophagitis; I65.23 Occlusion and stenosis of bilateral carotid arteries; I25.2 Old myocardial infarction; Z87.01 Personal history of pneumonia (recurrent); Z82.49 Family history of ischemic heart disease and other diseases of the circulatory system; Z79.82 Long term (current) use of aspirin; Z79.899 Other long term (current) drug therapy; Z91.14 Patient's other noncompliance with medication regimen
CPT/HCPCS: 36415; 71046; 71275; 80053; 80061; 82550; 83735; 83874; 84484; 85025; 85610; 85730; 93005; G0378

== ENCOUNTER → 2018-02-01 | Outpatient (CLI) | payer MEDICARE ==
[~2018-02-01] VITALS: Ht 188 cm; Wt 97.5 kg
[~2018-02-01] MED LIST changes: +GUAI1TBM19 PO; +LEVO500T2 PO; +METH4TAB PO; +REGADENOSON 0.4 MG/5 ML SYR (LEXISCAN) IV ONE
[2018-02-01] MEDS: CATHETER FLUSH 10 ML SYR IV PRN ×2 (07:27→09:19)
[2018-02-01 09:14] VITALS: BP 146/78
--- NOTE | 2018-02-01 14:56 | STRESS TEST ---
DATE OF SERVICE: 02/01/2018 LEXISCAN MYOVIEW STRESS TEST REPORT Baseline heart rate is 81, baseline blood pressure 129/83, baseline EKG is sinus rhythm with no ischemic changes. In summary, the patient was injected with 10.07 mCi of technetium-99 Myoview and the resting images were obtained. Then, the patient received 0.4 mg of Lexiscan followed by 31.0 mCi of technetium-99 Myoview. Throughout the test, there were no EKG changes. The resting and stressed images were reviewed and compared in the short axis, horizontal long axis, and vertical long axis views. Review of the images showed diaphragmatic attenuation affecting the quality of the images. There is a fixed defect involving the mid to apical inferior wall, inferoseptal and inferolateral wall. SSS is 10, SDS is 0. TID value is 0.93. On the gated images, the left ventricle appeared to be normal size and inferior wall appeared to be mark normally. Calculated ejection fraction is 58%. CONCLUSION: 1. The patient tolerated Lexiscan well. 2. Diaphragmatic attenuation affecting the quality of the images with fixed defect involving the inferior wall and inferoseptum, no significant ischemia was noted. 3. Normal left ventricular size with normal contractility, inferior wall is mark normally. Calculated ejection fraction is 58%. Job ID: [id number] DocumentID: [id number] Dictated Date: 02/01/2018 14:46:12 Communications Assistant Date: 02/01/2018 14:56:01 Dictated By: EMILY ALICEA MD
== END ==
LOC: CARD 07:08
PROVIDERS: ATTEND Internal Medicine Cardiovascular Disease
DX: R07.9 Chest pain, unspecified (principal); I25.10 Atherosclerotic heart disease of native coronary artery without angina pectoris
CPT/HCPCS: 78452; 93017

== ENCOUNTER 2018-02-04 18:24 | Emergency (ER) | payer MEDICARE ==
[~2018-02-04] VITALS: Ht 182.9 cm; Wt 90.7 kg
[~2018-02-04 18:24] MED LIST changes: -GUAI1TBM19 PO; -LEVO500T2 PO; -METH4TAB PO; -REGADENOSON 0.4 MG/5 ML SYR (LEXISCAN) IV ONE
--- OUTSIDE RECORDS SUMMARY | 2018-02-04 18:29 | XMS REPORT ---
Author Author RIKA ELLISON [facility] Address [address] [place] [address] Care Team Providers Care Food And Beverage Operations Manager Name Role Phone RIKA ELLISON Unavailable PROBLEMS Unknown Problems ALLERGIES No Information ENCOUNTERS Encounter Location Date Diagnosis [facility] [address] [facility] [id number], [place] [address] Jan, [facility] [address] [facility] [id number], [place] [address] Jan, IMMUNIZATIONS No Known Immunizations SOCIAL HISTORY Never Assessed REASON FOR VISIT Requests return call PLAN OF CARE VITAL SIGNS MEDICATIONS Unknown Medications RESULTS No Results PROCEDURES No Known procedures INSTRUCTIONS MEDICATIONS ADMINISTERED No Known Medications
[2018-02-04] MEDS ORDERED: KETOROLAC 30 MG/ML VIAL IVP STA (18:37)
[2018-02-04 18:45] LABS: HEMATOCRIT 41 % (40-54); HEMOGLOBIN 13.6 G/DL (13.3-17.7); MEAN CORPUSCULAR HEMOGLOBIN 31 PG (25-34); MEAN CORPUSCULAR HGB CONC 33 G/DL (32-36); MEAN CORPUSCULAR VOLUME 92 FL (80-99); MEAN PLATELET VOLUME 11.9 FL (7.4-10.4); PLATELET COUNT 208 10^3/uL (130-400); RED BLOOD COUNT 4.42 10^6/uL (4.35-5.85); RED CELL DISTRIBUTION WIDTH 12.7 % (10.0-14.5); WHITE BLOOD COUNT 10.6 10^3/uL (4.3-11.0)
[2018-02-04 18:46] LABS: BASOPHILS # (AUTO) 0.1 10^3/uL (0.0-0.1); BASOPHILS % (AUTO) 1 % (0-10); EOSINOPHILS # (AUTO) 0.6 10^3/uL (0.0-0.3); EOSINOPHILS % (AUTO) 5 % (0-10); LYMPHOCYTES # (AUTO) 3.1 X 10^3 (1.0-4.0); LYMPHOCYTES % (AUTO) 30 % (12-44); MONOCYTES % (AUTO) 9 % (0-12); NEUTROPHILS # (AUTO) 5.9 X 10^3 (1.8-7.8); NEUTROPHILS % (AUTO) 56 % (42-75)
--- NOTE | 2018-02-04 18:51 | ED Chest Pain ---
General Chief Complaint: Chest Pain Stated Complaint: CHEST PAIN Nursing Triage Note: ARRIVED VIA EMS FROM HOME WITH COMPLAINTS OF RIGHT SIDED CHEST PAIN STARTING THIS EVENING. RECENTLY ADMITTED FOR PNEUMONIA. PT RECIEVED ASA 324MG PER EMS. Nursing Sepsis Screen: No Definite Risk Source: patient History of Present Illness Date Seen by Provider: Feb 04, 2018 Time Seen by Provider: 18:24 Initial Comments PT ARRIVES VIA [facility] FROM HOME C/O RIGHT CHEST PAIN SINCE 1700 PAIN IS MILD AND DULL--RATES 2/10 WAS SITTING AT TIME OF ONSET NOTHING WORSENS OR IMPROVES PAIN HAS NOT TAKEN ANYTHING FOR PAIN--NORMALLY TAKES IBUPROFEN EVERY DAY, BUT HAS NOT TAKEN ANY TODAY--NO PARTICULAR REASON WHY HE HAS NOT. HAS CHRONIC COUGH WITH YELLOW TO GREEN SPUTUM--NO DIFFERENT TODAY THAN NORMAL- SMOKES 4 PPD FOR OVER 40 YEARS HAS CHRONIC SHORTNESS OF BREATH AND IS NO DIFFERENT TODAY--HAS COPD AND IS SUPPOSED TO USE ALBUTEROL INHALER, BUT HAS BEEN OUT FOR 2 WEEKS NO FEVER /SWEATS/ CHILLS NO SWELLING IN LEGS / FEET OR PAIN IN CALVES PT WAS ADMITTED OVERNIGHT 01/22-01/23 FOR SAME, WORK UP INCLUDING CT CHEST ANGIOGRAM NORMAL, EXCEPT FOR QUESTIONABLE MASS VS INFILTRATE VS SCARRING IN BASES. HAS NOT BEEN PRESCRIBED ANTIBIOTICS HAD NUCLEAR STRESS TEST BY DR. ALICEA 02/01/18--ESSENTIALLY NORMAL WITH EF 58% PCP: HAS BEEN SEEING PEDIATRIC GENETIC COUNSELOR JOBY MAC AT [facility]--HAS NEW PT APPOINTMENT AT [facility] WITH LUCY ELLISON ON Tuesday02/08/18 PIPELINE WELDER: DR. ALICEA Allergies and Home Medications Allergies Coded Allergies: Penicillins (Verified Allergy, Intermediate, 09/23/17) causes dysrhythmias Home Medications Acetaminophen 500 Mg Tablet, 500-1,000 MG PO Q6H PRN for PAIN-MILD, (Reported) Albuterol Sulfate 1 Puff Puff, 2 PUFF IH Q4H PRN for SHORTNESS OF BREATH, ( Reported) 1 PUFF = 90 MCG Aspirin 81 Mg Tablet.dr, 81 MG PO DAILY, (Reported) Atorvastatin Calcium 10 Mg Tablet, 10 MG PO HS, (Reported) Ipratropium/Albuterol Sulfate 3 Ml Ampul.neb, 3 ML IH Q6H Prescribed by: BRIDGETT WELLINGTON on 07/21/17 1047 Lisinopril 10 Mg Tablet, 10 MG PO DAILY, (Reported) Metoprolol Succinate 50 Mg Tab.er.24h, 50 MG PO HS, (Reported) Pantoprazole Sodium 40 Mg Tablet.dr, 40 MG PO DAILY, (Reported) Past Jqksrwz-Tqftsn-Hjhjsj Hx Patient Social History Alcohol Use: Past History Recreational Drug Use: No Drug of Choice: PAST HISTORY Smoking Status: Former Smoker Type Used: Cigars 2nd Hand Smoke Exposure: Yes Recent Foreign Travel: No Contact w/Someone Who Travel: No Recent Infectious Disease Expo: No Recent Hopitalizations: No Immunizations Up To Date Tetanus Booster (TDap): Unknown Seasonal Allergies Seasonal Allergies: No Past Medical History Surgeries: Yes Abdominal, Appendectomy, Cardiac, Orthopedic Respiratory: Yes (HEMOPTYSIS WITH BRONCHITIS) Pneumonia, Chronic Bronchitis, COPD Currently Using CPAP: No Currently Using BIPAP: No Cardiac: Yes Coronary Artery Disease, Heart Attack, High Cholesterol, Hypertension Neurological: No Reproductive Disorders: No Sexually Transmitted Disease: No HIV/AIDS: No Genitourinary: No Gastrointestinal: Yes Gastroesophageal Reflux, Gastrointestinal Bleed, Polyps, Ulcer Musculoskeletal: Yes (RIGHT KNEE TORN CARTILAGE; BACK SURGERY 1988) Degenerate Disk Disease, Arthritis, Chronic Back Pain Endocrine: No HEENT: Yes Tinnitis, Eye Injury Loss of Vision: Denies Hearing Impairment: Hard of Hearing Cancer: No Psychosocial: Yes (MENTAL BLOCK ([place] [place] [facility] ) ) Violent Behavior Integumentary: No Blood Disorders: No Adverse Reaction/Blood Tranf: No Family Medical History Cardiomegaly 19 MOTHER Dysphasia G8 BROTHER G8 SISTER FH: cancer Hypertension G8 BROTHER G8 SISTER G8 SISTER Kidney disease 19 MOTHER Myocardial infarction Hypertension, Renal Disease Physical Exam Vital Signs Vital Signs - First Documented 02/04/18 18:24 Temp 99.2 Pulse 92 Resp 16 B/P (MAP) 125/90 (102) Pulse Ox 93 O2 Delivery Room Air Capillary Refill : Less Than 3 Seconds Height, Weight, BMI Height: 6'2.00" Weight: 200lbs. 0.0oz. 90.739478ld; 27.6 BMI Method:Estimated General Appearance: No Apparent Distress, WD/WN, Other (DIRTY, MALODOROUS, REEKS OF CIGARETTES) HEENT: PERRL/EOMI, Other (POOR DENTITION, MULTIPLE MISSING TEETH AND REMAINING TEETH WITH EXTENSIVE DECAY) Neck: Normal Inspection Respiratory: Normal Breath Sounds, No Accessory Muscle Use, No Respiratory Distress, Other ([place] TENDERNESS JUST MEDIAL TO RIGHT BREAST--PALPATION REPRODUCES PAIN) Cardiovascular: Regular Rate, Rhythm, No Edema, No JVD, No Murmur, Normal Peripheral Pulses Gastrointestinal: Normal Bowel Sounds, No Organomegaly, No Pulsatile Mass, Non Tender, Soft Extremity: Normal Capillary Refill, Normal Inspection, Normal Range of Motion, Non Tender, No Calf Tenderness, No Pedal Edema Neurologic/Psychiatric: Alert, Oriented x3, No Motor/Sensory Deficits, Normal Mood/Affect, patents examiner II-XII Norm as Tested Skin: Normal Color, Warm/Dry; No Rash Focused Exam Lactate Level 02/04/18 18:28: Lactic Acid Level 1.05 Lactic Acid Level Laboratory Tests Test 02/04/18 18:28 Lactic Acid Level 1.05 MMOL/L (0.50-2.00) Progress/Results/Core Measures Results/Orders Lab Results Laboratory Tests Test 02/04/18 18:28 Range/Units White Blood Count 10.6 4.3-11.0 10^3/uL Red Blood Count 4.42 4.35-5.85 10^6/uL Hemoglobin 13.6 13.3-17.7 G/DL Hematocrit 41 40-54 % Mean Corpuscular Volume 92 80-99 FL Mean Corpuscular Hemoglobin 31 25-34 PG Mean Corpuscular Hemoglobin Concent 33 32-36 G/DL Red Cell Distribution Width 12.7 10.0-14.5 % Platelet Count 208 130-400 10^3/uL Mean Platelet Volume 11.9 H 7.4-10.4 FL Neutrophils (%) (Auto) 56 42-75 % Lymphocytes (%) (Auto) 30 12-44 % Monocytes (%) (Auto) 9 0-12 % Eosinophils (%) (Auto) 5 0-10 % Basophils (%) (Auto) 1 0-10 % Neutrophils # (Auto) 5.9 1.8-7.8 X 10^3 Lymphocytes # (Auto) 3.1 1.0-4.0 X 10^3 Monocytes # (Auto) 1.0 0.0-1.0 X 10^3 Eosinophils # (Auto) 0.6 H 0.0-0.3 10^3/uL Basophils # (Auto) 0.1 0.0-0.1 10^3/uL Prothrombin Time 14.5 12.2-14.7 SEC INR Comment 1.1 0.8-1.4 Activated Partial Thromboplast Time 36 H 24-35 SEC Sodium Level 133 L 135-145 MMOL/L Potassium Level 4.1 3.6-5.0 MMOL/L Chloride Level 95 L 98-107 MMOL/L Carbon Dioxide Level 27 21-32 MMOL/L Anion Gap 11 5-14 MMOL/L Blood Urea Nitrogen 7 7-18 MG/DL Creatinine 0.86 0.60-1.30 MG/DL Estimat Glomerular Filtration Rate > 60 BUN/Creatinine Ratio 8 Glucose Level 103 70-105 MG/DL Lactic Acid Level 1.05 0.50-2.00 MMOL/L Calcium Level 9.8 8.5-10.1 MG/DL Corrected Calcium 9.4 8.5-10.1 MG/DL Magnesium Level 2.2 1.8-2.4 MG/DL Total Bilirubin 0.9 0.1-1.0 MG/DL Aspartate Amino Transf (AST/SGOT) 20 5-34 U/L Alanine Aminotransferase (ALT/SGPT) 19 0-55 U/L Alkaline Phosphatase 56 40-136 U/L Myoglobin 64.9 10.0-92.0 NG/ML Troponin I < 0.30 <0.30 NG/ML B-Type Natriuretic Peptide 16.1 <100.0 PG/ML Total Protein 7.3 6.4-8.2 GM/DL Albumin 4.5 3.2-4.5 GM/DL My Orders Orders - ANTONIO JONES DO Chest Pa/Lat (2 View) (02/04/18 18:37) Cbc With Automated Diff (02/04/18 18:37) Magnesium (02/04/18 18:37) Ekg Tracing (02/04/18 18:37) Cardiac Profile 1 (02/04/18 18:37) Comprehensive Metabolic Panel (02/04/18 18:37) Myoglobin Serum (02/04/18 18:37) Protime With Inr (02/04/18 18:37) Partial Thromboplastin Time (02/04/18 18:37) O2 (02/04/18 18:37) Monitor-Rhythm Ecg Trace Only (02/04/18 18:37) Lipid Panel (02/05/18 06:00) Saline Lock/Iv-Start (02/04/18 18:37) BNP (02/04/18 18:37) Lactic Acid Analyzer (02/04/18 18:37) Blood Culture (02/04/18 18:37) Influenza A And B Antigens (02/04/18 18:37) Ketorolac Injection (Toradol Injection) (02/04/18 18:37) Vital Signs/I&O 02/04/18 18:24 Temp 99.2 Pulse 92 Resp 16 B/P (MAP) 125/90 (102) Pulse Ox 93 O2 Delivery Room Air Blood Pressure Mean: 102 Initial ECG Impression Date: Feb 04, 2018 Initial ECG Impression Time: 18:48 Initial ECG Rate: 78 Initial ECG Rhythm: Normal Sinus Initial ECG Impression: Normal Diagnostic Imaging Comments CXR--INFILTRATE VS CHRONIC CHANGE IN LUNG BASES--RIGHT > LEFT, PERSISTENT OPACITIES IN LUNG BASES RIGHT > LEFT, WITH NODULAR AREA IN LEFT BASE IMPROVING. COPD--PER RADIOLOGIST REPORT @ 1930 Reviewed: Reviewed by Me Departure Impression Primary Impression: COPD (chronic obstructive pulmonary disease) Additional Impressions: RLL pneumonia RIGHT ANTERIOR CHEST WALL PAIN Very heavy cigarette smoker (40 or more per day) Disposition: HOME, SELF-CARE Condition: Stable Departure-Patient Inst. Referrals: [facility] Patient Instructions: COPD Including Emphysema (DC), Chest Pain That Is Not Caused by the Heart (DC), Community-Acquired Pneumonia, Adult (DC), Quitting Smoking for Older Adults, SMOKING CESSATION, Smoking: Not Just Harmful to Your Lungs and Heart, Costochondritis (DC) Add. Discharge Instructions: TAKE YOUR REGULAR MEDICATIONS PRESCRIBED TAKE IBUPROFEN NEEDED FOR PAIN OR FEVER FOLLOW UP WITH LUCY ELLISON NEXT WEEK SCHEDULED All discharge instructions reviewed with patient and/or family. Voiced understanding. Scripts Guaifenesin/Dextromethorphan (Mucinex Dm ER 1,200-60 mg Tab) 1 Each Tbmp.12hr 1 EACH PO BID for 10 Days, #20 EA Prov: ANTONIO JONES DO 02/04/18 Methylprednisolone (Medrol) 4 Mg Tab.ds.pk 4 MG PO UD, #1 PKG Prov: ANTONIO JONES DO 02/04/18 Levofloxacin (Levaquin) 500 Mg Tablet 500 MG PO DAILY for INFECTION, #10 TAB Prov: ANTONIO JONES DO 02/04/18 Albuterol Sulfate (PROAIR HFA) 1 Puff Puff 2 PUFF IH Q4H for BREATHING, #1 GM Prov: ANTONIO JONES DO 02/04/18 ANTONIO JONES DO Feb 04, 2018 18:51
[2018-02-04 18:59] LABS: INR 1.1 (0.8-1.4); PROTHROMBIN TIME PATIENT 14.5 SEC (12.2-14.7)
[2018-02-04 19:00] LABS: ALANINE AMINOTRANSFERASE 19 U/L (0-55); ALBUMIN 4.5 GM/DL (3.2-4.5); ALKALINE PHOSPHATASE 56 U/L (40-136); BILIRUBIN,TOTAL 0.9 MG/DL (0.1-1.0); BUN/CREATININE RATIO 8; CALCIUM 9.8 MG/DL (8.5-10.1); CARBON DIOXIDE 27 MMOL/L (21-32); CHLORIDE 95 MMOL/L (98-107); CREATININE SERUM 0.86 MG/DL (0.60-1.30); GFR ESTIMATED > 60; GLUCOSE 103 MG/DL (70-105); MAGNESIUM 2.2 MG/DL (1.8-2.4); POTASSIUM 4.1 MMOL/L (3.6-5.0); SODIUM 133 MMOL/L (135-145); TOTAL PROTEIN 7.3 GM/DL (6.4-8.2)
[2018-02-04 19:06] LABS: MYOGLOBIN SERUM 64.9 NG/ML (10.0-92.0)
--- NOTE | 2018-02-04 19:21 | Diagnostic Imaging Report ---
INDICATION: Right-sided chest pain starting this evening EXAMINATION: Two-view chest 02/04/2018 COMPARISON: 01/22/18 FINDINGS: There is a questioned infiltrate versus chronic change in the lung bases, right greater than left. A previously questioned mass towards left lung base is not as well appreciated today and is likely due to resolving focus of atelectasis. The heart is stable. Pulmonary vasculature is unchanged. Upper lungs demonstrate emphysematous disease. IMPRESSION: 1. Persistent airspace opacities at the lung bases, right greater than left, with a more nodular area on the left improving. Continued followup recommended. 2. Findings of COPD. Dictated by: Dictated on workstation # [id number]
[2018-02-04] MEDS ORDERED: METH4TAB PO (19:40)
[2018-02-04] MEDS ORDERED: RT-ALBUINH IH (19:40)
[2018-02-04] MEDS ORDERED: GUAI1TBM19 PO (19:40)
[2018-02-04] MEDS ORDERED: LEVO500T2 PO (19:40)
[2018-02-04] MEDS ORDERED: LEVOFLOXACIN 500 MG TAB (LEVAQUIN) PO ONE (19:45)
[2018-02-04] MEDS ORDERED: cefTRIAXone FOR IV USE 1,000 MG in NS (IVPB) 50 ML IV ONE (19:45)
[2018-02-04] MEDS ORDERED: methylPREDNISolone 125 MG (Solu-MEDROL) VIAL IVP ONE (19:45)
[2018-02-04 20:40] VITALS: BP 120/95
== END 2018-02-04 20:40 | disposition home or self-care (01) ==
LOC: EDUNIT# 18:24 → ER 18:25
DX: J44.9 Chronic obstructive pulmonary disease, unspecified (principal); J18.1 Lobar pneumonia, unspecified organism; R07.89 Other chest pain; I25.10 Atherosclerotic heart disease of native coronary artery without angina pectoris; I25.2 Old myocardial infarction; E78.00 Pure hypercholesterolemia, unspecified; I10 Essential (primary) hypertension; F17.210 Nicotine dependence, cigarettes, uncomplicated; K21.9 Gastro-esophageal reflux disease without esophagitis; Z82.49 Family history of ischemic heart disease and other diseases of the circulatory system; Z87.19 Personal history of other diseases of the digestive system; Z86.010 Personal history of colon polyps; Z91.14 Patient's other noncompliance with medication regimen; Z88.0 Allergy status to penicillin; Z79.51 Long term (current) use of inhaled steroids; Z79.82 Long term (current) use of aspirin; Z87.891 Personal history of nicotine dependence; Z90.49 Acquired absence of other specified parts of digestive tract; Z87.01 Personal history of pneumonia (recurrent)
CPT/HCPCS: 36415; 71046; 80053; 83605; 83735; 83874; 83880; 84484; 85025; 85610; 85730; 87040; 87804; 93005; 93041

== ENCOUNTER 2018-02-25 12:25 | Observation (INO) | payer MEDICARE ==
[~2018-02-25] VITALS: Ht 188 cm; Wt 100.2 kg
[2018-02-25] VITALS (8 sets, daily range): BP systolic 134–156; BP diastolic 85–105
[~2018-02-25 12:25] MED LIST changes: +GUAI1TBM19 PO; +LEVO500T2 PO; +METH4TAB PO
--- OUTSIDE RECORDS SUMMARY | 2018-02-25 12:30 | XMS REPORT ---
Author Author RIKA ELLISON Organization [facility] Address [address] [place] [address] Care Team Providers Care Machine Heel Builder Name Role Phone RIKA ELLISON Unavailable PROBLEMS Type Condition ICD9-CM Code HNO00-JA Code Onset Dates Condition Status SNOMED Code Problem Mixed hyperlipidemia E78.2 Active 902654106 Problem Hypertension, benign I10 Active 63121634 Problem Coronary artery disease of [place] artery of [place] heart with stable angina pectoris I25.118 Active 3165595863569 Problem GERD with esophagitis K21.0 Active 033330638 Problem Peptic ulcer K27.9 Active 80924350 ALLERGIES Substance Reaction Event Type Date Status Penicillin G Potassium anaphylaxis Drug Allergy Jan, Active ENCOUNTERS Encounter Location Date Diagnosis [facility] [id number] [place] [phone] Jan, Peptic ulcer K27.9 ; GERD with esophagitis K21.0 ; Coronary artery 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 due to pain in his chest, PT was advised to get established with a provider that is close by. -Papito FERNANDEZ PLAN OF CARE VITAL SIGNS Height 74 in 2018-02-08 Weight 213.5 lbs 2018-02-08 Temperature 98.1 degrees Fahrenheit 2018-02-08 Heart Rate 86 bpm 2018-02-08 Respiratory Rate 20 2018-02-08 Oximetry 97 % 2018-02-08 BMI 27.41 kg/m2 2018-02-08 Blood pressure systolic 132 mmHg 2018-02-08 Blood pressure diastolic 70 mmHg 2018-02-08 MEDICATIONS Medication Instructions Dosage Frequency Start Date End Date Duration Status Atorvastatin Calcium 10 MG Orally Once a day 1 tablet 24h 30 day(s) Active Ibuprofen 800 MG Orally Three times a day 1 tablet with food or milk as needed 8h Active Pantoprazole Sodium 40 MG Orally 2 times a day 1 tablet 12h 30 day(s ) Active Nitroglycerin 0.4 MG Sublingual 1 daily, may repeat q 5 min, x 3 only, if 3 is needed, need to go to ER. 1 tablet Jan, Active Metoprolol Succinate ER 200 MG Orally Once a day 1 tablet 24h 30 day( s) Active Aspirin 81 81 MG Orally Once a day 1 tablet 24h 30 day(s) Active Lisinopril 10 MG Orally Once a day 1 tablet 24h 30 day(s) Active RESULTS No Results PROCEDURES Procedure Date Ordered Result Body Site [facility] VISIT ESTABLISHED PATIENT Feb 08, 2018 INSTRUCTIONS MEDICATIONS ADMINISTERED No Known Medications MEDICAL (GENERAL) HISTORY Type Description Date Medical History Hypertension Surgical History Lower back surgery - broke it 1988 Surgical History Right knee repair 1999 Surgical History 2 hernia surgeries 1999s Surgical History Right eye repair 2017 Hospitalization History [facility] coughing up blood x 4-5 days 2014
--- NOTE | 2018-02-25 12:51 | ED Respiratory ---
General Chief Complaint: Respiratory Problems Stated Complaint: COUGHING UP BLOOD Nursing Triage Note: PT AMBULATES TO ROOM 3 PT CO OF COUGHING UP BLOOD TODAY BRIGHT RED, DENEIS FEVER SAT 89% AT RA, O2 @2L APPLIED. PT STATES SMOKES 10 CIGARETTES DAILY. DENIES PAIN Source: patient Exam Limitations: no limitations History of Present Illness Date Seen by Provider: Feb 25, 2018 Time Seen by Provider: 12:47 Initial Comments The patient is a 57-year-old white male. He presents this morning with a chief complaint of hemoptysis. This began this morning. At times he has had rather copious amounts of blood and sputum which have come up. He has COPD. He smokes about 10 cigarettes a day at this time however a few years ago was smoking as many as 4 packs of cigarettes per day. He does not describe acute dyspnea or chest pain. He does not admit to fever or chills. There is evidence of a thin bloody expectorate in a specimen bottle at bedside. Timing/Duration: this morning Prior Episodes/Possible Cause: no prior episodes Daughter reports that he had a chest x-ray or CT done earlier in the spring which reported a possible nodule. He had a repeat about one month ago in which the nodule was said to be gone. He takes an aspirin daily but no blood thinners. Allergies and Home Medications Allergies Coded Allergies: Penicillins (Verified Allergy, Intermediate, 09/23/17) causes dysrhythmias Home Medications Acetaminophen 500 Mg Tablet, 500-1,000 MG PO Q6H PRN for PAIN-MILD, (Reported) Albuterol Sulfate 1 Puff Puff, 2 PUFF IH Q4H PRN for SHORTNESS OF BREATH, ( Reported) 1 PUFF = 90 MCG Albuterol Sulfate 1 Puff Puff, 2 PUFF IH Q4H Prescribed by: ANTONIO JONES on 02/04/181939 Aspirin 81 Mg Tablet.dr, 81 MG PO DAILY, (Reported) Atorvastatin Calcium 10 Mg Tablet, 10 MG PO HS, (Reported) Lisinopril 10 Mg Tablet, 10 MG PO DAILY, (Reported) Methylprednisolone 4 Mg Tab.ds.pk, 4 MG PO UD Prescribed by: ANTONIO JONES on 02/04/181939 Metoprolol Succinate 50 Mg Tab.er.24h, 50 MG PO HS, (Reported) Pantoprazole Sodium 40 Mg Tablet.dr, 40 MG PO DAILY, (Reported) Patient Home Medication List Home Medication List Reviewed: Yes Review of Systems Review of Systems Constitutional: see HPI EENTM: no symptoms reported Respiratory: see HPI, cough, hemoptysis, short of breath Cardiovascular: no symptoms reported Gastrointestinal: no symptoms reported Genitourinary: no symptoms reported Musculoskeletal: no symptoms reported Skin: no symptoms reported Psychiatric/Neurological: No Symptoms Reported Hematologic/Lymphatic: No Symptoms Reported Immunological/Allergic: no symptoms reported Past Jnqgjlq-Arhiis-Nltrgd Hx Patient Social History Alcohol Use: Denies Use Recreational Drug Use: No Drug of Choice: PAST HISTORY Smoking Status: Current Everyday Smoker Type Used: Cigars 2nd Hand Smoke Exposure: Yes Recent Foreign Travel: No Contact w/Someone Who Travel: No Recent Infectious Disease Expo: No Recent Hopitalizations: No Physical Abuse: No Sexual Abuse: No Immunizations Up To Date Tetanus Booster (TDap): Unknown Seasonal Allergies Seasonal Allergies: No Past Medical History Surgeries: Yes Abdominal, Appendectomy, Cardiac, Orthopedic Respiratory: Yes (HEMOPTYSIS WITH BRONCHITIS) Pneumonia, Chronic Bronchitis, COPD Currently Using CPAP: No Currently Using BIPAP: No Cardiac: Yes Coronary Artery Disease, Heart Attack, High Cholesterol, Hypertension Neurological: No Reproductive Disorders: No Sexually Transmitted Disease: No HIV/AIDS: No Genitourinary: No Gastrointestinal: Yes Gastroesophageal Reflux, Gastrointestinal Bleed, Polyps, Ulcer Musculoskeletal: Yes (RIGHT KNEE TORN CARTILAGE; BACK SURGERY 1988) Degenerate Disk Disease, Arthritis, Chronic Back Pain Endocrine: No HEENT: Yes Cataract, Tinnitis, Eye Injury Loss of Vision: Denies Hearing Impairment: Hard of Hearing Cancer: No Psychosocial: Yes (MENTAL BLOCK ([place] [place] [facility] ) ) Violent Behavior Integumentary: No Blood Disorders: No Adverse Reaction/Blood Tranf: No Family Medical History Cardiomegaly 19 MOTHER Dysphasia G8 BROTHER G8 SISTER FH: cancer Hypertension G8 BROTHER G8 SISTER G8 SISTER Kidney disease 19 MOTHER Myocardial infarction Hypertension, Renal Disease Physical Exam Vital Signs - First Documented 02/25/18 12:30 Temp 98.5 Pulse 101 Resp 22 B/P (MAP) 152/94 (113) Pulse Ox 95 O2 Delivery Nasal Cannula O2 Flow Rate 2.00 Capillary Refill : Less Than 3 Seconds Height: 6'2.00" Weight: 215lbs. 0.0oz. 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 as tested, no motor/sensory deficits, alert, normal mood/affect, oriented x 3 Skin: normal color, warm/dry, cyanosis, cool, diaphoresis, damp Lymphatic: no adenopathy Progress/Results/Core Measures Suspected Sepsis Recent Fever Within 48 Hours: No Infection Criteria Present: None New/Unexplained Altered Menta: No Sepsis Screen: No Definite Risk SIRS Temperature:98.5 Pulse: 101 Respiratory Rate: 22 Laboratory Tests 02/25/18 12:55: White Blood Count 7.8 Blood Pressure 152 /94 Mean: 113 Laboratory Tests 02/25/18 12:55: Creatinine 0.81, INR Comment 1.0, Platelet Count 185, Total Bilirubin 0.3 Results/Orders Lab Results Laboratory Tests Test 02/25/18 12:55 Range/Units White Blood Count 7.8 4.3-11.0 10^3/uL Red Blood Count 4.01 L 4.35-5.85 10^6/uL Hemoglobin 12.5 L 13.3-17.7 G/DL Hematocrit 38 L 40-54 % Mean Corpuscular Volume 94 80-99 FL Mean Corpuscular Hemoglobin 31 25-34 PG Mean Corpuscular Hemoglobin Concent 33 32-36 G/DL Red Cell Distribution Width 13.7 10.0-14.5 % Platelet Count 185 130-400 10^3/uL Mean Platelet Volume 11.9 H 7.4-10.4 FL Neutrophils (%) (Auto) 66 42-75 % Lymphocytes (%) (Auto) 20 12-44 % Monocytes (%) (Auto) 9 0-12 % Eosinophils (%) (Auto) 4 0-10 % Basophils (%) (Auto) 0 0-10 % Neutrophils # (Auto) 5.2 1.8-7.8 X 10^3 Lymphocytes # (Auto) 1.6 1.0-4.0 X 10^3 Monocytes # (Auto) 0.7 0.0-1.0 X 10^3 Eosinophils # (Auto) 0.3 0.0-0.3 10^3/uL Basophils # (Auto) 0.0 0.0-0.1 10^3/uL Prothrombin Time 12.8 12.2-14.7 SEC INR Comment 1.0 0.8-1.4 Sodium Level 140 135-145 MMOL/L Potassium Level 3.8 3.6-5.0 MMOL/L Chloride Level 104 98-107 MMOL/L Carbon Dioxide Level 25 21-32 MMOL/L Anion Gap 11 5-14 MMOL/L Blood Urea Nitrogen 11 7-18 MG/DL Creatinine 0.81 0.60-1.30 MG/DL Estimat Glomerular Filtration Rate > 60 BUN/Creatinine Ratio 14 Glucose Level 91 70-105 MG/DL Calcium Level 9.3 8.5-10.1 MG/DL Corrected Calcium 9.2 8.5-10.1 MG/DL Total Bilirubin 0.3 0.1-1.0 MG/DL Aspartate Amino Transf (AST/SGOT) 14 5-34 U/L Alanine Aminotransferase (ALT/SGPT) 12 0-55 U/L Alkaline Phosphatase 50 40-136 U/L Total Protein 6.8 6.4-8.2 GM/DL Albumin 4.1 3.2-4.5 GM/DL My Orders Orders - YANI MADRID MD Cbc With Automated Diff (02/25/18 12:43) Comprehensive Metabolic Panel (02/25/18 12:43) Protime With Inr (02/25/18 12:43) Chest 1 View, Ap/Pa Only (02/25/18 12:43) Vital Signs/I&O 02/25/18 12:30 Temp 98.5 Pulse 101 Resp 22 B/P (MAP) 152/94 (113) Pulse Ox 95 O2 Delivery Nasal Cannula O2 Flow Rate 2.00 Capillary Refill : Less Than 3 Seconds Blood Pressure Mean: 113 Departure Communication (Admissions) The CT scans from June 10 and January were reviewed. 1330 it was stated and confirmed that the patient is a coughing up considerable more red blood. [address] Davenport hospitalist the patient will be admitted for observation and pulmonary consultation. Impression Primary Impression: hemoptysis Additional Impression: bullous emphysema Disposition: ADMITTED INPATIENT Condition: Stable/Unchanged Admissions Decision to Admit Reason: Admit from ER (General) Decision to Admit/Date: Feb 25, 2018 Time/Decision to Admit Time: 13:36 Departure-Patient Inst. Referrals: NO,LOCAL PHYSICIAN (PCP/Family) Primary Care Physician YANI MADRID MD Feb 25, 2018 12:51
[2018-02-25 13:01] LABS: BASOPHILS % (AUTO) 0 % (0-10); EOSINOPHILS # (AUTO) 0.3 10^3/uL (0.0-0.3); EOSINOPHILS % (AUTO) 4 % (0-10); HEMATOCRIT 38 % (40-54); HEMOGLOBIN 12.5 G/DL (13.3-17.7); LYMPHOCYTES # (AUTO) 1.6 X 10^3 (1.0-4.0); LYMPHOCYTES % (AUTO) 20 % (12-44); MEAN CORPUSCULAR HEMOGLOBIN 31 PG (25-34); MEAN CORPUSCULAR HGB CONC 33 G/DL (32-36); MEAN CORPUSCULAR VOLUME 94 FL (80-99); MEAN PLATELET VOLUME 11.9 FL (7.4-10.4); MONOCYTES # (AUTO) 0.7 X 10^3 (0.0-1.0); MONOCYTES % (AUTO) 9 % (0-12); NEUTROPHILS # (AUTO) 5.2 X 10^3 (1.8-7.8); NEUTROPHILS % (AUTO) 66 % (42-75); PLATELET COUNT 185 10^3/uL (130-400); RED BLOOD COUNT 4.01 10^6/uL (4.35-5.85); RED CELL DISTRIBUTION WIDTH 13.7 % (10.0-14.5); WHITE BLOOD COUNT 7.8 10^3/uL (4.3-11.0)
[2018-02-25 13:11] LABS: PROTHROMBIN TIME PATIENT 12.8 SEC (12.2-14.7)
[2018-02-25 13:21] LABS: ALANINE AMINOTRANSFERASE 12 U/L (0-55); ALBUMIN 4.1 GM/DL (3.2-4.5); ALKALINE PHOSPHATASE 50 U/L (40-136); BILIRUBIN,TOTAL 0.3 MG/DL (0.1-1.0); BUN/CREATININE RATIO 14; CALCIUM 9.3 MG/DL (8.5-10.1); CARBON DIOXIDE 25 MMOL/L (21-32); CHLORIDE 104 MMOL/L (98-107); CREATININE SERUM 0.81 MG/DL (0.60-1.30); GFR ESTIMATED > 60; GLUCOSE 91 MG/DL (70-105); POTASSIUM 3.8 MMOL/L (3.6-5.0); SODIUM 140 MMOL/L (135-145); TOTAL PROTEIN 6.8 GM/DL (6.4-8.2)
--- NOTE | 2018-02-25 13:22 | Diagnostic Imaging Report ---
PATIENT HISTORY: Hemoptysis. TECHNIQUE: Single frontal view of the chest. COMPARISON: 02/04/2018. FINDINGS: Lung volumes are large. Emphysematous changes are seen in the lung apices. There is scarring at the left lung base. There is mildly increased airspace opacity at the right lung base compared to the prior exam. No pleural effusion or pneumothorax is seen. The cardiac silhouette is stable in size. IMPRESSION: 1. Mildly increased airspace opacity at the right lung base compared to the prior exam, may represent developing infiltrate. 2. Scarring in the left lung base. Findings of chronic obstructive disease. Dictated by: Dictated on workstation # [id number]
[2018-02-25] MEDS: NS IV 1000 ML 1,000 ML IV SCH (15:22)
[2018-02-25] MEDS: NICOTINE 21 MG (NICODERM) PATCH TD SCH (15:22)
[2018-02-25] MEDS ORDERED: BETA1TAB15 PO (15:27)
[2018-02-25] MEDS ORDERED: PANT40TA3 PO (15:27)
[2018-02-25] MEDS ORDERED: IBUP-1780 PO (15:27)
[2018-02-25] MEDS ORDERED: FLU QUADRIvalent (5+ YOA) 2018-2019 (AFLURIA) 0.5 ML IM ONE (15:30)
[2018-02-25] MEDS ORDERED: LORazepam 1 MG (ATIVAN) TAB PO PRN (15:30)
[2018-02-25] MEDS ORDERED: GENT5DRO30 OS (15:35)
[2018-02-25] MEDS ORDERED: NITR0.4T42 SL (15:35)
[2018-02-25] MEDS ORDERED: PRED5DRO17 OS (15:35)
[2018-02-25] MEDS ORDERED: PATIENT MAY USE OWN MEDS, ALL MC SCH ×2 (16:45→17:00)
[2018-02-25] MEDS: lisINopril 10 MG (PRINIVIL) TABLET PO SCH (17:20)
[2018-02-25] MEDS: PANTOPRAZOLE 40 MG (PROTONIX) TAB PO SCH (17:20)
[2018-02-25] MEDS: GENTAMICIN 0.3% OPHTH SOLN 5 ML OD SCH ×2 (17:21→22:55)
[2018-02-25] MEDS: prednisoLONE 1% OPTH (PRED FORTE) 5 ML BTL OD SCH ×2 (17:22→22:56)
--- NOTE | 2018-02-25 18:00 | Pulmonary Consultation ---
History of Present Illness History of Present Illness Date of Consultation 02/25/18 17:57 Date of Admission Allergies and Home Medications Allergies Coded Allergies: Penicillins (Verified Allergy, Intermediate, 09/23/17) causes dysrhythmias Home Medications Acetaminophen 500 Mg Tablet, 500-1,000 MG PO Q6H PRN for PAIN-MILD, (Reported) Albuterol Sulfate 1 Puff Puff, 2 PUFF IH Q4H PRN for SHORTNESS OF BREATH, ( Reported) 1 PUFF = 90 MCG Albuterol Sulfate 1 Puff Puff, 2 PUFF IH Q4H Prescribed by: ANTONIO JONES on 02/04/181939 Aspirin 81 Mg Tablet.dr, 81 MG PO DAILY, (Reported) Atorvastatin Calcium 10 Mg Tablet, 10 MG PO HS, (Reported) Gentamicin Sulfate 5 Ml Drops, 5 ML OD QID, (Reported) Ibuprofen 800 Mg Tablet, 800 MG PO Q8H PRN for PAIN, (Reported) Lisinopril 10 Mg Tablet, 10 MG PO DAILY, (Reported) Methylprednisolone 4 Mg Tab.ds.pk, 4 MG PO UD Prescribed by: ANTONIO JONES on 02/04/181939 Metoprolol Succinate 50 Mg Tab.er.24h, 50 MG PO HS, (Reported) Nitroglycerin 0.4 Mg Tab.subl, 0.4 MG SL PRN PRN for CHEST PAIN, (Reported) Pantoprazole Sodium 40 Mg Tablet.dr, 40 MG PO DAILY, (Reported) Pantoprazole Sodium 40 Mg Tablet.dr, 40 MG PO BID, (Reported) Prednisolone Acetate 5 Ml Drops.susp, 1 DROP OD QID, (Reported) Vit A/Vit C/Vit E/Zinc/Copper 1 Each Tablet, 1 EACH PO BID, (Reported) Past Pnnqiui-Kuxkml-Miowjl Hx Patient Social History Alcohol Use: Past History Alcohol Beverage of Choice: Whiskey Recreational Drug Use: No Drug of Choice: PAST HISTORY of marijuana Smoking Status: Former Smoker Type Used: Cigarettes 2nd Hand Smoke Exposure: Yes Recent Foreign Travel: No Contact w/Someone Who Travel: No Recent Infectious Disease Expo: No Recent Hopitalizations: No Physical Abuse: No Sexual Abuse: No Immunizations Up To Date Tetanus Booster (TDap): Unknown Seasonal Allergies Seasonal Allergies: No Past Medical History Surgeries: Yes Abdominal, Appendectomy, Cardiac, Orthopedic Respiratory: Yes (HEMOPTYSIS WITH BRONCHITIS) Pneumonia, Chronic Bronchitis, COPD Currently Using CPAP: No Currently Using BIPAP: No Cardiac: Yes Coronary Artery Disease, Heart Attack, High Cholesterol, Hypertension Neurological: No Reproductive Disorders: No Sexually Transmitted Disease: No HIV/AIDS: No Genitourinary: No Gastrointestinal: Yes Gastroesophageal Reflux, Gastrointestinal Bleed, Polyps, Ulcer Musculoskeletal: Yes (RIGHT KNEE TORN CARTILAGE; BACK SURGERY 1988) Degenerate Disk Disease, Arthritis, Chronic Back Pain Endocrine: No HEENT: Yes Cataract, Tinnitis, Eye Injury Loss of Vision: Denies Hearing Impairment: Hard of Hearing Cancer: No Psychosocial: Yes (MENTAL BLOCK ([facility] [facility] ) ) Sleep Difficulties, Violent Behavior Integumentary: No Blood Disorders: No Adverse Reaction/Blood Tranf: No Family Medical History Cardiomegaly 19 MOTHER Dysphasia G8 BROTHER G8 SISTER FH: cancer Hypertension G8 BROTHER G8 SISTER G8 SISTER Kidney disease 19 MOTHER Myocardial infarction Hypertension, Renal Disease Sepsis Event Evaluation Height, Weight, BMI Height: 6'2.00" Weight: 225lbs. 7.7oz. 102.098069jv; 29.0 BMI Method:Stated Exam Exam Vital Signs Date Time Temp Pulse Resp B/P (MAP) Pulse Ox O2 Delivery O2 Flow Rate FiO2 02/25/18 16:00 98.4 77 18 146/91 (109) 94 Room Air 02/25/18 14:45 92 Room Air 02/25/18 14:43 73 95 02/25/18 14:25 98.6 75 16 141/85 (103) 92 Room Air 02/25/18 14:09 75 20 134/92 (106) 93 Nasal Cannula 2.00 02/25/18 12:30 98.5 101 22 152/94 (113) 95 Nasal Cannula 2.00 Height & Weight Height: 6'2.00" Weight: 225lbs. 7.7oz. 102.650563re; 29.0 BMI Method:Stated Capillary Refill: Less Than 3 Seconds Results Lab Laboratory Tests 02/25/18 12:55 Assessment/Plan Assessment/Plan Hemoptysis r/o cancer -Check CTA of chest -No fever or leukocytosis -Will probably do bronchoscopy in AM -Transfer to ICU -repeat Labs Denies SOB or CP - 40+pk/yr hx of tobacco use -Education Hx of alcohol use Emphysema CLEO SALGADO DO Feb 25, 2018 18:00
[2018-02-25] MEDS ORDERED: IOHEXOL 350 MG/ML 150 ML (OMNIPAQUE 350) VIAL IV ONE (18:15)
[2018-02-25] MEDS ORDERED: NS 250 ML (IVPB) BAG IV ONE (18:15)
[2018-02-25] MEDS ORDERED: CATHETER FLUSH 10 ML SYR IV PRN (18:15)
[2018-02-25] MEDS ORDERED: RECEIVED CONTRAST (Hold Metformin) IV SCH (18:15)
[2018-02-25 18:28] LABS: BASOPHILS % (AUTO) 0 % (0-10); EOSINOPHILS # (AUTO) 0.4 10^3/uL (0.0-0.3); EOSINOPHILS % (AUTO) 4 % (0-10); HEMATOCRIT 37 % (40-54); HEMOGLOBIN 12.3 G/DL (13.3-17.7); LYMPHOCYTES # (AUTO) 1.8 X 10^3 (1.0-4.0); LYMPHOCYTES % (AUTO) 21 % (12-44); MEAN CORPUSCULAR HEMOGLOBIN 31 PG (25-34); MEAN CORPUSCULAR HGB CONC 33 G/DL (32-36); MEAN CORPUSCULAR VOLUME 93 FL (80-99); MEAN PLATELET VOLUME 11.7 FL (7.4-10.4); MONOCYTES # (AUTO) 0.7 X 10^3 (0.0-1.0); MONOCYTES % (AUTO) 8 % (0-12); NEUTROPHILS # (AUTO) 5.9 X 10^3 (1.8-7.8); NEUTROPHILS % (AUTO) 67 % (42-75); PLATELET COUNT 171 10^3/uL (130-400); RED BLOOD COUNT 3.97 10^6/uL (4.35-5.85); RED CELL DISTRIBUTION WIDTH 13.8 % (10.0-14.5); WHITE BLOOD COUNT 8.8 10^3/uL (4.3-11.0)
[2018-02-25 18:43] LABS: PROTHROMBIN TIME PATIENT 13.1 SEC (12.2-14.7)
[2018-02-25 18:45] LABS: ALANINE AMINOTRANSFERASE 13 U/L (0-55); ALBUMIN 3.9 GM/DL (3.2-4.5); ALKALINE PHOSPHATASE 50 U/L (40-136); BILIRUBIN,TOTAL 0.3 MG/DL (0.1-1.0); BUN/CREATININE RATIO 12; CALCIUM 9.2 MG/DL (8.5-10.1); CARBON DIOXIDE 23 MMOL/L (21-32); CHLORIDE 107 MMOL/L (98-107); CREATININE SERUM 0.82 MG/DL (0.60-1.30); GFR ESTIMATED > 60; GLUCOSE 147 MG/DL (70-105); POTASSIUM 3.5 MMOL/L (3.6-5.0); SODIUM 141 MMOL/L (135-145); TOTAL PROTEIN 6.4 GM/DL (6.4-8.2)
--- NOTE | 2018-02-25 18:59 | Diagnostic Imaging Report ---
PROCEDURE: CT angiography of the chest with contrast. TECHNIQUE: Multiple contiguous axial images were obtained through the chest after uneventful bolus administration of intravenous contrast. 2D reconstructed CTA MIP acquisitions were also performed. INDICATION: Hemoptysis. COMPARISONS: CTA chest performed on 01/22/2018. FINDINGS: CT ANGIOGRAM: Evaluation for pulmonary embolism is markedly limited secondary to suboptimal contrast bolus. No central pulmonary embolism is demonstrated. No filling defect in the proximal segmental pulmonary arteries. Normal caliber pulmonary arteries. No acute aortic abnormality seen on this study performed without cardiac gating. TRACHEA AND MAIN BRONCHI: Patent without evidence of tracheal or endobronchial lesion. Mild traction bronchiectasis is demonstrated centrally in both lungs. LUNGS AND PLEURA: Severe upper lobe predominant emphysematous changes are demonstrated in both lungs. There is unchanged nodular and linear scarring in the lingula. No pleural effusion or pneumothorax. MEDIASTINUM AND ANGELA: Visualized thyroid gland is normal. No mediastinal or hilar lymphadenopathy. Esophagus is nondistended. HEART AND VESSELS: Heart is normal in size. No pericardial effusion. Thoracic aorta is nonaneurysmal. DIAPHRAGM AND UPPER ABDOMEN: Unremarkable. CHEST WALL: Unremarkable. BONES: Multilevel degenerative changes involve the spine. No acute osseous abnormality. IMPRESSION: Markedly limited evaluation for pulmonary embolism secondary to suboptimal contrast bolus. No central pulmonary embolism is identified. No acute aortic abnormality. Severe emphysematous changes in both lungs, without significant change from recent CTA. There is unchanged nodular and linear scarring in the lingula. Dictated by: Dictated on workstation # [id number]
[2018-02-25] MEDS: RT-ADVAIR HFA 115/21 MCG PER PUFF IH SCH (20:40)
[2018-02-25] MEDS: meTOproloL SUCCINATE 50 MG (TOPROL XL) TAB PO SCH (22:54)
[2018-02-25] MEDS: ATORVASTATIN 10 MG (LIPITOR) TABLET PO SCH (22:57)
[2018-02-26] VITALS (18 sets, daily range): BP systolic 115–158; BP diastolic 67–103
[2018-02-26 03:45] LABS: BASOPHILS % (AUTO) 1 % (0-10); EOSINOPHILS # (AUTO) 0.4 10^3/uL (0.0-0.3); EOSINOPHILS % (AUTO) 5 % (0-10); HEMATOCRIT 36 % (40-54); HEMOGLOBIN 11.9 G/DL (13.3-17.7); LYMPHOCYTES # (AUTO) 1.9 X 10^3 (1.0-4.0); LYMPHOCYTES % (AUTO) 23 % (12-44); MEAN CORPUSCULAR HEMOGLOBIN 31 PG (25-34); MEAN CORPUSCULAR HGB CONC 33 G/DL (32-36); MEAN CORPUSCULAR VOLUME 94 FL (80-99); MEAN PLATELET VOLUME 12.2 FL (7.4-10.4); MONOCYTES # (AUTO) 0.9 X 10^3 (0.0-1.0); MONOCYTES % (AUTO) 11 % (0-12); NEUTROPHILS # (AUTO) 4.9 X 10^3 (1.8-7.8); NEUTROPHILS % (AUTO) 61 % (42-75); PLATELET COUNT 162 10^3/uL (130-400); RED BLOOD COUNT 3.85 10^6/uL (4.35-5.85); RED CELL DISTRIBUTION WIDTH 13.6 % (10.0-14.5); WHITE BLOOD COUNT 8.1 10^3/uL (4.3-11.0)
[2018-02-26 04:15] LABS: BUN/CREATININE RATIO 12; CALCIUM 8.9 MG/DL (8.5-10.1); CARBON DIOXIDE 26 MMOL/L (21-32); CHLORIDE 107 MMOL/L (98-107); CREATININE SERUM 0.81 MG/DL (0.60-1.30); GFR ESTIMATED > 60; GLUCOSE 115 MG/DL (70-105); MAGNESIUM 2.2 MG/DL (1.8-2.4); PHOSPHORUS 4.7 MG/DL (2.3-4.7); POTASSIUM 3.8 MMOL/L (3.6-5.0); SODIUM 142 MMOL/L (135-145)
[2018-02-26] MEDS: NS IV 1000 ML 1,000 ML IV SCH ×3 (04:25→19:31)
[2018-02-26] MEDS ORDERED: MIDAZOLAM 5 MG/5 ML (VERSED) VIAL ONE (05:04)
[2018-02-26] MEDS ORDERED: fentaNYL INJECTION 100 MCG/2 ML AMP ONE (05:04)
--- NOTE | 2018-02-26 05:11 | Pulmonary Progress Note ---
Subjective Time Seen by a Provider: 05:10 Subjective/Events-last exam Denies SOB, CP. Pt is still cough up BRB. Sepsis Event Evaluation Height, Weight, BMI Height: 6'2.00" Weight: 225lbs. 7.7oz. 102.474281eg; 29.0 BMI Method:Stated Exam Exam Vital Signs Date Time Temp Pulse Resp B/P (MAP) Pulse Ox O2 Delivery O2 Flow Rate FiO2 02/26/18 04:00 72 28 132/91 (105) 96 Nasal Cannula 2.00 02/26/18 03:00 80 19 135/88 (104) 94 Nasal Cannula 2.00 02/26/18 02:00 80 29 123/81 (95) 93 Nasal Cannula 2.00 02/26/18 01:00 85 02/26/18 01:00 85 32 115/67 (83) 92 Nasal Cannula 2.00 02/26/18 00:00 75 29 130/83 (99) 92 Nasal Cannula 2.00 02/25/18 23:00 88 17 156/105 (122) 95 Nasal Cannula 2.00 02/25/18 22:00 80 12 135/95 (108) 94 Nasal Cannula 2.00 02/25/18 21:45 76 02/25/18 21:00 76 27 144/87 (106) 93 Nasal Cannula 2.00 02/25/18 20:37 93 Nasal Cannula 2.00 02/25/18 20:15 80 24 146/103 (117) 91 Nasal Cannula 2.00 02/25/18 20:00 Nasal Cannula 2.00 02/25/18 19:00 76 17 135/87 (103) 93 Room Air 02/25/18 18:40 98.5 82 17 134/87 (103) 92 Room Air 02/25/18 16:00 98.4 77 18 146/91 (109) 94 Room Air 02/25/18 14:45 92 Room Air 02/25/18 14:43 73 95 02/25/18 14:25 98.6 75 16 141/85 (103) 92 Room Air 02/25/18 14:09 75 20 134/92 (106) 93 Nasal Cannula 2.00 02/25/18 12:30 98.5 101 22 152/94 (113) 95 Nasal Cannula 2.00 I & O 02/26/18 07:00 Intake Total 300 ml Output Total 900 ml Balance -600 ml Height & Weight Height: 6'2.00" Weight: 225lbs. 7.7oz. 102.430612vu; 29.0 BMI Method:Stated General Appearance: Anxious, Mild Distress HEENT: PERRL/EOMI, Normal ENT Inspection, Pharynx Normal Neck: Full Range of Motion, Normal Inspection, Non Tender Respiratory: Chest Non Tender, No Accessory Muscle Use, No Respiratory Distress , Decreased Breath Sounds Cardiovascular: Regular Rate, Rhythm, No Edema, No Gallop Capillary Refill: Less Than 3 Seconds Gastrointestinal: normal bowel sounds, non tender, soft Extremity: Normal Capillary Refill Neurologic/Psychiatric: Alert, Oriented x3 Skin: Normal Color, Warm/Dry Lymphatic: No Adenopathy Results Lab Laboratory Tests 02/25/18 12:55 02/25/18 18:20 02/26/18 03:25 Assessment/Plan Assessment/Plan Hemoptysis r/o cancer -CTA of chest is negative -CXR shows increased RLL consolidation -No fever or leukocytosis -bronchoscopy this AM -repeat Labs 40+pk/yr hx of tobacco use -Education Hx of alcohol use Emphysema CLEO SALGADO DO Feb 26, 2018 05:11
[2018-02-26] MEDS ORDERED: LIDOCAINE JELLY 2% (XYLOCAINE) 30 ML TUBE TOP ONE (06:15)
[2018-02-26] MEDS ORDERED: LIDOCAINE PF 1% 2 ML AMP INJ ONE (06:15)
[2018-02-26] MEDS ORDERED: EPINEPHrine INJECTION 1 MG/ML AMP INJ ONE (06:15)
[2018-02-26] MEDS ORDERED: LIDOCAINE PF 2% 5 ML (XYLOCAINE) VIAL INJ ONE (06:15)
[2018-02-26] MEDS ORDERED: PROPOFOL DRIP (ICU) 100 ML IV ONE (06:31)
[2018-02-26] MEDS ORDERED: NALOXONE 0.4 MG/ML 1 ML (NARCAN) VIAL ONE (06:40)
--- NOTE | 2018-02-26 06:45 | Pulmonary Procedures ---
Pulmonary Procedures Date of Procedure Date of Service: Feb 26, 2018 Bronch Bronchoscopy with MYRTLE bronchoalveolar lavage (BAL), transbronchial washes, forcep bx and, brushes. Preop DX Hemoptysis Postop DX: No active bleeding seen. PT did have BRB in airways. MYRTLE endobronchial mass vs foreign body which was easily removed without any additional bleeding Complications: none After informed consent obtained and formal time out pt was sedated using Fentanyl and Versed. Bronchoscope was advanced through the nare and vocal cords. 1% lidocaine was used to anesthetize vocal cords, epiglottis, sarika, and left/right main stem bronchus. An anatomical tour was undertaken down to the segmental bronchi bilaterally. Bronchoscopy with bronchoalveolar lavage (BAL ), transbronchial washes, forcep bx and, brushes done MYRTLE. No active bleeding seen. PT did have BRB in airways. MYRTLE endobronchial mass vs foreign body which was easily removed without any additional bleeding. Pt tolerated procedure well. No complications noted. Stat CXR is pending. CLEO SALGADO DO Feb 26, 2018 06:45
--- NOTE | 2018-02-26 07:25 | Diagnostic Imaging Report ---
INDICATION: Shortness of breath Comparison made with exam from earlier the same day at 4 AM. This exam is done at 7:09 AM FINDINGS: Patchy bibasal infiltrates right greater than left. There is no pleural effusion or pneumothorax. The mediastinum is unremarkable. IMPRESSION: Emphysematous disease with patchy bibasilar infiltrates right greater than left. Dictated by: Dictated on workstation # [id number]
--- NOTE | 2018-02-26 09:23 | History & Physical-Hospitalist ---
History of Present Illness HPI/Chief Complaint Pt is a 57yoCM with a PMH of tobacco abuse, lung nodule, HTN who presented to the ER due to hemoptysis. He states that this started acutely yesterday and can think of no precipitating factors. He describes it as bright red in nature and had clots. He came to Er and it had originally slowed down but in the ER he began to have further significant hemoptysis so he was admitted for obs and bronchoscopy. He states that he had this happen back in 2013 but that the surgery Dr Monroy and his leak patcher Dr Holguin took care of it. He also had a CT chest last month and was told his nodule had resolved. He states his hemoptysis has improved today as well. He underwent bronchoscopy this AM but does not remember much. Source: patient Date Seen 02/26/18 Time Seen by a Provider: 09:19 Attending Physician David Davenport MD PCP No,Local Physician Referring Physician Date of Admission Feb 25, 2018 at 13:45 Home Medications & Allergies Home Medications Reviewed patient Home Medication Reconciliation performed by pharmacy medication reconciliations process control technician and/or nursing. Patients Allergies have been reviewed. Allergies Allergies Coded Allergies Penicillins (Verified Allergy, Intermediate, 09/23/17) causes dysrhythmias Past Tkdfjin-Vwznfm-Cteaqo Hx Past Med/Social Hx: Reviewed Nursing Past Med/Soc Hx Patient Social History Alcohol Use: Past History Alcohol Beverage of Choice: Whiskey Recreational Drug Use: No Drug of Choice: PAST HISTORY of marijuana Smoking Status: Former Smoker Type Used: Cigarettes 2nd Hand Smoke Exposure: Yes Physical Abuse Screen: No Sexual Abuse: No Recent Foreign Travel: No Contact w/other who traveled: No Recent Hopitalizations: No Recent Infectious Disease Expo: No Immunizations Up To Date Tetanus Booster (TDap): Unknown Seasonal Allergies Seasonal Allergies: No Past Medical History Surgeries: Abdominal, Appendectomy, Cardiac, Orthopedic Respiratory: COPD, Emphysema, Pneumonia Currently Using CPAP: No Currently Using BIPAP: No Cardiac: Coronary Artery Disease, Heart Attack, High Cholesterol, Hypertension Reproductive: No Sexually Transmitted Disease: No HIV/AIDS: No Gastrointestinal: Gastroesophageal Reflux, Gastrointestinal Bleed, Polyps, Ulcer Musculoskeletal: Degenerate Disk Disease, Arthritis, Chronic Back Pain HEENT: Cataract, Tinnitis, Eye Injury Loss of Vision: Denies Hearing Impairment: Hard of Hearing Psychosocial: Sleep Difficulties, Violent Behavior History of Blood Disorders: No Adverse Reaction to Blood Walker: No Family History Reviewed Nursing Family Hx Cardiomegaly 19 MOTHER Dysphasia G8 BROTHER G8 SISTER FH: cancer Hypertension G8 BROTHER G8 SISTER G8 SISTER Kidney disease 19 MOTHER Myocardial infarction Hypertension, Renal Disease Review of Systems Constitutional: No chills, No fever EENTM: No blurred vision, No double vision, No nose congestion, No throat pain Respiratory: see HPI, cough, hemoptysis Cardiovascular: No chest pain Gastrointestinal: No abdominal pain, No constipation, No diarrhea, No nausea, No vomiting Genitourinary: No dysuria, No frequency Musculoskeletal: No joint pain, No muscle pain Skin: No lesions, No rash Psychiatric/Neurological: Denies Headache, Denies Numbness, Denies Tingling Physical Exam Physical Exam Vital Signs Vital Signs - First Documented 02/25/18 12:30 Temp 98.5 Pulse 101 Resp 22 B/P (MAP) 152/94 (113) Pulse Ox 95 O2 Delivery Nasal Cannula O2 Flow Rate 2.00 Capillary Refill : Less Than 3 Seconds Height, Weight, BMI Height: 6'2.00" Weight: 225lbs. 7.7oz. 102.246401dj; 29.0 BMI Method:Stated General Appearance: No Apparent Distress, Chronically ill HEENT: PERRL/EOMI, Moist Mucous Membranes Neck: Non Tender, Supple Respiratory: Lungs Clear, No Respiratory Distress Cardiovascular: Regular Rate, Rhythm, No Murmur Gastrointestinal: Normal Bowel Sounds, Non Tender, Soft Extremity: Normal Capillary Refill, No Calf Tenderness Neurologic/Psychiatric: Alert, Oriented x3, Normal Mood/Affect Skin: Normal Color, Warm/Dry, Tattoos/Piercings Results Results/Procedures Labs Laboratory Tests 02/25/18 12:55 02/25/18 18:20 02/26/18 03:25 Patient resulted labs reviewed. Imaging: Reviewed Imaging Report Assessment/Plan Admission Diagnosis Hemoptysis Admission Status: Observation Diagnosis/Problems Diagnosis/Problems (1) Hemoptysis Status: Acute Assessment & Plan: Underwent bronch this AM mass vs foreign body removed Sent for path, awaits results Continue to monitor make sure hemoptysis slows Hgb stable Discussed with Dr Hooker and as patient follows with [facility] and they will assume care from here on out (2) Essential (primary) hypertension Status: Chronic Assessment & Plan: Continue home medications (3) COPD (chronic obstructive pulmonary disease) Status: Chronic Assessment & Plan: Pulm consulted Continue home meds MAT protocol Currently on 2lpm NC- attempt to titrate off but may need home O2 evaluation Qualifiers: COPD type: unspecified COPD Qualified Codes: J44.9 - Chronic obstructive pulmonary disease, unspecified (4) CAD (coronary artery disease) Status: Chronic Assessment & Plan: Moderate disease on 2016 Was on ASA Will hold due to hemoptysis (5) Tobacco abuse Status: Chronic Assessment & Plan: Advised cessation Clinical Quality Measures DVT/VTE Risk/Contraindication: Risk Factor Score Per Nursin RFS Level Per Nursing on Admit: 2=Moderate DAVID DAVENPORT MD Feb 26, 2018 09:23
[2018-02-26] MEDS: NICOTINE 21 MG (NICODERM) PATCH TD SCH (09:42)
[2018-02-26] MEDS: APAP 300 MG/CODEINE 30 MG (TYLENOL #3) TAB PO PRN ×2 (09:42→20:47)
[2018-02-26] MEDS: lisINopril 10 MG (PRINIVIL) TABLET PO SCH (09:43)
[2018-02-26] MEDS: PANTOPRAZOLE 40 MG (PROTONIX) TAB PO SCH (09:43)
[2018-02-26] MEDS: GENTAMICIN 0.3% OPHTH SOLN 5 ML OD SCH ×4 (09:43→20:47)
[2018-02-26] MEDS: PATCH REMOVAL TP SCH (09:43)
[2018-02-26] MEDS: prednisoLONE 1% OPTH (PRED FORTE) 5 ML BTL OD SCH ×4 (09:43→20:47)
[2018-02-26] MEDS: RT-ALBUTEROL/IPRATROPIUM 3 ML (DUONEB) VIAL INH SCH ×3 (10:34→20:44)
[2018-02-26] MEDS: RT-ADVAIR HFA 115/21 MCG PER PUFF IH SCH ×2 (10:37→20:44)
--- NOTE | 2018-02-26 15:14 | Diagnostic Imaging Report ---
INDICATION: Emphysema. Comparison made with prior examination 02/25/2018. FINDINGS: There is bullous emphysematous disease bilaterally, right greater than left. There is bibasilar scarring and/or atelectasis. There is no pleural effusion or pneumothorax. Mediastinum is unremarkable. IMPRESSION: Patchy bibasilar atelectasis and pneumonitis, right greater than left. Bullous emphysematous disease. Dictated by: Dictated on workstation # [id number]
[2018-02-26] MEDS: meTOproloL SUCCINATE 50 MG (TOPROL XL) TAB PO SCH (20:47)
[2018-02-26] MEDS: ATORVASTATIN 10 MG (LIPITOR) TABLET PO SCH (20:47)
[2018-02-27] VITALS: BP 128/81
[2018-02-27 03:35] LABS: BASOPHILS # (AUTO) 0.1 10^3/uL (0.0-0.1); BASOPHILS % (AUTO) 1 % (0-10); EOSINOPHILS # (AUTO) 0.4 10^3/uL (0.0-0.3); EOSINOPHILS % (AUTO) 5 % (0-10); HEMATOCRIT 34 % (40-54); HEMOGLOBIN 11.1 G/DL (13.3-17.7); LYMPHOCYTES # (AUTO) 1.8 X 10^3 (1.0-4.0); LYMPHOCYTES % (AUTO) 22 % (12-44); MEAN CORPUSCULAR HEMOGLOBIN 31 PG (25-34); MEAN CORPUSCULAR HGB CONC 33 G/DL (32-36); MEAN CORPUSCULAR VOLUME 95 FL (80-99); MONOCYTES # (AUTO) 0.8 X 10^3 (0.0-1.0); MONOCYTES % (AUTO) 10 % (0-12); NEUTROPHILS # (AUTO) 5.2 X 10^3 (1.8-7.8); NEUTROPHILS % (AUTO) 63 % (42-75); PLATELET COUNT 160 10^3/uL (130-400); RED BLOOD COUNT 3.54 10^6/uL (4.35-5.85); RED CELL DISTRIBUTION WIDTH 13.8 % (10.0-14.5); WHITE BLOOD COUNT 8.3 10^3/uL (4.3-11.0)
[2018-02-27 03:59] LABS: BUN/CREATININE RATIO 9; CALCIUM 8.4 MG/DL (8.5-10.1); CARBON DIOXIDE 24 MMOL/L (21-32); CHLORIDE 108 MMOL/L (98-107); GFR ESTIMATED > 60; GLUCOSE 101 MG/DL (70-105); POTASSIUM 3.2 MMOL/L (3.6-5.0); SODIUM 143 MMOL/L (135-145)
[2018-02-27 04:00] LABS: MAGNESIUM 2.1 MG/DL (1.8-2.4); PHOSPHORUS 4.4 MG/DL (2.3-4.7)
[2018-02-27 04:05] VITALS: BP 139/89
[2018-02-27] MEDS: NS IV 1000 ML 1,000 ML IV SCH (05:37)
--- NOTE | 2018-02-27 06:40 | Pulmonary Progress Note ---
Subjective Time Seen by a Provider: 07:00 Subjective/Events-last exam Hemoptysis is much improved s/p bronchoscopy. Sepsis Event Evaluation Height, Weight, BMI Height: 6'2.00" Weight: 221lbs. 0.0oz. 100.211783db; 29.0 BMI Method:Stated Exam Exam Vital Signs Date Time Temp Pulse Resp B/P (MAP) Pulse Ox O2 Delivery O2 Flow Rate FiO2 02/27/18 04:05 98.1 80 20 139/89 (106) 95 Nasal Cannula 2.00 02/27/18 01:00 100 02/27/18 00:08 93 Nasal Cannula 2.00 02/27/18 00:00 98.4 93 22 128/81 (97) 90 Room Air 02/26/18 20:44 94 Room Air 02/26/18 20:30 99.7 84 18 156/103 (120) 96 Room Air 158/92 (114) 02/26/18 20:30 94 Room Air 02/26/18 19:00 81 02/26/18 16:00 82 21 132/100 (111) 99 Room Air 02/26/18 16:00 99.5 02/26/18 15:00 79 23 146/90 (108) 94 Room Air 02/26/18 14:42 95 Room Air 02/26/18 14:00 78 18 132/88 (103) 95 Room Air 02/26/18 13:00 87 13 121/74 (90) 96 Room Air 02/26/18 13:00 89 02/26/18 12:00 98.8 02/26/18 12:00 88 25 131/82 (98) 93 Room Air 02/26/18 11:00 85 22 134/94 (107) 91 Room Air 02/26/18 10:34 92 Room Air 02/26/18 10:00 75 20 129/92 (104) 92 Nasal Cannula 2.00 02/26/18 09:00 88 26 154/94 (114) 93 Nasal Cannula 2.00 02/26/18 08:00 Nasal Cannula 2.00 02/26/18 08:00 69 27 139/95 (110) 92 Nasal Cannula 2.00 02/26/18 08:00 98.2 02/26/18 07:00 90 17 155/99 (117) 97 Nasal Cannula 2.00 02/26/18 07:00 85 I & O 02/27/18 07:00 Intake Total 3830 ml Output Total 4150 ml Balance -320 ml Height & Weight Height: 6'2.00" Weight: 221lbs. 0.0oz. 100.306960jh; 29.0 BMI Method:Stated General Appearance: No Apparent Distress, Chronically ill HEENT: PERRL/EOMI, Moist Mucous Membranes Neck: Non Tender, Supple Respiratory: Lungs Clear, No Respiratory Distress Cardiovascular: Regular Rate, Rhythm, No Murmur Capillary Refill: Less Than 3 Seconds Gastrointestinal: normal bowel sounds, non tender, soft Extremity: Normal Capillary Refill, No Calf Tenderness Neurologic/Psychiatric: Alert, Oriented x3, Normal Mood/Affect Skin: Normal Color, Warm/Dry, Tattoos/Piercings Lymphatic: No Adenopathy Results Lab Laboratory Tests 02/25/18 12:55 02/25/18 18:20 02/26/18 03:25 02/27/18 03:04 Assessment/Plan Assessment/Plan Hemoptysis with MYRTLE endobronchial mass vs aspiration s/p bronchoscopy (pictures taken) -Hemoptysis has improved -Cytology pending -CTA of chest is negative -No fever or leukocytosis -repeat Labs 40+pk/yr hx of tobacco use -Education Hx of alcohol use Emphysema -Pt will need oxygen qualification study prior to discharge -NS Pt is ok from pulmonary standpoint for discharge. I will see him next Tuesday or Tuesday at 8am (patient's preference). If he is not discharge he can go to the 4th floor. CLEO SALGADO DO Feb 27, 2018 06:40
[2018-02-27] MEDS ORDERED: KCL 10 MEQ TAB (MICRO K) PO NR (06:45)
[2018-02-27] MEDS ORDERED: NITROGLYCERIN 0.4 MG SL TABS BTL 25'S SL PRN (06:45)
[2018-02-27] MEDS: RT-ALBUTEROL/IPRATROPIUM 3 ML (DUONEB) VIAL INH SCH (07:16)
[2018-02-27 07:39] VITALS: BP 147/93
[2018-02-27] MEDS: NICOTINE 21 MG (NICODERM) PATCH TD SCH (07:42)
[2018-02-27] MEDS: PATCH REMOVAL TP SCH (07:42)
[2018-02-27] MEDS: prednisoLONE 1% OPTH (PRED FORTE) 5 ML BTL OD SCH (07:45)
[2018-02-27] MEDS: lisINopril 10 MG (PRINIVIL) TABLET PO SCH (07:45)
[2018-02-27] MEDS: PANTOPRAZOLE 40 MG (PROTONIX) TAB PO SCH (07:45)
[2018-02-27] MEDS: GENTAMICIN 0.3% OPHTH SOLN 5 ML OD SCH (07:45)
--- NOTE | 2018-02-27 09:18 | Diagnostic Imaging Report ---
EXAMINATION: Chest radiograph, portable AP view. DATE: February 27, 2018 at 0328 hours. INDICATION: 57-year-old male, hemoptysis. COMPARISON: February 26, 2018. FINDINGS: Stable overall appearance of the cardiomediastinal silhouette. There are streaky left parahilar opacities which are unchanged. There is streaky right parahilar opacities which are unchanged. There is new nonspecific airspace consolidation in the right medial lung base and a nonspecific new left basilar airspace consolidation. There are areas of asymmetric lucency in the right upper lung. This may relate to changes of emphysema. IMPRESSION: 1. New nonspecific bibasilar airspace consolidation which may relate to infiltrate and/or atelectasis. 2. Findings likely relating to emphysema. Dictated by: Dictated on workstation # [id number]
--- NOTE | 2018-02-27 11:09 | Discharge Summary ---
Diagnosis/Chief Complaint Date of Admission Feb 25, 2018 at 13:45 Date of Discharge 02/27/18 Admission Diagnosis Admission Diagnosis Hemoptysis MYRTLE Endotracheal Mass Emphysema Tobacco Use Discharge Diagnosis See Above Chief Complaint/HPI Chief Complaint/HPI See H&P Discharge Summary-Simple/Stand Procedures 02/[address] Pandya, With removal of mass Consultations Dr Pandya, Pulmonology Discharge Physical Examination Allergies: Coded Allergies: Penicillins (Verified Allergy, Intermediate, 09/23/17) causes dysrhythmias Vitals & I&Os Vital Sign - Last 12Hours Date Time Temp Pulse Resp B/P (MAP) Pulse Ox O2 Delivery O2 Flow Rate FiO2 02/27/18 08:41 Room Air 02/27/18 07:39 98.6 75 15 147/93 (111) 94 02/27/18 07:20 2.00 Intake and Output 02/27/18 00:00 Intake Total 4040 ml Output Total 2850 ml Balance 1190 ml General Appearance: Alert, Oriented X3 Respiratory: Other (Diminished breath sounds, increased work of breathing with activity) Cardiovascular: Regular Rate, No Murmurs Abdominal: Normal Bowel Sounds, Soft, No Tenderness, No Masses Extremities: No Tenderness/Swelling Skin: No Rashes Neuro: Cranial Nerves 3-12 NL Psych/Mental Status: Mental Status NL, Mood NL Hospital Course See final discharge diagnosis. Pending Labs Cytology from Bronch pending Discussion & Recommendations 57 yo M that presented with hemoptysis. Patient was seen by Dr Pandya and had bronch with endotracheal debris removed. Specimen was sent off for cytology. Patient feeling much better since procedure and desires to be discharged. Home oxygen is now required at 2L, orders in chart. Patient will have close follow up with Dr Ya DO and PCP Jose Van APRN. Discharge Condition at discharge stable Instructions to patient/family Please see electronic discharge instructions given to patient. Discharge Medications Reviewed and agree with Discharge Medication list on patient's Discharge Instruction sheet Clinical Quality Measures DVT/VTE Risk/Contraindication: Risk Factor Score Per Nursin RFS Level Per Nursing on Admit: 2=Moderate Copy Copies To 1: Jose MORRISON APRN GAULT, HOLLY R MD Feb 27, 2018 11:09
--- NOTE | 2018-02-27 11:21 | Discharge Instructions ---
Discharge [facility] Discharge Medications New, Converted or Re-Newed RX: Other (No new meds) Continued Medications: Acetaminophen (Tylenol Extra Strength) 500 Mg Tablet 500-1000 MG PO Q6H PRN for PAIN-MILD, TAB Albuterol Sulfate (Ventolin Hfa) 1 Puff Puff 2 PUFF IH Q4H PRN for SHORTNESS OF BREATH, INHALER 1 PUFF = 90 MCG Aspirin (Aspir 81) 81 Mg Tablet.dr 81 MG PO DAILY, TAB Atorvastatin Calcium (Atorvastatin Calcium) 10 Mg Tablet 10 MG PO DAILY, TAB Gentamicin Sulfate (Gentamicin Sulfate) 5 Ml Drops 1 DROP OS QID, EA Ibuprofen (Ibuprofen) 800 Mg Tablet 800 MG PO Q8H PRN for PAIN-MILD, TAB Lisinopril (Lisinopril) 10 Mg Tablet 10 MG PO DAILY, TAB Metoprolol Succinate (Metoprolol Succinate) 50 Mg Tab.er.24h 50 MG PO DAILY, TAB Nitroglycerin (Nitroglycerin) 0.4 Mg Tab.subl 0.4 MG SL UD PRN for CHEST PAIN, TAB Pantoprazole Sodium (Pantoprazole Sodium) 40 Mg Tablet.dr 40 MG PO DAILY, TAB Prednisolone Acetate (Prednisolone Acetate) 5 Ml Drops.susp 1 DROP OS QID, EA Vit A/Vit C/Vit E/Zinc/Copper (Preservision Areds Tablet) 1 Each Tablet 1 TAB PO BID, TAB Patient Instructions Goal/Follow Up Appt: You have a follow up appt with your PCP Jose Van on 03/06 @1240 PM Activity & Diet Discharge Diet: Cardiac Diet Activity as Tolerated: Yes Copy Copies To 1: Jose MORRISON, QUITA GAO MD Feb 27, 2018 11:21
== END 2018-02-27 11:09 | disposition home or self-care (01) ==
LOC: EDUNIT# 12:25 → ER 12:26 → UNDOADMOB 13:45 → 4TH 13:45 → ICU 18:33 → 4TH 18:33 → UNDODISOB 02-27 12:45
PROVIDERS: ADMIT Family Medicine; ATTEND Family Medicine
DX: R04.2 Hemoptysis (principal); R91.8 Other nonspecific abnormal finding of lung field; J43.9 Emphysema, unspecified; F17.210 Nicotine dependence, cigarettes, uncomplicated; I25.10 Atherosclerotic heart disease of native coronary artery without angina pectoris; I25.2 Old myocardial infarction; I10 Essential (primary) hypertension; E78.00 Pure hypercholesterolemia, unspecified; K21.9 Gastro-esophageal reflux disease without esophagitis; F10.21 Alcohol dependence, in remission; Z79.82 Long term (current) use of aspirin; Z79.899 Other long term (current) drug therapy
CPT/HCPCS: 36415; 71045; 71275; 80048; 80053; 82274; 83735; 84100; 85025; 85610; 85730; 87015; 87070; 87101; 87116; 87205; 87206; 88112; 88305; 94640; 94761; G0378

== ENCOUNTER 2018-03-26 14:54 | Emergency (ER) | payer MEDICARE ==
[~2018-03-26] VITALS: Ht 188 cm; Wt 100.2 kg
[~2018-03-26 14:54] MED LIST changes: +BETA1TAB15 PO; +GENT5DRO30 OS; +IBUP-1780 PO; +NITR0.4T42 SL; +PRED5DRO17 OS
--- OUTSIDE RECORDS SUMMARY | 2018-03-26 14:58 | XMS REPORT ---
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 Active 1133059016373 Problem GERD with esophagitis K21.0 Active 270109733 Problem Peptic ulcer K27.9 Active [id number] ALLERGIES No Information ENCOUNTERS Encounter Location Date Diagnosis [place] [address] [phone] Feb, [place] [address] [address] [place] [id number] [place] [phone] Feb, [place] [address] [address] Jan, Peptic ulcer K27.9 ; GERD with esophagitis K21.0 ; 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 1 tablet Jan, Active Lisinopril 10 MG Orally Once a day 1 tablet 24h 30 day(s) Active Aspirin 81 81 MG Orally Once a day 1 tablet 24h 30 day(s) Active Metoprolol Succinate ER 200 MG Orally Once a day 1 tablet 24h 30 day( s) Active Acetaminophen 500 MG Orally every 6 hrs 1 tablet as needed 6h Active Gentamicin Sulfate 0.3 % Ophthalmic 4 times a day 1 drop into affected eye 6h Active Atorvastatin Calcium 10 MG Orally Once a day 1 tablet 24h 30 day(s) Active Pantoprazole Sodium 40 MG Orally 2 times a day 1 tablet 12h 30 day(s ) Active Ibuprofen 800 MG Orally Three times a day 1 tablet with food or milk as needed 8h Active PreserVision AREDS - Orally 2 times a day as directed 12h Active Ventolin HFA 108 (90 Base) MCG/ACT Inhalation every 4 hrs 2 puffs as needed 4h 16 days Active PrednisoLONE Acetate 1 % Ophthalmic 4 times a day 1 drop into affected eye 6h Active Combigan 0.2-0.5 % Ophthalmic Twice a day 1 drop into affected eye (L) 12h Active RESULTS No Results PROCEDURES No Known procedures INSTRUCTIONS MEDICATIONS ADMINISTERED No Known Medications MEDICAL (GENERAL) HISTORY Type Description Date Medical History Hypertension Surgical History Lower back surgery - broke it 1988 Surgical History Right knee repair 1999 Surgical History 2 hernia surgeries 2000s Surgical History Right eye repair 2017 Hospitalization History [facility] coughing up blood x 4-5 days 2014
[2018-03-26] MEDS ORDERED: ASPIRIN 81 MG CHEW (CHILDREN'S ASA) ONE (15:01)
[2018-03-26] MEDS ORDERED: NITROGLYCERIN 0.4 MG SL TABS BTL 25'S SL ONE (15:01)
[2018-03-26] MEDS ORDERED: ANTACID SUSP 30 ML UDC (MYLANTA) ONE (15:03)
[2018-03-26] MEDS ORDERED: LIDOCAINE 2% VISCOUS 15 ML UDC ONE (15:03)
[2018-03-26] MEDS ORDERED: FAMOTIDINE 20 MG (PEPCID) TABLET PO STA (15:06)
--- NOTE | 2018-03-26 15:09 | ED Chest Pain ---
General Stated Complaint: CP Source: patient Exam Limitations: no limitations History of Present Illness Date Seen by Provider: Mar 26, 2018 Time Seen by Provider: 14:59 Initial Comments Patient presents to ER by private conveyance with chief complaint of chest pain substernal nonradiating without nausea fever chills. He has a nonproductive cough and some loud shortness of breath. History of COPD and smokes cigarettes currently he's trying to quit and is down to about 6 cigarettes a day. He has had the coronary catheterizations by Dr. Holguin in the past but no stents. He is not on blood thinners. He does take an 81 mg aspirin a day. He took 3 nitroglycerin 5 minutes apart when the chest pain started around 1:00 this afternoon but it did not seem to make any difference in his pain. Allergies and Home Medications Allergies Coded Allergies: Penicillins (Verified Allergy, Intermediate, 03/26/18) causes dysrhythmias Home Medications Acetaminophen 500 Mg Tablet, 500-1,000 MG PO Q6H PRN for PAIN-MILD, (Reported) Albuterol Sulfate 1 Puff Puff, 2 PUFF IH Q4H PRN for SHORTNESS OF BREATH, ( Reported) 1 PUFF = 90 MCG Aspirin 81 Mg Tablet.dr, 81 MG PO DAILY, (Reported) Atorvastatin Calcium 10 Mg Tablet, 10 MG PO DAILY, (Reported) Gentamicin Sulfate 5 Ml Drops, 1 DROP OS QID, (Reported) Ibuprofen 800 Mg Tablet, 800 MG PO Q8H PRN for PAIN-MILD, (Reported) Lisinopril 10 Mg Tablet, 10 MG PO DAILY, (Reported) Metoprolol Succinate 50 Mg Tab.er.24h, 50 MG PO DAILY, (Reported) Nitroglycerin 0.4 Mg Tab.subl, 0.4 MG SL UD PRN for CHEST PAIN, (Reported) Pantoprazole Sodium 40 Mg Tablet.dr, 40 MG PO DAILY, (Reported) Prednisolone Acetate 5 Ml Drops.susp, 1 DROP OS QID, (Reported) Vit A/Vit C/Vit E/Zinc/Copper 1 Each Tablet, 1 TAB PO BID, (Reported) Patient Home Medication List Home Medication List Reviewed: Yes Review of Systems Review of Systems Constitutional: No chills, No fever, No malaise EENTM: No Blurred Vision, No Double Vision Respiratory: Cough, Shortness of Air, Wheezing Cardiovascular: See HPI, Chest Pain; Denies Edema Gastrointestinal: Denies Abdomen Distended, Denies Abdominal Pain Genitourinary: Denies Burning, Denies Discharge Musculoskeletal: No back pain, No joint pain Skin: No pruritus, No rash Past Qtnbxzo-Rwnbmq-Vuvlvw Hx Patient Social History Alcohol Use: Regular Use Alcohol Beverage of Choice: Whiskey Recreational Drug Use: No Drug of Choice: PAST HISTORY of marijuana Smoking Status: Current Everyday Smoker Type Used: Cigarettes (6/day) 2nd Hand Smoke Exposure: Yes Recent Foreign Travel: No Contact w/Someone Who Travel: No Recent Hopitalizations: No Immunizations Up To Date Tetanus Booster (TDap): Unknown Seasonal Allergies Seasonal Allergies: No Past Medical History Surgeries: Yes Abdominal, Appendectomy, Cardiac, Orthopedic Respiratory: Yes (HEMOPTYSIS WITH BRONCHITIS) Pneumonia, Chronic Bronchitis, COPD Currently Using CPAP: No Currently Using BIPAP: No Cardiac: Yes Coronary Artery Disease, Heart Attack, High Cholesterol, Hypertension Neurological: No Reproductive Disorders: No Sexually Transmitted Disease: No HIV/AIDS: No Genitourinary: No Gastrointestinal: Yes Gastroesophageal Reflux, Gastrointestinal Bleed, Polyps, Ulcer Musculoskeletal: Yes (RIGHT KNEE TORN CARTILAGE; BACK SURGERY 1988) Degenerate Disk Disease, Arthritis, Chronic Back Pain Endocrine: No HEENT: Yes Cataract, Tinnitis, Eye Injury Loss of Vision: Denies Hearing Impairment: Hard of Hearing Cancer: No Psychosocial: Yes (MENTAL BLOCK ([place] [place] [facility] ) ) Sleep Difficulties, Violent Behavior Integumentary: No Blood Disorders: No Adverse Reaction/Blood Tranf: No Family Medical History Cardiomegaly 19 MOTHER Dysphasia G8 BROTHER G8 SISTER FH: cancer Hypertension G8 BROTHER G8 SISTER G8 SISTER Kidney disease 19 MOTHER Myocardial infarction Hypertension, Renal Disease Physical Exam Vital Signs Vital Signs - First Documented 03/26/18 14:59 Temp 98.6 Pulse 75 Resp 20 B/P (MAP) 146/97 (113) Pulse Ox 96 O2 Delivery Nasal Cannula O2 Flow Rate 2.0 Capillary Refill : Height, Weight, BMI Height: 6'2.00" Weight: 221lbs. 0.0oz. 100.809676ws; 29.0 BMI Method:Stated General Appearance: No Apparent Distress, WD/WN HEENT: PERRL/EOMI, Pharynx Normal, Moist Mucous Membranes Neck: Full Range of Motion, Normal Inspection, Supple Respiratory: No Chest Non Tender; Lungs Clear, No Accessory Muscle Use, No Respiratory Distress, Decreased Breath Sounds; No Respiratory Distress; Wheezing (few) Cardiovascular: Regular Rate, Rhythm, No Edema, Normal Peripheral Pulses Gastrointestinal: Normal Bowel Sounds, Soft, Tenderness (minimally epigastric region) Neurologic/Psychiatric: Alert, Oriented x3, No Motor/Sensory Deficits Skin: Normal Color, Warm/Dry Progress/Results/Core Measures Results/Orders Lab Results Laboratory Tests Test 03/26/18 14:59 03/26/18 16:55 Range/Units White Blood Count 10.8 4.3-11.0 10^3/uL Red Blood Count 4.28 L 4.35-5.85 10^6/uL Hemoglobin 13.4 13.3-17.7 G/DL Hematocrit 40 40-54 % Mean Corpuscular Volume 93 80-99 FL Mean Corpuscular Hemoglobin 31 25-34 PG Mean Corpuscular Hemoglobin Concent 34 32-36 G/DL Red Cell Distribution Width 13.5 10.0-14.5 % Platelet Count 192 130-400 10^3/uL Mean Platelet Volume 11.2 H 7.4-10.4 FL Neutrophils (%) (Auto) 59 42-75 % Lymphocytes (%) (Auto) 25 12-44 % Monocytes (%) (Auto) 9 0-12 % Eosinophils (%) (Auto) 6 0-10 % Basophils (%) (Auto) 0 0-10 % Neutrophils # (Auto) 6.4 1.8-7.8 X 10^3 Lymphocytes # (Auto) 2.7 1.0-4.0 X 10^3 Monocytes # (Auto) 1.0 0.0-1.0 X 10^3 Eosinophils # (Auto) 0.7 H 0.0-0.3 10^3/uL Basophils # (Auto) 0.0 0.0-0.1 10^3/uL Prothrombin Time 12.6 12.2-14.7 SEC INR Comment 0.9 0.8-1.4 Activated Partial Thromboplast Time 33 24-35 SEC Sodium Level 138 135-145 MMOL/L Potassium Level 3.6 3.6-5.0 MMOL/L Chloride Level 100 98-107 MMOL/L Carbon Dioxide Level 26 21-32 MMOL/L Anion Gap 12 5-14 MMOL/L Blood Urea Nitrogen 9 7-18 MG/DL Creatinine 0.82 0.60-1.30 MG/DL Estimat Glomerular Filtration Rate > 60 BUN/Creatinine Ratio 11 Glucose Level 87 70-105 MG/DL Calcium Level 9.4 8.5-10.1 MG/DL Corrected Calcium 9.0 8.5-10.1 MG/DL Magnesium Level 2.2 1.8-2.4 MG/DL Total Bilirubin 0.3 0.1-1.0 MG/DL Aspartate Amino Transf (AST/SGOT) 18 5-34 U/L Alanine Aminotransferase (ALT/SGPT) 17 0-55 U/L Alkaline Phosphatase 57 40-136 U/L Myoglobin 37.4 10.0-92.0 NG/ML Troponin I < 0.028 < 0.028 <0.028 NG/ML Total Protein 7.2 6.4-8.2 GM/DL Albumin 4.5 3.2-4.5 GM/DL My Orders Orders - BRIDGETT WELLINGTON Lidocaine 2% Viscous 15 Ml (Xylocaine Vi (03/26/18 15:15) Famotidine Tablet (Pepcid Tablet) (03/26/18 15:06) Antacid Suspension (Mylanta Suspension (03/26/18 15:15) Albuterol/Ipra Inhalation Soln (Duoneb I (03/26/18 15:15) Svn Small Volume Nebulizer (03/26/18 15:11) Ceftriaxone For Iv Use (Rocephin For I (03/26/18 16:15) Azithromycin Tablet (Zithromax Tablet) (03/26/18 16:15) Troponin I (03/26/18 17:00) Medications Given in ED Current Medications Medications Dose Ordered Sig/Mikayla Route Start Time Stop Time Status Last Admin Dose Admin Al Hydrox/Mg Hydrox/Simethicone 30 ml ONCE ONCE PO 03/26/18 15:15 03/26/18 15:16 DC 03/26/18 15:08 30 ML Albuterol/ Ipratropium 3 ml ONCE ONCE INH 03/26/18 15:15 03/26/18 15:16 DC 03/26/18 15:34 3 ML Aspirin 324 mg ONCE ONCE PO 03/26/18 15:15 03/26/18 15:16 DC 03/26/18 15:08 324 MG Azithromycin 500 mg ONCE ONCE PO 03/26/18 16:15 03/26/18 16:16 DC 03/26/18 16:25 500 MG Ceftriaxone Sodium 1000 mg/ Sodium Chloride 50 ml @ 100 mls/hr ONCE ONCE IV 03/26/18 16:15 03/26/18 16:44 DC 03/26/18 16:25 100 MLS/HR Lidocaine HCl 15 ml ONCE ONCE PO 03/26/18 15:15 03/26/18 15:16 DC 03/26/18 15:08 15 ML Vital Signs/I&O 03/26/18 03/26/18 03/26/18 03/26/18 14:59 14:59 14:59 15:35 Temp 98.6 Pulse 75 Resp 20 B/P (MAP) 146/97 (113) Pulse Ox 96 97 98 O2 Delivery Nasal Cannula Nasal Cannula Nasal Cannula Nasal Cannula O2 Flow Rate 2.0 2.00 2.0 2.00 Progress Progress Note : Time: 15:59 Progress Note Plan to do a delta troponin 2 hours out. His chest pain is reproducible by pressing on his chest and deep inspiration and he has some x-ray findings of possible atelectasis versus infiltrate on the right base persistent since the last 2 or 3 weeks ago when he had an x-ray done. If the second troponin is negative we'll go ahead and just plan on treating him with double coverage antibiotics outpatient for possible pneumonia. Breathing treatment DuoNeb. ED ACS 4 points, low risk. If the patient also has: (1) EKG without new ischemic changes and (2) negative initial and 2-hour troponins, then this patient is safe for discharge to early outpatient follow-up investigation (or proceed to earlier inpatient testing). If EKG with ischemic changes or positive troponin, they are not low risk and require normal risk stratification. Initial ECG Impression Date: Mar 26, 2018 Initial ECG Impression Time: 14:58 Initial ECG Rate: 68 Initial ECG Rhythm: Normal Sinus Initial ECG Intervals: Normal Initial ECG Impression: Normal Initial ECG Comparisson: Unchanged Comment No ST-T segment elevation or depression. Diagnostic Imaging Diagonstic Imaging: Xray Plain Films/CT/US/NM/MRI: chest (1v) Comments [facility] [place] [place] NAME: LIZY MIRANDA [facility] REC#: [id number] PT STATUS: REG ER : 1960 PHYSICIAN: FERDINAND HARPER ADMIT DATE: 03/26/18/ER Draft Date of Exam:03/26/18 CHEST 1 VIEW, AP/PA ONLY INDICATION: Chest pain. EXAMINATION: Portable erect AP chest at 3:21 p.m. FINDINGS: The heart size is within normal limits and stable when compared to 02/27/2018. The prior exam did note bibasilar airspace densities. It was not certain whether these were chronic or acute. On this study, the left lung base does seem better aerated than on the prior exam. There are still a few coarse interstitial densities in the right lower lobe. Whether these are chronic in nature or whether there is an element of pneumonia/atelectasis present is not certain. The lungs are hyperexpanded consistent with COPD. The lung apices are clear. The mediastinum is not widened. The osseous structures are intact. IMPRESSION: 1. There is still an area of increased density overlying the right lung base. Whether this is chronic in nature or whether there is an element of acute pneumonia/atelectasis is not certain. At any rate, there does not appear to have been any significant change when compared to the prior study. 2. The left lung base does seem better aerated on the prior exam. There is no acute cardiopulmonary abnormality noted otherwise. Dictated on workstation # [id number] Dict: 03/26/18 1541 Trans: 03/26/18 1550 [facility] [id number] Interpreted by: QUYEN OROZCO MD Electronically signed by: Reviewed: Reviewed by Me Departure Impression Primary Impression: CAP (community acquired pneumonia) Qualified Codes: J18.1 - Lobar pneumonia, unspecified organism Additional Impressions: COPD (chronic obstructive pulmonary disease) Qualified Codes: J44.0 - Chronic obstructive pulmonary disease with acute lower respiratory infection Acute chest wall pain Disposition: HOME, SELF-CARE Condition: Stable Departure-Patient Inst. Decision time for Depature: 17:40 Referrals: NO,LOCAL PHYSICIAN (PCP/Family) Primary Care Physician Patient Instructions: Community-Acquired Pneumonia, Adult (DC) Add. Discharge Instructions: street superintendent the antibiotics and take the azithromycin 1 tablet daily starting tomorrow until they are gone. Take the cefdinir one capsule twice a day until they are gone for 7 days. Follow-up with primary care in the next 1-2 weeks for reassessment. You can use Tylenol and/or ibuprofen for pain relief of your chest. Scripts Azithromycin (Azithromycin) 250 Mg Tablet 250 MG PO DAILY, #4 TAB 0 Refills Prov: BRIDGETT WELLINGTON 03/26/18 Cefdinir (Cefdinir) 300 Mg Capsule 300 MG PO BID for 7 Days, #14 CAP 0 Refills Prov: BRIDGETT WELLINGTON 03/26/18 BRIDGETT WELLINGTON Mar 26, 2018 15:09
[2018-03-26 15:10] LABS: BASOPHILS % (AUTO) 0 % (0-10); EOSINOPHILS # (AUTO) 0.7 10^3/uL (0.0-0.3); EOSINOPHILS % (AUTO) 6 % (0-10); HEMATOCRIT 40 % (40-54); HEMOGLOBIN 13.4 G/DL (13.3-17.7); LYMPHOCYTES # (AUTO) 2.7 X 10^3 (1.0-4.0); LYMPHOCYTES % (AUTO) 25 % (12-44); MEAN CORPUSCULAR HEMOGLOBIN 31 PG (25-34); MEAN CORPUSCULAR HGB CONC 34 G/DL (32-36); MEAN CORPUSCULAR VOLUME 93 FL (80-99); MEAN PLATELET VOLUME 11.2 FL (7.4-10.4); MONOCYTES % (AUTO) 9 % (0-12); NEUTROPHILS # (AUTO) 6.4 X 10^3 (1.8-7.8); NEUTROPHILS % (AUTO) 59 % (42-75); PLATELET COUNT 192 10^3/uL (130-400); RED BLOOD COUNT 4.28 10^6/uL (4.35-5.85); RED CELL DISTRIBUTION WIDTH 13.5 % (10.0-14.5); WHITE BLOOD COUNT 10.8 10^3/uL (4.3-11.0)
[2018-03-26] MEDS ORDERED: RT-ALBUTEROL/IPRATROPIUM 3 ML (DUONEB) VIAL INH ONE (15:15)
[2018-03-26] MEDS ORDERED: LIDOCAINE 2% VISCOUS 15 ML UDC PO ONE (15:15)
[2018-03-26] MEDS ORDERED: ASPIRIN 81 MG CHEW (CHILDREN'S ASA) PO ONE (15:15)
[2018-03-26] MEDS ORDERED: ANTACID SUSP 30 ML UDC (MYLANTA) PO ONE (15:15)
[2018-03-26 15:19] LABS: INR 0.9 (0.8-1.4); PROTHROMBIN TIME PATIENT 12.6 SEC (12.2-14.7)
[2018-03-26 15:24] LABS: ALANINE AMINOTRANSFERASE 17 U/L (0-55); ALBUMIN 4.5 GM/DL (3.2-4.5); ALKALINE PHOSPHATASE 57 U/L (40-136); BILIRUBIN,TOTAL 0.3 MG/DL (0.1-1.0); BUN/CREATININE RATIO 11; CALCIUM 9.4 MG/DL (8.5-10.1); CARBON DIOXIDE 26 MMOL/L (21-32); CHLORIDE 100 MMOL/L (98-107); CREATININE SERUM 0.82 MG/DL (0.60-1.30); GFR ESTIMATED > 60; GLUCOSE 87 MG/DL (70-105); MAGNESIUM 2.2 MG/DL (1.8-2.4); POTASSIUM 3.6 MMOL/L (3.6-5.0); SODIUM 138 MMOL/L (135-145); TOTAL PROTEIN 7.2 GM/DL (6.4-8.2)
[2018-03-26 15:31] LABS: MYOGLOBIN SERUM 37.4 NG/ML (10.0-92.0)
--- NOTE | 2018-03-26 15:50 | Diagnostic Imaging Report ---
INDICATION: Chest pain. EXAMINATION: Portable erect AP chest at 3:21 p.m. FINDINGS: The heart size is within normal limits and stable when compared to 02/27/2018. The prior exam did note bibasilar airspace densities. It was not certain whether these were chronic or acute. On this study, the left lung base does seem better aerated than on the prior exam. There are still a few coarse interstitial densities in the right lower lobe. Whether these are chronic in nature or whether there is an element of pneumonia/atelectasis present is not certain. The lungs are hyperexpanded consistent with COPD. The lung apices are clear. The mediastinum is not widened. The osseous structures are intact. IMPRESSION: 1. There is still an area of increased density overlying the right lung base. Whether this is chronic in nature or whether there is an element of acute pneumonia/atelectasis is not certain. At any rate, there does not appear to have been any significant change when compared to the prior study. 2. The left lung base does seem better aerated on the prior exam. There is no acute cardiopulmonary abnormality noted otherwise. Dictated by: Dictated on workstation # [id number]
--- NOTE | 2018-03-26 15:54 | NUR ---
states that gi cocktail improved sx- nearly gone
[2018-03-26] MEDS ORDERED: cefTRIAXone FOR IV USE 1,000 MG in NS (IVPB) 50 ML IV ONE (16:15)
[2018-03-26] MEDS ORDERED: AZITHROMYCIN 250 MG TAB (ZITHROMAX) PO ONE (16:15)
--- NOTE | 2018-03-26 17:00 | NUR ---
troponin per saline lock draw
[2018-03-26] MEDS ORDERED: AZIT250T12 PO (17:41)
[2018-03-26] MEDS ORDERED: CEFD300C3 PO (17:41)
[2018-03-26] MEDS ORDERED: RT-ALBUINH IH (17:45)
[2018-03-26 17:57] VITALS: BP 143/104
== END 2018-03-26 17:56 | disposition home or self-care (01) ==
LOC: EDUNIT# 14:54 → ER 14:55
DX: J18.9 Pneumonia, unspecified organism (principal); J44.9 Chronic obstructive pulmonary disease, unspecified; R07.89 Other chest pain; I25.10 Atherosclerotic heart disease of native coronary artery without angina pectoris; I25.2 Old myocardial infarction; E78.00 Pure hypercholesterolemia, unspecified; I10 Essential (primary) hypertension; K21.9 Gastro-esophageal reflux disease without esophagitis; F17.210 Nicotine dependence, cigarettes, uncomplicated; Z87.19 Personal history of other diseases of the digestive system; Z95.9 Presence of cardiac and vascular implant and graft, unspecified; Z86.010 Personal history of colon polyps; Z82.49 Family history of ischemic heart disease and other diseases of the circulatory system; Z87.01 Personal history of pneumonia (recurrent); Z90.49 Acquired absence of other specified parts of digestive tract; Z98.890 Other specified postprocedural states; Z87.891 Personal history of nicotine dependence; Z88.0 Allergy status to penicillin; Z79.51 Long term (current) use of inhaled steroids; Z79.82 Long term (current) use of aspirin; Z79.52 Long term (current) use of systemic steroids
CPT/HCPCS: 36415; 71045; 80053; 83735; 83874; 84484; 85025; 85610; 85730; 93005; 93041; 94640; 96365

== ENCOUNTER 2018-05-21 12:00 | Emergency (ER) | payer MEDICARE ==
[~2018-05-21] VITALS: Ht 188 cm; Wt 102.1 kg
[2018-05-21] MEDS ORDERED: NITROGLYCERIN 0.4 MG SL TABS BTL 25'S SL PRN (12:15)
--- NOTE | 2018-05-21 12:18 | ED Chest Pain ---
General Chief Complaint: Chest Pain Stated Complaint: CP Source: patient Exam Limitations: no limitations History of Present Illness Date Seen by Provider: May 21, 2018 Time Seen by Provider: 12:15 Initial Comments This 57-year-old white male presents with a complaint of sharp anterior chest pain began approximately an hour prior to presentation to the emergency department. The patient has had similar chest pain the past leading to a cardiac catheterization. According to the patient's history no stents were placed. The patient's chest pain was improved with a single nitroglycerin. The patient' s pain went from a 9 to its current 6.5 in the emergency department. Allergies and Home Medications Allergies Coded Allergies: Penicillins (Verified Allergy, Intermediate, 03/26/18) causes dysrhythmias Home Medications Acetaminophen 500 Mg Tablet, 500-1,000 MG PO Q6H PRN for PAIN-MILD, (Reported) Albuterol Sulfate 1 Puff Puff, 2 PUFF IH Q4H PRN for SHORTNESS OF BREATH, ( Reported) 1 PUFF = 90 MCG Albuterol Sulfate 1 Puff Puff, 2 PUFF IH Q4H PRN for WHEEZING 1 PUFF = 90 MCG Prescribed by: BRIDGETT WELLINGTON on 03/26/181744 Aspirin 81 Mg Tablet.dr, 81 MG PO DAILY, (Reported) Atorvastatin Calcium 10 Mg Tablet, 10 MG PO DAILY, (Reported) Azithromycin 250 Mg Tablet, 250 MG PO DAILY Prescribed by: BRIDGETT WELLINGTON on 03/26/181740 Cefdinir 300 Mg Capsule, 300 MG PO BID Prescribed by: BRIDGETT WELLINGTON on 03/26/181740 Gentamicin Sulfate 5 Ml Drops, 1 DROP OS QID, (Reported) Ibuprofen 800 Mg Tablet, 800 MG PO Q8H PRN for PAIN-MILD, (Reported) Lisinopril 10 Mg Tablet, 10 MG PO DAILY, (Reported) Metoprolol Succinate 50 Mg Tab.er.24h, 50 MG PO DAILY, (Reported) Nitroglycerin 0.4 Mg Tab.subl, 0.4 MG SL UD PRN for CHEST PAIN, (Reported) Pantoprazole Sodium 40 Mg Tablet.dr, 40 MG PO DAILY, (Reported) Prednisolone Acetate 5 Ml Drops.susp, 1 DROP OS QID, (Reported) Vit A/Vit C/Vit E/Zinc/Copper 1 Each Tablet, 1 TAB PO BID, (Reported) Patient Home Medication List Home Medication List Reviewed: Yes Review of Systems Review of Systems Constitutional: No chills, No fever EENTM: No Blurred Vision Respiratory: Denies Cough Cardiovascular: See HPI, Chest Pain; Denies Palpitations Gastrointestinal: Denies Abdominal Pain, Denies Nausea Genitourinary: No Symptoms Reported Musculoskeletal: No back pain Skin: No rash Psychiatric/Neurological: No Symptoms Reported Endocrine: No Symptoms Reported Hematologic/Lymphatic: No Symptoms Reported Past [id number] Hx Past Med/Social Hx: Reviewed Nursing Past Med/Soc Hx Patient Social History Alcohol Beverage of Choice: Whiskey Drug of Choice: PAST HISTORY of marijuana Type Used: Cigarettes 2nd Hand Smoke Exposure: Yes Recent Foreign Travel: No Contact w/Someone Who Travel: No Recent Hopitalizations: No Immunizations Up To Date Tetanus Booster (TDap): Unknown Seasonal Allergies Seasonal Allergies: No Past Medical History Surgeries: Yes Abdominal, Appendectomy, Cardiac, Orthopedic Respiratory: Yes (HEMOPTYSIS WITH BRONCHITIS) Pneumonia, Chronic Bronchitis, COPD Currently Using CPAP: No Currently Using BIPAP: No Cardiac: Yes Coronary Artery Disease, Heart Attack, High Cholesterol, Hypertension Neurological: No Reproductive Disorders: No Sexually Transmitted Disease: No HIV/AIDS: No Genitourinary: No Gastrointestinal: Yes Gastroesophageal Reflux, Gastrointestinal Bleed, Polyps, Ulcer Musculoskeletal: Yes (RIGHT KNEE TORN CARTILAGE; BACK SURGERY 1988) Degenerate Disk Disease, Arthritis, Chronic Back Pain Endocrine: No HEENT: Yes Cataract, Tinnitis, Eye Injury Loss of Vision: Denies Hearing Impairment: Hard of Hearing Cancer: No Psychosocial: Yes (MENTAL BLOCK ([place] [place] [facility] ) ) Sleep Difficulties, Violent Behavior Integumentary: No Blood Disorders: No Adverse Reaction/Blood Tranf: No Family Medical History Cardiomegaly 19 MOTHER Dysphasia G8 BROTHER G8 SISTER FH: cancer Hypertension G8 BROTHER G8 SISTER G8 SISTER Kidney disease 19 MOTHER Myocardial infarction Hypertension, Renal Disease Physical Exam Vital Signs Vital Signs - First Documented 05/21/18 05/21/18 12:03 13:20 Temp 97.5 Pulse 81 Resp 18 B/P (MAP) 163/113 (130) Pulse Ox 96 O2 Delivery Room Air Capillary Refill : Height, Weight, BMI Height: 6'2.00" Weight: 221lbs. 0.0oz. 100.049175gv; 29.0 BMI Method:Stated General Appearance: No Apparent Distress, WD/WN HEENT: Normal ENT Inspection Neck: Normal Inspection Respiratory: Normal Breath Sounds Cardiovascular: Regular Rate, Rhythm, No Murmur Gastrointestinal: Normal Bowel Sounds Extremity: Normal Inspection, Normal Range of Motion Neurologic/Psychiatric: Oriented x3, No Motor/Sensory Deficits Skin: Normal Color, Warm/Dry Progress/Results/Core Measures Results/Orders Lab Results Laboratory Tests Test 05/21/18 12:10 05/21/18 14:15 Range/Units White Blood Count 10.7 4.3-11.0 10^3/uL Red Blood Count 4.42 4.35-5.85 10^6/uL Hemoglobin 13.9 13.3-17.7 G/DL Hematocrit 42 40-54 % Mean Corpuscular Volume 95 80-99 FL Mean Corpuscular Hemoglobin 31 25-34 PG Mean Corpuscular Hemoglobin Concent 33 32-36 G/DL Red Cell Distribution Width 13.3 10.0-14.5 % Platelet Count 216 130-400 10^3/uL Mean Platelet Volume 11.7 H 7.4-10.4 FL Neutrophils (%) (Auto) 69 42-75 % Lymphocytes (%) (Auto) 14 12-44 % Monocytes (%) (Auto) 11 0-12 % Eosinophils (%) (Auto) 5 0-10 % Basophils (%) (Auto) 1 0-10 % Neutrophils # (Auto) 7.4 1.8-7.8 X 10^3 Lymphocytes # (Auto) 1.5 1.0-4.0 X 10^3 Monocytes # (Auto) 1.2 H 0.0-1.0 X 10^3 Eosinophils # (Auto) 0.5 H 0.0-0.3 10^3/uL Basophils # (Auto) 0.1 0.0-0.1 10^3/uL Prothrombin Time 12.8 12.2-14.7 SEC INR Comment 1.0 0.8-1.4 Activated Partial Thromboplast Time 34 24-35 SEC Sodium Level 137 135-145 MMOL/L Potassium Level 3.8 3.6-5.0 MMOL/L Chloride Level 101 98-107 MMOL/L Carbon Dioxide Level 25 21-32 MMOL/L Anion Gap 11 5-14 MMOL/L Blood Urea Nitrogen 8 7-18 MG/DL Creatinine 0.81 0.60-1.30 MG/DL Estimat Glomerular Filtration Rate > 60 BUN/Creatinine Ratio 10 Glucose Level 101 70-105 MG/DL Calcium Level 9.3 8.5-10.1 MG/DL Corrected Calcium 9.1 8.5-10.1 MG/DL Magnesium Level 2.4 1.8-2.4 MG/DL Total Bilirubin 0.3 0.1-1.0 MG/DL Aspartate Amino Transf (AST/SGOT) 20 5-34 U/L Alanine Aminotransferase (ALT/SGPT) 11 0-55 U/L Alkaline Phosphatase 59 40-136 U/L Myoglobin 29.3 10.0-92.0 NG/ML Troponin I < 0.028 <0.028 NG/ML Total Protein 7.0 6.4-8.2 GM/DL Albumin 4.2 3.2-4.5 GM/DL My Orders Orders - MARSHALL WERNER MD Cbc With Automated Diff (05/21/18 12:13) Magnesium (05/21/18 12:13) Chest 1 View, Ap/Pa Only (05/21/18 12:13) Ekg Tracing (05/21/18 12:13) Cardiac Profile 1 (05/21/18 12:13) Comprehensive Metabolic Panel (05/21/18 12:13) Myoglobin Serum (05/21/18 12:13) Protime With Inr (05/21/18 12:13) Partial Thromboplastin Time (05/21/18 12:13) O2 (05/21/18 12:13) Monitor-Rhythm Ecg Trace Only (05/21/18 12:13) Lipid Panel (05/22/18 06:00) Nitroglycerin 0.4 Mg Btl 25's (Nitrostat (05/21/18 12:15) Saline Lock/Iv-Start (05/21/18 12:13) Albuterol/Ipra Inhalation Soln (Duoneb I (05/21/18 13:15) Svn Small Volume Nebulizer (05/21/18 13:14) Ekg Tracing (05/21/18 13:14) Troponin I (05/21/18 13:14) Albuterol/Ipra Inhalation Soln (Duoneb I (05/21/18 13:17) Medications Given in ED Current Medications Medications Dose Ordered Sig/Mikayla Route Start Time Stop Time Status Last Admin Dose Admin Albuterol/ Ipratropium 3 ml ONCE ONCE INH 05/21/18 13:15 05/21/18 13:17 DC 05/21/18 13:20 3 ML Nitroglycerin 0.4 mg UD PRN SL 05/21/18 12:15 05/21/18 13:11 0.4 MG Vital Signs/I&O 05/21/18 05/21/18 12:03 13:20 Temp 97.5 Pulse 81 Resp 18 B/P (MAP) 163/113 (130) Pulse Ox 96 90 O2 Delivery Room Air Progress Progress Note : Time: 14:24 Progress Note The patient's residual chest pain completely abated with a second nitroglycerin sublingually. Patient was observed in the emergency department for approximately 2 hours without further untoward effect. EKGs 2 demonstrated normal sinus rhythm. No acute current of injury was noted. Patient's first troponin was normal. Second troponin was obtained. Patient is wanting to be discharged. 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 I c-collar return if any problems or questions. Departure Impression Primary Impression: Chest pain Qualified Codes: R07.9 - Chest pain, unspecified Disposition: HOME, SELF-CARE Condition: Improved Departure-Patient Inst. Decision time for Depature: 14:25 Referrals: [facility] [place] (PCP/Family) Primary Care Physician EMILY ALICEA MD Patient Instructions: Chest Pain (DC) Add. Discharge Instructions: Close follow-up with Dr. Alicea tomorrow. Return if any further episodes of chest pain. All discharge instructions reviewed with patient and/or family. Voiced understanding. MARSHALL WERNER MD May 21, 2018 12:18
[2018-05-21 12:23] LABS: BASOPHILS # (AUTO) 0.1 10^3/uL (0.0-0.1); BASOPHILS % (AUTO) 1 % (0-10); EOSINOPHILS # (AUTO) 0.5 10^3/uL (0.0-0.3); EOSINOPHILS % (AUTO) 5 % (0-10); HEMATOCRIT 42 % (40-54); HEMOGLOBIN 13.9 G/DL (13.3-17.7); LYMPHOCYTES # (AUTO) 1.5 X 10^3 (1.0-4.0); LYMPHOCYTES % (AUTO) 14 % (12-44); MEAN CORPUSCULAR HEMOGLOBIN 31 PG (25-34); MEAN CORPUSCULAR HGB CONC 33 G/DL (32-36); MEAN CORPUSCULAR VOLUME 95 FL (80-99); MEAN PLATELET VOLUME 11.7 FL (7.4-10.4); MONOCYTES # (AUTO) 1.2 X 10^3 (0.0-1.0); MONOCYTES % (AUTO) 11 % (0-12); NEUTROPHILS # (AUTO) 7.4 X 10^3 (1.8-7.8); NEUTROPHILS % (AUTO) 69 % (42-75); PLATELET COUNT 216 10^3/uL (130-400); RED CELL DISTRIBUTION WIDTH 13.3 % (10.0-14.5); WHITE BLOOD COUNT 10.7 10^3/uL (4.3-11.0)
[2018-05-21 12:32] LABS: PROTHROMBIN TIME PATIENT 12.8 SEC (12.2-14.7)
[2018-05-21 12:40] LABS: ALANINE AMINOTRANSFERASE 11 U/L (0-55); ALBUMIN 4.2 GM/DL (3.2-4.5); ALKALINE PHOSPHATASE 59 U/L (40-136); BILIRUBIN,TOTAL 0.3 MG/DL (0.1-1.0); BUN/CREATININE RATIO 10; CALCIUM 9.3 MG/DL (8.5-10.1); CARBON DIOXIDE 25 MMOL/L (21-32); CHLORIDE 101 MMOL/L (98-107); CREATININE SERUM 0.81 MG/DL (0.60-1.30); GFR ESTIMATED > 60; GLUCOSE 101 MG/DL (70-105); MAGNESIUM 2.4 MG/DL (1.8-2.4); POTASSIUM 3.8 MMOL/L (3.6-5.0); SODIUM 137 MMOL/L (135-145)
[2018-05-21 12:47] LABS: MYOGLOBIN SERUM 29.3 NG/ML (10.0-92.0)
--- NOTE | 2018-05-21 12:47 | Diagnostic Imaging Report ---
Indication: Chest pain. Comparison with 03/26/2018. Findings: Obstructive lung disease is again noted on AP portable chest with flattening of diaphragm. There is apical bullous changes most severe on the right with large bullae. There are chronic interstitial changes noted in the lung bases with some basilar scarring on the left. The heart is not enlarged. No pneumothorax or pleural effusions. Impression: Rather severe obstructive bullous emphysematous disease without acute change when compared with previous exam. Dictated by: Dictated on workstation # [id number]
[2018-05-21] MEDS ORDERED: RT-ALBUTEROL/IPRATROPIUM 3 ML (DUONEB) VIAL INH ONE (13:15)
[2018-05-21] MEDS ORDERED: RT-ALBUTEROL/IPRATROPIUM 3 ML (DUONEB) VIAL ONE (13:17)
[2018-05-21 15:02] VITALS: BP 137/98
== END 2018-05-21 15:04 | disposition home or self-care (01) ==
LOC: EDUNIT# 12:00 → ER 12:02
DX: R07.81 Pleurodynia (principal); J44.9 Chronic obstructive pulmonary disease, unspecified; I25.10 Atherosclerotic heart disease of native coronary artery without angina pectoris; E78.00 Pure hypercholesterolemia, unspecified; I10 Essential (primary) hypertension; I25.2 Old myocardial infarction; K21.9 Gastro-esophageal reflux disease without esophagitis; Z82.49 Family history of ischemic heart disease and other diseases of the circulatory system; Z87.19 Personal history of other diseases of the digestive system; Z86.010 Personal history of colon polyps; Z88.0 Allergy status to penicillin; Z79.51 Long term (current) use of inhaled steroids; Z79.82 Long term (current) use of aspirin; Z77.22 Contact with and (suspected) exposure to environmental tobacco smoke (acute) (chronic); Z90.49 Acquired absence of other specified parts of digestive tract; Z87.01 Personal history of pneumonia (recurrent)
CPT/HCPCS: 36415; 71045; 80053; 83735; 83874; 84484; 85025; 85610; 85730; 93005; 93041; 94640

== ENCOUNTER 2018-12-08 09:05 | Emergency (ER) | payer MEDICARE, MEDICAID ==
[~2018-12-08] VITALS: Ht 187 cm; Wt 102.0 kg
[2018-12-08 09:25] LABS: BASOPHILS % (AUTO) 0 % (0-10); EOSINOPHILS # (AUTO) 0.3 10^3/uL (0.0-0.3); EOSINOPHILS % (AUTO) 3 % (0-10); HEMATOCRIT 41 % (40-54); HEMOGLOBIN 13.7 G/DL (13.3-17.7); LYMPHOCYTES % (AUTO) 16 % (12-44); MEAN CORPUSCULAR HEMOGLOBIN 31 PG (25-34); MEAN CORPUSCULAR HGB CONC 33 G/DL (32-36); MEAN CORPUSCULAR VOLUME 93 FL (80-99); MEAN PLATELET VOLUME 11.3 FL (7.4-10.4); MONOCYTES # (AUTO) 0.8 X 10^3 (0.0-1.0); MONOCYTES % (AUTO) 6 % (0-12); NEUTROPHILS # (AUTO) 9.8 X 10^3 (1.8-7.8); NEUTROPHILS % (AUTO) 76 % (42-75); PLATELET COUNT 262 10^3/uL (130-400); RED CELL DISTRIBUTION WIDTH 13.8 % (10.0-14.5)
[2018-12-08 09:35] LABS: PROTHROMBIN TIME PATIENT 14.1 SEC (12.2-14.7)
[2018-12-08 09:42] LABS: ALANINE AMINOTRANSFERASE 13 U/L (0-55); ALKALINE PHOSPHATASE 70 U/L (40-136); BILIRUBIN,TOTAL 0.6 MG/DL (0.1-1.0); BUN/CREATININE RATIO 15; CALCIUM 9.1 MG/DL (8.5-10.1); CARBON DIOXIDE 25 MMOL/L (21-32); CHLORIDE 104 MMOL/L (98-107); GFR ESTIMATED > 60; GLUCOSE 139 MG/DL (70-105); MAGNESIUM 2.1 MG/DL (1.6-2.4); POTASSIUM 3.7 MMOL/L (3.6-5.0); SODIUM 136 MMOL/L (135-145); TOTAL PROTEIN 6.7 GM/DL (6.4-8.2)
--- NOTE | 2018-12-08 09:43 | ED Chest Pain ---
General Chief Complaint: Chest Pain Stated Complaint: CHEST PAIN Nursing Triage Note: PT PRESENTS TO ED VIA EMS FROM HOME WITH COMPLAINTS OF MEDIAL CRUSHING CP THAT STARTED ABOUT 0730 THIS AM. PT DENIES N/V OR SOA. PT REPORTS TOOK 2 NITRO AT HOME WITH NO RELIEF. EMS REPORTS GAVE PT 324 MG ASA AND 50 MCG FENTANYL IN ROUTE. Nursing Sepsis Screen: No Definite Risk Source: patient Exam Limitations: no limitations (DAVEY BYRNE STUDENT) History of Present Illness Date Seen by Provider: Dec 08, 2018 Time Seen by Provider: 09:25 Initial Comments The patient is a 58 y/o male who is here with a chief complaint of chest pain. He reports that the pain began around 7:30 this morning. He describes the pain as a sharp crushing pain at 8/10. He took 2 nitro tablets at 7:40 that did not alleviate the pain. He was also administered Fentanyl by ems on the way to the hospital which he also reports did not relieve the pain. He is complaining of being very hot and sweaty. The patient is also experiencing increased shortness of breath which he describes as mild. He patient denies nausea, vomiting, or diarrhea. He mentions that he had pneumonia about 1 month ago. He denies any new cough or fevers. 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 Associated Symptoms: abdominal pain, diaphoresis; No fever/chills; heartburn, shortness of breath; No weakness (DAVONTE REAL MD) Allergies and Home Medications Allergies Coded Allergies: Penicillins (Verified Allergy, Intermediate, 03/26/18) causes dysrhythmias Home Medications Acetaminophen 500 Mg Tablet, 500-1,000 MG PO Q6H PRN for PAIN-MILD, (Reported) Albuterol Sulfate 1 Puff Puff, 2 PUFF IH Q4H PRN for SHORTNESS OF BREATH, (Reported) 1 PUFF = 90 MCG Albuterol Sulfate 1 Puff Puff, 2 PUFF IH Q4H PRN for WHEEZING 1 PUFF = 90 MCG Prescribed by: BRIDGETT WELLINGTON on 03/26/181744 Aspirin 81 Mg Tablet.dr, 81 MG PO DAILY, (Reported) Atorvastatin Calcium 10 Mg Tablet, 10 MG PO DAILY, (Reported) Azithromycin 250 Mg Tablet, 250 MG PO DAILY Prescribed by: BRIDGETT WELLINGTON on 03/26/181740 Cefdinir 300 Mg Capsule, 300 MG PO BID Prescribed by: BRIDGETT WELLINGTON on 03/26/181740 Gentamicin Sulfate 5 Ml Drops, 1 DROP OS QID, (Reported) Ibuprofen 800 Mg Tablet, 800 MG PO Q8H PRN for PAIN-MILD, (Reported) Lisinopril 10 Mg Tablet, 10 MG PO DAILY, (Reported) Metoprolol Succinate 50 Mg Tab.er.24h, 50 MG PO DAILY, (Reported) Nitroglycerin 0.4 Mg Tab.subl, 0.4 MG SL UD PRN for CHEST PAIN, (Reported) Pantoprazole Sodium 40 Mg Tablet.dr, 40 MG PO DAILY, (Reported) Prednisolone Acetate 5 Ml Drops.susp, 1 DROP OS QID, (Reported) Vit A/Vit C/Vit E/Zinc/Copper 1 Each Tablet, 1 TAB PO BID, (Reported) Patient Home Medication List Home Medication List Reviewed: Yes (DAVONTE REAL MD) Review of Systems Review of Systems Constitutional: diaphoresis EENTM: No Blurred Vision, No Double Vision Respiratory: Denies Cough; Shortness of Air Cardiovascular: Chest Pain; Denies Palpitations Gastrointestinal: Denies Diarrhea, Denies Nausea, Denies Vomiting (DAVEY BYRNE MED STUDENT) Constitutional: see HPI Respiratory: See HPI Cardiovascular: Chest Pain; Denies Lightheadedness Gastrointestinal: See HPI, Abdominal Pain Genitourinary: No Symptoms Reported Musculoskeletal: no symptoms reported (DAVONTE REAL MD) All Other Systems Reviewed Negative Unless Noted: Yes (DAVONTE REAL MD) Past [id number]-[id number] Hx Past Med/Social Hx: Reviewed Nursing Past Med/Soc Hx (DAVONTE REAL MD) Patient Social History Alcohol Use: Past History Number of Drinks Today: GG Alcohol Beverage of Choice: Whiskey Recreational Drug Use: No Drug of Choice: PAST HISTORY of marijuana Smoking Status: Current Everyday Smoker Type Used: Cigarettes 2nd Hand Smoke Exposure: Yes Recent Foreign Travel: No Contact w/Someone Who Travel: No Recent Infectious Disease Expo: No Recent Hopitalizations: No Physical Abuse: No Sexual Abuse: No Mistreated: No Fear: No (DAVEY BYRNE STUDENT) Immunizations Up To Date Tetanus Booster (TDap): Unknown (DAVEY BYRNE) Seasonal Allergies Seasonal Allergies: No (DAVEY BYRNE) Past Medical History Surgeries: Yes (HERNIA REPAIR, CATARACT, BACK R KNEE) Abdominal, Appendectomy, Cardiac, Eye Surgery, Orthopedic Respiratory: Yes (HEMOPTYSIS WITH BRONCHITIS) Pneumonia, Chronic Bronchitis, COPD Currently Using CPAP: No Currently Using BIPAP: No Cardiac: Yes Coronary Artery Disease, Heart Attack, High Cholesterol, Hypertension Neurological: No Reproductive Disorders: No Sexually Transmitted Disease: No HIV/AIDS: No Genitourinary: No Gastrointestinal: Yes Abdominal Hernia, Gastroesophageal Reflux, Gastrointestinal Bleed, Polyps, Ulcer Musculoskeletal: Yes (RIGHT KNEE TORN CARTILAGE; BACK SURGERY 1988) Degenerate Disk Disease, Arthritis, Chronic Back Pain Endocrine: Yes (HYPOERGLYCEMIA) HEENT: Yes Cataract, Tinnitis, Eye Injury Loss of Vision: Denies Hearing Impairment: Hard of Hearing Cancer: No Psychosocial: Yes (MENTAL BLOCK ([facility] 3 [facility]) ) Sleep Difficulties, Violent Behavior Integumentary: No Blood Disorders: No Adverse Reaction/Blood Tranf: No (DAVEY BYRNE) Family Medical History Reviewed Nursing Family Hx (DAVONTE REAL MD) Cardiomegaly 19 MOTHER Dysphasia G8 BROTHER G8 SISTER FH: cancer Hypertension G8 BROTHER G8 SISTER G8 SISTER Kidney disease 19 MOTHER Myocardial infarction Hypertension, Renal Disease (DAVEY BYRNE STUDENT) Physical Exam Vital Signs Vital Signs - First Documented (DAVONTE REAL MD) Vital Signs Capillary Refill : Less Than 3 Seconds (DAVEY BYRNE STUDENT) Height, Weight, BMI Height: 6'2.00" Weight: 225lbs. 0.0oz. 102.019342kg; 29.00 BMI Method:Stated General Appearance: Anxious, Mild Distress HEENT: PERRL/EOMI, Photophobia Respiratory: Chest Non Tender, Wheezing Cardiovascular: Regular Rate, Rhythm Neurologic/Psychiatric: Alert, Oriented x3, Normal Mood/Affect Skin: Normal Color, Diaphoresis (DAVEY BYRNE MED STUDENT) General Appearance: WD/WN, Mild Distress HEENT: PERRL/EOMI, Pharynx Normal Neck: Non Tender, Supple Respiratory: Lungs Clear, No Respiratory Distress Cardiovascular: Regular Rate, Rhythm, No Edema Gastrointestinal: Non Tender, Soft Extremity: Normal Range of Motion, Non Tender Neurologic/Psychiatric: Alert, Oriented x3 Skin: Normal Color, Diaphoresis (DAVONTE REAL MD) Progress/Results/Core Measures Results/Orders Lab Results Laboratory Tests Test 12/08/18 09:16 12/08/18 09:37 12/08/18 12:02 Range/Units White Blood Count 13.0 H 4.3-11.0 10^3/uL Red Blood Count 4.41 4.35-5.85 10^6/uL Hemoglobin 13.7 13.3-17.7 G/DL Hematocrit 41 40-54 % Mean Corpuscular Volume 93 80-99 FL Mean Corpuscular Hemoglobin 31 25-34 PG Mean Corpuscular Hemoglobin Concent 33 32-36 G/DL Red Cell Distribution Width 13.8 10.0-14.5 % Platelet Count 262 130-400 10^3/uL Mean Platelet Volume 11.3 H 7.4-10.4 FL Neutrophils (%) (Auto) 76 H 42-75 % Lymphocytes (%) (Auto) 16 12-44 % Monocytes (%) (Auto) 6 0-12 % Eosinophils (%) (Auto) 3 0-10 % Basophils (%) (Auto) 0 0-10 % Neutrophils # (Auto) 9.8 H 1.8-7.8 X 10^3 Lymphocytes # (Auto) 2.0 1.0-4.0 X 10^3 Monocytes # (Auto) 0.8 0.0-1.0 X 10^3 Eosinophils # (Auto) 0.3 0.0-0.3 10^3/uL Basophils # (Auto) 0.0 0.0-0.1 10^3/uL Prothrombin Time 14.1 12.2-14.7 SEC INR Comment 1.0 0.8-1.4 Activated Partial Thromboplast Time 33 24-35 SEC D-Dimer < 0.27 0.00-0.49 UG/ML Sodium Level 136 135-145 MMOL/L Potassium Level 3.7 3.6-5.0 MMOL/L Chloride Level 104 98-107 MMOL/L Carbon Dioxide Level 25 21-32 MMOL/L Anion Gap 7 5-14 MMOL/L Blood Urea Nitrogen 15 7-18 MG/DL Creatinine 1.00 0.60-1.30 MG/DL Estimat Glomerular Filtration Rate > 60 BUN/Creatinine Ratio 15 Glucose Level 139 H 70-105 MG/DL Calcium Level 9.1 8.5-10.1 MG/DL Corrected Calcium 9.1 8.5-10.1 MG/DL Magnesium Level 2.1 1.6-2.4 MG/DL Total Bilirubin 0.6 0.1-1.0 MG/DL Aspartate Amino Transf (AST/SGOT) 15 5-34 U/L Alanine Aminotransferase (ALT/SGPT) 13 0-55 U/L Alkaline Phosphatase 70 40-136 U/L Myoglobin 135.9 H 10.0-92.0 NG/ML Troponin I < 0.028 < 0.028 <0.028 NG/ML Total Protein 6.7 6.4-8.2 GM/DL Albumin 4.0 3.2-4.5 GM/DL Lipase 11 8-78 U/L Glucometer 140 H 70-110 MG/DL (DAVONTE REAL MD) My Orders Orders - DAVONTE REAL MD Cbc With Automated Diff (12/08/18:19) Magnesium (12/08/18:19) Chest 1 View, Ap/Pa Only (12/08/18:19) Ekg Tracing (12/08/18:19) Cardiac Profile 1 (12/08/18:19) Comprehensive Metabolic Panel (12/08/18:) Myoglobin Serum (12/08/18:) Protime With Inr (12/08/18:19) Partial Thromboplastin Time (12/08/18:19) O2 (12/08/18 09:19) Monitor-Rhythm Ecg Trace Only (12/08/18:19) Lipid Panel (12/09/18 06:00) Ed Iv/Invasive Line Start (12/08/18 09:19) Fibrin Degradation Products (12/08/18 09:19) Lipase (12/08/18 09:48) Ed Iv/Invasive Line Start (12/08/18 09:54) Ns Iv 1000 Ml (Sodium Chloride 0.9%) (12/08/18 09:54) Fentanyl Injection (Sublimaze Injection (12/08/18 09:54) Ct Abdomen/Pelvis W (12/08/18 11:07) Famotidine Injection (Pepcid Injection) (12/08/18 11:07) Troponin I (12/08/18 11:07) Iohexol Injection (Omnipaque 350 Mg/Ml 1 (12/08/18 11:15) Received Contrast (Hold Metformin- Contr (12/08/18 11:15) Sodium Chloride Flush (Catheter Flush Sy (12/08/18 11:15) Ns (Ivpb) (Sodium Chloride 0.9% Ivpb Bag (12/08/18 11:15) (DAVONTE REAL MD) Medications Given in ED Current Medications Medications Dose Ordered Sig/Mikayla Route Start Time Stop Time Status Last Admin Dose Admin Iohexol 100 ml ONCE ONCE IV 12/08/18 11:15 12/08/18 11:16 DC 12/08/18 11:25 100 ML Sodium Chloride 100 ml ONCE ONCE IV 12/08/18 11:15 12/08/18 11:16 DC 12/08/18 11:25 80 ML Sodium Chloride 1,000 ml @ 0 mls/hr Q0M ONCE IV 12/08/18 09:54 12/08/18 09:55 DC 12/08/18 10:19 1,000 MLS/HR (DAVONTE REAL MD) Vital Signs/I&O 12/08/18 12/08/18 12/08/18 09:11 09:11 09:24 Temp 36.5 Pulse 81 Resp 18 B/P (MAP) 92/61 (71) Pulse Ox 94 95 O2 Delivery Nasal Cannula Nasal Cannula Nasal Cannula O2 Flow Rate 3.00 3.00 3.0 (DAVONTE REAL MD) Blood Pressure Mean: 71 Progress Progress Note : Time: 09:45 Progress Note The patient is resting in the exam room. He will be evaluated for possible NC with standard protocol. Lipase to rule out pancreatitis. (DAVEY BYRNE MED STUDENT) Progress Note : Progress Note I have seen and evaluated the patient and agree with above except as indicated. I have directed the plan of care. Patient is here with significant chest pain that is actually more in the epigastric low chest region. He has had similar before. He has had previous heart catheter 2 years ago and stress test last year that did not indicate significant disease although he does have some disease in the coronary artery system. He reports that he has had reflux problems recently and has been using Gas-X which hasn't helped a lot. He did receive an extra dose of fentanyl here and that has helped. We have evaluated chest pain with chest pain protocol. I does not show anything acute at this point. I will go ahead and get CT abdomen and pelvis to rule out upper abdominal pathology and also repeat troponin as first troponin was negative. Pepcid 20 mg IV ordered. Continue to monitor. 1254: Remains pain free. Repeat troponin negative. CT does not show any significant pathology. I discussed the case with Dr. Holguin and he will see him on Tuesday or Tuesday. I have recommended that the patient follow up with his doctor for referral to surgeon for upper endoscopy and he agrees. Discharged home with return precautions. Patient verbalize understanding instructions and agreement with plan. (DAVONTE REAL MD) Initial ECG Impression Date: Dec 08, 2018 Initial ECG Impression Time: 09:11 Initial ECG Rate: 74 Initial ECG Rhythm: Normal Sinus Initial ECG Comparisson: Unchanged Comment Sinus with leftward axis. No evidence of STEMI. Similar to previous of 05/21/18. Interpreted by me. (DAVONTE REAL MD) Diagnostic Imaging Diagonstic Imaging: Xray Plain Films/CT/US/NM/MRI: chest Comments [facility], [facility]. [place], [place] NAME: LIZY MIRANDA [facility] REC#: [id number] PT STATUS: REG ER : 1960 PHYSICIAN: DAVONTE REAL MD ADMIT DATE: 12/08/18/ER Draft Date of Exam:12/08/18 CHEST 1 VIEW, AP/PA ONLY INDICATION: SOA, chest pain and history of pneumonia 1 month. Frontal chest obtained at 935 hours am, and is compared to 05/21/2018. Heart is normal in size. There is central vascular congestion. There is chronic infiltrate in the lung bases which appears similar to the prior study. There is extensive biapical bullous change. There is no pneumothorax or pleural fluid. IMPRESSION: COPD changes with extensive biapical bullous change. There appear to be chronic bibasilar infiltrates versus fibrotic changes which are unchanged compared to the prior study. Dictated on workstation # [id number] Dict: 12/08/18 0943 Trans: 12/08/18 0948 [facility] [id number] Interpreted by: SATHYA MORRIS MD Electronically signed by: Diagonstic Imaging: CT Plain Films/CT/US/NM/MRI: abdomen, pelvis Comments [facility] [place] [place] NAME: LIZY MIRANDA MED REC#: [id number] PT STATUS: REG ER : 1960 PHYSICIAN: DAVONTE REAL MD ADMIT DATE: 12/08/18/ER Draft Date of Exam:12/08/18 CT ABDOMEN/PELVIS W PROCEDURE: CT abdomen and pelvis with contrast. TECHNIQUE: Multiple contiguous axial images were obtained through the abdomen and pelvis after administration of intravenous contrast. Auto Exposure Controls were utilized during the CT exam to meet ALARA standards for radiation dose reduction. INDICATION: Chest pain. COMPARISON: No prior studies are available for comparison. FINDINGS: There are areas of scarring or subsegmental atelectasis in the lingula and bilateral lower lobes. No discrete liver mass is identified. The gallbladder is unremarkable. No biliary duct dilatation is seen. Pancreas demonstrates normal homogeneous enhancement. No pancreatic mass or evidence of peripancreatic inflammation or fluid is seen. The spleen is unremarkable. No adrenal mass is detected. No definite renal calculi or hydronephrosis is seen. Aorta is tortuous and demonstrates calcifications but no definite aneurysm is seen. The small and large bowel loops appear to be nonobstructed. The appendix is visualized in the right lower quadrant and appears unremarkable. No free fluid or fluid collection is identified. The bladder and prostate are unremarkable. Bony structures appear nonacute. IMPRESSION: Essentially unremarkable CT of the abdomen and pelvis. No acute abnormality is identified. Dictated on workstation # [id number] Dict: 12/08/18 1140 Trans: 12/08/18 1153 [id number] Interpreted by: SAMANTA HARGROVE MD Electronically signed by: (DAVONTE REAL MD) Departure Impression Primary Impression: Chest pain Qualified Codes: R07.9 - Chest pain, unspecified Additional Impression: Upper abdominal pain Disposition: HOME, SELF-CARE Condition: Improved Departure-Patient Inst. Decision time for Depature: 12:56 (DAVONTE REAL MD) Referrals: [facility] [place] Primary Care Physician Patient Instructions: Chest Pain (DC), Acute Abdomen (Belly Pain), Adult (DC) Add. Discharge Instructions: All discharge instructions reviewed with patient and/or family. Voiced understanding. Continue home meds as previously prescribed. You may add Pepcid or the generic famotidine 20 mg once or twice daily as needed for stomach upset. He should follow-up with Dr. Holguin on Tuesday or Tuesday. Call his office today for appointment on Tuesday or Tuesday. Let them know that he wanted to see you at that point. You also need to follow-up with your DrWilfredo for further evaluation as well. Discussed with your DrWilfredo regarding referral to surgeon for upper endoscopy (scope) to evaluate your stomach ulcers and for other causes of your pain. Return for worse pain, recent problems, weakness, sweating, vomiting or other concerns as needed. Copy Copies To 1: EMILY HOLGUIN MD Copies To 2: ALMA DELIA ADRIAN MD, JOSHUA K MED STUDENT Dec 08, 2018 09:43 DAVONTE REAL MD Dec 08, 2018 11:26
--- NOTE | 2018-12-08 09:49 | Diagnostic Imaging Report ---
INDICATION: SOA, chest pain and history of pneumonia 1 month. Frontal chest obtained at 935 hours am, and is compared to 05/21/2018. Heart is normal in size. There is central vascular congestion. There is chronic infiltrate in the lung bases which appears similar to the prior study. There is extensive biapical bullous change. There is no pneumothorax or pleural fluid. IMPRESSION: COPD changes with extensive biapical bullous change. There appear to be chronic bibasilar infiltrates versus fibrotic changes which are unchanged compared to the prior study. Dictated by: Dictated on workstation # [id number]
[2018-12-08] MEDS ORDERED: NS IV 1000 ML 1,000 ML IV ONE (09:54)
[2018-12-08] MEDS ORDERED: fentaNYL INJECTION 100 MCG/2 ML AMP IVP STA (09:54)
[2018-12-08] MEDS ORDERED: FAMOTIDINE 20MG/2ML IV (PEPCID) IV STA (11:07)
[2018-12-08] MEDS ORDERED: HOLD METFORMIN - RECEIVED CONTRAST 20 ML VIAL IV SCH (11:15)
[2018-12-08] MEDS ORDERED: NS 100 ML (IVPB) BAG IV ONE (11:15)
[2018-12-08] MEDS ORDERED: CATHETER FLUSH 10 ML SYR IV PRN (11:15)
[2018-12-08] MEDS ORDERED: IOHEXOL 350 MG/ML 100 ML (OMNIPAQUE 350) VIAL IV ONE (11:15)
--- NOTE | 2018-12-08 11:54 | Diagnostic Imaging Report ---
PROCEDURE: CT abdomen and pelvis with contrast. TECHNIQUE: Multiple contiguous axial images were obtained through the abdomen and pelvis after administration of intravenous contrast. Auto Exposure Controls were utilized during the CT exam to meet ALARA standards for radiation dose reduction. INDICATION: Chest pain. COMPARISON: No prior studies are available for comparison. FINDINGS: There are areas of scarring or subsegmental atelectasis in the lingula and bilateral lower lobes. No discrete liver mass is identified. The gallbladder is unremarkable. No biliary duct dilatation is seen. Pancreas demonstrates normal homogeneous enhancement. No pancreatic mass or evidence of peripancreatic inflammation or fluid is seen. The spleen is unremarkable. No adrenal mass is detected. No definite renal calculi or hydronephrosis is seen. Aorta is tortuous and demonstrates calcifications but no definite aneurysm is seen. The small and large bowel loops appear to be nonobstructed. The appendix is visualized in the right lower quadrant and appears unremarkable. No free fluid or fluid collection is identified. The bladder and prostate are unremarkable. Bony structures appear nonacute. IMPRESSION: Essentially unremarkable CT of the abdomen and pelvis. No acute abnormality is identified. Dictated by: Dictated on workstation # [id number]
[2018-12-08 13:16] VITALS: BP 115/86
== END 2018-12-08 13:16 | disposition home or self-care (01) ==
LOC: EDUNIT# 09:05 → ER 09:07
DX: R07.9 Chest pain, unspecified (principal); R10.10 Upper abdominal pain, unspecified; I10 Essential (primary) hypertension; J44.9 Chronic obstructive pulmonary disease, unspecified; I25.2 Old myocardial infarction; I25.10 Atherosclerotic heart disease of native coronary artery without angina pectoris; E78.00 Pure hypercholesterolemia, unspecified; K21.9 Gastro-esophageal reflux disease without esophagitis; F91.8 Other conduct disorders; F17.210 Nicotine dependence, cigarettes, uncomplicated; Z90.49 Acquired absence of other specified parts of digestive tract; Z87.19 Personal history of other diseases of the digestive system; Z88.0 Allergy status to penicillin; Z98.890 Other specified postprocedural states; Z79.82 Long term (current) use of aspirin; Z79.52 Long term (current) use of systemic steroids; Z82.49 Family history of ischemic heart disease and other diseases of the circulatory system
CPT/HCPCS: 36415; 71045; 74177; 80053; 82962; 83690; 83735; 83874; 84484; 85025; 85379; 85610; 85730; 93005; 93041

== ENCOUNTER → 2018-12-20 | Outpatient (CLI) | payer MEDICARE, MEDICAID ==
[~2018-12-20] MED LIST changes: +CATHETER FLUSH 10 ML SYR IV PRN; +REGADENOSON 0.4 MG/5 ML SYR (LEXISCAN) IV ONE
--- NOTE | 2018-12-20 15:00 | STRESS TEST ---
DATE OF SERVICE: 12/20/2018 LEXISCAN MYOVIEW STRESS TEST REPORT REFERRING PHYSICIAN: [facility]. Baseline heart rate is 89. Baseline blood pressure 146/100. Baseline EKG is sinus rhythm with no ischemic changes. In summary, the patient was injected with 10.86 mCi of technetium-99 Myoview and the resting images were obtained. Then, the patient received 0.4 mg of Lexiscan followed by 31.3 mCi of technetium-99 Myoview. Throughout the test, there were no EKG changes. The resting and stress images were reviewed and compared in the short axis, horizontal long axis, and vertical long axis views. Review of the images showed diaphragmatic attenuation with fixed defect involving the whole inferior wall. No reversibility was seen. SSS is 11, SDS 0, TID value 1.07. On the gated images, the left ventricle appeared to be normal size with normal contractility, inferior wall is mark normally. Calculated ejection fraction 52%. IN CONCLUSION: 1. The patient tolerated Lexiscan well. 2. Diaphragmatic attenuation with fixed defect at the inferior wall. No significant ischemia was noted. 3. Normal left ventricular size with normal contractility, inferior wall is mark normally. Calculated ejection fraction of 52%. Job ID: [id number] DocumentID: [id number] Dictated Date: 12/20/2018 14:46:39 Vice Admiral Date: 12/20/2018 14:59:49 Dictated By: EMILY ALICEA MD
== END ==
LOC: CARD 10:06
PROVIDERS: ATTEND Internal Medicine Cardiovascular Disease
DX: I34.0 Nonrheumatic mitral (valve) insufficiency (principal); I25.10 Atherosclerotic heart disease of native coronary artery without angina pectoris; Z72.0 Tobacco use
CPT/HCPCS: 78452; 93017; 93306

== ENCOUNTER → 2018-12-25 | Outpatient (CLI) | payer MEDICARE, MEDICAID ==
[~2018-12-25] MED LIST changes: -REGADENOSON 0.4 MG/5 ML SYR (LEXISCAN) IV ONE
--- NOTE | 2018-12-25 14:41 | Diagnostic Imaging Report ---
INDICATION: Right upper quadrant pain. TECHNIQUE: Patient was administered 5.4 mCi technetium-99m Choletec intravenously and imaging over the abdomen was performed. After approximately 60 minutes, patient ingested one can of Ensure and additional imaging was performed. FINDINGS: There is homogeneous uptake of activity throughout the liver with prompt excretion of activity into the common duct. Normal passage of activity into the small bowel is seen. There is delayed visualization of the gallbladder at one hour. After walking, additional imaging was performed and the gallbladder is visualized in the gallbladder fossa. Gallbladder ejection fraction is slightly low at 30%. IMPRESSION: 1. No evidence of cystic duct or common bile duct obstruction. Delayed visualization of the gallbladder can be seen with chronic cholecystitis. Gallbladder ejection fraction is also slightly low at 30%. Dictated by: Dictated on workstation # [id number]
== END ==
LOC: CARD 12:00
PROVIDERS: ATTEND Nurse Practitioner Community Health
DX: K21.0 Gastro-esophageal reflux disease with esophagitis (principal)
CPT/HCPCS: 78227

== ENCOUNTER 2019-01-25 10:30 | Outpatient (CLI) | payer MEDICARE, MEDICAID ==
[~2019-01-25] VITALS: Ht 188 cm; Wt 104.1 kg
[~2019-01-25 10:30] MED LIST changes: -CATHETER FLUSH 10 ML SYR IV PRN
[2019-01-25] MEDS ORDERED: LISI40TA PO (11:05)
[2019-01-25] MEDS ORDERED: AMLO5TAB9 PO (11:05)
[2019-01-25] MEDS ORDERED: RT-ALBUINH IH (11:05)
== END 2019-01-25 11:08 | disposition home or self-care (01) ==
LOC: PREOP 10:30
PROVIDERS: ATTEND Surgery
DX: Z01.818 Encounter for other preprocedural examination (principal)

== ENCOUNTER → 2019-01-29 | Outpatient (CLI) | payer MEDICARE, MEDICAID ==
[~2019-01-29] MED LIST changes: +AMLO5TAB9 PO; +LISI40TA PO
== END | disposition home or self-care (01) ==
LOC: PREOP 01-24 05:39
PROVIDERS: ATTEND Surgery
DX: Z01.818 Encounter for other preprocedural examination (principal)

== ENCOUNTER 2019-02-06 07:49 | Emergency (ER) | payer MEDICARE, MEDICAID ==
[~2019-02-06] VITALS: Ht 187.9 cm; Wt 104.5 kg
[2019-02-06 08:12] LABS: BASOPHILS # (AUTO) 0.1 10^3/uL (0.0-0.1); BASOPHILS % (AUTO) 0 % (0-10); EOSINOPHILS # (AUTO) 0.1 10^3/uL (0.0-0.3); EOSINOPHILS % (AUTO) 1 % (0-10); HEMATOCRIT 41 % (40-54); HEMOGLOBIN 13.7 G/DL (13.3-17.7); LYMPHOCYTES % (AUTO) 17 % (12-44); MEAN CORPUSCULAR HEMOGLOBIN 31 PG (25-34); MEAN CORPUSCULAR HGB CONC 33 G/DL (32-36); MEAN CORPUSCULAR VOLUME 95 FL (80-99); MEAN PLATELET VOLUME 10.7 FL (7.4-10.4); MONOCYTES # (AUTO) 0.9 X 10^3 (0.0-1.0); MONOCYTES % (AUTO) 8 % (0-12); NEUTROPHILS # (AUTO) 8.4 X 10^3 (1.8-7.8); NEUTROPHILS % (AUTO) 74 % (42-75); PLATELET COUNT 312 10^3/uL (130-400); RED CELL DISTRIBUTION WIDTH 14.2 % (10.0-14.5); WHITE BLOOD COUNT 11.4 10^3/uL (4.3-11.0)
[2019-02-06] MEDS ORDERED: ANTACID SUSP 30 ML UDC (MYLANTA) PO ONE (08:15)
[2019-02-06] MEDS ORDERED: LIDOCAINE 2% VISCOUS 15 ML UDC PO ONE (08:15)
[2019-02-06] MEDS ORDERED: ASPIRIN 81 MG CHEW (CHILDREN'S ASA) PO ONE (08:15)
[2019-02-06 08:23] LABS: INR 0.9 (0.8-1.4); PROTHROMBIN TIME PATIENT 12.7 SEC (12.2-14.7)
[2019-02-06 08:33] LABS: ALANINE AMINOTRANSFERASE 14 U/L (0-55); ALBUMIN 4.5 GM/DL (3.2-4.5); ALKALINE PHOSPHATASE 74 U/L (40-136); BILIRUBIN,TOTAL 0.4 MG/DL (0.1-1.0); BUN/CREATININE RATIO 15; CALCIUM 9.7 MG/DL (8.5-10.1); CARBON DIOXIDE 26 MMOL/L (21-32); CHLORIDE 98 MMOL/L (98-107); CREATININE SERUM 0.89 MG/DL (0.60-1.30); GFR ESTIMATED > 60; GLUCOSE 100 MG/DL (70-105); LIPASE 17 U/L (8-78); MAGNESIUM 1.9 MG/DL (1.6-2.4); POTASSIUM 4.1 MMOL/L (3.6-5.0); SODIUM 136 MMOL/L (135-145); TOTAL PROTEIN 7.6 GM/DL (6.4-8.2)
--- NOTE | 2019-02-06 08:38 | Diagnostic Imaging Report ---
REASON FOR THE EXAMINATION: Chest pain. TECHNIQUE/COMPARISON: Two views of the chest were obtained and compared to 03/26/2018. FINDINGS: There are severe upper lobe predominant emphysematous changes. The heart size and mediastinum are stable and within normal limits. Increased opacity is noted in the right middle lobe. Some of this has been present prior but is more prominent and a component of acute infiltrate could not be excluded. Air trapping is also noted. IMPRESSION: 1. Increased opacity in the right middle lobe, suspicious for right middle lobe infiltrate. 2. Air trapping and severe apical predominant emphysematous change. Dictated by: Dictated on workstation # [id number]
[2019-02-06 09:28] LABS: BILIRUBIN,URINE NEGATIVE (NEGATIVE); CLARITY,URINE CLEAR; COLOR,URINE YELLOW; GLUCOSE, URINE (UA) NEGATIVE (NEGATIVE); KETONES,URINE NEGATIVE (NEGATIVE); LEUKOCYTE ESTERASE ,URINE NEGATIVE (NEGATIVE); NITRITE,URINE NEGATIVE (NEGATIVE); PH,URINE 5.5 (5-9); PROTEIN,URINE NEGATIVE (NEGATIVE)
[2019-02-06 09:48] LABS: BACTERIA,URINE NEGATIVE /HPF; SQUAMOUS EPITHELIAL CELL,UR 0-2 /HPF
[2019-02-06] MEDS ORDERED: SUCR1TAB36 PO (11:26)
--- NOTE | 2019-02-06 11:27 | ED Chest Pain ---
General Chief Complaint: Chest Pain Stated Complaint: CHEST PAIN Nursing Triage Note: AMB TO ED ROOM REPORT AT 530 AM WAS WALKING DOG WHEN IT PULLED ON CHAIN WHEN HIS CHEST PAIN STARTED. REPORTS IS TO SEE DR HOLGUIN IN [place]. WAS TO HAVE GALLBLADDER SURG NIV 13 IT WAS CANCELLED. DUE TO HE WAS HAVING CHEST PAIN AT THAT TIME. Nursing Sepsis Screen: No Definite Risk Source: patient, old records Exam Limitations: no limitations History of Present Illness Date Seen by Provider: Feb 06, 2019 Time Seen by Provider: 07:53 Initial Comments This 58-year-old gentleman presents to the emergency room with left lower chest pain and left upper quadrant abdominal pain. Pain started while he was walking a dog that pulled on the chain. Patient reports he was to have a cholecystectomy and endoscopy performed in mid January. However, these procedures were delayed because he was experiencing chest pain relieved by nitroglycerin. He was instructed to obtain cardiac clearance before these procedures were performed. He has not yet had his follow-up with Dr. Holguin. Pain does not seem to be exacerbated or alleviated by anything in particular other than palpation of the left upper quadrant. He denies any pleuritic pain, increase in chronic cough, or fever. Review of records notes he had a negative stress test in December of this year. An echocardiogram in December showed an EF of 55-65 percent with diastolic dysfunction. He had cardiac angiography in 2015 demonstrating mild to moderate coronary artery disease with a 30-40 percent stenosis of the RCA. Allergies and Home Medications Allergies Coded Allergies: Penicillins (Verified Allergy, Intermediate, 03/26/18) causes dysrhythmias Home Medications Acetaminophen 500 Mg Tablet, 500-1,000 MG PO Q6H PRN for PAIN-MILD, (Reported) Albuterol Sulfate 1 Puff Puff, 2 PUFF IH Q4H PRN for WHEEZING, (Reported) Amlodipine Besylate 5 Mg Tablet, 5 MG PO DAILY, (Reported) Aspirin 81 Mg Tablet.dr, 81 MG PO DAILY, (Reported) Atorvastatin Calcium 10 Mg Tablet, 10 MG PO DAILY, (Reported) Ibuprofen 800 Mg Tablet, 800 MG PO Q8H PRN for PAIN-MILD, (Reported) Lisinopril 40 Mg Tablet, 40 MG PO DAILY, (Reported) Nitroglycerin 0.4 Mg Tab.subl, 0.4 MG SL UD PRN for CHEST PAIN, (Reported) Pantoprazole Sodium 40 Mg Tablet.dr, 40 MG PO DAILY, (Reported) Sucralfate 1 Gm Tablet, 1 GM PO QID Dissolve or crush in 5-10 mL water to make a slurry. Take 30 minutes prior to eating or drinking and at bedtime Prescribed by: DAVEY HALEY on 02/06/19 1126 Vit A/Vit C/Vit E/Zinc/Copper 1 Each Tablet, 1 TAB PO BID, (Reported) Patient Home Medication List Home Medication List Reviewed: Yes Review of Systems Review of Systems Constitutional: no symptoms reported Respiratory: Cough (chronic and unchanged) Cardiovascular: See HPI Gastrointestinal: See HPI Genitourinary: No Symptoms Reported Musculoskeletal: no symptoms reported Skin: no symptoms reported Psychiatric/Neurological: No Symptoms Reported Endocrine: No Symptoms Reported Hematologic/Lymphatic: No Symptoms Reported Past Neffkrm-Qlwvsg-Ejwuka Hx Past Med/Social Hx: Reviewed Nursing Past Med/Soc Hx Patient Social History Alcohol Use: Denies Use Number of Drinks Today: GG Alcohol Beverage of Choice: Whiskey Recreational Drug Use: No Drug of Choice: PAST HISTORY of marijuana Smoking Status: Current Everyday Smoker Type Used: Cigarettes Former Smoker, Quit: Jan 25, 1990 2nd Hand Smoke Exposure: No Recent Foreign Travel: No Contact w/Someone Who Travel: No Recent Infectious Disease Expo: No Recent Hopitalizations: No Immunizations Up To Date Tetanus Booster (TDap): Unknown Seasonal Allergies Seasonal Allergies: No Past Medical History Surgeries: Yes (HERNIA REPAIR, CATARACT, BACK, R KNEE) Abdominal, Appendectomy, Cardiac, Eye Surgery, Orthopedic Respiratory: Yes (HEMOPTYSIS WITH BRONCHITIS) Chronic Bronchitis, COPD Currently Using CPAP: No Currently Using BIPAP: No Cardiac: Yes Coronary Artery Disease, Heart Attack, High Cholesterol, Hypertension Neurological: No Reproductive Disorders: No Sexually Transmitted Disease: No HIV/AIDS: No Genitourinary: No Gastrointestinal: Yes Abdominal Hernia, Gastroesophageal Reflux, Gastrointestinal Bleed, Polyps, Ulcer, Gall Bladder Disease Musculoskeletal: Yes ( BACK SURGERY 1988) Degenerate Disk Disease, Arthritis, Chronic Back Pain Endocrine: Yes (HYPOERGLYCEMIA) HEENT: Yes (recent eye sx) Cataract, Tinnitis, Eye Injury Loss of Vision: Denies Hearing Impairment: Hard of Hearing Cancer: No Psychosocial: Yes (MENTAL BLOCK ([facility] [place] [facility] 3 YE[facility]) ) Sleep Difficulties, Violent Behavior Integumentary: No Blood Disorders: No Adverse Reaction/Blood Tranf: No Family Medical History Reviewed Nursing Family Hx Cardiomegaly 19 MOTHER Dysphasia G8 BROTHER G8 SISTER FH: cancer Hypertension G8 BROTHER G8 SISTER G8 SISTER Kidney disease 19 MOTHER Myocardial infarction Hypertension, Renal Disease Physical Exam Vital Signs Vital Signs - First Documented 02/06/19 02/06/19 07:50 11:37 Temp 36.6 Pulse 89 Resp 18 B/P (MAP) 102/85 (91) Pulse Ox 96 O2 Delivery Room Air Capillary Refill : Less Than 3 Seconds Height, Weight, BMI Height: 6'2.00" Weight: 225lbs. 0.0oz. 102.511814ke; 29.00 BMI Method:Stated General Appearance: No Apparent Distress, WD/WN HEENT: PERRL/EOMI, Normal ENT Inspection Neck: Normal Inspection Respiratory: No Accessory Muscle Use, No Respiratory Distress, Wheezing (mild) Cardiovascular: Regular Rate, Rhythm, No Edema, No Murmur Gastrointestinal: Normal Bowel Sounds, Soft, Tenderness (left upper quadrant and epigastrium) Extremity: Normal Inspection, Non Tender, No Calf Tenderness, No Pedal Edema Neurologic/Psychiatric: Alert, Oriented x3, No Motor/Sensory Deficits, Normal Mood/Affect, operations general agent II-XII Norm as Tested Skin: Normal Color, Warm/Dry Progress/Results/Core Measures Results/Orders Lab Results Laboratory Tests Test 02/06/19 08:00 02/06/19 09:07 02/06/19 10:29 Range/Units White Blood Count 11.4 H 4.3-11.0 10^3/uL Red Blood Count 4.36 4.35-5.85 10^6/uL Hemoglobin 13.7 13.3-17.7 G/DL Hematocrit 41 40-54 % Mean Corpuscular Volume 95 80-99 FL Mean Corpuscular Hemoglobin 31 25-34 PG Mean Corpuscular Hemoglobin Concent 33 32-36 G/DL Red Cell Distribution Width 14.2 10.0-14.5 % Platelet Count 312 130-400 10^3/uL Mean Platelet Volume 10.7 H 7.4-10.4 FL Neutrophils (%) (Auto) 74 42-75 % Lymphocytes (%) (Auto) 17 12-44 % Monocytes (%) (Auto) 8 0-12 % Eosinophils (%) (Auto) 1 0-10 % Basophils (%) (Auto) 0 0-10 % Neutrophils # (Auto) 8.4 H 1.8-7.8 X 10^3 Lymphocytes # (Auto) 2.0 1.0-4.0 X 10^3 Monocytes # (Auto) 0.9 0.0-1.0 X 10^3 Eosinophils # (Auto) 0.1 0.0-0.3 10^3/uL Basophils # (Auto) 0.1 0.0-0.1 10^3/uL Prothrombin Time 12.7 12.2-14.7 SEC INR Comment 0.9 0.8-1.4 Activated Partial Thromboplast Time 35 24-35 SEC Sodium Level 136 135-145 MMOL/L Potassium Level 4.1 3.6-5.0 MMOL/L Chloride Level 98 98-107 MMOL/L Carbon Dioxide Level 26 21-32 MMOL/L Anion Gap 12 5-14 MMOL/L Blood Urea Nitrogen 13 7-18 MG/DL Creatinine 0.89 0.60-1.30 MG/DL Estimat Glomerular Filtration Rate > 60 BUN/Creatinine Ratio 15 Glucose Level 100 70-105 MG/DL Calcium Level 9.7 8.5-10.1 MG/DL Corrected Calcium 9.3 8.5-10.1 MG/DL Magnesium Level 1.9 1.6-2.4 MG/DL Total Bilirubin 0.4 0.1-1.0 MG/DL Aspartate Amino Transf (AST/SGOT) 14 5-34 U/L Alanine Aminotransferase (ALT/SGPT) 14 0-55 U/L Alkaline Phosphatase 74 40-136 U/L Myoglobin 92.9 H 10.0-92.0 NG/ML Troponin I < 0.028 < 0.028 <0.028 NG/ML Total Protein 7.6 6.4-8.2 GM/DL Albumin 4.5 3.2-4.5 GM/DL Lipase 17 8-78 U/L Urine Color YELLOW Urine Clarity CLEAR Urine pH 5.5 5-9 Urine Specific [place] 1.025 H 1.016-1.022 Urine Protein NEGATIVE NEGATIVE Urine Glucose (UA) NEGATIVE NEGATIVE Urine Ketones NEGATIVE NEGATIVE Urine Nitrite NEGATIVE NEGATIVE Urine Bilirubin NEGATIVE NEGATIVE Urine Urobilinogen 0.2 < = 1.0 MG/DL Urine Leukocyte Esterase NEGATIVE NEGATIVE Urine RBC (Auto) NEGATIVE NEGATIVE Urine RBC NONE /HPF Urine WBC NONE /HPF Urine Squamous Epithelial Cells 0-2 /HPF Urine Crystals NONE /LPF Urine Bacteria NEGATIVE /HPF Urine Casts NONE /LPF Urine Mucus MODERATE H /LPF Urine Culture Indicated NO My Orders Orders - DAVEY MCCANN MD Cbc With Automated Diff (02/06/19 07:54) Magnesium (02/06/19 07:54) Ekg Tracing (02/06/19 07:54) Cardiac Profile 1 (02/06/19 07:54) Comprehensive Metabolic Panel (02/06/19 07:54) Myoglobin Serum (02/06/19 07:54) Protime With Inr (02/06/19 07:54) Partial Thromboplastin Time (02/06/19 07:54) O2 (02/06/19 07:54) Monitor-Rhythm Ecg Trace Only (02/06/19 07:54) Ed Iv/Invasive Line Start (02/06/19 07:54) Chest Pa/Lat (2 View) (02/06/19 07:54) Aspirin Chewable Tablet (Baby Aspirin Ch (02/06/19 08:15) Lidocaine 2% Viscous 15 Ml (Xylocaine Vi (02/06/19 08:15) Antacid Suspension (Mylanta Suspension (02/06/19 08:15) Lipase (02/06/19 08:00) Ua Culture If Indicated (02/06/19 08:23) Troponin I (02/06/19 09:55) Medications Given in ED Vital Signs/I&O 02/06/19 02/06/19 07:50 11:37 Temp 36.6 Pulse 89 75 Resp 18 18 B/P (MAP) 102/85 (91) 123/84 Pulse Ox 96 98 O2 Delivery Room Air Blood Pressure Mean: 91 POS Progress Progress Note #1: Progress Note Chest pain order set was used to evaluatepatient. Pain seemed to be originating more from the left upper quadrant as he was tender in this area. Patient was given the balance of his 324 mg aspirin dose and then a GI cocktail. GI cocktail relieved his pain and reduced his tenderness. A 2 hour troponin was used to rule out cardiac injury. Carafate was prescribed to add to his GI regimen. I strongly encouraged him to reduce smoking and work toward quitting. I advised him to follow-up as promptly as possible with Dr. Holguin. Chest x-ray questioned infiltrate in the right lung but this was not consistent with clinical picture. Patient had no increase in cough and no fever. Progress Note #2: Progress Note Because of the reading on the x-ray report, I contacted the patient again on February 07. He was not experiencing any symptoms of pneumonia such as increased cough, shortness of breath, or fever. He was instructed to follow-up if he did develop any symptoms of pneumonia. Initial ECG Impression Date: Feb 06, 2019 Initial ECG Impression Time: 07:55 Initial ECG Rate: 77 Initial ECG Rhythm: Normal Sinus Comment Normal sinus rhythm with no ST elevation or depression. No abnormal intervals or axis deviation. Diagnostic Imaging Diagonstic Imaging: Xray Plain Films/CT/US/NM/MRI: chest Comments Chest x-ray viewed by me and report reviewed. See report below: NAME: LIZY MIRANDA [facility] REC#: [id number] PT STATUS: REG ER : 1960 PHYSICIAN: DAVEY MCCANN MD ADMIT DATE: 02/06/19/ER Signed Date of Exam:02/06/19 CHEST PA/LAT (2 VIEW) REASON FOR THE EXAMINATION: Chest pain. TECHNIQUE/COMPARISON: Two views of the chest were obtained and compared to 03/26/2018. FINDINGS: There are severe upper lobe predominant emphysematous changes. The heart size and mediastinum are stable and within normal limits. Increased opacity is noted in the right middle lobe. Some of this has been present prior but is more prominent and a component of acute infiltrate could not be excluded. Air trapping is also noted. IMPRESSION: 1. Increased opacity in the right middle lobe, suspicious for right middle lobe infiltrate. 2. Air trapping and severe apical predominant emphysematous change. Dictated by: Dictated on workstation # [id number] Dict: 02/06/19833 Trans: 02/06/19845 [id number] Interpreted by: JANAE CHASE MD Electronically signed by: JANAE CHASE MD 02/06/19845 Departure Impression Primary Impression: Atypical chest pain Additional Impression: Left upper quadrant pain Disposition: 01 HOME, SELF-CARE Condition: Improved Departure-Patient Inst. Decision time for Depature: 11:23 Referrals: [facility] (PCP/Family) Primary Care Physician Patient Instructions: Chest Pain, Acute Abdomen (Belly Pain), Adult (DC) Add. Discharge Instructions: Please follow-up with Dr. Holguin as soon as possible to get cleared for further evaluation of your abdominal pain. In the meantime, add Carafate (sucralfate) to your therapies as prescribed. Work on quitting smoking and avoid alcohol use. In general avoid the following to reduce risk of stomach and esophagus problems: Eating large meals, eating close to bedtime, caffeine, carbonation, chocolate, citrus fruits and juices, tomato products, alcohol, tobacco, mints, fatty or greasy foods, spicy foods, NSAID medications such as ibuprofen or naproxen, or anything else you know irritates your stomach. Return to care if you have worsening symptoms. All discharge instructions reviewed with patient and/or family. Voiced understanding. Scripts Sucralfate (Carafate) 1 Gm Tablet 1 GM PO QID, #120 TAB Dissolve or crush in 5-10 mL water to make a slurry. Take 30 minutes prior to eating or drinking and at bedtime Prov: DAVEY MCCANN MD 02/06/19 Copy Copies To 1: EMILY HOLGUIN MD Copies To 2: ALMA DELIA ADRIAN MD, JOSHUA T MD Feb 06, 2019 11:27 POS
[2019-02-06 11:37] VITALS: BP 123/84
== END 2019-02-06 11:37 | disposition home or self-care (01) ==
LOC: EDUNIT# 07:49 → ER 07:50
DX: R07.89 Other chest pain (principal); R10.12 Left upper quadrant pain; I10 Essential (primary) hypertension; J44.9 Chronic obstructive pulmonary disease, unspecified; I25.10 Atherosclerotic heart disease of native coronary artery without angina pectoris; E78.00 Pure hypercholesterolemia, unspecified; I25.2 Old myocardial infarction; K21.9 Gastro-esophageal reflux disease without esophagitis; F91.8 Other conduct disorders; F17.210 Nicotine dependence, cigarettes, uncomplicated; Z88.0 Allergy status to penicillin; Z79.82 Long term (current) use of aspirin; Z90.49 Acquired absence of other specified parts of digestive tract; Z82.49 Family history of ischemic heart disease and other diseases of the circulatory system
CPT/HCPCS: 36415; 71046; 80053; 81000; 83690; 83735; 83874; 84484; 85025; 85610; 85730; 93005; 93041

== ENCOUNTER 2019-02-28 09:09 | Day surgery (SDC) | payer MEDICARE, MEDICAID ==
[2019-02-28] VITALS (10 sets, daily range): BP systolic 113–156; BP diastolic 88–97
[~2019-02-28] VITALS: Ht 187.9 cm; Wt 104.5 kg
[~2019-02-28 09:09] MED LIST changes: +SUCR1TAB36 PO
[2019-02-28] MEDS ORDERED: HEParin 1000 UNIT/ML (10ML VIAL) FOR BOLUS ONE (09:58)
[2019-02-28] MEDS ORDERED: NS IV 1000 ML 3,000 ML ONE (09:58)
[2019-02-28] MEDS ORDERED: LIDOCAINE 1% INJ 20 ML 20 ML VIAL ONE (09:58)
[2019-02-28] MEDS ORDERED: NS IV 1000 ML 1,000 ML IV SCH ×2 (10:07→14:02)
[2019-02-28 10:27] LABS: HEMOGLOBIN 14.9 G/DL (13.3-17.7); MEAN PLATELET VOLUME 10.4 FL (7.4-10.4); RED CELL DISTRIBUTION WIDTH 14.6 % (10.0-14.5); WHITE BLOOD COUNT 12.6 10^3/uL (4.3-11.0)
[2019-02-28] MEDS ORDERED: ACET-2429 PO (10:38)
--- NOTE | 2019-02-28 10:38 | Diagnostic Imaging Report ---
EXAMINATION: Chest 1 view HISTORY: CHEST PAIN COMPARISON: 02/06/2019 FINDINGS: The lung volumes are normal. No focal consolidation is seen. Opacities in the right midlung have improved. No large pleural effusion or pneumothorax is seen. The cardiomediastinal silhouette is normal in size and contour. No acute osseous abnormality is seen. IMPRESSION: 1. No acute pleuroparenchymal process. Dictated by: Dictated on workstation # [id number]
[2019-02-28 10:45] LABS: PROTHROMBIN TIME PATIENT 13.1 SEC (12.2-14.7)
[2019-02-28] MEDS ORDERED: SUCR1TAB36 PO (10:53)
[2019-02-28 10:54] LABS: ALANINE AMINOTRANSFERASE 15 U/L (0-55); ALBUMIN 4.7 GM/DL (3.2-4.5); ALKALINE PHOSPHATASE 67 U/L (40-136); BILIRUBIN,TOTAL 0.4 MG/DL (0.1-1.0); BUN/CREATININE RATIO 13; CALCIUM 9.7 MG/DL (8.5-10.1); CARBON DIOXIDE 26 MMOL/L (21-32); CHLORIDE 104 MMOL/L (98-107); CHOLESTEROL 164 MG/DL (< 200); CREATININE SERUM 0.92 MG/DL (0.60-1.30); GFR ESTIMATED > 60; GLUCOSE 93 MG/DL (70-105); HDL CHOLESTEROL 61 MG/DL (40-60); POTASSIUM 3.8 MMOL/L (3.6-5.0); SODIUM 142 MMOL/L (135-145); TOTAL PROTEIN 7.8 GM/DL (6.4-8.2); TRIGLYCERIDES 103 MG/DL (<150); VLDL CHOLESTEROL 21 MG/DL (5-40)
[2019-02-28] MEDS ORDERED: GABA-488 PO (10:54)
[2019-02-28] MEDS ORDERED: SIME125T PO (10:57)
--- NOTE | 2019-02-28 13:43 | NUR ---
SPOKE WITH THE PT HOWEVER HE WAS UNSURE OF HIS MEDICATIONS (THE NAME OR THE STRENGTHS, SAYS HE JUST TAKES WHAT [facility] GIVES HIM) DUE TO THIS I CALLED [facility] AND WENT THRU HIS MED LIST. THEY WERE ABLE TO TELL ME DOSES AND FILL DATES- THIS IS WHAT I HAVE USED TO COMPLETE THE MED REC. THE FOLLOWING ARE THE FILL DATES FOR [facility]: 12-01-2018 PANTOPRAZOLE #90/90DS 12-01-2018 ATORVASTATIN #90/90DS 02-06-2019 CARAFATE #120/30DS 02-09-2019 GABAPENTIN #60/30DS 02-16-2019 LISINOPRIL #30/30DS 02-16-2019 AMLODIPINE #30/30DS OTC MEDS: TYLENOL PRESERVISION GAS-X ASPIRIN
--- NOTE | 2019-02-28 14:02 | Cardiac Procedure Note-CS/ASA ---
Pre-Procedure Note Pre-Op Procedure Note H&P Reviewed The H&P was reviewed, patient examined and no changes noted. Date H&P Reviewed: Feb 28, 2019 Time H&P Reviewed: 13:00 Conscious Sedation Pre-Proced Time 13:00 ASA Score 3 For ASA 3 and 4: Consider anesthesia and medical clearance. Also, for patients with a history of failed moderate sedation consider anesthesia. Airway Lungs Heart ASA score ASA 1: a normal healthy patient ASA 2: a patient with a mild systemic disease (mid diabetes, controlled hypertension, obesity x ASA 3: a patient with a severe systemic disease that limits activity (angina, COPD, prior Myocardial infarction) ASA 4: a patient with an incapacitating disease that is a constant threat to life (CHF, renal failure) ASA 5: a moribund patient not expected to survive 24 hrs. (ruptured aneurysm) ASA 6: a declared brain- patient whose organs are being harvested. For emergent operations, add the letter E after the classification Mallampati Classification Grade 3 Sedation Plan Analgesia, Amnesia, Plan communicated to team members, Discussed options with patient/fam, Discussed risks with patient/fam The patient is an appropriate candidate to undergo the planned procedure, sedation, and anesthesia. The patient immediately re-assessed prior to indication. EMILY ALICEA MD Feb 28, 2019 14:02 POS
--- NOTE | 2019-02-28 14:05 | Discharge Inst-Post CATH ---
Discharge Inst-CATH/EP Problems Reviewed?: Yes Post Cardiac Cath/EP D/C Inst Follow Up/Plan Appointment with Dr. ALICEA's office in 2-4 weeks <b>CARDIAC CATH/EP PROCEDURE DISCHARGE INSTRUCTIONS</b> ACTIVITY * Go Home directly and rest. * Limit activity of the leg (or wrist if it was used) for 7 days including aerobics, swimming, jogging, bicycling, etc. * Restrict stair-climbing for 7 days if possible, if not, climb up with your non-cath leg, then bring together on the same step. * Avoid lifting, pushing, pulling or excessive movement of the affected extremity for 7 days. * Customary sexual activity may be resumed after 2 days-use caution not to use a position that strains or causes pain to the affected extremity. * No driving for 24 hours. * NO SMOKING. * Avoid straining for bowel movements for 7 days. * Gentle walking on level ground is allowed. * Returning to work will depend on the type of procedure and the results. Your doctor will discuss this with you. CALL YOUR DOCTOR FOR ANY OF THE FOLLOWING: *If bleeding from the puncture site occurs- Apply gentle pressure to site with clean cloth and call your doctor or EMS. * If a knot or lump forms under the skin, increases in size, or causes pain. * If bruising appears to be worsening or moving further down your leg instead of disappearing. * Temperature above 101 F. CARE OF YOUR GROIN INCISION; * Bruising or purple discoloration of the skin near the puncture site is common. * You may shower only, no bathtub bathing for 5 days. Be careful to avoid slipping as your leg may feel stiff. * If a closure device was used on your femoral artery, please see the attached guide regarding care of the device and your leg. * Leave dressing on FOR 24 hours. CARE OF YOUR WRIST INCISION; * Bruising or purple discoloration of the skin near the puncture site is common. * You may shower. * DO NOT submerge wrist. * Leave dressing on FOR 24 hours. EMILY ALICEA MD Feb 28, 2019 14:05 POS
--- NOTE | 2019-02-28 14:08 | Cardiac Cath Report ---
Cardiac Cath Report Physician (s)/Insurance Claims Processor (s) Physician EMILY ALICEA MD Pre-Procedure Diagnosis Pre-Procedure Diagnosis: Chest pain, coronary artery disease Post-Procedure Note Procedure Start Date: Feb 28, 2019 Name of Procedure: Left heart catheterization Findings/Procedure Note PROCEDURE NOTE: 58-year-old gentleman with history of coronary artery disease, hypertension hyperlipidemia has been having increasing episodes of chest pain suggestive of angina, had stress test with diaphragmatic attenuation with fixed defect of the inferior wallischemia was noted, due to the increasing accelerating symptoms of chest pain I decided to proceed with cardiac catheterization possible PTCA. After explaining the procedure to the patient, all pros and cons were explained, all questions were answered. The patient signed the consent and then he was placed on the cardiac catheterization laboratory. Groin was prepped SL fashion local anesthesia was used. Sheath placed in the right femoral artery. Vince right and left catheter were used to access the coronary system. Pigtail was used to access the left ventricular cavity. Left ventriculogram was not done, pressure was measured At the end of the procedure the sheath was removed. Closure device was used FINDINGS: Hemodynamics LV 139/12, end-diastolic pressure of 12 Aorta 148/92 mean of 118 ANATOMY: Left Main is free of obstructive disease Left Anterior Descending has mild disease nonobstructive disease Left Circumflex has mild disease nonobstructive disease Right Coronory Artery is dominant artery with significant tortuosity, [id number] disease nonobstructive disease LV Gram was not done, pressure was measured CONCLUSION: 1. Tortuous coronary system mainly the right coronary artery is very tortuous with [id number] disease nonobstructive disease 2. Normal left ventricular end-diastolic pressure DISCUSSION AND RECOMMENDATION: chest pain is noncardiac in nature, unlikely to have cardiac chest pain with this coronary anatomy. Anesthesia Type: Conscious Sedation Estimated blood loss (mL): 15 ml Contrast Amount: 43 ml Total Radiation Dose: 413 mGy Post-Procedure Diagnosis Post-operative diagnosis: Chest pain Coronary artery disease Hypertension Hyperlipidemia EMILY ALICEA MD Feb 28, 2019 14:08 POS
[2019-02-28] MEDS ORDERED: PATIENT MAY USE OWN MEDS, ALL PO SCH (14:15)
[2019-02-28] MEDS ORDERED: oxyCODONE/APAP 5/325MG (PERCOCET 5) TABLET ONE (14:33)
[2019-02-28] MEDS ORDERED: oxyCODONE/APAP 5/325MG (PERCOCET 5) TABLET PO ONE (14:45)
== END 2019-02-28 17:50 | disposition home or self-care (01) ==
LOC: CATH 09:09 → SDC 14:27 → CATH 17:50
PROVIDERS: ATTEND Internal Medicine Cardiovascular Disease
DX: I25.10 Atherosclerotic heart disease of native coronary artery without angina pectoris (principal); I65.23 Occlusion and stenosis of bilateral carotid arteries; I10 Essential (primary) hypertension; I25.2 Old myocardial infarction; I08.1 Rheumatic disorders of both mitral and tricuspid valves; J43.9 Emphysema, unspecified; E78.5 Hyperlipidemia, unspecified; K29.50 Unspecified chronic gastritis without bleeding; K21.9 Gastro-esophageal reflux disease without esophagitis; R73.9 Hyperglycemia, unspecified; F17.210 Nicotine dependence, cigarettes, uncomplicated; Z90.49 Acquired absence of other specified parts of digestive tract; Z79.899 Other long term (current) drug therapy; Z79.82 Long term (current) use of aspirin; Z88.2 Allergy status to sulfonamides; Z82.49 Family history of ischemic heart disease and other diseases of the circulatory system
CPT/HCPCS: 36415; 71045; 80053; 80061; 85027; 85610; 85730; 87081; 93458

== ENCOUNTER 2019-05-15 11:56 | Emergency (ER) | payer MEDICARE, MEDICAID ==
[~2019-05-15] VITALS: Ht 187 cm; Wt 106.5 kg
[~2019-05-15 11:56] MED LIST changes: +ACET650T41 PO; +GABA-488 PO; -MECL-106 PO; +MECL-149 PO; -METO-370 PO; -METO-387 PO; +METO50TA7 PO; +MTP25TSR PO; +SIME125T PO
[2019-05-15 12:33] LABS: BASOPHILS % (AUTO) 0 % (0-10); EOSINOPHILS # (AUTO) 0.3 10^3/uL (0.0-0.3); EOSINOPHILS % (AUTO) 3 % (0-10); HEMATOCRIT 43 % (40-54); HEMOGLOBIN 14.4 G/DL (13.3-17.7); LYMPHOCYTES # (AUTO) 1.8 X 10^3 (1.0-4.0); LYMPHOCYTES % (AUTO) 21 % (12-44); MEAN CORPUSCULAR HEMOGLOBIN 32 PG (25-34); MEAN CORPUSCULAR HGB CONC 33 G/DL (32-36); MEAN CORPUSCULAR VOLUME 95 FL (80-99); MEAN PLATELET VOLUME 11.2 FL (7.4-10.4); MONOCYTES # (AUTO) 0.8 X 10^3 (0.0-1.0); MONOCYTES % (AUTO) 10 % (0-12); NEUTROPHILS # (AUTO) 5.6 X 10^3 (1.8-7.8); NEUTROPHILS % (AUTO) 66 % (42-75); PLATELET COUNT 259 10^3/uL (130-400); RED CELL DISTRIBUTION WIDTH 12.8 % (10.0-14.5); WHITE BLOOD COUNT 8.6 10^3/uL (4.3-11.0)
--- NOTE | 2019-05-15 12:54 | ED General ---
General Chief Complaint: Coughing up blood Stated Complaint: COUGHING UP BLOOD Nursing Triage Note: PT STATES HE HAS HAS A COUGH BUT YESTERDAY STARTED COUGHING UP BLOOD. Nursing Sepsis Screen: No Definite Risk Source of Information: Patient Exam Limitations: No Limitations History of Present Illness Date Seen by Provider: May 15, 2019 Time Seen by Provider: 12:40 Initial Comments to ER with cough for about a week, hemoptysis since yesterday, he does have a bottle of bright red blood with him that he is coughing up. He is a smoker, states he is "down to one pack a day". Timing/Duration: 1 Week Severity: Moderate Associated Systoms: Cough Allergies and Home Medications Allergies Coded Allergies: Penicillins (Verified Allergy, Intermediate, 03/26/18) causes dysrhythmias Home Medications Acetaminophen 650 Mg Tablet.er, 1,300 MG PO BID, (Reported) Albuterol Sulfate 1 Puff Puff, 2 PUFF IH Q4H PRN for WHEEZING, (Reported) Amlodipine Besylate 5 Mg Tablet, 5 MG PO DAILY, (Reported) Aspirin 81 Mg Tablet.dr, 81 MG PO DAILY, (Reported) Atorvastatin Calcium 10 Mg Tablet, 10 MG PO DAILY, (Reported) Gabapentin 300 Mg Capsule, 300 MG PO BID, (Reported) Lisinopril 40 Mg Tablet, 40 MG PO DAILY, (Reported) Nitroglycerin 0.4 Mg Tab.subl, 0.4 MG SL UD PRN for CHEST PAIN, (Reported) Pantoprazole Sodium 40 Mg Tablet.dr, 40 MG PO DAILY, (Reported) Simethicone 125 Mg Tab.chew, 250 MG PO PRN PRN for GAS, (Reported) Sucralfate 1 Gm Tablet, 1 GM PO QIDACHS, (Reported) CRUSHES TABS TO MAKE A SLURRY Vit A/Vit C/Vit E/Zinc/Copper 1 Each Tablet, 1 TAB PO BID, (Reported) Patient Home Medication List Home Medication List Reviewed: Yes Review of Systems Review of Systems Constitutional: see HPI EENTM: see HPI Respiratory: see HPI, cough, hemoptysis Cardiovascular: no symptoms reported Genitourinary: no symptoms reported Musculoskeletal: no symptoms reported Skin: no symptoms reported Psychiatric/Neurological: No Symptoms Reported Hematologic/Lymphatic: No Symptoms Reported Past Jyepisw-Waryha-Jlldce Hx Patient Social History Alcohol Use: Past History Alcohol Beverage of Choice: Whiskey Recreational Drug Use: No Drug of Choice: PAST HISTORY of marijuana Smoking Status: Current Everyday Smoker Type Used: Cigarettes Former Smoker, Quit: Jan 25, 1990 2nd Hand Smoke Exposure: No Recent Foreign Travel: No Contact w/Someone Who Travel: No Recent Infectious Disease Expo: No Recent Hopitalizations: No Immunizations Up To Date Tetanus Booster (TDap): Unknown Seasonal Allergies Seasonal Allergies: No Past Medical History Surgeries: Yes (HERNIA REPAIR, CATARACT, BACK, R KNEE) Abdominal, Appendectomy, Cardiac, Eye Surgery, Orthopedic Respiratory: Yes (HEMOPTYSIS WITH BRONCHITIS) Chronic Bronchitis, COPD Currently Using CPAP: No Currently Using BIPAP: No Cardiac: Yes Coronary Artery Disease, Heart Attack, High Cholesterol, Hypertension Neurological: No Reproductive Disorders: No Sexually Transmitted Disease: No HIV/AIDS: No Genitourinary: No Gastrointestinal: Yes Abdominal Hernia, Gastroesophageal Reflux, Gastrointestinal Bleed, Polyps, Ulcer, Gall Bladder Disease Musculoskeletal: Yes ( BACK SURGERY 1988) Degenerate Disk Disease, Arthritis, Chronic Back Pain Endocrine: Yes (HYPOERGLYCEMIA) HEENT: Yes (recent eye sx) Cataract, Tinnitis, Eye Injury Loss of Vision: Denies Hearing Impairment: Hard of Hearing Cancer: No Psychosocial: Yes (MENTAL BLOCK ([place] [place] [facility] 3 [facility]) ) Sleep Difficulties, Violent Behavior Integumentary: No Blood Disorders: No Adverse Reaction/Blood Tranf: No Family Medical History Cardiomegaly 19 MOTHER Dysphasia G8 BROTHER G8 SISTER FH: cancer Hypertension G8 BROTHER G8 SISTER G8 SISTER Kidney disease 19 MOTHER Myocardial infarction Hypertension, Renal Disease Physical Exam Vital Signs Vital Signs - First Documented 05/15/19 12:00 Temp 36.8 Pulse 88 Resp 16 B/P (MAP) 152/93 (112) Pulse Ox 94 O2 Delivery Room Air Capillary Refill : Less Than 3 Seconds Height, Weight, BMI Height: 6'2.00" Weight: 225lbs. 0.0oz. 102.441010vp; 30.00 BMI Method:Stated General Appearance: No Apparent Distress, WD/WN Eyes: Bilateral Eye Normal Inspection, Bilateral Eye PERRL, Bilateral Eye EOMI HEENT: PERRL/EOMI, TMs Normal Neck: Full Range of Motion, Normal Inspection Respiratory: No Accessory Muscle Use, No Respiratory Distress, Decreased Breath Sounds Cardiovascular: Regular Rate, Rhythm, Normal Peripheral Pulses Gastrointestinal: Non Tender, Soft Extremity: Normal Capillary Refill, Normal Inspection Neurologic/Psychiatric: Alert, Oriented x3 Skin: Normal Color, Warm/Dry (() Progress/Results/Core Measures Suspected Sepsis Recent Fever Within 48 Hours: No Infection Criteria Present: Suspected New Infection New/Unexplained Altered Menta: No Sepsis Screen: No Definite Risk SIRS Temperature: Pulse: 88 Respiratory Rate: 16 Laboratory Tests 05/15/19 12:25: White Blood Count 8.6 Blood Pressure 152 /93 Mean: 112 Laboratory Tests 05/15/19 12:25: Creatinine 0.81, Platelet Count 259, Total Bilirubin 0.3 Results/Orders Lab Results Laboratory Tests Test 05/15/19 12:25 Range/Units White Blood Count 8.6 4.3-11.0 10^3/uL Red Blood Count 4.56 4.35-5.85 10^6/uL Hemoglobin 14.4 13.3-17.7 G/DL Hematocrit 43 40-54 % Mean Corpuscular Volume 95 80-99 FL Mean Corpuscular Hemoglobin 32 25-34 PG Mean Corpuscular Hemoglobin Concent 33 32-36 G/DL Red Cell Distribution Width 12.8 10.0-14.5 % Platelet Count 259 130-400 10^3/uL Mean Platelet Volume 11.2 H 7.4-10.4 FL Neutrophils (%) (Auto) 66 42-75 % Lymphocytes (%) (Auto) 21 12-44 % Monocytes (%) (Auto) 10 0-12 % Eosinophils (%) (Auto) 3 0-10 % Basophils (%) (Auto) 0 0-10 % Neutrophils # (Auto) 5.6 1.8-7.8 X 10^3 Lymphocytes # (Auto) 1.8 1.0-4.0 X 10^3 Monocytes # (Auto) 0.8 0.0-1.0 X 10^3 Eosinophils # (Auto) 0.3 0.0-0.3 10^3/uL Basophils # (Auto) 0.0 0.0-0.1 10^3/uL Sodium Level 134 L 135-145 MMOL/L Potassium Level 4.2 3.6-5.0 MMOL/L Chloride Level 97 L 98-107 MMOL/L Carbon Dioxide Level 29 21-32 MMOL/L Anion Gap 8 5-14 MMOL/L Blood Urea Nitrogen 9 7-18 MG/DL Creatinine 0.81 0.60-1.30 MG/DL Estimat Glomerular Filtration Rate > 60 BUN/Creatinine Ratio 11 Glucose Level 104 70-105 MG/DL Calcium Level 9.3 8.5-10.1 MG/DL Corrected Calcium 9.1 8.5-10.1 MG/DL Total Bilirubin 0.3 0.1-1.0 MG/DL Aspartate Amino Transf (AST/SGOT) 16 5-34 U/L Alanine Aminotransferase (ALT/SGPT) 11 0-55 U/L Alkaline Phosphatase 78 40-136 U/L Total Protein 7.4 6.4-8.2 GM/DL Albumin 4.3 3.2-4.5 GM/DL My Orders Orders - [facility] Ed Iv/Invasive Line Start (05/15/19 12:08) Cbc With Automated Diff (05/15/19 12:08) Comprehensive Metabolic Panel (05/15/19 12:08) Chest Pa/Lat (2 View) (05/15/19 12:21) Ct Angio Chest W (05/15/19 12:27) Iohexol Injection (Omnipaque 350 Mg/Ml 1 (05/15/19 13:15) Received Contrast (Hold Metformin- Contr (05/15/19 13:15) Sodium Chloride Flush (Catheter Flush Sy (05/15/19 13:15) Ns (Ivpb) (Sodium Chloride 0.9% Ivpb Bag (05/15/19 13:15) Protime With Inr (05/15/19 14:09) Medications Given in ED Current Medications Medications Dose Ordered Sig/Mikayla Route Start Time Stop Time Status Last Admin Dose Admin Iohexol 100 ml ONCE ONCE IV 05/15/19 13:15 05/15/19 13:18 DC 05/15/19 13:48 83 ML Sodium Chloride 10 ml NEEDED PRN IV 05/15/19 13:15 05/15/19 13:48 10 ML Sodium Chloride 100 ml ONCE ONCE IV 05/15/19 13:15 05/15/19 13:18 DC 05/15/19 13:48 80 ML Vital Signs/I&O 05/15/19 12:00 Temp 36.8 Pulse 88 Resp 16 B/P (MAP) 152/93 (112) Pulse Ox 94 O2 Delivery Room Air Capillary Refill : Less Than 3 Seconds Blood Pressure Mean: 112 Departure Communication (Admissions) Spoke with Dr. Pandya, given the absence of fevers or leukocytosis would w ithhold antibiotics, withhold prednisone, she'll see the patient in a.m. next Tuesday and tentatively scan for bronchoscopy next Tuesday or . Impression Primary Impression: Hemoptysis Disposition: HOME, SELF-CARE Condition: Stable Departure-Patient Inst. Decision time for Depature: 14:13 Referrals: CLEO PANDAY DO [facility] (PCP/Family) Primary Care Physician Patient Instructions: Coughing up Blood Add. Discharge Instructions: 1. Follow-up with Dr. Pandya 9 AM next Tuesday. Return to ER for any concerns. As long as the volume of blood or coughing up doesn't increase then proceed with current course which is no particular treatment. If he began to cough up si gnificantly more blood than you need to return to the emergency room. The plan will be to do a bronchoscopy on Tuesday or of next week. All discharge instructions reviewed with patient and/or family. Voiced understanding. BIRGIT MENDEZ APRN May 15, 2019 12:53
[2019-05-15 12:58] LABS: ALANINE AMINOTRANSFERASE 11 U/L (0-55); ALBUMIN 4.3 GM/DL (3.2-4.5); ALKALINE PHOSPHATASE 78 U/L (40-136); BILIRUBIN,TOTAL 0.3 MG/DL (0.1-1.0); BUN/CREATININE RATIO 11; CALCIUM 9.3 MG/DL (8.5-10.1); CARBON DIOXIDE 29 MMOL/L (21-32); CHLORIDE 97 MMOL/L (98-107); CREATININE SERUM 0.81 MG/DL (0.60-1.30); GFR ESTIMATED > 60; GLUCOSE 104 MG/DL (70-105); POTASSIUM 4.2 MMOL/L (3.6-5.0); SODIUM 134 MMOL/L (135-145); TOTAL PROTEIN 7.4 GM/DL (6.4-8.2)
[2019-05-15] MEDS ORDERED: HOLD METFORMIN - RECEIVED CONTRAST 20 ML VIAL IV SCH (13:15)
[2019-05-15] MEDS ORDERED: IOHEXOL 350 MG/ML 100 ML (OMNIPAQUE 350) VIAL IV ONE (13:15)
[2019-05-15] MEDS ORDERED: NS 100 ML (IVPB) BAG IV ONE (13:15)
[2019-05-15] MEDS ORDERED: CATHETER FLUSH 10 ML SYR IV PRN (13:15)
--- NOTE | 2019-05-15 13:49 | Diagnostic Imaging Report ---
INDICATION: Hemoptysis. COMPARISON: 02/28/2019 FINDINGS: Chronic features of COPD are present. Pulmonary opacity in the right lower lobe is developed suspicious for pneumonia. Radiographic follow-up recommended. The left lung is nonfocal aside from trace basilar atelectasis. IMPRESSION: Background chronic COPD noted; however, right lower lobe consolidation is suspected owing to pneumonia. Mild left basilar atelectasis. Dictated by: Dictated on workstation # [id number]
--- NOTE | 2019-05-15 14:02 | Diagnostic Imaging Report ---
PROCEDURE: CT angiography of the chest with contrast. TECHNIQUE: Multiple contiguous axial images were obtained through the chest after uneventful bolus administration of intravenous contrast. 3D reconstructed CTA MIP acquisitions were also performed. Auto Exposure Controls were utilized during the CT exam to meet ALARA standards for radiation dose reduction. INDICATION: Hemoptysis, shortness of air, asthma, and COPD. FINDINGS: No intraluminal pulmonary arterial filling defect is found. There are no findings of pulmonary arterial embolus. The thoracic aorta is patent and nonaneurysmal. Extensive bullous emphysematous changes to the lungs remain most severe at the apices greater right. No focal consolidation and no soft tissue density lung mass. No thoracic lymphadenopathy. Some herniation of perigastric fat retrocardiac chronic. The visualized upper abdomen is nonacute. IMPRESSION: Negative for PE or acute aortic disease. Severe underlying chronic bullous emphysema with no focal consolidation or suspicious mass. Dictated by: Dictated on workstation # [id number]
[2019-05-15 14:20] LABS: INR 0.9 (0.8-1.4); PROTHROMBIN TIME PATIENT 12.9 SEC (12.2-14.7)
[2019-05-15 14:36] VITALS: BP 152/93
== END 2019-05-15 14:36 | disposition home or self-care (01) ==
LOC: ER 11:56 → EDUNIT# 11:56 → ER 14:36
DX: R04.2 Hemoptysis (principal); J44.9 Chronic obstructive pulmonary disease, unspecified; I10 Essential (primary) hypertension; E78.00 Pure hypercholesterolemia, unspecified; I25.2 Old myocardial infarction; I25.10 Atherosclerotic heart disease of native coronary artery without angina pectoris; K21.9 Gastro-esophageal reflux disease without esophagitis; F17.210 Nicotine dependence, cigarettes, uncomplicated; Z88.0 Allergy status to penicillin; Z79.82 Long term (current) use of aspirin; Z82.49 Family history of ischemic heart disease and other diseases of the circulatory system
CPT/HCPCS: 36415; 71046; 71275; 80053; 85025; 85610

== ENCOUNTER → 2019-05-29 | Outpatient (CLI) | payer MEDICARE, MEDICAID | END | disposition home or self-care (01) | LOC: PREOP 05:43 | PROVIDERS: ATTEND Internal Medicine Critical Care Medicine | DX: Z01.818 Encounter for other preprocedural examination (principal) ==

== ENCOUNTER 2020-02-19 11:16 | Emergency (ER) | payer MEDICARE, MEDICAID ==
[~2020-02-19] VITALS: Ht 102 cm; Wt 170.0 kg
[~2020-02-19 11:16] MED LIST changes: +AMLO-250 PO; -AMLO5TAB9 PO; -PANT40TA3 PO; +PANT40TA52 PO
[2020-02-19 11:49] LABS: BASOPHILS # (AUTO) 0.1 10^3/uL (0.0-0.1); BASOPHILS % (AUTO) 1 % (0-10); EOSINOPHILS # (AUTO) 0.3 10^3/uL (0.0-0.3); EOSINOPHILS % (AUTO) 3 % (0-10); HEMATOCRIT 36 % (40-54); HEMOGLOBIN 11.5 g/dL (13.3-17.7); LYMPHOCYTES # (AUTO) 2.2 10^3/uL (1.0-4.0); LYMPHOCYTES % (AUTO) 21 % (12-44); MEAN CORPUSCULAR HEMOGLOBIN 29 pg (25-34); MEAN CORPUSCULAR HGB CONC 32 g/dL (32-36); MEAN CORPUSCULAR VOLUME 91 fL (80-99); MEAN PLATELET VOLUME 10.2 fL (9.0-12.2); MONOCYTES # (AUTO) 0.8 10^3/uL (0.0-1.0); MONOCYTES % (AUTO) 7 % (0-12); NEUTROPHILS # (AUTO) 7.1 10^3/uL (1.8-7.8); NEUTROPHILS % (AUTO) 68 % (42-75); PLATELET COUNT 502 10^3/uL (130-400); WHITE BLOOD COUNT 10.4 10^3/uL (4.3-11.0)
[2020-02-19] MEDS ORDERED: LACTATED RINGERS 1,000 ML IV ONE (11:51)
--- NOTE | 2020-02-19 11:55 | ED General ---
General Chief Complaint: Dizziness/Syncope Stated Complaint: LIGHTHEADEDNESS Nursing Triage Note: AMBULATED TO ROOM 08N WITH COMPLAINTS OF BEING LVERY LIGHT HEADED WHEN HE STOOD UP THIS AM. STATES IT IS A LITTLE BETTER NOW. ALSO STATES FOOD HAS TASTED LIKE "CRAP" THE LAST COUPLE OF DAYS AND BEING A BIT MORE SOA THEN USUAL Nursing Sepsis Screen: No Definite Risk Source of Information: Patient Exam Limitations: No Limitations History of Present Illness Date Seen by Provider: Feb 19, 2020 Time Seen by Provider: 11:53 Initial Comments To ER by private vehicle with reports of lightheadedness upon standing. He had just changed his granddaughter and stood up. Upon standing he became very lightheaded and nearly fell. He also reports some chronic shortness of breath which seems a bit worse today. He does smoke cigarettes and has a history of COPD. He reports that about a week ago he had a fever up to 102 degrees. He s tates that his sense of taste seems to be off. He has not been exposed anyone ill that he is aware of. Timing/Duration: 1-3 Hours Severity: Moderate Associated Systoms: Denies Symptoms Allergies and Home Medications Allergies Coded Allergies: Penicillins (Verified Allergy, Intermediate, 03/26/18) causes dysrhythmias Home Medications Acetaminophen 650 Mg Tablet.er, 1,300 MG PO BID, (Reported) Albuterol Sulfate 1 Puff Puff, 2 PUFF IH Q4H PRN for WHEEZING, (Reported) Amlodipine Besylate 5 Mg Tablet, 5 MG PO DAILY, (Reported) Aspirin 81 Mg Tablet.dr, 81 MG PO DAILY, (Reported) Atorvastatin Calcium 10 Mg Tablet, 10 MG PO DAILY, (Reported) Gabapentin 300 Mg Capsule, 300 MG PO BID, (Reported) Levofloxacin 500 Mg Tablet, 500 MG PO DAILY Prescribed by: BIRGIT MENDEZ on 02/19/20 1230 Lisinopril 40 Mg Tablet, 40 MG PO DAILY, (Reported) Nitroglycerin 0.4 Mg Tab.subl, 0.4 MG SL UD PRN for CHEST PAIN, (Reported) Pantoprazole Sodium 40 Mg Tablet.dr, 40 MG PO DAILY, (Reported) Prednisone 20 Mg Tab, 40 MG PO DAILY Prescribed by: BIRGIT MENDEZ on 02/19/20 1230 Simethicone 125 Mg Tab.chew, 250 MG PO PRN PRN for GAS, (Reported) Sucralfate 1 Gm Tablet, 1 GM PO QIDACHS, (Reported) CRUSHES TABS TO MAKE A SLURRY Vit A/Vit C/Vit E/Zinc/Copper 1 Each Tablet, 1 TAB PO BID, (Reported) Patient Home Medication List Home Medication List Reviewed: Yes Review of Systems Review of Systems Constitutional: see HPI EENTM: see HPI Respiratory: no symptoms reported Cardiovascular: no symptoms reported Genitourinary: no symptoms reported Musculoskeletal: no symptoms reported Skin: no symptoms reported Psychiatric/Neurological: No Symptoms Reported Hematologic/Lymphatic: No Symptoms Reported Immunological/Allergic: no symptoms reported Past Oaguptv-Rejpur-Qrjacv Hx Patient Social History Alcohol Use: Past History Number of Drinks Today: GG Alcohol Beverage of Choice: Whiskey Recreational Drug Use: No Drug of Choice: PAST HISTORY of marijuana Type Used: Cigarettes Former Smoker, Quit: Jan 25, 1990 2nd Hand Smoke Exposure: No Recent Foreign Travel: No Contact w/Someone Who Travel: No Recent Infectious Disease Expo: No Recent Hopitalizations: No Immunizations Up To Date Tetanus Booster (TDap): Unknown Seasonal Allergies Seasonal Allergies: No Past Medical History Surgeries: Yes (HERNIA REPAIR, CATARACT, BACK, R KNEE) Abdominal, Appendectomy, Cardiac, Eye Surgery, Orthopedic Respiratory: Yes (HEMOPTYSIS WITH BRONCHITIS) Chronic Bronchitis, COPD Currently Using CPAP: No Currently Using BIPAP: No Cardiac: Yes Coronary Artery Disease, Heart Attack, High Cholesterol, Hypertension Neurological: No Reproductive Disorders: No Sexually Transmitted Disease: No HIV/AIDS: No Genitourinary: No Gastrointestinal: Yes Abdominal Hernia, Gastroesophageal Reflux, Gastrointestinal Bleed, Polyps, Ulcer, Gall Bladder Disease Musculoskeletal: Yes ( BACK SURGERY 1988) Degenerate Disk Disease, Arthritis, Chronic Back Pain Endocrine: Yes (HYPOERGLYCEMIA) HEENT: Yes (recent eye sx) Cataract, Tinnitis, Eye Injury Loss of Vision: Denies Hearing Impairment: Hard of Hearing Cancer: No Psychosocial: Yes (MENTAL BLOCK ([place] [place] [facility] 3 [facility]) ) Sleep Difficulties, Violent Behavior Integumentary: No Blood Disorders: No Adverse Reaction/Blood Tranf: No Family Medical History Cardiomegaly 19 MOTHER Dysphasia G8 BROTHER G8 SISTER FH: cancer Hypertension G8 BROTHER G8 SISTER G8 SISTER Kidney disease 19 MOTHER Myocardial infarction Hypertension, Renal Disease Physical Exam Vital Signs Vital Signs - First Documented 02/19/20 11:38 Temp 37.0 Pulse 76 Resp 16 B/P (MAP) 133/91 (105) Pulse Ox 97 O2 Delivery Room Air Capillary Refill : Less Than 3 Seconds Height, Weight, BMI Height: 6'2.00" Weight: 225lbs. 0.0oz. 102.362706pd; 163.00 BMI Method:Stated General Appearance: No Apparent Distress, WD/WN, Other Eyes: Bilateral Eye Normal Inspection, Bilateral Eye PERRL, Bilateral Eye EOMI Respiratory: Lungs Clear, Normal Breath Sounds, No Accessory Muscle Use, No Respiratory Distress, Wheezing (Faint wheezing on expiration) Cardiovascular: Regular Rate, Rhythm, Normal Peripheral Pulses Gastrointestinal: Normal Bowel Sounds, Non Tender, Soft Neurologic/Psychiatric: Alert, Oriented x3 Skin: Normal Color, Warm/Dry Progress/Results/Core Measures Suspected Sepsis Recent Fever Within 48 Hours: No Infection Criteria Present: None New/Unexplained Altered Menta: No Sepsis Screen: No Definite Risk SIRS Temperature: Pulse: 76 Respiratory Rate: 16 Laboratory Tests 02/19/20 11:35: White Blood Count 10.4 Blood Pressure 133 /91 Mean: 105 Laboratory Tests 02/19/20 11:35: Creatinine 0.75, Platelet Count 502H, Total Bilirubin 0.3 Results/Orders Lab Results Laboratory Tests Test 02/19/20 11:35 02/19/20 11:54 Range/Units White Blood Count 10.4 4.3-11.0 10^3/uL Red Blood Count 3.97 L 4.30-5.52 10^6/uL Hemoglobin 11.5 L 13.3-17.7 g/dL Hematocrit 36 L 40-54 % Mean Corpuscular Volume 91 80-99 fL Mean Corpuscular Hemoglobin 29 25-34 pg Mean Corpuscular Hemoglobin Concent 32 32-36 g/dL Red Cell Distribution Width 13.7 10.0-14.5 % Platelet Count 502 H 130-400 10^3/uL Mean Platelet Volume 10.2 9.0-12.2 fL Immature Granulocyte % (Auto) 1 % Neutrophils (%) (Auto) 68 42-75 % Lymphocytes (%) (Auto) 21 12-44 % Monocytes (%) (Auto) 7 0-12 % Eosinophils (%) (Auto) 3 0-10 % Basophils (%) (Auto) 1 0-10 % Neutrophils # (Auto) 7.1 1.8-7.8 10^3/uL Lymphocytes # (Auto) 2.2 1.0-4.0 10^3/uL Monocytes # (Auto) 0.8 0.0-1.0 10^3/uL Eosinophils # (Auto) 0.3 0.0-0.3 10^3/uL Basophils # (Auto) 0.1 0.0-0.1 10^3/uL Immature Granulocyte # (Auto) 0.1 0.0-0.1 10^3/uL Sodium Level 129 L 135-145 MMOL/L Potassium Level 4.2 3.6-5.0 MMOL/L Chloride Level 93 L 98-107 MMOL/L Carbon Dioxide Level 27 21-32 MMOL/L Anion Gap 9 5-14 MMOL/L Blood Urea Nitrogen 8 7-18 MG/DL Creatinine 0.75 0.60-1.30 MG/DL Estimat Glomerular Filtration Rate > 60 BUN/Creatinine Ratio 11 Glucose Level 101 70-105 MG/DL Calcium Level 8.7 8.5-10.1 MG/DL Corrected Calcium 9.0 8.5-10.1 MG/DL Total Bilirubin 0.3 0.1-1.0 MG/DL Aspartate Amino Transf (AST/SGOT) 12 5-34 U/L Alanine Aminotransferase (ALT/SGPT) 9 0-55 U/L Alkaline Phosphatase 74 40-136 U/L Troponin I < 0.028 <0.028 NG/ML B-Type Natriuretic Peptide 59.4 <100.0 PG/ML Total Protein 7.8 6.4-8.2 GM/DL Albumin 3.6 3.2-4.5 GM/DL Coronavirus 2019 (DERRICK) Negative Negative My Orders Orders - BIRGIT MENDEZ APRN Cbc With Automated Diff (02/19/20 11:42) Comprehensive Metabolic Panel (02/19/20 11:42) BNP (02/19/20 11:42) Ekg Tracing (02/19/20 11:42) Chest 1 View, Ap/Pa Only (02/19/20 11:42) Ed Iv/Invasive Line Start (02/19/20 11:42) Ua Culture If Indicated (02/19/20 11:42) Covid 19 Inhouse Test (02/19/20 11:42) Lactated Ringers (Lr 1000 Ml Iv Solution (02/19/20 12:00) Lactated Ringers (Lr 1000 Ml Iv Solution (02/19/20 11:51) Troponin I (02/19/20 12:12) Coronavirus Sars-Cov-2 So 2018 (02/19/20 12:33) Levofloxacin Tablet (Levaquin Tablet) (02/19/20 12:45) Vital Signs/I&O 02/19/20 11:38 Temp 37.0 Pulse 76 Resp 16 B/P (MAP) 133/91 (105) Pulse Ox 97 O2 Delivery Room Air Capillary Refill : Less Than 3 Seconds Blood Pressure Mean: 105 Diagnostic Imaging Diagonstic Imaging: Xray Plain Films/CT/US/NM/MRI: chest Comments NAME: LIZY MIRANDA MED REC#: [id number] PT STATUS: REG ER : 1960 PHYSICIAN: BIRGIT MENDEZ APRN ADMIT DATE: 02/19/20/ER Draft Date of Exam:02/19/20 CHEST 1 VIEW, AP/PA ONLY INDICATION: Dyspnea. TIME OF EXAM: 12:17 PM. COMPARISON: 05/15/2019. FINDINGS: The heart size is stable. An opacity has developed in the right upper lobe since the prior chest radiograph. This may represent an area of infiltrate. The left lung is clear. There is no effusion. There is no pneumothorax. There are emphysematous changes in both upper lung turcios. IMPRESSION: Development of right upper lobe opacity since the prior chest radiograph from 05/15/2019. This may represent a parenchymal infiltrate. A lung mass cannot be entirely excluded and a followup chest radiograph after a course of therapy is recommended to confirm clearing. Dictated on workstation # [id number] Dict: 02/19/20 1215 Trans: 02/19/20 1218 [id number] Interpreted by: SAMANTA HARGROVE MD Electronically signed by: Departure Communication (Admissions) I did discuss the chest x-ray findings with the patient as well as his daughter Landy and the recommendations for repeat x-ray after treatment to ensure resolution. If this does not resolve lung cancer must be more strongly considered and further imaging will follow. Impression Primary Impression: CAP (community acquired pneumonia) Additional Impression: Chest x-ray abnormality Disposition: HOME, SELF-CARE Condition: Stable Departure-Patient Inst. Decision time for Depature: 12:27 Referrals: [facility] (PCP/Family) Primary Care Physician Patient Instructions: Community-Acquired Pneumonia, Adult (DC) Add. Discharge Instructions: 1. Take the antibiotics as directed. You will need to follow-up with primary care next week to schedule a repeat chest x-ray. Your chest x-ray today shows an area of pneumonia. However this area that appears to be pneumonia could also be a lung cancer given your smoking history. We want the repeat chest x-ray to make sure that this apparent pneumonia goes away. Return to ER for any worsening. Emergency department focuses on treating and ruling out life-threatening diseases. Whenever possible, a diagnosis is given. However, most patients are given an impression based on their history, physical exam, and workup during your brief time in the ER. Information about probable diagnosis and other educational material has been provided. Please take the time to read and understand this information. It is very important that you follow up with a physician as discussed during the visit today. Failure to adhere to your follow-up instructions may lead to severe disability, injury, or so please make sure to keep your appointments or obtain one as requested. All discharge instructions reviewed with patient and/or family. Voiced understanding. Scripts Prednisone (Prednisone) 20 Mg Tab 40 MG PO DAILY, #8 TAB 0 Refills Prov: BIRGIT MENDEZ APRN 02/19/20 Levofloxacin (Levofloxacin) 500 Mg Tablet 500 MG PO DAILY, #6 TAB 0 Refills Prov: BIRGIT MENDEZ APRN 02/19/20 Copy Copies To 1: YUMIKO HEADLEY PETER J APRN Feb 19, 2020 11:55
[2020-02-19 11:58] LABS: ALBUMIN 3.6 GM/DL (3.2-4.5); CHLORIDE 93 MMOL/L (98-107); POTASSIUM 4.2 MMOL/L (3.6-5.0); SODIUM 129 MMOL/L (135-145)
[2020-02-19 11:59] LABS: CALCIUM 8.7 MG/DL (8.5-10.1)
[2020-02-19 12:00] LABS: GLUCOSE 101 MG/DL (70-105)
[2020-02-19] MEDS ORDERED: LACTATED RINGERS 1,000 ML IV SCH (12:00)
[2020-02-19 12:01] LABS: TOTAL PROTEIN 7.8 GM/DL (6.4-8.2)
[2020-02-19 12:02] LABS: BILIRUBIN,TOTAL 0.3 MG/DL (0.1-1.0); CARBON DIOXIDE 27 MMOL/L (21-32)
[2020-02-19 12:04] LABS: ALKALINE PHOSPHATASE 74 U/L (40-136); CREATININE SERUM 0.75 MG/DL (0.60-1.30); GFR ESTIMATED > 60
[2020-02-19 12:05] LABS: BUN/CREATININE RATIO 11
[2020-02-19 12:07] LABS: ALANINE AMINOTRANSFERASE 9 U/L (0-55)
--- NOTE | 2020-02-19 12:19 | Diagnostic Imaging Report ---
INDICATION: Dyspnea. TIME OF EXAM: 12:17 PM. COMPARISON: 05/15/2019. FINDINGS: The heart size is stable. An opacity has developed in the right upper lobe since the prior chest radiograph. This may represent an area of infiltrate. The left lung is clear. There is no effusion. There is no pneumothorax. There are emphysematous changes in both upper lung turcios. IMPRESSION: Development of right upper lobe opacity since the prior chest radiograph from 05/15/2019. This may represent a parenchymal infiltrate. A lung mass cannot be entirely excluded and a followup chest radiograph after a course of therapy is recommended to confirm clearing. Dictated by: Dictated on workstation # [id number]
[2020-02-19] MEDS ORDERED: PRD20T PO (12:30)
[2020-02-19] MEDS ORDERED: LEVO500T80 PO (12:30)
[2020-02-19] MEDS ORDERED: LEVOFLOXACIN 500 MG TAB (LEVAQUIN) PO ONE (12:45)
[2020-02-19 13:15] VITALS: BP 126/86
== END 2020-02-19 13:15 | disposition home or self-care (01) ==
LOC: EDUNIT# 11:16 → ER 11:17
DX: J18.9 Pneumonia, unspecified organism (principal); R91.8 Other nonspecific abnormal finding of lung field; I10 Essential (primary) hypertension; E78.00 Pure hypercholesterolemia, unspecified; J44.9 Chronic obstructive pulmonary disease, unspecified; K21.9 Gastro-esophageal reflux disease without esophagitis; I25.10 Atherosclerotic heart disease of native coronary artery without angina pectoris; Z20.828 Contact with and (suspected) exposure to other viral communicable diseases; Z82.49 Family history of ischemic heart disease and other diseases of the circulatory system; Z80.9 Family history of malignant neoplasm, unspecified; I25.2 Old myocardial infarction; Z88.0 Allergy status to penicillin; Z87.891 Personal history of nicotine dependence; Z79.82 Long term (current) use of aspirin; Z79.52 Long term (current) use of systemic steroids
CPT/HCPCS: 36415; 71045; 80053; 83880; 84484; 85025; 87635; 93005

== ENCOUNTER 2021-02-26 21:30 | Emergency (ER) | payer MEDICARE, MEDICAID ==
[~2021-02-26 21:30] MED LIST changes: +CYCL10TA25 PO; -CYCL10TA9 PO; +LEVO500T81 PO; -LISI10TA2 PO; +LISI10TA25 PO; -LISI40TA PO; +LISI40TA9 PO; +SCOP1PAT10 TD; -SCOP1PAT11 TD
[2021-02-27] MEDS ORDERED: LORA-405 PO (12:35)
== END 2021-02-26 22:28 | disposition left against medical advice (07) ==
LOC: EDUNIT# 21:30 → ER 21:32
DX: R51.9 Headache, unspecified (principal)

== ENCOUNTER 2021-02-27 10:44 | Emergency (ER) | payer MEDICARE, MEDICAID ==
[~2021-02-27] VITALS: Ht 187 cm; Wt 99.0 kg
--- NOTE | 2021-02-27 11:04 | ED Chest Pain ---
General Stated Complaint: "FLUTTER IN CHEST" Source: patient Exam Limitations: no limitations History of Present Illness Date Seen by Provider: Feb 27, 2021 Time Seen by Provider: 11:02 Initial Comments ER with fluttering in his chest that began last night. He did come out here to ER but it was so busy he did not want to wait so he left without being seen. he denies any chest pain, only palpitations and "fluttering". He has had this a few times before but it never lasts more than a few beats. He does smoke cigarettes. He also feels anxious. He was seen last week for bronchitis and finished steroids and antibiotics but does not feel any better. No known history of atrial fibrillation or flutter. Timing/Duration: 24 hours Severity/Quality: moderate Location: central Radiation: no radiation Activities at Onset: none ASA po WINDOW GLASS CUTTER OFF: No NTG SL WINDOW GLASS CUTTER OFF: No Associated Symptoms: denies symptoms Allergies and Home Medications Allergies Coded Allergies: Penicillins (Verified Allergy, Intermediate, 03/26/18) causes dysrhythmias Patient Home Medication List Home Medication List Reviewed: Yes Acetaminophen (Acetaminophen 8 Hour) 650 Mg Tablet.er, 1,300 MG PO BID, (Reported) Entered as Reported by: DAVIDA BEGUM on 02/28/19 1038 Albuterol Sulfate (Proair Hfa) 1 Puff Puff, 2 PUFF IH Q4H PRN for WHEEZING, (Reported) Entered as Reported by: MOODY MINOR on 01/25/19 1105 Amlodipine Besylate (Amlodipine Besylate) 5 Mg Tablet, 5 MG PO DAILY, (Reported) Entered as Reported by: MOODY MINOR on 01/25/19 1105 Aspirin (Aspir 81) 81 Mg Tablet.dr, 81 MG PO DAILY, (Reported) Entered as Reported by: OLIVER KOLB on 07/07/15 0321 Atorvastatin Calcium (Atorvastatin Calcium) 10 Mg Tablet, 10 MG PO DAILY, (Re ported) Entered as Reported by: LONG CHURCH on 09/23/17 0952 Gabapentin (Gabapentin) 300 Mg Capsule, 300 MG PO BID, (Reported) Entered as Reported by: DAVIDA BEGUM on 02/28/19 1054 Levofloxacin (Levofloxacin) 500 Mg Tablet, 500 MG PO DAILY Prescribed by: BIRGIT MENDEZ on 02/19/20 1230 Lisinopril (Lisinopril) 40 Mg Tablet, 40 MG PO DAILY, (Reported) Entered as Reported by: MOODY MINOR on 01/25/19 1105 Nitroglycerin (Nitroglycerin) 0.4 Mg Tab.subl, 0.4 MG SL UD PRN for CHEST PAIN, (Reported) Entered as Reported by: JULIENNE MENDOZA on 02/25/18 1535 Pantoprazole Sodium (Pantoprazole Sodium) 40 Mg Tablet.dr, 40 MG PO DAILY, (Reported) Entered as Reported by: SERGIO BOWSER on 02/22/17 0726 Prednisone (Prednisone) 20 Mg Tab, 40 MG PO DAILY Prescribed by: BIRGIT MENDEZ on 02/19/20 1230 Simethicone (Gas-X) 125 Mg Tab.chew, 250 MG PO PRN PRN for GAS, (Reported) Entered as Reported by: DAVIDA BEGUM on 02/28/19 1057 Sucralfate (Carafate) 1 Gm Tablet, 1 GM PO QIDACHS, (Reported) Entered as Reported by: DAVIDA BEGUM on 02/28/19 1053 Vit A/Vit C/Vit E/Zinc/Copper (Preservision Areds Tablet) 1 Each Tablet, 1 TAB PO BID, (Reported) Entered as Reported by: CALISTA SIERRA on 02/25/18 1527 Review of Systems Review of Systems Constitutional: see HPI EENTM: No Symptoms Reported Respiratory: No Symptoms Reported Cardiovascular: See HPI, Palpitations Gastrointestinal: No Symptoms Reported Genitourinary: No Symptoms Reported Musculoskeletal: no symptoms reported Skin: no symptoms reported Psychiatric/Neurological: No Symptoms Reported Endocrine: No Symptoms Reported Hematologic/Lymphatic: No Symptoms Reported Past Hrbxegz-Rggejx-Awpqgp Hx Immunizations Up To Date Tetanus Booster (TDap): Unknown Seasonal Allergies Seasonal Allergies: No Past Medical History Surgeries: Yes (HERNIA REPAIR, CATARACT, BACK, R KNEE) Abdominal, Appendectomy, Cardiac, Eye Surgery, Orthopedic Respiratory: Yes (HEMOPTYSIS WITH BRONCHITIS) Chronic Bronchitis, COPD Currently Using CPAP: No Currently Using BIPAP: No Cardiac: Yes Coronary Artery Disease, Heart Attack, High Cholesterol, Hypertension Neurological: No Reproductive Disorders: No Sexually Transmitted Disease: No HIV/AIDS: No Genitourinary: No Gastrointestinal: Yes Abdominal Hernia, Gastroesophageal Reflux, Gastrointestinal Bleed, Polyps, Ulcer, Gall Bladder Disease Musculoskeletal: Yes ( BACK SURGERY 1988) Degenerate Disk Disease, Arthritis, Chronic Back Pain Endocrine: Yes (HYPOERGLYCEMIA) HEENT: Yes (recent eye sx) Cataract, Tinnitis, Eye Injury Loss of Vision: Denies Hearing Impairment: Hard of Hearing Cancer: No Psychosocial: Yes (MENTAL BLOCK ([place] [place] [facility]) ) Sleep Difficulties, Violent Behavior Integumentary: No Blood Disorders: No Adverse Reaction/Blood Tranf: No Family Medical History Cardiomegaly 19 MOTHER Dysphasia G8 BROTHER G8 SISTER FH: cancer Hypertension G8 BROTHER G8 SISTER G8 SISTER Kidney disease 19 MOTHER Myocardial infarction Hypertension, Renal Disease Physical Exam Vital Signs Vital Signs - First Documented 02/27/21 10:50 Temp 36.6 Pulse 90 Resp 16 B/P (MAP) 151/101 (118) Pulse Ox 97 O2 Delivery Room Air Capillary Refill : Height, Weight, BMI Height: 6'2.00" Weight: 225lbs. 0.0oz. 102.065297vr; 163.00 BMI Method:Stated General Appearance: No Apparent Distress, WD/WN, Other (Alert and oriented no d istress. He does feel the fluttering sensation currently but he is in sinus rhythm at [address] segment change) Neck: Full Range of Motion, Normal Inspection Respiratory: No Accessory Muscle Use, No Respiratory Distress Cardiovascular: Regular Rate, Rhythm, Normal Peripheral Pulses Gastrointestinal: Normal Bowel Sounds, Non Tender, Soft Neurologic/Psychiatric: Alert, Oriented x3 Skin: Normal Color, Warm/Dry Progress/Results/Core Measures Results/Orders Lab Results Laboratory Tests Test 02/27/21 11:22 Range/Units White Blood Count 11.6 H 4.3-11.0 10^3/uL Red Blood Count 4.38 4.30-5.52 10^6/uL Hemoglobin 13.7 13.3-17.7 g/dL Hematocrit 41 40-54 % Mean Corpuscular Volume 95 80-99 fL Mean Corpuscular Hemoglobin 31 25-34 pg Mean Corpuscular Hemoglobin Concent 33 32-36 g/dL Red Cell Distribution Width 13.6 10.0-14.5 % Platelet Count 261 130-400 10^3/uL Mean Platelet Volume 10.6 9.0-12.2 fL Immature Granulocyte % (Auto) 1 % Neutrophils (%) (Auto) 73 42-75 % Lymphocytes (%) (Auto) 16 12-44 % Monocytes (%) (Auto) 8 0-12 % Eosinophils (%) (Auto) 3 0-10 % Basophils (%) (Auto) 1 0-10 % Neutrophils # (Auto) 8.5 H 1.8-7.8 10^3/uL Lymphocytes # (Auto) 1.8 1.0-4.0 10^3/uL Monocytes # (Auto) 0.9 0.0-1.0 10^3/uL Eosinophils # (Auto) 0.3 0.0-0.3 10^3/uL Basophils # (Auto) 0.1 0.0-0.1 10^3/uL Immature Granulocyte # (Auto) 0.1 0.0-0.1 10^3/uL Prothrombin Time 13.1 12.2-14.7 SEC INR Comment 1.0 0.8-1.4 Activated Partial Thromboplast Time 33 24-35 SEC D-Dimer 0.33 0.00-0.49 UG/ML Sodium Level 136 135-145 MMOL/L Potassium Level 3.7 3.6-5.0 MMOL/L Chloride Level 102 98-107 MMOL/L Carbon Dioxide Level 23 21-32 MMOL/L Anion Gap 11 5-14 MMOL/L Blood Urea Nitrogen 7 7-18 MG/DL Creatinine 0.79 0.60-1.30 MG/DL Estimat Glomerular Filtration Rate 100 BUN/Creatinine Ratio 9 Glucose Level 108 H 70-105 MG/DL Calcium Level 9.1 8.5-10.1 MG/DL Corrected Calcium 9.1 8.5-10.1 MG/DL Magnesium Level 2.1 1.6-2.4 MG/DL Total Bilirubin 0.6 0.1-1.0 MG/DL Aspartate Amino Transf (AST/SGOT) 12 5-34 U/L Alanine Aminotransferase (ALT/SGPT) 14 0-55 U/L Alkaline Phosphatase 68 40-136 U/L Myoglobin 57.8 10.0-92.0 NG/ML Troponin I < 0.028 <0.028 NG/ML B-Type Natriuretic Peptide 38.6 <100.0 PG/ML Total Protein 6.9 6.4-8.2 GM/DL Albumin 4.0 3.2-4.5 GM/DL My Orders Orders - BIRGIT MENDEZ APRN Cbc With Automated Diff (02/27/21 11:01) Magnesium (02/27/21 11:01) Chest 1 View, Ap/Pa Only (02/27/21 11:01) Ekg Tracing (02/27/21 11:01) Comprehensive Metabolic Panel (02/27/21 11:01) Myoglobin Serum (02/27/21 11:01) Protime With Inr (02/27/21 11:01) Partial Thromboplastin Time (02/27/21 11:01) O2 (02/27/21 11:01) Monitor-Rhythm Ecg Trace Only (02/27/21 11:01) Lipid Panel (02/28/21 06:00) Ed Iv/Invasive Line Start (02/27/21 11:01) Bnp [place] (02/27/21 11:01) Fibrin Degradation Products (02/27/21 11:01) Troponin I [place] (02/27/21 11:01) Aspirin Chewable Tablet (Baby Aspirin Ch (02/27/21 11:15) Alprazolam Tablet (Xanax Tablet) (02/27/21 11:15) Medications Given in ED Current Medications Medications Dose Ordered Sig/Mikayla Route Start Time Stop Time Status Last Admin Dose Admin Aspirin 324 mg ONCE ONCE PO 02/27/21 11:15 02/27/21 11:16 DC 02/27/21 11:10 324 MG Vital Signs/I&O 02/27/21 10:50 Temp 36.6 Pulse 90 Resp 16 B/P (MAP) 151/101 (118) Pulse Ox 97 O2 Delivery Room Air Departure Communication (Admissions) 1236-patient is feeling better at this time. He has been without ectopy and co ntinues to deny any chest pain. NAME: LIZY MIRANDA Victor M MED REC#: [id number] PT STATUS: REG ER : 1960 PHYSICIAN: BIRGIT MENDEZ APRN ADMIT DATE: 02/27/21/ER Draft Date of Exam:02/27/21 CHEST 1 VIEW, AP/PA ONLY INDICATION: Chest pain. TIME OF EXAM: 11:19 a.m. COMPARISON: Correlation is made with prior chest from 02/19/2020. FINDINGS: Heart size is stable. Right upper lobe opacity does show some improvement when compared with examination from one year earlier. There is some residual linear opacity in the right upper lobe extending towards the right hilum. Mid and lower lung turcios are clear. There is no effusion. There is no pneumothorax. IMPRESSION: Improved aeration in the right upper lobe with improvement in the right upper lobe opacity when compared with one year earlier. Dictated on workstation # [id number] Dict: 02/27/21 1118 Trans: 02/27/21 1124 [id number] Interpreted by: SAMANTA HARGROVE MD Electronically signed by: Impression Primary Impression: Palpitations Additional Impression: Anxiety Disposition: HOME, SELF-CARE Condition: Stable Departure-Patient Inst. Decision time for Depature: 12:34 Referrals: [facility] [place]) Primary Care Physician Patient Instructions: Palpitations ED Add. Discharge Instructions: 1. Medication as directed. Return to ER for any concerns. Follow-up with your doctor next week. Scripts Lorazepam (Ativan) 1 Mg Tablet 1 MG PO Q8H PRN for ANXIETY for 7 Days, #10 TAB Prov: BIRGIT MENDEZ APRN 02/27/21 BIRGIT MENDEZ APRN Feb 27, 2021 11:04
[2021-02-27] MEDS ORDERED: ASPIRIN 81 MG CHEW (CHILDREN'S ASA) PO ONE (11:15)
[2021-02-27] MEDS ORDERED: ALPRAZolam 0.5 MG (XANAX) TAB PO SCH (11:15)
--- NOTE | 2021-02-27 11:24 | Diagnostic Imaging Report ---
INDICATION: Chest pain. TIME OF EXAM: 11:19 a.m. COMPARISON: Correlation is made with prior chest from 02/19/2020. FINDINGS: Heart size is stable. Right upper lobe opacity does show some improvement when compared with examination from one year earlier. There is some residual linear opacity in the right upper lobe extending towards the right hilum. Mid and lower lung turcios are clear. There is no effusion. There is no pneumothorax. IMPRESSION: Improved aeration in the right upper lobe with improvement in the right upper lobe opacity when compared with one year earlier. Dictated by: Dictated on workstation # [id number]
[2021-02-27 11:31] LABS: BASOPHILS # (AUTO) 0.1 10^3/uL (0.0-0.1); BASOPHILS % (AUTO) 1 % (0-10); EOSINOPHILS # (AUTO) 0.3 10^3/uL (0.0-0.3); EOSINOPHILS % (AUTO) 3 % (0-10); HEMATOCRIT 41 % (40-54); HEMOGLOBIN 13.7 g/dL (13.3-17.7); LYMPHOCYTES # (AUTO) 1.8 10^3/uL (1.0-4.0); LYMPHOCYTES % (AUTO) 16 % (12-44); MEAN CORPUSCULAR HEMOGLOBIN 31 pg (25-34); MEAN CORPUSCULAR HGB CONC 33 g/dL (32-36); MEAN CORPUSCULAR VOLUME 95 fL (80-99); MEAN PLATELET VOLUME 10.6 fL (9.0-12.2); MONOCYTES # (AUTO) 0.9 10^3/uL (0.0-1.0); MONOCYTES % (AUTO) 8 % (0-12); NEUTROPHILS # (AUTO) 8.5 10^3/uL (1.8-7.8); NEUTROPHILS % (AUTO) 73 % (42-75); PLATELET COUNT 261 10^3/uL (130-400); WHITE BLOOD COUNT 11.6 10^3/uL (4.3-11.0)
[2021-02-27 11:37] LABS: POTASSIUM 3.7 MMOL/L (3.6-5.0)
[2021-02-27 11:38] LABS: CALCIUM 9.1 MG/DL (8.5-10.1)
[2021-02-27 11:39] LABS: TOTAL PROTEIN 6.9 GM/DL (6.4-8.2)
[2021-02-27 11:41] LABS: BILIRUBIN,TOTAL 0.6 MG/DL (0.1-1.0); PROTHROMBIN TIME PATIENT 13.1 SEC (12.2-14.7)
[2021-02-27 11:43] LABS: CREATININE SERUM 0.79 MG/DL (0.60-1.30)
[2021-02-27 11:45] LABS: MAGNESIUM 2.1 MG/DL (1.6-2.4)
[2021-02-27] MEDS ORDERED: LORA-405 PO (12:35)
[2021-02-27 12:53] VITALS: BP 124/89
== END 2021-02-27 12:53 | disposition home or self-care (01) ==
LOC: EDUNIT# 10:44 → ER 10:45
DX: R00.2 Palpitations (principal); F41.9 Anxiety disorder, unspecified; J44.9 Chronic obstructive pulmonary disease, unspecified; I25.2 Old myocardial infarction; I10 Essential (primary) hypertension; K21.9 Gastro-esophageal reflux disease without esophagitis; E78.00 Pure hypercholesterolemia, unspecified; Z79.82 Long term (current) use of aspirin; Z79.899 Other long term (current) drug therapy
CPT/HCPCS: 36415; 71045; 80053; 83735; 83874; 83880; 84484; 85025; 85379; 85610; 85730; 93005; 93041

== ENCOUNTER 2021-04-06 15:06 | Emergency (ER) | payer MEDICARE, MEDICAID ==
[~2021-04-06] VITALS: Ht 187.9 cm; Wt 102.9 kg
[~2021-04-06 15:06] MED LIST changes: +LORA-405 PO
--- NOTE | 2021-04-06 15:45 | Diagnostic Imaging Report ---
INDICATION: Chest pain. Frontal chest obtained at 3:39 p.m. and compared to 02/27/2021. FINDINGS: Heart is normal in size. Aorta appears tortuous. There is hyperinflation compatible with COPD with biapical bullous changes. There is infiltrate and/or scarring in the right apex, which appears to be mildly worsened compared to the prior study. There is no pneumothorax or pleural fluid. IMPRESSION: COPD changes with biapical bullous disease. There is increasing opacity in the right apex, which may represent infiltrate or scarring. Follow-up is recommended. Dictated by: Dictated on workstation # [id number]
[2021-04-06 15:46] LABS: BASOPHILS % (AUTO) 0 % (0-10); EOSINOPHILS # (AUTO) 0.2 10^3/uL (0.0-0.3); EOSINOPHILS % (AUTO) 3 % (0-10); HEMATOCRIT 41 % (40-54); HEMOGLOBIN 13.3 g/dL (13.3-17.7); LYMPHOCYTES # (AUTO) 2.1 10^3/uL (1.0-4.0); LYMPHOCYTES % (AUTO) 29 % (12-44); MEAN CORPUSCULAR HEMOGLOBIN 31 pg (25-34); MEAN CORPUSCULAR HGB CONC 33 g/dL (32-36); MEAN CORPUSCULAR VOLUME 94 fL (80-99); MEAN PLATELET VOLUME 11.4 fL (9.0-12.2); MONOCYTES # (AUTO) 0.6 10^3/uL (0.0-1.0); MONOCYTES % (AUTO) 8 % (0-12); NEUTROPHILS # (AUTO) 4.4 10^3/uL (1.8-7.8); NEUTROPHILS % (AUTO) 60 % (42-75); PLATELET COUNT 191 10^3/uL (130-400); WHITE BLOOD COUNT 7.3 10^3/uL (4.3-11.0)
[2021-04-06 15:59] LABS: ALBUMIN 4.1 GM/DL (3.2-4.5)
[2021-04-06 16:00] LABS: POTASSIUM 3.5 MMOL/L (3.6-5.0)
[2021-04-06 16:01] LABS: CALCIUM 8.5 MG/DL (8.5-10.1)
[2021-04-06 16:02] LABS: TOTAL PROTEIN 7.1 GM/DL (6.4-8.2)
[2021-04-06 16:04] LABS: BILIRUBIN,TOTAL 0.2 MG/DL (0.1-1.0)
[2021-04-06 16:06] LABS: CREATININE SERUM 0.75 MG/DL (0.60-1.30)
[2021-04-06 16:08] LABS: PROTHROMBIN TIME PATIENT 13.3 SEC (12.2-14.7)
[2021-04-06] MEDS ORDERED: AZIT250T12 PO (19:00)
--- NOTE | 2021-04-06 19:00 | ED General ---
General Chief Complaint: COVID19 Suspect/Confirmed Stated Complaint: COVID + TEST TAKEN AT HOME, CHEST PAIN Nursing Triage Note: PT AMB TO RM 10 WITH COMPLAINT OF COVID +. INCREASING SOA AND CP. STATES DIAGNOSED WITH PNEUMONIA LAST WEEK. POSITIVE COVID YESTERDAY AT HOME. Source of Information: Patient Exam Limitations: No Limitations History of Present Illness Date Seen by Provider: Apr 06, 2021 Time Seen by Provider: 15:18 Initial Comments This 60-year-old gentleman presents to the emergency room with concerns about increasing chest discomfort and shortness of air. He took a home COVID-19 test yesterday which was positive. He has not been feeling well for a few days. He is not vaccinated for COVID-19 or influenza. Vital signs are stable on room air. He is not hypoxic or in respiratory distress. Allergies and Home Medications Allergies Coded Allergies: Penicillins (Verified Allergy, Intermediate, 03/26/18) causes dysrhythmias Patient Home Medication List Home Medication List Reviewed: Yes Acetaminophen (Acetaminophen 8 Hour) 650 Mg Tablet.er, 1,300 MG PO BID, (Reported) Entered as Reported by: DAVIDA BEGUM on 02/28/19 1038 Albuterol Sulfate (Proair Hfa) 1 Puff Puff, 2 PUFF IH Q4H PRN for WHEEZING, (Reported) Entered as Reported by: MOODY MINOR on 01/25/19 1105 Amlodipine Besylate (Amlodipine Besylate) 5 Mg Tablet, 5 MG PO DAILY, (Reported) Entered as Reported by: MOODY MINOR on 01/25/19 1105 Aspirin (Aspir 81) 81 Mg Tablet.dr, 81 MG PO DAILY, (Reported) Entered as Reported by: OLIVER KOLB on 07/07/15 0321 Atorvastatin Calcium (Atorvastatin Calcium) 10 Mg Tablet, 10 MG PO DAILY, (Reported) Entered as Reported by: LONG CHURCH on 09/23/17 0952 Azithromycin (Azithromycin) 250 Mg Tablet, 250 MG PO UD Prescribed by: DAVEY HALEY on 04/06/21 1900 Gabapentin (Gabapentin) 300 Mg Capsule, 300 MG PO BID, (Reported) Entered as Reported by: DAVIDA BEGUM on 02/28/19 1054 Levofloxacin (Levofloxacin) 500 Mg Tablet, 500 MG PO DAILY Prescribed by: BIRGIT MENDEZ on 02/19/20 1230 Lisinopril (Lisinopril) 40 Mg Tablet, 40 MG PO DAILY, (Reported) Entered as Reported by: MOODY MINOR on 01/25/19 1105 Lorazepam (Ativan) 1 Mg Tablet, 1 MG PO Q8H PRN for ANXIETY Prescribed by: BIRGIT MENDEZ on 02/27/21 1236 Nitroglycerin (Nitroglycerin) 0.4 Mg Tab.subl, 0.4 MG SL UD PRN for CHEST PAIN, (Reported) Entered as Reported by: JULIENNE MENDOZA on 02/25/18 1535 Pantoprazole Sodium (Pantoprazole Sodium) 40 Mg Tablet.dr, 40 MG PO DAILY, (Reported) Entered as Reported by: SERGIO BOWSER on 02/22/17 0726 Prednisone (Prednisone) 20 Mg Tab, 40 MG PO DAILY Prescribed by: BIRGIT MENDEZ on 02/19/20 1230 Simethicone (Gas-X) 125 Mg Tab.chew, 250 MG PO PRN PRN for GAS, (Reported) Entered as Reported by: DAVIDA BEGUM on 02/28/19 1057 Sucralfate (Carafate) 1 Gm Tablet, 1 GM PO QIDACHS, (Reported) Entered as Reported by: DAVIDA BEGUM on 02/28/19 1053 Vit A/Vit C/Vit E/Zinc/Copper (Preservision Areds Tablet) 1 Each Tablet, 1 TAB PO BID, (Reported) Entered as Reported by: CALISTA SIERRA on 02/25/18 1527 Review of Systems Review of Systems Constitutional: see HPI, weakness EENTM: no symptoms reported Respiratory: see HPI Cardiovascular: see HPI Gastrointestinal: no symptoms reported Genitourinary: no symptoms reported Musculoskeletal: no symptoms reported Skin: no symptoms reported Psychiatric/Neurological: No Symptoms Reported Hematologic/Lymphatic: No Symptoms Reported Immunological/Allergic: no symptoms reported Past Iaartdc-Hormco-Fwqksa Hx Patient Social History Tobacco Use?: Yes Tobacco type used: Cigarettes Smoking Status: Current Everyday Smoker Use of E-Cig and/or Vaping dev: No Substance use?: No Alcohol Use?: No Pt feels they are or have been: No Immunizations Up To Date Tetanus Booster (TDap): Unknown Influenza Vaccine Up-to-Date: No; Not Current Seasonal Allergies Seasonal Allergies: No Past Medical History Surgeries: Yes (HERNIA REPAIR, CATARACT, BACK, R KNEE) Abdominal, Appendectomy, Cardiac (Heart cath without interventions 2018), Eye Surgery, Orthopedic Respiratory: Yes (HEMOPTYSIS WITH BRONCHITIS) Chronic Bronchitis, COPD Currently Using CPAP: No Currently Using BIPAP: No Cardiac: Yes Coronary Artery Disease, Heart Attack, High Cholesterol, Hypertension Neurological: No Reproductive Disorders: No Sexually Transmitted Disease: No HIV/AIDS: No Genitourinary: No Gastrointestinal: Yes Abdominal Hernia, Gastroesophageal Reflux, Gastrointestinal Bleed, Polyps, Ulcer, Gall Bladder Disease Musculoskeletal: Yes ( BACK SURGERY 1988) Degenerate Disk Disease, Arthritis, Chronic Back Pain Endocrine: Yes (HYPOERGLYCEMIA) HEENT: Yes (recent eye sx) Cataract, Tinnitis, Eye Injury Loss of Vision: Denies Hearing Impairment: Hard of Hearing Cancer: No Psychosocial: Yes (MENTAL BLOCK ([place] [place] [facility] 3 [facility]) ) Sleep Difficulties, Violent Behavior Integumentary: No Blood Disorders: No Adverse Reaction/Blood Tranf: No Family Medical History Cardiomegaly 19 MOTHER Dysphasia G8 BROTHER G8 SISTER FH: cancer Hypertension G8 BROTHER G8 SISTER G8 SISTER Kidney disease 19 MOTHER Myocardial infarction Hypertension, Renal Disease Physical Exam Vital Signs Vital Signs - First Documented 04/06/21 15:24 Pulse 87 Resp 16 B/P (MAP) 137/94 (108) Pulse Ox 92 O2 Delivery Room Air Capillary Refill : Less Than 3 Seconds Height, Weight, BMI Height: 6'2.00" Weight: 225lbs. 0.0oz. 102.392771sa; 29.00 BMI Method:Stated General Appearance: No Apparent Distress, WD/WN HEENT: PERRL/EOMI, Normal ENT Inspection Neck: Normal Inspection Respiratory: No Accessory Muscle Use, No Respiratory Distress, Wheezing Cardiovascular: Regular Rate, Rhythm, No Edema, No Murmur Gastrointestinal: Non Tender, Soft Extremity: Normal Inspection, Non Tender, No Calf Tenderness, No Pedal Edema Neurologic/Psychiatric: Alert, Oriented x3, No Motor/Sensory Deficits, Normal Mood/Affect Skin: Normal Color, Warm/Dry Progress/Results/Core Measures Suspected Sepsis SIRS Temperature: Pulse: 87 Respiratory Rate: 16 Laboratory Tests 04/06/21 15:35: White Blood Count 7.3 Blood Pressure 137 /94 Mean: 108 Laboratory Tests 04/06/21 15:35: Creatinine 0.75, INR Comment 1.0, Platelet Count 191, Total Bilirubin 0.2 Results/Orders Lab Results Laboratory Tests Test 04/06/21 15:35 04/06/21 17:04 Range/Units White Blood Count 7.3 4.3-11.0 10^3/uL Red Blood Count 4.30 4.30-5.52 10^6/uL Hemoglobin 13.3 13.3-17.7 g/dL Hematocrit 41 40-54 % Mean Corpuscular Volume 94 80-99 fL Mean Corpuscular Hemoglobin 31 25-34 pg Mean Corpuscular Hemoglobin Concent 33 32-36 g/dL Red Cell Distribution Width 13.1 10.0-14.5 % Platelet Count 191 130-400 10^3/uL Mean Platelet Volume 11.4 9.0-12.2 fL Immature Granulocyte % (Auto) 1 % Neutrophils (%) (Auto) 60 42-75 % Lymphocytes (%) (Auto) 29 12-44 % Monocytes (%) (Auto) 8 0-12 % Eosinophils (%) (Auto) 3 0-10 % Basophils (%) (Auto) 0 0-10 % Neutrophils # (Auto) 4.4 1.8-7.8 10^3/uL Lymphocytes # (Auto) 2.1 1.0-4.0 10^3/uL Monocytes # (Auto) 0.6 0.0-1.0 10^3/uL Eosinophils # (Auto) 0.2 0.0-0.3 10^3/uL Basophils # (Auto) 0.0 0.0-0.1 10^3/uL Immature Granulocyte # (Auto) 0.0 0.0-0.1 10^3/uL Prothrombin Time 13.3 12.2-14.7 SEC INR Comment 1.0 0.8-1.4 Activated Partial Thromboplast Time 35 24-35 SEC D-Dimer 0.38 0.00-0.49 UG/ML Sodium Level 135 135-145 MMOL/L Potassium Level 3.5 L 3.6-5.0 MMOL/L Chloride Level 103 98-107 MMOL/L Carbon Dioxide Level 22 21-32 MMOL/L Anion Gap 10 5-14 MMOL/L Blood Urea Nitrogen 7 7-18 MG/DL Creatinine 0.75 0.60-1.30 MG/DL Estimat Glomerular Filtration Rate 103 BUN/Creatinine Ratio 9 Glucose Level 98 70-105 MG/DL Calcium Level 8.5 8.5-10.1 MG/DL Corrected Calcium 8.4 L 8.5-10.1 MG/DL Magnesium Level 2.0 1.6-2.4 MG/DL Total Bilirubin 0.2 0.1-1.0 MG/DL Aspartate Amino Transf (AST/SGOT) 13 5-34 U/L Alanine Aminotransferase (ALT/SGPT) 13 0-55 U/L Alkaline Phosphatase 72 40-136 U/L Myoglobin 53.5 10.0-92.0 NG/ML Troponin I < 0.028 <0.028 NG/ML C-Reactive Protein High Sensitivity 0.47 0.00-0.50 MG/DL Total Protein 7.1 6.4-8.2 GM/DL Albumin 4.1 3.2-4.5 GM/DL Procalcitonin 0.02 <0.10 NG/ML Influenza Type A (RT-PCR) Not Detected Not Detecte Influenza Type B (RT-PCR) Not Detected Not Detecte SARS-CoV-2 RNA (RT-PCR) Detected H Not Detecte My Orders Orders - DAVEY MCCANN MD Cbc With Automated Diff (04/06/21 15:18) Magnesium (04/06/21 15:18) Chest 1 View, Ap/Pa Only (04/06/21 15:18) Ekg Tracing (04/06/21 15:18) Comprehensive Metabolic Panel (04/06/21 15:18) Myoglobin Serum (04/06/21 15:18) Protime With Inr (04/06/21 15:18) Partial Thromboplastin Time (04/06/21 15:18) O2 (04/06/21 15:18) Monitor-Rhythm Ecg Trace Only (04/06/21 15:18) Ed Iv/Invasive Line Start (04/06/21 15:18) Fibrin Degradation Products (04/06/21 15:18) Troponin I [place] (04/06/21 15:18) Procalcitonin (Pct) (04/06/21 15:18) Hs C Reactive Protein (04/06/21 15:18) Covid 19 Inhouse Test (04/06/21 17:29) Influenza A And B By Pcr (04/06/21 17:29) Vital Signs/I&O 04/06/21 04/06/21 15:24 19:10 Pulse 87 77 Resp 16 16 B/P (MAP) 137/94 (108) 140/100 Pulse Ox 92 98 O2 Delivery Room Air Room Air Capillary Refill : Less Than 3 Seconds Blood Pressure Mean: 108 Progress Note : Progress Note Work-up was relatively unremarkable except for appearance of the chest x-ray. Azithromycin was prescribed. We discussed treatment options and patient would like to be prescribed antiviral therapy. See discharge instructions. ECG Initial ECG Impression Date: Apr 06, 2021 Initial ECG Impression Time: 15:21 Initial ECG Rate: 81 Initial ECG Rhythm: Normal Sinus Initial ECG Intervals: Normal Initial ECG Impression: Normal Comment NSR with not ST elevation or depression. No abnormal intervals or axis deviation. Diagnostic Imaging Diagonstic Imaging: Xray Plain Films/CT/US/NM/MRI: chest Comments NAME: LIZY MIRANDA [facility] REC#: [id number] PT STATUS: REG ER : 1960 PHYSICIAN: DAVEY MCCANN MD ADMIT DATE: 04/06/21/ER Signed Date of Exam:04/06/21 CHEST 1 VIEW, AP/PA ONLY INDICATION: Chest pain. Frontal chest obtained at 3:39 p.m. and compared to 02/27/2021. FINDINGS: Heart is normal in size. Aorta appears tortuous. There is hyperinflation compatible with COPD with biapical bullous changes. There is infiltrate and/or scarring in the right apex, which appears to be mildly worsened compared to the prior study. There is no pneumothorax or pleural fluid. IMPRESSION: COPD changes with biapical bullous disease. There is increasing opacity in the right apex, which may represent infiltrate or scarring. Follow-up is recommended. Dictated by: Dictated on workstation # [id number] Dict: 04/06/21 1540 Trans: 04/06/211650 [id number] Interpreted by: SATHYA MORRIS MD Electronically signed by: SATHYA MORRIS MD 04/06/211650 Reviewed: Reviewed by Me Departure Impression Primary Impression: COVID-19 Additional Impression: Atypical chest pain Disposition: HOME, SELF-CARE Condition: Stable Departure-Patient Inst. Referrals: [facility] (PCP/Family) Primary Care Physician Patient Instructions: COVID-19 ED, Molnupiravir Add. Discharge Instructions: Please go directly to the [facility] on [facility] to supervisor opening and picking your Molnupiravir. Then supervisor opening and picking the azithromycin from the [facility] pharmacy. Complete all the doses of both of these medications to avoid rebound effect. Stay in quarantine until 5 days from your positive test and until all symptoms a re gone. Drink plenty of clear liquids to stay well-hydrated. Avoid smoking and other inhaled irritants. Monitor your oxygen saturations with a pulse oximeter. If you have oxygen saturations less than 92% repeatedly or any oxygen saturation less than 90%, please return to the emergency room. Call with questions or concerns. Return to the ER if you have any other worsening of condition. All discharge instructions reviewed with patient and/or family. Voiced understanding. Scripts Azithromycin (Azithromycin) 250 Mg Tablet 250 MG PO UD, #6 TAB TAKE 2 TABLETS ON DAY ONE THEN TAKE 1 TABLET DAILY FOR FOUR MORE DAYS Prov: DAVEY MCCANN MD 04/06/21 Copy Copies To 1: YUMIKO HEADLEY JOSHUA T MD Apr 06, 2021 19:00
[2021-04-06 19:10] VITALS: BP 140/100
== END 2021-04-06 19:14 | disposition home or self-care (01) ==
LOC: EDUNIT# 15:06 → ER 15:14
DX: U07.1 COVID-19 (principal); I25.2 Old myocardial infarction; I10 Essential (primary) hypertension; J44.9 Chronic obstructive pulmonary disease, unspecified; E78.00 Pure hypercholesterolemia, unspecified; I25.10 Atherosclerotic heart disease of native coronary artery without angina pectoris; K21.9 Gastro-esophageal reflux disease without esophagitis; F17.210 Nicotine dependence, cigarettes, uncomplicated; Z79.82 Long term (current) use of aspirin; Z79.899 Other long term (current) drug therapy
CPT/HCPCS: 36415; 71045; 80053; 83735; 83874; 84145; 84484; 85025; 85379; 85610; 85730; 86141; 87636; 93005; 93041

== ENCOUNTER 2021-09-06 15:27 | Emergency (ER) | payer MEDICARE, MEDICAID ==
[~2021-09-06] VITALS: Ht 187 cm; Wt 104.0 kg
[~2021-09-06 15:27] MED LIST changes: +ACET-2717 PO; -ACET650T41 PO
[2021-09-06] MEDS ORDERED: HYDROcodone/APAP 5 MG/325 MG (LORTAB) TAB PO ONE (16:15)
[2021-09-06] MEDS ORDERED: NS IV 1000 ML 1,000 ML IV SCH (16:15)
--- NOTE | 2021-09-06 16:18 | ED Back Pain ---
General Chief Complaint: Back Problems Stated Complaint: BACK/NECK PAIN Nursing Triage Note: Pt reports that he has chronic back pain since he had a "lumbar fusion" in the late when he fell off a semi truck. He woke up yesterday AM at 0900 and had severe neck and back pain. Denies recent injury. Took Aleve today and it did help but it has worn off. Source of Information: Patient Exam Limitations: No Limitations History of Present Illness Date Seen by Provider: Sep 06, 2021 Time Seen by Provider: 16:05 Initial Comments Patient is a 61-year-old male who presents to the emergency department today with a chief complaint of spine pain, low-grade fever generalized weakness. He states he [place] [facility] [place] . He woke up Tuesday morning with body aches and a low-grade fever. No headache. No sick contacts. He states this morning it took him about an hour and a half to actually physically be able to get out of the bed secondary to severe spine pain. He took Tylenol arthritis yesterday and some Aleve today which took the edge off. He denies any runny nose, congestion earache or sore throat. No unusual productive cough or shortness of breath. No chest pain, no abdominal pain, nausea or vomiting. No problems with bowel or bladder. He states he did get quite a sunburn when he went fishing on . He has a history of COPD and coronary artery disease. He has had previous lumbar fusion and he states the pain seems to radiate from that area. All other review of systems reviewed and negative except as stated Location: Lumbar Spine Timing/Duration: 1-2 Days Severity: Moderate Pain/Injury Location: Back Radiation: Other (Up and down his spine) Associated Symptoms: other (Weakness) Allergies and Home Medications Allergies Coded Allergies: Penicillins (Verified Allergy, Intermediate, 03/26/18) causes dysrhythmias Patient Home Medication List Home Medication List Reviewed: Yes Acetaminophen (Acetaminophen 8 Hour) 650 Mg Tablet.er, 1,300 MG PO BID, (Reported) Entered as Reported by: DAVIDA BEGUM on 02/28/19 1038 Albuterol Sulfate (Proair Hfa) 1 Puff Puff, 2 PUFF IH Q4H PRN for WHEEZING, (Reported) Entered as Reported by: MOODY MINOR on 01/25/19 1105 Amlodipine Besylate (Amlodipine Besylate) 5 Mg Tablet, 5 MG PO DAILY, (Reported) Entered as Reported by: MOODY MINOR on 01/25/19 1105 Aspirin (Aspir 81) 81 Mg Tablet.dr, 81 MG PO DAILY, (Reported) Entered as Reported by: OLIVER KOLB on 07/07/15 0321 Atorvastatin Calcium (Atorvastatin Calcium) 10 Mg Tablet, 10 MG PO DAILY, (Reported) Entered as Reported by: LONG CHURCH on 09/23/17 0952 Azithromycin (Azithromycin) 250 Mg Tablet, 250 MG PO UD Prescribed by: DAVEY HALEY on 04/06/21 1900 Gabapentin (Gabapentin) 300 Mg Capsule, 300 MG PO BID, (Reported) Entered as Reported by: DAVIDA BEGUM on 02/28/19 1054 Levofloxacin (Levofloxacin) 500 Mg Tablet, 500 MG PO DAILY Prescribed by: BIRGIT MENDEZ on 02/19/20 1230 Lisinopril (Lisinopril) 40 Mg Tablet, 40 MG PO DAILY, (Reported) Entered as Reported by: MOODY MINOR on 01/25/19 1105 Lorazepam (Ativan) 1 Mg Tablet, 1 MG PO Q8H PRN for ANXIETY Prescribed by: BIRGIT MENDEZ on 02/27/21 1236 Nitroglycerin (Nitroglycerin) 0.4 Mg Tab.subl, 0.4 MG SL UD PRN for CHEST PAIN, (Reported) Entered as Reported by: JULIENNE MENDOZA on 02/25/18 1535 Pantoprazole Sodium (Pantoprazole Sodium) 40 Mg Tablet.dr, 40 MG PO DAILY, (Reported) Entered as Reported by: SERGIO BOWSER on 02/22/17 0726 Prednisone (Prednisone) 20 Mg Tab, 40 MG PO DAILY Prescribed by: BIRGIT MENDEZ on 02/19/20 1230 Simethicone (Gas-X) 125 Mg Tab.chew, 250 MG PO PRN PRN for GAS, (Reported) Entered as Reported by: DAVIDA BEGUM on 02/28/19 1057 Sucralfate (Carafate) 1 Gm Tablet, 1 GM PO QIDACHS, (Reported) Entered as Reported by: DAVIDA BEGUM on 02/28/19 1053 Vit A/Vit C/Vit E/Zinc/Copper (Preservision Areds Tablet) 1 Each Tablet, 1 TAB PO BID, (Reported) Entered as Reported by: CALISTA SIERRA on 02/25/18 1527 Review of Systems Constitutional: see HPI EENTM: no symptoms reported Respiratory: no symptoms reported Cardiovascular: no symptoms reported Gastrointestinal: no symptoms reported Genitourinary: no symptoms reported Musculoskeletal: back pain Skin: no symptoms reported All Other Systems Reviewed Negative Unless Noted: Yes Past Pfcghzh-Hwcynr-Hntlmb Hx Patient Social History Tobacco Use?: Yes Tobacco type used: Cigarettes Smoking Status: Heavy Tobacco Smoker Use of E-Cig and/or Vaping dev: No Substance use?: No Alcohol Use?: No Pt feels they are or have been: No Immunizations Up To Date Tetanus Booster (TDap): Unknown Seasonal Allergies Seasonal Allergies: No Past Medical History Surgeries: Yes (HERNIA REPAIR, CATARACT, BACK, R KNEE) Abdominal, Appendectomy, Cardiac, Eye Surgery, Orthopedic Respiratory: Yes (HEMOPTYSIS WITH BRONCHITIS) Chronic Bronchitis, COPD Currently Using CPAP: No Currently Using BIPAP: No Cardiac: Yes Coronary Artery Disease, Heart Attack, High Cholesterol, Hypertension Neurological: No Reproductive Disorders: No Sexually Transmitted Disease: No HIV/AIDS: No Genitourinary: No Gastrointestinal: Yes Abdominal Hernia, Gastroesophageal Reflux, Gastrointestinal Bleed, Polyps, Ulcer, Gall Bladder Disease Musculoskeletal: Yes ( BACK SURGERY 1988) Degenerate Disk Disease, Arthritis, Chronic Back Pain Endocrine: Yes (HYPOERGLYCEMIA) HEENT: Yes (recent eye sx) Cataract, Tinnitis, Eye Injury Loss of Vision: Denies Hearing Impairment: Hard of Hearing Cancer: No Psychosocial: Yes (MENTAL BLOCK ([place] [place] [facility]) ) Sleep Difficulties, Violent Behavior Integumentary: No Blood Disorders: No Adverse Reaction/Blood Tranf: No Family Medical History Cardiomegaly 19 MOTHER Dysphasia G8 BROTHER G8 SISTER FH: cancer Hypertension G8 BROTHER G8 SISTER G8 SISTER Kidney disease 19 MOTHER Myocardial infarction Hypertension, Renal Disease Physical Exam Vital Signs Vital Signs - First Documented 09/06/21 15:32 Pulse 94 Resp 26 B/P (MAP) 103/81 (88) Pulse Ox 96 O2 Delivery Room Air Capillary Refill : Less Than 3 Seconds Height, Weight, BMI Height: 6'2.00" Weight: 225lbs. 0.0oz. 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 Norm as Tested Skin: Normal Color, Warm/Dry, Other (Diffuse sunburn) Progress/Results/Core Measures Results/Orders Lab Results Laboratory Tests Test 09/06/21 16:00 09/06/21 16:54 Range/Units SARS-CoV-2 RNA (RT-PCR) Not Detected Not Detecte White Blood Count 9.5 4.3-11.0 10^3/uL Red Blood Count 4.02 L 4.30-5.52 10^6/uL Hemoglobin 12.7 L 13.3-17.7 g/dL Hematocrit 37 L 40-54 % Mean Corpuscular Volume 91 80-99 fL Mean Corpuscular Hemoglobin 32 25-34 pg Mean Corpuscular Hemoglobin Concent 35 32-36 g/dL Red Cell Distribution Width 13.2 10.0-14.5 % Platelet Count 262 130-400 10^3/uL Mean Platelet Volume 11.2 9.0-12.2 fL Immature Granulocyte % (Auto) 0 % Neutrophils (%) (Auto) 61 42-75 % Lymphocytes (%) (Auto) 25 12-44 % Monocytes (%) (Auto) 12 0-12 % Eosinophils (%) (Auto) 1 0-10 % Basophils (%) (Auto) 1 0-10 % Neutrophils # (Auto) 5.8 1.8-7.8 10^3/uL Lymphocytes # (Auto) 2.4 1.0-4.0 10^3/uL Monocytes # (Auto) 1.1 H 0.0-1.0 10^3/uL Eosinophils # (Auto) 0.1 0.0-0.3 10^3/uL Basophils # (Auto) 0.1 0.0-0.1 10^3/uL Immature Granulocyte # (Auto) 0.0 0.0-0.1 10^3/uL Sodium Level 134 L 135-145 MMOL/L Potassium Level 3.5 L 3.6-5.0 MMOL/L Chloride Level 99 98-107 MMOL/L Carbon Dioxide Level 22 21-32 MMOL/L Anion Gap 13 5-14 MMOL/L Blood Urea Nitrogen 9 7-18 MG/DL Creatinine 0.82 0.60-1.30 MG/DL Estimat Glomerular Filtration Rate 100 BUN/Creatinine Ratio 11 Glucose Level 88 70-105 MG/DL Calcium Level 9.1 8.5-10.1 MG/DL Corrected Calcium 9.1 8.5-10.1 MG/DL Total Bilirubin 0.9 0.1-1.0 MG/DL Aspartate Amino Transf (AST/SGOT) 9 5-34 U/L Alanine Aminotransferase (ALT/SGPT) 13 0-55 U/L Alkaline Phosphatase 47 40-136 U/L Total Protein 6.9 6.4-8.2 GM/DL Albumin 4.0 3.2-4.5 GM/DL My Orders Orders - CELESTE GRIGGS MD Covid 19 Inhouse Test (09/06/21 16:00) Isolation Central Supply Req (09/06/21 16:00) Ed Iv/Invasive Line Start (09/06/21 16:14) Cbc With Automated Diff (09/06/21 16:14) Comprehensive Metabolic Panel (09/06/21 16:14) Ns Iv 1000 Ml (Sodium Chloride 0.9%) (09/06/21 16:15) Hydrocodone/Apap 5/325 Tablet (Lortab 5 (09/06/21 16:15) Ketorolac Injection (Toradol Injection) (09/06/21 18:15) Orphenadrine Inj (Ed Only) (Norflex Inje (09/06/21 18:15) Medications Given in ED Current Medications Medications Dose Ordered Sig/Mikayla Route Start Time Stop Time Status Last Admin Dose Admin Acetaminophen/ Hydrocodone Bitart 1 ea ONCE ONCE PO 09/06/21 16:15 09/06/21 16:16 DC 09/06/21 16:47 1 EA Vital Signs/I&O 09/06/21 15:32 Pulse 94 Resp 26 B/P (MAP) 103/81 (88) Pulse Ox 96 O2 Delivery Room Air Blood Pressure Mean: 88 Departure Impression Primary Impression: Back pain Qualified Codes: M54.6 - Pain in thoracic spine Disposition: 01 HOME, SELF-CARE Condition: Improved Departure-Patient Inst. Decision time for Depature: 18:15 Referrals: [facility] (PCP/Family) Primary Care Physician Patient Instructions: Upper Back Pain ED Add. Discharge Instructions: Drink plenty of fluids so that you stay well-hydrated. You can take [id number] Aleve 2 pills twice daily with food as needed for pain. In addition I have given you 2 days worth of narcotic pain medicine. Take this only as needed. It can make you sleepy. Do not drive and take it. You should take stool softeners while taking this medication. Take it every 6 hours as needed. Please call your primary care doctor tomorrow for a follow-up appointment this week. If you start running a high fever greater than 101, have worsening back pain, rash, vomiting or any other emergent concerning symptoms, please come back to the emergency department for reevaluation. Scripts Methocarbamol (Methocarbamol) 750 Mg Tablet 750 MG PO Q6-8HR for Back Pain, #20 TAB Prov: CELESTE GRIGGS MD 09/06/21 Hydrocodone/Acetaminophen (Hydrocodone-Acetamin 5-325 mg) 5 Mg-325 Mg Tablet 1 TAB PO Q6H PRN for PAIN-MODERATE (5-7), #10 TAB Prov: CELESTE GRIGGS MD 09/06/21 CELESTE GRIGGS MD Sep 06, 2021 16:18
[2021-09-06 17:02] LABS: BASOPHILS # (AUTO) 0.1 10^3/uL (0.0-0.1); BASOPHILS % (AUTO) 1 % (0-10); EOSINOPHILS # (AUTO) 0.1 10^3/uL (0.0-0.3); EOSINOPHILS % (AUTO) 1 % (0-10); HEMATOCRIT 37 % (40-54); HEMOGLOBIN 12.7 g/dL (13.3-17.7); LYMPHOCYTES # (AUTO) 2.4 10^3/uL (1.0-4.0); LYMPHOCYTES % (AUTO) 25 % (12-44); MEAN CORPUSCULAR HEMOGLOBIN 32 pg (25-34); MEAN CORPUSCULAR HGB CONC 35 g/dL (32-36); MEAN CORPUSCULAR VOLUME 91 fL (80-99); MEAN PLATELET VOLUME 11.2 fL (9.0-12.2); MONOCYTES # (AUTO) 1.1 10^3/uL (0.0-1.0); MONOCYTES % (AUTO) 12 % (0-12); NEUTROPHILS # (AUTO) 5.8 10^3/uL (1.8-7.8); NEUTROPHILS % (AUTO) 61 % (42-75); PLATELET COUNT 262 10^3/uL (130-400); WHITE BLOOD COUNT 9.5 10^3/uL (4.3-11.0)
[2021-09-06 17:17] LABS: POTASSIUM 3.5 MMOL/L (3.6-5.0)
[2021-09-06 17:18] LABS: CALCIUM 9.1 MG/DL (8.5-10.1)
[2021-09-06 17:19] LABS: TOTAL PROTEIN 6.9 GM/DL (6.4-8.2)
[2021-09-06 17:21] LABS: BILIRUBIN,TOTAL 0.9 MG/DL (0.1-1.0)
[2021-09-06 17:23] LABS: CREATININE SERUM 0.82 MG/DL (0.60-1.30)
[2021-09-06] MEDS ORDERED: KETOROLAC 30 MG/ML VIAL IVP ONE (18:15)
[2021-09-06] MEDS ORDERED: ORPHENADRINE 60 MG/2 ML (NORFLEX) AMP (ED ONLY) IV ONE (18:15)
[2021-09-06] MEDS ORDERED: ACHD5005 PO (18:17)
[2021-09-06] MEDS ORDERED: METH-732 PO (18:17)
[2021-09-06 18:56] VITALS: BP 109/67
== END 2021-09-06 19:00 | disposition home or self-care (01) ==
LOC: EDUNIT# 15:27 → ER 15:29
DX: M54.6 Pain in thoracic spine (principal); M54.2 Cervicalgia; M43.26 Fusion of spine, lumbar region; F17.210 Nicotine dependence, cigarettes, uncomplicated; Z20.822 Contact with and (suspected) exposure to COVID-19
CPT/HCPCS: 36415; 80053; 85025; 87636

== ENCOUNTER → 2021-10-22 | Outpatient (CLI) | payer MEDICARE, MEDICAID ==
[~2021-10-22] MED LIST changes: +METH-732 PO; +RT-ALBUTEROL SULF 2.5 MG/3 ML PRE-MIX VIAL INH ONE
== END ==
LOC: RT 14:47
PROVIDERS: ATTEND Nurse Practitioner Family
DX: J43.9 Emphysema, unspecified (principal)
CPT/HCPCS: 94060; 94726; 94729

== ENCOUNTER → 2022-02-24 | Outpatient (CLI) | payer MEDICARE, MEDICAID ==
[~2022-02-24] VITALS: Ht 187 cm; Wt 100.0 kg
[~2022-02-24] MED LIST changes: +ALBU8.5H6 IH; +CATHETER FLUSH 10 ML SYR IVP PRN; +CLOP-31 PO; -CLOP75TA69 PO; +LEVO-55 PO; -LEVO500T81 PO; +REGADENOSON 0.4 MG/5 ML SYR (LEXISCAN) IV ONE; -RT-ALBUTEROL SULF 2.5 MG/3 ML PRE-MIX VIAL INH ONE
[2022-02-24 09:01] VITALS: BP 159/107
[2022-02-24 09:07] VITALS: BP 157/95
--- NOTE | 2022-02-24 17:16 | Cardiology Stress Test Report ---
Stress Test Report Date of Procedure/Referring: Date of Procedure: Feb 24, 2022 [facility] Admitting Physician Admitting Physician: Attending Physician: Ariadna Gibbons Baseline Heart Rate: 96 Baseline Blood Pressure: Blood Pressure Systolic: 157 Blood Pressure Diastolic: 95 Baseline Vitals Vital Signs Date Time Temp Pulse Resp B/P (MAP) Pulse Ox O2 Delivery O2 Flow Rate FiO2 02/24/22 09:01 90 17 159/107 (124) 99 Room Air Baseline EKG: Baseline EKG: NSR Summary After explaining the procedure to the patient, he signed a consent and then brought to the stress nuclear laboratory. Patient received 0.4 mg Lexiscan for stress test, ECG, heart rate and blood pressure were monitored continuously. Resting and stress dose of radio tracer were injected, imaging was acquired and reviewed in short axis, horizontal long axis and vertical long axis views. TID: 0.97 SSS: 13 SDS: 0 EF: 54 1. Patient tolerated Lexiscan well 2. Diaphragmatic attenuation affecting the quality of the images with fixed def ect involving the whole inferior wall and inferolateral wall with no significant reversibility. Most probably due to the extracardiac attenuation 3. Normal left ventricular size, normal contractility, inferior wall is mark normally, ejection fraction 54% Copy Copies To 1: [facility]/ EMILY ALICEA MD Feb 24, 2022 17:16
== END ==
LOC: CARD 07:13
PROVIDERS: ATTEND Physician Assistant
DX: I25.10 Atherosclerotic heart disease of native coronary artery without angina pectoris (principal)
CPT/HCPCS: 78452; 93017

== ENCOUNTER 2023-02-21 19:52 | Emergency (ER) | payer MEDICARE, MEDICAID ==
[~2023-02-21] VITALS: Ht 187.9 cm; Wt 102.0 kg
[~2023-02-21 19:52] MED LIST changes: -CATHETER FLUSH 10 ML SYR IVP PRN; -GENT5DRO30 OS; +GENT5DRO6 OS; -MECL-149 PO; +MECL-291 PO; -REGADENOSON 0.4 MG/5 ML SYR (LEXISCAN) IV ONE
--- NOTE | 2023-02-21 20:09 | ED Fall/Injury ---
General Stated Complaint: FELL, BACK PAIN, LT LEG PAIN Source: patient Exam Limitations: no limitations History of Present Illness Date Seen by Provider: Feb 21, 2023 Time Seen by Provider: 20:09 Initial Comments Patient is a 62-year-old male who presents to the emergency room after mechanical fall approximately an hour prior to arrival. He was turning, lost his balance and went down 3 concrete steps. Landed on his buttocks. Was able to get himself to a standing position. Is concerned that he may have rebroke in his back. He has had back surgery many years ago. Denies any incontinence after the fall. No numbness, tingling or weakness. Points to the lower lumbar area across the posterior superior iliac crest. No wounds are observed on the back. He states that he did not hit his head or have loss of consciousness. He has COPD, chronic bronchitis. He occasionally has to use inhalers but has been out. He sees Dr. Holguin for blood pressure. Is quite hypertensive with a diastolic of 107 currently. He states he takes his blood pressure medications in the mornings. He is due for a follow-up appointment. Denies increased chest pain or shortness of breath, no fevers or chills. Occurred: just prior to arrival (1 hour) Severity: moderate Injuries/Pain Location: back Context: lost balance Loss of Consciousness: no loss of consciousness Modifying Factors: Worse With Movement Allergies and Home Medications Allergies Coded Allergies: Penicillins (Verified Allergy, Intermediate, 03/26/18) causes dysrhythmias Patient Home Medication List Home Medication List Reviewed: Yes Acetaminophen (Acetaminophen 8 Hour) 650 Mg Tablet.er, 1,300 MG PO BID, (Reported) Entered as Reported by: DAVIDA BEGUM on 02/28/19 1038 Albuterol Sulfate (Ventolin Hfa) 1 Puff Puff, 2 PUFF IH Q4H PRN for WHEEZING, (Reported) Entered as Reported by: MOODY MINOR on 01/25/19 1105 Amlodipine Besylate (Amlodipine Besylate) 5 Mg Tablet, 5 MG PO DAILY, (Reported) Entered as Reported by: MOODY MINOR on 01/25/19 1105 Aspirin (Aspir 81) 81 Mg Tablet.dr, 81 MG PO DAILY, (Reported) Entered as Reported by: OLIVER KOLB on 07/07/15 0321 Atorvastatin Calcium (Atorvastatin Calcium) 10 Mg Tablet, 10 MG PO DAILY, (Reported) Entered as Reported by: LONG CHURCH on 09/23/17 0952 Azithromycin (Azithromycin) 250 Mg Tablet, 250 MG PO UD Prescribed by: DAVEY HALEY on 04/06/21 1900 Gabapentin (Gabapentin) 300 Mg Capsule, 300 MG PO BID, (Reported) Entered as Reported by: DAVIDA BEGUM on 02/28/19 1054 Hydrocodone/Acetaminophen (Hydrocodone-Acetamin 5-325 mg) 5 Mg-325 Mg Tablet, 1 TAB PO Q6H PRN for PAIN-MODERATE (5-7) Prescribed by: CELESTE GRIGGS on 09/06/21 1818 Levofloxacin (Levofloxacin) 500 Mg Tablet, 500 MG PO DAILY Prescribed by: BIRGIT MENDEZ on 02/19/20 1230 Lisinopril (Lisinopril) 40 Mg Tablet, 40 MG PO DAILY, (Reported) Entered as Reported by: MOODY MINOR on 01/25/19 1105 Lorazepam (Ativan) 1 Mg Tablet, 1 MG PO Q8H PRN for ANXIETY Prescribed by: BIRGIT MENDEZ on 02/27/21 1236 Methocarbamol (Methocarbamol) 750 Mg Tablet, 750 MG PO Q6-8HR Prescribed by: CELESTE GRIGGS on 09/06/21 181 Nitroglycerin (Nitroglycerin) 0.4 Mg Tab.subl, 0.4 MG SL UD PRN for CHEST PAIN, (Reported) Entered as Reported by: JULIENNE MENDOZA on 02/25/18 1535 Pantoprazole Sodium (Pantoprazole Sodium) 40 Mg Tablet.dr, 40 MG PO DAILY, (Reported) Entered as Reported by: SERGIO BOWSER on 02/22/17 0726 Prednisone (Prednisone) 20 Mg Tab, 40 MG PO DAILY Prescribed by: BIRGIT MENDEZ on 02/19/20 1230 Simethicone (Gas-X) 125 Mg Tab.chew, 250 MG PO PRN PRN for GAS, (Reported) Entered as Reported by: DAVIDA BEGUM on 02/28/19 1057 Sucralfate (Carafate) 1 Gm Tablet, 1 GM PO QIDACHS, (Reported) Entered as Reported by: DAVIDA BEGUM on 02/28/19 1053 Vit A/Vit C/Vit E/Zinc/Copper (Preservision Areds Tablet) 1 Each Tablet, 1 TAB PO BID, (Reported) Entered as Reported by: CALISTA SIERRA on 02/25/18 1527 Review of Systems Review of Systems Constitutional: see HPI Eyes: No Symptoms Reported Ears, Nose, Mouth, Throat: no symptoms reported Respiratory: no symptoms reported Cardiovascular: no symptoms reported Gastrointestinal: no symptoms reported Musculoskeletal: back pain Skin: no symptoms reported Past Zbmjjyz-Wjocrb-Tgggnk Hx Immunizations Up To Date Tetanus Booster (TDap): Unknown Seasonal Allergies Seasonal Allergies: No Past Medical History Surgeries: Yes (HERNIA REPAIR, CATARACT, BACK, R KNEE) Abdominal, Appendectomy, Cardiac, Eye Surgery, Orthopedic Respiratory: Yes (HEMOPTYSIS WITH BRONCHITIS) Chronic Bronchitis, COPD Currently Using CPAP: No Currently Using BIPAP: No Cardiac: Yes Coronary Artery Disease, Heart Attack, High Cholesterol, Hypertension Neurological: No Reproductive Disorders: No Sexually Transmitted Disease: No HIV/AIDS: No Genitourinary: No Gastrointestinal: Yes Abdominal Hernia, Gastroesophageal Reflux, Gastrointestinal Bleed, Polyps, Ulcer, Gall Bladder Disease Musculoskeletal: Yes ( BACK SURGERY 1988) Degenerate Disk Disease, Arthritis, Chronic Back Pain Endocrine: Yes (HYPOERGLYCEMIA) HEENT: Yes (recent eye sx) Cataract, Tinnitis, Eye Injury Loss of Vision: Denies Hearing Impairment: Hard of Hearing Cancer: No Psychosocial: Yes (MENTAL BLOCK ([place] [place] [facility] 3 [facility]) ) Sleep Difficulties, Violent Behavior Integumentary: No Blood Disorders: No Adverse Reaction/Blood Tranf: No Family Medical History Cardiomegaly 19 MOTHER Dysphasia G8 BROTHER G8 SISTER FH: cancer Hypertension G8 BROTHER G8 SISTER G8 SISTER Kidney disease 19 MOTHER Myocardial infarction Hypertension, Renal Disease Physical Exam Vital Signs Vital Signs - First Documented 02/21/23 02/21/23 20:12 20:22 Pulse 92 B/P (MAP) 197/119 (145) Pulse Ox 88 O2 Delivery Room Air O2 Flow Rate 2.00 Capillary Refill : Height, Weight, BMI Height: 6'2.00" Weight: 225lbs. 0.0oz. 102.070142ha; 28.59 BMI Method:Stated General Appearance: WD/WN, no apparent distress HEENT: PERRL/EOMI Cardiovascular: regular rate, rhythm Respiratory: no respiratory distress, no accessory muscle use, wheezing Gastrointestinal: normal bowel sounds, non tender, soft Back: normal inspection, other (healed scars; tender (mild) to mid low back and bilateral SI joints) Extremities: normal range of motion, normal inspection, pelvis stable Neurologic/Psychiatric: no motor/sensory deficits, alert, normal mood/affect, oriented x 3 Skin: normal color, warm/dry Progress/Results/Core Measures Results/Orders My Orders Orders - CELESTE GRIGGS MD Lidocaine 4% Patch (Salonpas 4% Patch) (02/22/23 09:00) Ketorolac Injection (Ketorolac Injection (02/21/23 20:30) Orphenadrine Inj (Ed Only) (Orphenadrine (02/21/23 20:30) Ipratropium/Albuterol Inh Soln (Ipratrop (02/21/23 20:30) Svn Small Volume Nebulizer (02/21/23 20:22) Lidocaine 4% Patch (Salonpas 4% Patch) (02/21/23 20:33) Medications Given in ED Current Medications Medications Dose Ordered Sig/Mikayla Route Start Time Stop Time Status Last Admin Dose Admin Albuterol/ Ipratropium 3 ml ONCE ONCE INH 02/21/23 20:30 02/21/23 20:31 DC 02/21/23 20:37 3 ML Ketorolac Tromethamine 30 mg ONCE ONCE IM 02/21/23 20:30 02/21/23 20:31 DC 02/21/23 20:37 30 MG Lidocaine 1 ea STK-MED ONCE .ROUTE 02/21/23 20:33 02/21/23 20:36 DC 02/21/23 20:37 1 EA Orphenadrine Citrate 60 mg ONCE ONCE IM 02/21/23 20:30 02/21/23 20:31 DC 02/21/23 20:37 60 MG Vital Signs/I&O 02/21/23 02/21/23 02/21/23 20:12 20:12 20:22 Pulse 92 B/P (MAP) 197/119 (145) 197/119 (145) Pulse Ox 88 88 O2 Delivery Room Air Room Air Nasal Cannula O2 Flow Rate 2.00 Progress Progress Note : Time: 18:26 Departure Impression Primary Impression: Low back pain Qualified Codes: M54.50 - Low back pain, unspecified Disposition: 01 HOME, SELF-CARE Condition: Stable Departure-Patient Inst. Decision time for Depature: 21:12 Referrals: [facility] [place] (PCP/Family) Primary Care Physician Patient Instructions: Low back pain in adults Add. Discharge Instructions: Use over the counter Lidocaine patches - follow packaging instructions. Alternate heat and ice. Tramadol as needed for more severe pain. Please call and follow up with his primary care doctor this week. Scripts Tramadol HCl (Tramadol HCl) 50 Mg Tablet 50 MG PO Q6H PRN for PAIN, #10 TAB 0 Refills Prov: CELESTE GRIGGS MD 02/21/23 Copy Copies To 1: YUMIKO HEADLEY KATHRYN M MD Feb 21, 2023 20:09
[2023-02-21] MEDS ORDERED: RT-Ipratropium/Albuterol NEB 3 ML VIAL INH ONE (20:30)
[2023-02-21] MEDS ORDERED: ORPHENADRINE 60 MG/2 ML AMP (ED ONLY) IM ONE (20:30)
[2023-02-21] MEDS ORDERED: KETOROLAC INJ 30 MG/ML VIAL IM ONE (20:30)
[2023-02-21] MEDS ORDERED: LIDOCAINE 4% PATCH ONE (20:33)
[2023-02-21] MEDS ORDERED: TRM50T PO (21:14)
[2023-02-21 21:24] VITALS: BP 161/118
[2023-02-21] MEDS ORDERED: HYDROcodone/ACETAMINOPHEN 10/325 TABLET PO ONE (21:30)
[2023-02-22] MEDS ORDERED: LIDOCAINE 4% PATCH TOP SCH (09:00)
== END 2023-02-21 21:27 | disposition home or self-care (01) ==
LOC: EDUNIT# 19:52 → ER 19:55
DX: M54.50 Low back pain, unspecified (principal); W10.9XXA Fall (on) (from) unspecified stairs and steps, initial encounter